=== PATIENT | female | born 1955 | race Caucasian/White ===

== ENCOUNTER 2017-04-25 14:51 | Emergency (ER) | payer OTHER, SELFPAY ==
--- NOTE | 2017-04-25 16:13 | RAD ---
THREE VIEWS LEFT ANKLE 04/25/17 HISTORY: Twisting injury left ankle with pain. AP, lateral and oblique views left ankle is obtained. No evidence of left ankle fractures, subluxati ons, or bony lesions seen. IMPRESSION: Normal three views left ankle. POS: [facility]
[2017-04-25] MEDS ORDERED: HYDROcodone/Acetaminophen 5/325 mg Tablet ONE (16:26)
== END 2017-04-25 17:18 | disposition home or self-care (01) ==
LOC: ERS 14:51
DX: S86.012A Strain of left Achilles tendon, initial encounter (principal); S93.402A Sprain of unspecified ligament of left ankle, initial encounter; S93.602A Unspecified sprain of left foot, initial encounter; I10 Essential (primary) hypertension; J45.909 Unspecified asthma, uncomplicated; E11.9 Type 2 diabetes mellitus without complications; M19.90 Unspecified osteoarthritis, unspecified site; F32.9 Major depressive disorder, single episode, unspecified; Z79.4 Long term (current) use of insulin; X50.1XXA Overexertion from prolonged static or awkward postures, initial encounter; Y92.009 Unspecified place in unspecified non-institutional (private) residence as the place of occurrence of the external cause

== ENCOUNTER 2017-05-10 14:20 | Emergency (ER) | payer SELFPAY | END 2017-05-10 15:00 | disposition home or self-care (01) | LOC: ERS 14:20 | DX: S86.012A Strain of left Achilles tendon, initial encounter (principal); S93.402A Sprain of unspecified ligament of left ankle, initial encounter; S93.602A Unspecified sprain of left foot, initial encounter; E11.9 Type 2 diabetes mellitus without complications; I10 Essential (primary) hypertension; J45.909 Unspecified asthma, uncomplicated; F32.9 Major depressive disorder, single episode, unspecified; X50.1XXA Overexertion from prolonged static or awkward postures, initial encounter; Z79.4 Long term (current) use of insulin | CPT/HCPCS: 99283 ==

== ENCOUNTER 2017-07-04 11:36 | Emergency (ER) | payer SELFPAY ==
[2017-07-04] MEDS ORDERED: HYDROcodone/Acetaminophen 10/325 mg Tablet ONE (12:45)
== END 2017-07-04 13:25 | disposition home or self-care (01) ==
LOC: ERS 11:36
DX: M25.512 Pain in left shoulder (principal); M25.511 Pain in right shoulder; S90.212A Contusion of left great toe with damage to nail, initial encounter; I10 Essential (primary) hypertension; J45.909 Unspecified asthma, uncomplicated; Z79.4 Long term (current) use of insulin; E11.40 Type 2 diabetes mellitus with diabetic neuropathy, unspecified; F32.9 Major depressive disorder, single episode, unspecified; Z79.899 Other long term (current) drug therapy; X58.XXXA Exposure to other specified factors, initial encounter
CPT/HCPCS: 99283

== ENCOUNTER 2017-07-15 17:26 | Emergency (ER) | payer SELFPAY | END 2017-07-15 19:44 | disposition home or self-care (01) | LOC: ERS 17:26 | DX: J10.1 Influenza due to other identified influenza virus with other respiratory manifestations (principal); I10 Essential (primary) hypertension; J45.909 Unspecified asthma, uncomplicated; E11.40 Type 2 diabetes mellitus with diabetic neuropathy, unspecified; M19.90 Unspecified osteoarthritis, unspecified site; F32.9 Major depressive disorder, single episode, unspecified; Z79.4 Long term (current) use of insulin; Z79.899 Other long term (current) drug therapy | CPT/HCPCS: 99283 ==

== ENCOUNTER 2017-07-30 11:49 | Emergency (ER) | payer OTHER, SELFPAY ==
[2017-07-30] MEDS ORDERED: Azithromycin 250 MG TAB ONE (13:34)
--- NOTE | 2017-07-30 14:07 | RAD ---
CHEST ONE VIEW: History: Cough. FINDINGS: Comparison 10-28-14. Cardiac silhouette is magnified by projection. Pulmonary vasculature is unremarkable. Mediastinum is midline. There is no confluent airspace consolidation or evidence of pneumothorax. IMPRESSION: No active cardiopulmonary abnormalities are demonstrated. POS: [facility]
== END 2017-07-30 13:29 | disposition home or self-care (01) ==
LOC: ERS 11:49
DX: R05 Cough (principal); I10 Essential (primary) hypertension; J45.909 Unspecified asthma, uncomplicated; E11.9 Type 2 diabetes mellitus without complications; M19.90 Unspecified osteoarthritis, unspecified site; F32.9 Major depressive disorder, single episode, unspecified; Z79.4 Long term (current) use of insulin
CPT/HCPCS: 71010; 94640; J7620

== ENCOUNTER 2017-09-19 18:48 | Inpatient (IN) | payer SELFPAY ==
[2017-09-19 19:33] LABS: Bilirubin Small (Negative); Blood, Urine Large (Negative); Glucose, Urine (Dipstick) 100 mg/dL (Negative); Leukocyte Trace (Negative); Nitrite Negative (Negative); Protein, Urine (Dipstick) > or equal to 300 mg/dL (Neg-Trace); Specific Gravity, Urine 1.025 (1.005-1.030); Urobilinogen 0.2 mg/dL (0.2-1.0)
[2017-09-19 19:35] LABS: Clarity CLOUDY (Clear)
[2017-09-19 19:36] LABS: Bacteria/HPF 3+ HPF (None Seen); Hyaline Casts/LPF NONE SEEN LPF (0-3 Hyaline); RBC/HPF GREATER THAN 50-TNTC HPF (0-3); Squamous Epithelial 0-3 HPF (0-3)
[2017-09-19 19:52] LABS: #Basophils 0.1 thou/uL (0.0-0.2); #Eosinphils 0.4 thou/uL (0.0-0.7); #Lymphocytes 2.4 thou/uL (1.20-3.40); #Monocytes 0.4 thou/uL (0.11-0.59); #Neutrophils 4.3 thou/uL (1.40-6.50); %Basophils 1.3 % (0.0-1.0); %Eosinophils 5.3 % (0.0-10.0); %Lymphocytes 31.4 % (21.0-51.0); %Monocytes 5.5 % (0.0-10.0); %Neutrophils 56.5 % (42.0-75.0); Hemoglobin 12.9 g/dL (12.0-16.0); Mean Corpuscular HGB CONC 33.7 g/dL (32.0-36.0); Mean Corpuscular Hemoglobin 31.1 pg (27.0-31.0); Mean Corpuscular Volume 92.3 fl (81.0-99.0); Mean Platelet Volume 7.5 fL (7.4-10.4); Platelet Count 202 thou/uL (130-400); RBC Distribution Width 12.4 % (11.5-14.5); Red Blood Cell (RBC) Count 4.13 mill/uL (4.20-5.40); White Blood Cell (WBC) Count 7.7 thou/uL (4.8-10.8)
[2017-09-19 20:11] LABS: ALT (SGPT) 7 U/L (8-55); AST (SGOT) 12 U/L (5-34); Albumin 3.2 g/dL (3.5-5.0); Alkaline Phosphatase 70 U/L (40-150); Anion Gap 13 mmol/L (10-20); BUN (Urea Nitrogen) 14 mg/dL (9.8-20.1); Bilirubin, Total 0.5 mg/dL (0.2-1.2); Calc. Creatinine Clearance 0 mL/min (70-130); Carbon Dioxide 26 mmol/L (22-29); Chloride 100 mmol/L (98-107); Estimated GFR-MDRD 71; Globulin 3.4 g/dL (2.4-3.5); Glucose 135 mg/dL (70-105); Lipase 16 U/L (8-78); Potassium 3.2 mmol/L (3.5-5.1); Protein, Total 6.6 g/dL (6.0-8.3); Sodium 136 mmol/L (136-145)
--- NOTE | 2017-09-19 20:18 | RAD ---
FRONTAL VIEW CHEST 09/19/17 COMPARISON: 07/30/17 CLINICAL HISTORY: Fever, wheezing, blood in urine. FINDINGS: The cardiac silhouette is enlarged as is pulmonary vasculature. There is bilateral interstitial retic ulonodular opacification. No significant effusion or discrete pneumothorax. IMPRESSION: Evidence of decompensated CHF. Correlate clinically. Recommend followup imaging to confirm resolution . POS: [facility]
[2017-09-19 20:31] LABS: CKMB 0.8 ng/mL (0-6.6)
--- NOTE | 2017-09-19 20:37 | CT ---
NONCONTRAST ABDOMEN AND PELVIS CT 09/19/17 CLINICAL HISTORY: Abdominal pain with fever. FINDINGS: There is multifocal abnormal reticulonodular and ground glass opacity of the imaged lung bases bilate rally. There is no urolithiasis or obstructive uropathy. Prior cholecystectomy. The solid abdominal o rgans and bowel, lymph nodes, and vasculature limits assessment without IV contrast or enteric contra st. There is marked thickening of the urinary bladder wall with scattered areas of bladder wall air d ensity. Prominent perivesicular edema is present within the pelvis. Osseous structures reveal degener ative change. IMPRESSION: 1. Atypical pneumonia favored at the partially imaged lung bases, although incompletely evaluate d. Followup imaging to confirm resolution is necessary, given nodularity, in order to exclude a neopl astic process. 2. Findings indicative of emphysematous cystitis. Correlate clinically. POS: [facility]
[2017-09-19] MEDS ORDERED: Enoxaparin Sodium 100 MG/ML SYRINGE ONE (22:12)
[2017-09-19] MEDS ORDERED: Dextrose 50% Abboject 50 ML SYRINGE SLOW IVP PRN (23:24)
[2017-09-19] MEDS ORDERED: HYDROcodone/Acetaminophen 5/325 mg Tablet PO PRN (23:24)
[2017-09-19] MEDS ORDERED: Bisacodyl 5 MG TAB PO PRN (23:24)
[2017-09-19] MEDS ORDERED: Dextrose 5% in Water 1,000 ML IV PRN (23:24)
[2017-09-19] MEDS ORDERED: HumaLOG 300 UNITS/3 ML VIAL SC PRN (23:24)
[2017-09-19] MEDS ORDERED: Acetaminophen 325 MG TAB PO PRN (23:24)
[2017-09-19] MEDS ORDERED: HYDROcodone/Acetaminophen 7.5/325 mg Tablet PO PRN (23:24)
[2017-09-20 00:01] LABS: Critical Call Chem Troponin I RESULT DECREASING; Troponin I 0.441 ng/mL (< 0.028)
[2017-09-20] MEDS ORDERED: Potassium Chloride 20 MEQ TAB PO SCH (00:15)
--- NOTE | 2017-09-20 00:23 | HP ---
CHIEF COMPLAINT: Fevers and wheezing. HISTORY OF PRESENT ILLNESS: Patient is a 61-year-old female who presents with several day history of fevers and wheezing. Patient states that she was coughing as well and had a productive yellow sputu m. She denied any chest pain or any other symptoms. She denied any travel or any sick contacts at [facility]. PAST MEDICAL HISTORY: Patient is significant for hypertension as well as type 2 diabetes with neurop athy, osteoarthritis, and asthma. PAST SURGICAL HISTORY: Patient has had prior appendectomy, , umbilical hernia repair, hyste rectomy, bilateral knee repair, and tonsillectomy. SOCIAL HISTORY: Negative for tobacco or alcohol use. REVIEW OF SYSTEMS: Please see HPI. Rest of 14-point review of system is negative. FAMILY HISTORY: Reviewed and noncontributory. LABORATORY AND X-RAY DATA: CBC, white count of 7.7, H&H 12 and 38 with a platelet of 202. Sodium 13 6, potassium 3.2, chloride 100, bicarbonate 26, BUN 14, creatinine 0.8 with a glucose of 135. Tropon in is 0.5. UA showed trace leukocyte esterase, negative nitrites. CT of the abdomen and pelvis show s an atypical pneumonia at the lung bases and chest x-ray showed possible CHF versus pneumonia. PHYSICAL EXAMINATION: VITAL SIGNS: Blood pressure 115/70, pulse 105. Patient satting 98% on room air. GENERAL: Patient is awake and alert and oriented x3, no acute distress. HEENT: Pupils are equal, round, react to light and accommodation. Extraocular muscles intact. TMs are clear. No erythema in throat. NECK: No JVD, no lymphadenopathy. CARDIOVASCULAR: Regular rate and rhythm. LUNGS: With some soft wheezing throughout. ABDOMEN: Positive bowel sounds, soft, nontender, nondistended. EXTREMITIES: No clubbing, cyanosis, or edema. NEUROLOGIC: Cranial nerves II-XII are grossly intact. Muscle strength was 5/5 throughout. PSYCHIAT MICHAEL: Patient is cooperative and answers questions appropriately. ASSESSMENT AND PLAN: 1. Pneumonia. Continue with current antibiotics of Levaquin. Symptoms as appropriate. 2. Elevated troponin. Continue to trend and depending on the trend, we will decide to treat appropr iately. We will continue on aspirin for now. Lovenox was ordered by the ER. 3. Type 2 diabetes. Continue on insulin 70/30 and insulin sliding scale. 4. Hyperlipidemia. Continue Lipitor. 5. Neuropathy. Continue to amitriptyline. 6. Code status. Patient is a FULL CODE.
[2017-09-20 02:10] VITALS: BMI 38.2
[2017-09-20 02:29] LABS: #Eosinphils 0.1 thou/uL (0.0-0.7); #Lymphocytes 1.4 thou/uL (1.20-3.40); #Monocytes 0.4 thou/uL (0.11-0.59); #Neutrophils 5.4 thou/uL (1.40-6.50); %Basophils 0.3 % (0.0-1.0); %Eosinophils 1.6 % (0.0-10.0); %Lymphocytes 18.9 % (21.0-51.0); %Monocytes 5.9 % (0.0-10.0); %Neutrophils 73.3 % (42.0-75.0); Hemoglobin 11.3 g/dL (12.0-16.0); Mean Corpuscular HGB CONC 34.9 g/dL (32.0-36.0); Mean Corpuscular Volume 91.6 fl (81.0-99.0); Mean Platelet Volume 7.1 fL (7.4-10.4); Platelet Count 181 thou/uL (130-400); RBC Distribution Width 12.3 % (11.5-14.5); Red Blood Cell (RBC) Count 3.53 mill/uL (4.20-5.40); White Blood Cell (WBC) Count 7.4 thou/uL (4.8-10.8)
[2017-09-20 02:56] LABS: Anion Gap 13 mmol/L (10-20); BUN (Urea Nitrogen) 13 mg/dL (9.8-20.1); Calc. Creatinine Clearance 118 mL/min (70-130); Calcium 8.6 mg/dL (7.8-10.44); Carbon Dioxide 27 mmol/L (22-29); Chloride 102 mmol/L (98-107); Critical Call Chem Troponin I RESULT DECREASING; Estimated GFR-MDRD 78; Glucose 206 mg/dL (70-105); Potassium 3.9 mmol/L (3.5-5.1); Sodium 138 mmol/L (136-145); Troponin I 0.319 ng/mL (< 0.028)
[2017-09-20] MEDS ORDERED: FLU VACC QS2017-18 36 mo. & older 0.5 ML SYRINGE IM ONE (09:00)
[2017-09-20] MEDS: Famotidine/PF 20 mg/2ml Vial SLOW IVP SCH ×2 (10:31→21:29)
[2017-09-20] MEDS: Aspirin 325 MG TAB PO SCH (10:31)
[2017-09-20] MEDS: Insulin NPH/Reg Insulin Hm 300 UNITS/3 ML VIAL SC SCH ×2 (11:07→21:29)
--- NOTE | 2017-09-20 13:27 | PDOC.PN ---
- Subjective Encounter Start Date: 09/20/17 Encounter Start Time: 11:45 Subjective: pt up in bed feels better today - Objective Resuscitation Status: Resuscitation Status FULL:Full Resuscitation Vital Signs & Weight: Vital Signs (12 hours) Temp Pulse Resp BP Pulse Ox 09/20/17 08:00 97.8 F 80 17 153/77 H 98 09/20/17 04:00 99.8 F H 106 H 20 141/73 H 96 Weight Weight 209 lb I&O: 09/19/17 09/20/17 09/21/17 06:59 06:59 06:59 Intake Total 360 Output Total 900 Balance -540 Result Diagrams: 09/20/17 02:20 09/20/17 02:20 Additional Labs: Accuchecks 09/20/17 05:52 POC Glucose 190 H Phys Exam - Physical Examination HEENT: PERRLA, moist MMs Neck: no nodes, no JVD Respiratory: wheezing present (mild and mild rhonchi) Cardiovascular: RRR, no significant murmur Gastrointestinal: soft, non-tender Musculoskeletal: no edema Neurological: non-focal Dx/Plan (1) Pneumonia Code(s): J18.9 - PNEUMONIA, UNSPECIFIED ORGANISM Status: Acute Qualifiers: Pneumonia type: due to unspecified organism Laterality: bilateral Lung location: unspecified part of lung Qualified Code(s): J18.9 - Pneumonia, unspecified organism Plan: will continue levaquin. influenza negative. will collect sputum. duonebs scheduled. pt has a hx of asthma. (2) Pneumonia Code(s): J18.9 - PNEUMONIA, UNSPECIFIED ORGANISM Status: Acute (3) Elevated troponin Code(s): R74.8 - ABNORMAL LEVELS OF OTHER SERUM ENZYMES Status: Acute Plan: pt's trops were elevated and now are trending down. she has had a hx of cva 4 years ago with mild right lower ext residual weakness. she is diabetic/htn/cva and has not had a stress test for about 20y. EKG non specific changes. will consult cardiology. (4) CVA (cerebral vascular accident) Code(s): I63.9 - CEREBRAL INFARCTION, UNSPECIFIED Status: Acute Plan: pt on asa will add statin. also check lipid level (5) HTN (hypertension) Code(s): I10 - ESSENTIAL (PRIMARY) HYPERTENSION Status: Acute Plan: continue to monitor (6) Diabetes mellitus Code(s): E11.9 - TYPE 2 DIABETES MELLITUS WITHOUT COMPLICATIONS Status: Acute Qualifiers: Diabetes mellitus type: type 2 Diabetes mellitus complication detail: with other oral complications Diabetes mellitus skilled nursing insulin use: unspecified skilled nursing insulin use status Plan: will continue current tx - Plan * .
[2017-09-20 15:00] LABS: Cardiac Risk 6.3 (Less than 4.5)
[2017-09-20] MEDS ORDERED: Communication Order-Pharmacy FS SCH (16:00)
[2017-09-20] MEDS: Metoprolol Tartrate 25 MG TAB PO SCH ×2 (16:29→21:29)
--- NOTE | 2017-09-20 19:52 | CON ---
DATE OF CONSULTATION: 09/20/2017 HISTORY OF PRESENT ILLNESS: The patient is a 61-year-old woman with a history of hypertension and diabetes mellitus, who presented with coughing and dyspnea. The patient has no known history of cardiac history. The patient states that she presented because she started having a cough and started having low grade fever. The patient denied having any chest discomfort. The patient has multiple cardiac risk factors and was admitted for further evaluation. PAST MEDICAL HISTORY: 1. Diabetes mellitus. 2. Hypertension. 3. Dyslipidemia. PAST SURGICAL HISTORY: Hysterectomy, , hernia surgery, knee surgery, tonsillectomy, and cholecystectomy. ALLERGIES: CODEINE, LATEX and PENICILLIN. SOCIAL HISTORY: Nonsmoker. FAMILY HISTORY: No strong family history of heart disease. REVIEW OF SYSTEMS: Ten-point system otherwise unremarkable. No history of easy bruising or bleeding, bright red blood per rectum. PHYSICAL EXAMINATION: GENERAL: Obese woman, in no acute distress. VITAL SIGNS: Blood pressure was 173/82. NECK: Showed no jugular venous distention. LUNGS: Clear to auscultation. HEART: Regular rate and rhythm, normal S1, S2 with 1/6 systolic murmur. ABDOMEN: Distended. EXTREMITIES: Showed trace edema. SKIN: Warm and dry. NEUROLOGIC: Nonfocal. VASCULAR: Radial pulses are 2+. LABORATORY: Showed sodium 138, potassium 3.9, chloride 102, bicarbonate 27, BUN 13, creatinine 0.76, glucose is 26. Her white blood cell count is 7.4, hemoglobin 11.3, hematocrit 32.3 and platelets were 181. Her EKG revealed her to have normal sinus tachycardia with a nonspecific T-wave abnormality. Troponin was 0.44. IMPRESSION: 1. Elevated troponin level suggestive of possible non-Q-wave myocardial infarction. 2. Diabetes mellitus. 3. Hypertension. 4. Dyslipidemia. 5. Obesity. This patient presents with dyspnea. She has multiple cardiac risk factors including poorly controlled hypertension and dyslipidemia. From a cardiac standpoint, I have discussed the option of medical therapy versus cardiac catheterization. The patient prefers to have an invasive evaluation for definitive diagnosis. The patient will be treated with beta kevin therapy, BERTA inhibitor therapy, and aspirin. We will follow this patient with you through her hospitalization. MARIANO
[2017-09-20] MEDS ORDERED: Atorvastatin Calcium 20 MG TAB PO SCH ×2 (21:00)
[2017-09-20] MEDS: Lisinopril 5 MG TAB PO SCH (21:29)
[2017-09-20] MEDS: Amitriptyline HCl 25 MG TAB PO SCH (21:29)
[2017-09-20] MEDS: Atorvastatin Calcium 40 MG TAB PO SCH (21:29)
[2017-09-21] MEDS: Aspirin 325 MG TAB PO SCH (05:33)
[2017-09-21] MEDS: Lisinopril 5 MG TAB PO SCH ×2 (05:33→20:49)
[2017-09-21] MEDS: Famotidine/PF 20 mg/2ml Vial SLOW IVP SCH ×2 (05:34→20:49)
[2017-09-21] MEDS: Metoprolol Tartrate 25 MG TAB PO SCH ×2 (05:34→20:49)
[2017-09-21] MEDS ORDERED: Diazepam 5 MG TAB PO SCH (06:00)
[2017-09-21 09:51] LABS: Hemoglobin A1c 10.1 % (4.0-6.0)
[2017-09-21] MEDS: Insulin NPH/Reg Insulin Hm 300 UNITS/3 ML VIAL SC SCH ×2 (10:00→20:51)
[2017-09-21 10:07] LABS: ALT (SGPT) 9 U/L (8-55); AST (SGOT) 13 U/L (5-34); Albumin 2.8 g/dL (3.5-5.0); Alkaline Phosphatase 71 U/L (40-150); Anion Gap 11 mmol/L (10-20); BUN (Urea Nitrogen) 11 mg/dL (9.8-20.1); Bilirubin, Total 0.5 mg/dL (0.2-1.2); Calc. Creatinine Clearance 120 mL/min (70-130); Calcium 8.5 mg/dL (7.8-10.44); Carbon Dioxide 25 mmol/L (22-29); Chloride 106 mmol/L (98-107); Estimated GFR-MDRD 79; Globulin 3.4 g/dL (2.4-3.5); Glucose 147 mg/dL (70-105); Potassium 3.5 mmol/L (3.5-5.1); Protein, Total 6.2 g/dL (6.0-8.3); Sodium 138 mmol/L (136-145)
[2017-09-21] MEDS ORDERED: Lidocaine 1% (PF) 30 ML VIAL ONE (11:20)
[2017-09-21] MEDS ORDERED: Midazolam HCl 2 mg/2 ml Vial ONE (11:28)
[2017-09-21] MEDS ORDERED: Nitroglycerin 0.4 MG TAB (25 Tab Bottle) SL PRN (11:51)
[2017-09-21] MEDS ORDERED: Sodium Chloride 0.9% 200 ML IV PRN (12:00)
[2017-09-21] MEDS ORDERED: Iopamidol 370 76% 100 ML VIAL ONE (12:50)
--- NOTE | 2017-09-21 14:52 | PDOC.PN ---
- Subjective Encounter Start Date: 09/21/17 Encounter Start Time: 11:55 Subjective: pt up in bed no complains - Objective Resuscitation Status: Resuscitation Status FULL:Full Resuscitation Vital Signs & Weight: Vital Signs (12 hours) Temp Pulse Resp BP BP Pulse Ox 09/21/17 12:15 98.2 F 88 16 135/63 93 L 09/21/17 08:50 99.3 F 94 18 96 09/21/17 07:50 98.8 F 89 16 141/82 H 96 09/21/17 03:06 99.3 F 94 18 148/69 H 94 L Weight Weight 209 lb 8 oz I&O: 09/20/17 09/21/17 09/22/17 06:59 06:59 06:59 Intake Total 750 Output Total 1500 Balance -750 Result Diagrams: 09/20/17 02:20 09/21/17 09:24 Additional Labs: Accuchecks 09/21/17 09/20/17 09/20/17 05:38 20:13 16:37 POC Glucose 139 H 151 H 93 Phys Exam - Physical Examination HEENT: PERRLA Neck: no nodes Respiratory: no wheezing, no rales Cardiovascular: RRR, no significant murmur Gastrointestinal: soft, non-tender Musculoskeletal: no edema (groin site appears well, pedal pulse present to right and left foot) Neurological: non-focal Dx/Plan (1) Pneumonia Code(s): J18.9 - PNEUMONIA, UNSPECIFIED ORGANISM Status: Acute Qualifiers: Pneumonia type: due to unspecified organism Laterality: bilateral Lung location: unspecified part of lung Qualified Code(s): J18.9 - Pneumonia, unspecified organism Plan: continue current tx (2) Pneumonia Code(s): J18.9 - PNEUMONIA, UNSPECIFIED ORGANISM Status: Acute (3) Elevated troponin Code(s): R74.8 - ABNORMAL LEVELS OF OTHER SERUM ENZYMES Status: Acute (4) CVA (cerebral vascular accident) Code(s): I63.9 - CEREBRAL INFARCTION, UNSPECIFIED Status: Acute (5) HTN (hypertension) Code(s): I10 - ESSENTIAL (PRIMARY) HYPERTENSION Status: Acute (6) Diabetes mellitus Code(s): E11.9 - TYPE 2 DIABETES MELLITUS WITHOUT COMPLICATIONS Status: Acute Qualifiers: Diabetes mellitus type: type 2 Diabetes mellitus complication detail: with other oral complications Diabetes mellitus terminal operations manager insulin use: unspecified retirement insulin use status - Plan * .
[2017-09-21] MEDS: HumaLOG 300 UNITS/3 ML VIAL SC PRN (17:16)
--- NOTE | 2017-09-21 18:34 | CON ---
DATE OF CONSULTATION: 09/21/2017 HISTORY OF PRESENT ILLNESS: Ms. Patel is a 61-year-old woman who has uncontrolled hypertension, cristy betes mellitus. She presented with cough and feeling like she had the flu. EKG was abnormal and tro ponin was 0.44. Due to this, she was taken to the laborer operator today and found to have severe diffuse th ree-vessel disease. She really has no bypassable target. I have been asked to see her to discuss he r options. PAST MEDICAL HISTORY: 1. Diabetes mellitus. 2. Hypertension. 3. Hyperlipidemia. PAST SURGICAL HISTORY: 1. Hysterectomy. 2. . 3. Hernia surgery. 4. Knee surgery. 5. Tonsillectomy. 6. Cholecystectomy. ALLERGIES: CODEINE. MEDICATIONS: LATEX AND PENICILLIN. SOCIAL HISTORY: She does not use tobacco, although her smokes multiple packs of cigarettes a day. REVIEW OF SYSTEMS: Ten point review of systems is performed and is negative except as above. PHYSICAL EXAMINATION: GENERAL: Well-developed, well-nourished, mildly obese woman resting comfortably. VITAL SIGNS: Height 5 feet 2 inches, weight 209 pounds, BSA is 2.04, temperature is 97.9, pulse 92 a nd regular, blood pressure 103/58. HEENT: Sclerae nonicteric. Pupils equal, round bilaterally. NECK: Supple, without bruit. CHEST: Clear bilaterally. HEART: Rhythm is regular, without murmur. ABDOMEN: Soft and nontender. EXTREMITIES: No cyanosis, clubbing or edema. ASSESSMENT AND PLAN: This unfortunate 61-year-old woman with severe diffuse 3-vessel disease with no bypassable targets. I have discussed with her that surgery is really not a good option and medical management is in her best interest.
[2017-09-21] MEDS: Atorvastatin Calcium 40 MG TAB PO SCH (20:49)
[2017-09-21] MEDS: Amitriptyline HCl 25 MG TAB PO SCH (20:49)
[2017-09-21] MEDS: Diabetic Tussin DM 5 ML UDCUP PO PRN (23:12)
[2017-09-22] MEDS: Aspirin 325 MG TAB PO SCH (08:17)
[2017-09-22] MEDS: Famotidine/PF 20 mg/2ml Vial SLOW IVP SCH ×2 (08:18→21:59)
[2017-09-22] MEDS: Metoprolol Tartrate 25 MG TAB PO SCH (08:18)
[2017-09-22] MEDS: Lisinopril 5 MG TAB PO SCH ×2 (08:18→21:59)
[2017-09-22] MEDS: Insulin NPH/Reg Insulin Hm 300 UNITS/3 ML VIAL SC SCH ×2 (08:18→22:03)
[2017-09-22] MEDS ORDERED: Aspirin 325 MG TAB PO SCH (08:38)
[2017-09-22] MEDS ORDERED: Clopidogrel Bisulfate 300 MG TAB PO SCH (08:45)
--- NOTE | 2017-09-22 14:02 | PDOC.PN ---
- Subjective Encounter Start Date: 09/22/17 Encounter Start Time: 14:00 Subjective: pt up in bed no complains - Objective Resuscitation Status: Resuscitation Status FULL:Full Resuscitation Vital Signs & Weight: Vital Signs (12 hours) Temp Pulse Resp BP 09/22/17 04:00 98.4 F 100 18 133/65 Weight Weight 206 lb 3.2 oz I&O: 09/21/17 09/22/17 09/23/17 06:59 06:59 06:59 Intake Total 750 1470 Output Total 1500 2100 Balance -750 -630 Result Diagrams: 09/20/17 02:20 09/21/17 09:24 Additional Labs: Accuchecks 09/22/17 09/22/17 09/21/17 12:15 06:07 20:04 POC Glucose 155 H 217 H 194 H 09/21/17 16:30 POC Glucose 256 H Phys Exam - Physical Examination HEENT: PERRLA Neck: no nodes, no JVD Respiratory: no wheezing, no rales Cardiovascular: no significant murmur Gastrointestinal: soft, non-tender Musculoskeletal: no edema, pulses present Neurological: non-focal Dx/Plan (1) Pneumonia Code(s): J18.9 - PNEUMONIA, UNSPECIFIED ORGANISM Status: Acute Qualifiers: Pneumonia type: due to unspecified organism Laterality: bilateral Lung location: unspecified part of lung Qualified Code(s): J18.9 - Pneumonia, unspecified organism Plan: continue current abx for now (2) Elevated troponin Code(s): R74.8 - ABNORMAL LEVELS OF OTHER SERUM ENZYMES Status: Acute (3) CVA (cerebral vascular accident) Code(s): I63.9 - CEREBRAL INFARCTION, UNSPECIFIED Status: Acute Plan: continue asa/statin (4) HTN (hypertension) Code(s): I10 - ESSENTIAL (PRIMARY) HYPERTENSION Status: Acute Plan: stable continue to monitor (5) Diabetes mellitus Code(s): E11.9 - TYPE 2 DIABETES MELLITUS WITHOUT COMPLICATIONS Status: Acute Qualifiers: Diabetes mellitus type: type 2 Diabetes mellitus complication detail: with other oral complications Diabetes mellitus termite exterminator helper insulin use: unspecified termite exterminator helper insulin use status Plan: hbgalc is 10. continue current meds for now (6) CAD (coronary artery disease) Code(s): I25.10 - ATHSCL HEART DISEASE OF FALSE PASS CORONARY ARTERY W/O ANG PCTRS Status: Acute Plan: pt had cardiac cath with multi vessel disease. cardiothorasic consulted medical management. - Plan * .
[2017-09-22] MEDS: Atorvastatin Calcium 40 MG TAB PO SCH (21:58)
[2017-09-22] MEDS: Amitriptyline HCl 25 MG TAB PO SCH (21:59)
[2017-09-23] MEDS: Diabetic Tussin DM 5 ML UDCUP PO PRN (02:37)
[2017-09-23] MEDS ORDERED: Clopidogrel Bisulfate 75 MG TAB PO SCH (09:00)
[2017-09-23] MEDS: Famotidine/PF 20 mg/2ml Vial SLOW IVP SCH (09:24)
[2017-09-23] MEDS: Insulin NPH/Reg Insulin Hm 300 UNITS/3 ML VIAL SC SCH (09:24)
[2017-09-23] MEDS ORDERED: Lisinopril 10 MG TAB PO SCH ×2 (09:30→21:00)
[2017-09-23] MEDS: HumaLOG 300 UNITS/3 ML VIAL SC PRN (12:15)
[2017-09-23 14:04] VITALS: BP 124/59; TEMP 98.1
--- NOTE | 2017-09-23 20:46 | DIS ---
DATE OF ADMISSION: 09/19/2017 DATE OF DISCHARGE: 09/23/2017 DISCHARGE DIAGNOSES: 1. Community-acquired pneumonia. 2. Coronary artery disease, unstentable medical management only. 3. Hypertension. 4. Diabetes. 5. Hyperlipidemia. DISCHARGE MEDICATIONS: Flexeril 10 mg p.o. daily, amitriptyline 50 mg daily, metoprolol succinate 10 0 mg p.o. daily, lisinopril 10 mg twice a day, isosorbide 30 mg daily, insulin Humulin 70/30 of 50 un its b.i.d., Plavix 75 mg daily, atorvastatin 80 mg daily, aspirin 81 mg daily, and pioglitazone 30 mg daily. HOSPITAL COURSE: The patient is a very pleasant 61-year-old unfortunate female who initially present ed to the hospital with shortness of breath who was treated with pneumonia. She does have a history of asthma which has been under control. She also states that she has been coughing up some productiv e yellow-colored sputum. Patient on lab evaluation was found to have elevated troponins with just mi ld changes in her EKG. At that point, given her risk factors, Cardiology was consulted. Patient did undergo a cardiac catheterization which indicated patient had diffuse irregular and multiple stenose s. The patient had multiple stenoses of the left circumflex, the RCA and to the LAD. At this point, Cardiovascular Surgery was consulted; however, they did not think she was a suitable candidate for o pen heart and recommended medical management only. The patient was put on aspirin, Plavix, statin, m etoprolol and lisinopril. The patient was educated on her blood sugar control and followup with her PCP since her hemoglobin A1c was 10. The patient also was given 5 days course of her antibiotics. S he did have a CT abdomen and pelvis on admission which indicated the following, atypical pneumonia fe otilio at the primary image lung base, although incomplete evaluation following image to confirm resolut ion as necessary given the nodularity in order to exclude a neoplastic process. Also, findings were indicative of emphysematous cystitis. Patient was asked to follow up with the PCP for repeat scans a nd for blood sugar control. She will follow up with Cardiology in couple of weeks. Patient will be discharged home. Patient's EF was noted to be 50% when she underwent a cardiac catheterization.
[2017-09-23] MEDS ORDERED: Famotidine 20 MG TAB PO SCH (21:00)
[2017-09-24] MEDS ORDERED: Lisinopril 10 MG TAB PO SCH (09:00)
--- NOTE | 2017-09-26 17:05 | EKG ---
Test Reason : EMERGENCY EXAM Blood Pressure : / mmHG Vent. Rate : 101 BPM Atrial Rate : 101 BPM P-R Int : 154 ms QRS Dur : 088 ms QT Int : 386 ms P-R-T Axes : 013 -43 036 degrees QTc Int : 500 ms Sinus tachycardia with Premature atrial complexes Left axis deviation Nonspecific T wave abnormality Abnormal ECG Confirmed by NIMESH FINCH D.O. ([id number]), general expeditor LEONARD THOMAS ([id number]) on 09/26/2017 5:04:23 PM Referred By: Confirmed By:NIMESH FINCH D.O.
== END 2017-09-23 14:05 | disposition home or self-care (01) | DRG 280 ==
LOC: ERS 18:48 → 2NO 22:00
PROVIDERS: ADMIT Hospitalist; ATTEND Hospitalist
PROC: 4A023N7 Measurement of Cardiac Sampling and Pressure, Left Heart, Percutaneous Approach (ICD-10-PCS; principal; 2017-09-20)
PROC: B2111ZZ Fluoroscopy of Multiple Coronary Arteries using Low Osmolar Contrast (ICD-10-PCS; 2017-09-20)
PROC: B2151ZZ Fluoroscopy of Left Heart using Low Osmolar Contrast (ICD-10-PCS; 2017-09-20)
DX: I21.4 Non-ST elevation (NSTEMI) myocardial infarction (principal); J18.9 Pneumonia, unspecified organism; E11.42 Type 2 diabetes mellitus with diabetic polyneuropathy; I69.951 Hemiplegia and hemiparesis following unspecified cerebrovascular disease affecting right dominant side; I10 Essential (primary) hypertension; M19.90 Unspecified osteoarthritis, unspecified site; J45.909 Unspecified asthma, uncomplicated; E78.5 Hyperlipidemia, unspecified; I25.10 Atherosclerotic heart disease of native coronary artery without angina pectoris; Z79.82 Long term (current) use of aspirin; Z79.4 Long term (current) use of insulin; Z88.5 Allergy status to narcotic agent; Z88.0 Allergy status to penicillin; Z91.040 Latex allergy status; E66.9 Obesity, unspecified; Z68.38 Body mass index [BMI] 38.0-38.9, adult; N30.81 Other cystitis with hematuria; F32.9 Major depressive disorder, single episode, unspecified
CPT/HCPCS: 36415; 36416; 71045; 74176; 80048; 80053; 80061; 81003; 81015; 82550; 82553; 83036; 83690; 84443; 84484; 85025; 87040; 87086; 89220; 90471; 90682; 90732; 93005; 93458; 93798; 96361; 96372; 96374; 99152; 99153; A4216; C1769; G0008; G0009; J0696; J1644; J1650; J1956; J2001; J2250; Q2036; S0028

== ENCOUNTER 2017-11-26 14:16 | Observation (INO) | payer OTHER, SELFPAY ==
[2017-11-26 14:59] LABS: #Basophils 0.1 thou/uL (0.0-0.2); #Eosinphils 0.2 thou/uL (0.0-0.7); #Monocytes 0.3 thou/uL (0.11-0.59); #Neutrophils 2.8 thou/uL (1.40-6.50); %Basophils 1.1 % (0.0-1.0); %Eosinophils 2.9 % (0.0-10.0); %Lymphocytes 47.2 % (21.0-51.0); %Monocytes 5.3 % (0.0-10.0); %Neutrophils 43.4 % (42.0-75.0); Hemoglobin 11.9 g/dL (12.0-16.0); Mean Corpuscular HGB CONC 34.9 g/dL (32.0-36.0); Mean Corpuscular Hemoglobin 31.8 pg (27.0-31.0); Mean Corpuscular Volume 91.1 fl (81.0-99.0); Mean Platelet Volume 6.6 fL (7.4-10.4); Platelet Count 240 thou/uL (130-400); Red Blood Cell (RBC) Count 3.75 mill/uL (4.20-5.40); White Blood Cell (WBC) Count 6.4 thou/uL (4.8-10.8)
[2017-11-26] MEDS ORDERED: Nitroglycerin 2% Ointment 1 INCH/1 GM Packet ONE (15:14)
[2017-11-26 15:18] LABS: ALT (SGPT) 9 U/L (8-55); AST (SGOT) 11 U/L (5-34); Albumin 3.7 g/dL (3.4-4.8); Alkaline Phosphatase 47 U/L (40-150); Anion Gap 13 mmol/L (10-20); BUN (Urea Nitrogen) 21 mg/dL (9.8-20.1); Bilirubin, Total 0.4 mg/dL (0.2-1.2); Calc. Creatinine Clearance 0 mL/min (70-130); Calcium 9.1 mg/dL (7.8-10.44); Carbon Dioxide 25 mmol/L (23-31); Chloride 105 mmol/L (98-107); Estimated GFR-MDRD 84; Globulin 3.3 g/dL (2.4-3.5); Glucose 82 mg/dL (80-115); Potassium 3.6 mmol/L (3.5-5.1); Sodium 139 mmol/L (136-145)
[2017-11-26 15:23] LABS: CKMB 0.6 ng/mL (0-6.6); Troponin I Less than 0.010 ng/mL (< 0.028)
[2017-11-26 15:29] LABS: Magnesium 1.8 mg/dL (1.6-2.6)
--- NOTE | 2017-11-26 15:54 | RAD ---
CHEST ONE VIEW: History: Chest pain Comparison: 09-19-17 FINDINGS: Lungs are slightly hyperinflated. Heart size is enlarged. No pneumothorax. Mild pulmonary venous congestion. IMPRESSION: Cardiomegaly. Mild pulmonary venous congestion. POS: [facility]
[2017-11-26] MEDS ORDERED: Labetalol HCl 100 MG/20 ML VIAL ONE (16:08)
[2017-11-26 17:32] VITALS: BMI 44.9
[2017-11-26 18:18] LABS: Troponin I Less than 0.010 ng/mL (< 0.028)
[2017-11-26] MEDS ORDERED: Nitroglycerin 0.4 MG TAB (25 Tab Bottle) PO PRN (20:04)
[2017-11-26 20:16] LABS: Hemoglobin A1c 6.9 % (4.0-6.0)
[2017-11-26] MEDS ORDERED: Carvedilol 3.125 MG TAB PO SCH (21:00)
[2017-11-26] MEDS ORDERED: Insulin NPH/Reg Insulin Hm 300 UNITS/3 ML VIAL SC SCH ×2 (21:00)
[2017-11-26 21:45] LABS: Troponin I Less than 0.010 ng/mL (< 0.028)
[2017-11-26] MEDS ORDERED: Atorvastatin Calcium 40 MG TAB PO SCH (21:45)
[2017-11-26] MEDS: Atorvastatin Calcium 40 MG TAB PO SCH (22:54)
[2017-11-27 05:57] LABS: Cardiac Risk 5.8 (Less than 4.5)
[2017-11-27] MEDS ORDERED: Insulin NPH/Reg Insulin Hm 300 UNITS/3 ML VIAL SC SCH ×3 (07:30→21:00)
[2017-11-27] MEDS ORDERED: Lisinopril 10 MG TAB PO SCH (09:00)
[2017-11-27] MEDS: Amitriptyline HCl 100 MG TAB PO SCH (09:01)
[2017-11-27] MEDS: Clopidogrel Bisulfate 75 MG TAB PO SCH ×2 (09:02→13:20)
[2017-11-27] MEDS: Insulin NPH/Reg Insulin Hm 300 UNITS/3 ML VIAL SC SCH (09:02)
--- NOTE | 2017-11-27 12:57 | CON ---
DATE OF CONSULTATION: 11/27/2017 HISTORY OF PRESENT ILLNESS: The patient is very unfortunate 62-year-old woman with a history of severe coronary artery disease, who presents with recurrent chest discomfort and weakness. The patient was seen initially in 09/2017. She presented with dyspnea. She had evidence of a non-Q-wave myocardial infarction. The patient subsequently underwent a cardiac catheterization. She was found to have severe 3-vessel coronary artery disease. The patient underwent consultation by CV Surgery. She was felt to be having inoperable disease due to no bypassable targets. The patient has been on medical therapy. She states she has been compliant with her medication. She presented with increasing weakness and chest discomfort. She was noted to be markedly hypertensive. The patient denies having any present chest discomfort. PAST MEDICAL HISTORY: 1. Coronary artery arteries: 2. Hypertension. 3. Diabetes mellitus. 4. Dyslipidemia. PAST SURGICAL HISTORY: Hysterectomy, , hernia surgery, knee surgery, tonsillectomy, cholecystectomy. ALLERGIES: CODEINE, LASIX, PENICILLIN. SOCIAL HISTORY: Nonsmoker. FAMILY HISTORY: There is no strong family history of coronary artery disease. CURRENT MEDICATIONS: Toprol 50 XL b.i.d., Plavix 75 daily, Imdur 60 q.a.m., lisinopril 10 daily, aspirin 81 daily, Lipitor 80 at bedtime, Elavil 50 daily, and insulin. REVIEW OF SYSTEMS: Ten-point system noticeable for increasing weakness and diaphoresis. PHYSICAL EXAMINATION: GENERAL: Obese woman in no acute distress. VITAL SIGNS: Blood pressure 138/65. NECK: No jugular venous distention, no carotid bruits. LUNGS: Clear to auscultation. HEART: Regular rate and rhythm. Normal S1, S2. ABDOMEN: Distended. EXTREMITIES: Show trace edema. SKIN: Warm and dry. NEUROLOGIC EXAM: Nonfocal. LABORATORY RESULTS: Her sodium was 139, potassium 3.6, chloride 105, bicarbonate 25, BUN 21, creatinine 0.71, troponin was 0.01. Her white blood cell count was 6.4, hemoglobin 11.9, hematocrit 34.2, platelets 240. IMPRESSION: 1. Hypertensive crisis. 2. Inoperable 3-vessel coronary artery disease. 3. Dyslipidemia. 4. Diabetes mellitus. 5. Hypertension. 6. Obesity. This is an unfortunate woman, who presented with a hypertensive crisis. She will need to have the dose of her medications increased. We will increase the dose of Toprol and lisinopril. The patient can be discharged once her blood pressure has stabilized. We will recheck the patient's lipid panel and she may need further lipid-lowering medication. We will follow this patient with you through her hospitalization. MARIANO
[2017-11-27 14:15] LABS: ALT (SGPT) 7 U/L (8-55); AST (SGOT) 9 U/L (5-34); Albumin 3.3 g/dL (3.4-4.8); Alkaline Phosphatase 40 U/L (40-150); Anion Gap 10 mmol/L (10-20); BUN (Urea Nitrogen) 17 mg/dL (9.8-20.1); Bilirubin, Total 0.5 mg/dL (0.2-1.2); Calc. Creatinine Clearance 153 mL/min (70-130); Carbon Dioxide 29 mmol/L (23-31); Chloride 104 mmol/L (98-107); Estimated GFR-MDRD 88; Globulin 2.8 g/dL (2.4-3.5); Glucose 133 mg/dL (80-115); Protein, Total 6.1 g/dL (6.0-8.3); Sodium 139 mmol/L (136-145)
--- NOTE | 2017-11-27 14:27 | PDOC.PN ---
- Subjective Encounter Start Date: 11/27/17 Encounter Start Time: 14:27 Subjective: nsg notes rev, unique ovn, no further chest pain, doesnt "feel" when her blood -: pressure is high - Objective Vital Signs & Weight: Vital Signs (12 hours) Temp Pulse Resp BP Pulse Ox 11/27/17 11:33 79 138/65 11/27/17 10:45 97.2 F L 92 12 96 11/27/17 08:00 97.5 F L 87 12 11/27/17 07:50 97.5 F L 87 12 197/87 H 97 11/27/17 03:00 97.5 F L 78 16 160/74 H 97 Weight Weight 245 lb 14.4 oz I&O: 11/26/17 11/27/17 11/28/17 06:59 06:59 06:59 Intake Total 1020 Output Total 400 800 Balance 620 -800 Result Diagrams: 11/28/17 12:39 11/27/17 13:37 Additional Labs: Accuchecks 11/27/17 11/27/17 11/27/17 10:51 03:49 02:50 POC Glucose 105 109 84 11/27/17 11/26/17 11/26/17 01:41 19:54 17:24 POC Glucose 62 L 145 H 83 Phys Exam - Physical Examination Constitutional: NAD lying in hospital bed HEENT: PERRLA, moist MMs, oral pharynx no lesions Respiratory: no wheezing, no rales, no rhonchi, clear to auscultation bilateral Cardiovascular: RRR, no significant murmur, no rub soft heart tones Gastrointestinal: soft, non-tender, positive bowel sounds Musculoskeletal: no edema, pulses present Neurological: moves all 4 limbs Psychiatric: normal affect, A&O x 3 Dx/Plan - Plan * chest pain * resolved * apprec card c/s * has known CAD hypertension * with urgency, still persistent elev SBP * continue uptitrating meds hx CAD * risk factor modification with BP ctrl * recheck fasting lipid panel DM * previously poorly controlled * continue home insulin diet: diabetic, cardiac activity: as kyleigh dvt ppx Review of Systems - Medications/Allergies Allergies/Adverse Reactions: Allergies Allergy/AdvReac Type Severity Reaction Status Date / Time codeine Allergy Verified 09/19/17 23:37 Latex, Natural Rubber Allergy Verified 09/19/17 23:37 Penicillins Allergy Verified 09/19/17 23:37 Medications: Current Medications Amitriptyline HCl (Elavil) 50 mg PO DAILY [facility] Last Admin: 11/27/17 09:01 Dose: 50 mg Aspirin (Aspirin Chewable) 81 mg PO DAILY [facility] Last Admin: 11/27/17 09:02 Dose: 81 mg Atorvastatin Calcium (Lipitor) 80 mg PO [facility] Last Admin: 11/26/17 22:54 Dose: Not Given Clopidogrel Bisulfate (Plavix) 75 mg PO DAILY [facility] Last Admin: 11/27/17 13:20 Dose: 75 mg Insulin Human Isoph/Insulin Regular (Humulin 70/30) 70 units SC [facility] Last Admin: 11/27/17 09:02 Dose: Not Given Insulin Human Isoph/Insulin Regular (Humulin 70/30) 50 units SC [facility] Isosorbide Mononitrate (Imdur) 60 mg PO DAILY [facility] Last Admin: 11/27/17 09:01 Dose: 60 mg Lisinopril (Zestril) 10 mg PO BID [facility] Metoprolol Succinate (Toprol Xl) 100 mg PO BID [facility] Nitroglycerin (Nitrostat) 0.4 mg PO Q5MIN PRN PRN Reason: Chest Pain
[2017-11-27 16:22] LABS: Bilirubin Negative (Negative); Blood, Urine Large (Negative); Clarity CLOUDY (Clear); Glucose, Urine (Dipstick) Negative (Negative); Leukocyte Small (Negative); Nitrite Negative (Negative); Protein, Urine (Dipstick) 300 mg/dL (Neg-Trace); Specific Gravity, Urine 1.019 (1.002-1.036); Urobilinogen 0.2 mg/dL (0.2-1.0)
[2017-11-27 16:25] LABS: Bacteria/HPF Rare-Few HPF (None Seen); RBC/HPF GREATER THAN 50-TNTC HPF (0-3); WBC/HPF 21-50 HPF (0-3)
[2017-11-27 16:30] LABS: Pathc Cast-AUWi Flag 3.69 (0-2.49)
[2017-11-27 16:33] LABS: Manual Microscopic Reviewed? No Path Casts Seen
[2017-11-27] MEDS: Atorvastatin Calcium 40 MG TAB PO SCH (20:59)
[2017-11-27] MEDS: Lisinopril 10 MG TAB PO SCH (21:00)
[2017-11-28] MEDS: Lisinopril 10 MG TAB PO SCH (08:28)
[2017-11-28] MEDS: Clopidogrel Bisulfate 75 MG TAB PO SCH (08:29)
[2017-11-28] MEDS: Amitriptyline HCl 100 MG TAB PO SCH (08:29)
[2017-11-28] MEDS: Insulin NPH/Reg Insulin Hm 300 UNITS/3 ML VIAL SC SCH (08:31)
[2017-11-28 12:51] LABS: #Eosinphils 0.2 thou/uL (0.0-0.7); #Lymphocytes 1.6 thou/uL (1.20-3.40); #Monocytes 0.4 thou/uL (0.11-0.59); %Basophils 0.8 % (0.0-1.0); %Eosinophils 3.5 % (0.0-10.0); %Lymphocytes 26.2 % (21.0-51.0); %Neutrophils 63.6 % (42.0-75.0); Hemoglobin 11.2 g/dL (12.0-16.0); Mean Corpuscular Hemoglobin 32.4 pg (27.0-31.0); Mean Platelet Volume 6.5 fL (7.4-10.4); Platelet Count 224 thou/uL (130-400); RBC Distribution Width 12.9 % (11.5-14.5); Red Blood Cell (RBC) Count 3.45 mill/uL (4.20-5.40); White Blood Cell (WBC) Count 6.3 thou/uL (4.8-10.8)
--- NOTE | 2017-11-28 13:04 | PDOC.PN ---
- Subjective Encounter Start Date: 11/28/17 Encounter Start Time: 13:03 Subjective: nsg notes rev, unique ovn, no new c/o, no further CP but concerned that her -: accucheck glc are lower than she is used to - Objective Vital Signs & Weight: Vital Signs (12 hours) Temp Pulse Resp BP Pulse Ox 11/28/17 11:06 98.0 F 81 16 177/81 H 97 11/28/17 08:00 98.1 F 80 18 11/28/17 07:50 98.1 F 80 18 146/67 H 96 11/28/17 05:45 94 L 11/28/17 03:55 98.2 F 85 16 136/65 95 Weight Weight 245 lb 14.4 oz I&O: 11/27/17 11/28/17 11/29/17 06:59 06:59 06:59 Intake Total 1020 1400 Output Total 400 1950 Balance 620 -550 Result Diagrams: 11/28/17 12:39 11/27/17 13:37 Additional Labs: Accuchecks 11/28/17 11/28/17 11/28/17 10:51 05:34 01:18 POC Glucose 75 147 H 86 11/28/17 11/27/17 11/27/17 00:31 20:34 16:46 POC Glucose 60 L 222 H 236 H Phys Exam - Physical Examination Constitutional: NAD lying in hospital bed HEENT: PERRLA, moist MMs, oral pharynx no lesions Respiratory: no wheezing, no rales, no rhonchi Cardiovascular: RRR, no rub Gastrointestinal: soft, non-tender, no distention, positive bowel sounds Musculoskeletal: no edema, pulses present Neurological: moves all 4 limbs Psychiatric: normal affect, A&O x 3 Dx/Plan - Plan * chest pain * resolved * apprec card c/s * has known CAD hypertension * with urgency, still persistent elev SBP * continue uptitrating meds hx CAD * risk factor modification with BP ctrl * recheck fasting lipid panel DM * previously poorly controlled * continue home insulin, re-eval need and trial decreasing * recheck CBC, BMP diet: diabetic, cardiac activity: as kyleigh dvt ppx Review of Systems - Medications/Allergies Allergies/Adverse Reactions: Allergies Allergy/AdvReac Type Severity Reaction Status Date / Time codeine Allergy Verified 09/19/17 23:37 Latex, Natural Rubber Allergy Verified 09/19/17 23:37 Penicillins Allergy Verified 09/19/17 23:37 Medications: Current Medications Amitriptyline HCl (Elavil) 50 mg PO DAILY [facility] Last Admin: 11/28/17 08:29 Dose: 50 mg Aspirin (Aspirin Chewable) 81 mg PO DAILY [facility] Last Admin: 11/28/17 08:28 Dose: 81 mg Atorvastatin Calcium (Lipitor) 80 mg PO HS [facility] Last Admin: 11/27/17 20:59 Dose: 80 mg Clopidogrel Bisulfate (Plavix) 75 mg PO DAILY [facility] Last Admin: 11/28/17 08:29 Dose: 75 mg Insulin Human Isoph/Insulin Regular (Humulin 70/30) [facility] Last Admin: 11/28/17 08:31 Dose: 70 unit Insulin Human Isoph/Insulin Regular (Humulin 70/30) 50 units SC [facility] Last Admin: 11/27/17 21:00 Dose: 50 unit Isosorbide Mononitrate (Imdur) 60 mg PO DAILY [facility] Last Admin: 11/28/17 08:29 Dose: 60 mg Lisinopril (Zestril) 10 mg PO BID [facility] Last Admin: 11/28/17 08:28 Dose: 10 mg Metoprolol Succinate (Toprol Xl) 100 mg PO BID [facility] Last Admin: 11/28/17 08:28 Dose: 100 mg Nitroglycerin (Nitrostat) 0.4 mg PO Q5MIN PRN PRN Reason: Chest Pain
[2017-11-28 13:12] LABS: ALT (SGPT) 9 U/L (8-55); AST (SGOT) 15 U/L (5-34); Albumin 3.1 g/dL (3.4-4.8); Alkaline Phosphatase 41 U/L (40-150); Anion Gap 9 mmol/L (10-20); BUN (Urea Nitrogen) 19 mg/dL (9.8-20.1); Bilirubin, Total 0.3 mg/dL (0.2-1.2); Calc. Creatinine Clearance 133 mL/min (70-130); Calcium 8.7 mg/dL (7.8-10.44); Carbon Dioxide 28 mmol/L (23-31); Chloride 105 mmol/L (98-107); Estimated GFR-MDRD 75; Globulin 2.8 g/dL (2.4-3.5); Glucose 76 mg/dL (80-115); Potassium 4.3 mmol/L (3.5-5.1); Protein, Total 5.9 g/dL (6.0-8.3); Sodium 138 mmol/L (136-145)
--- NOTE | 2017-11-28 13:50 | HP ---
STAFFING ASSISTANT: Dr. Shields. CHIEF COMPLAINT: Chest pain. 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 At the time, she was also found to be in hypertensive urgency was therefore sent to the emergency department. At the time of my evaluation, the patient denies having any continued chest pain , shortness of breath. REVIEW OF SYSTEMS: As per HPI. Constitutional: No recent significant weight changes including any gain or loss that the patient is aware of, but she also has not been weighing herself on a daily basis. The patient denies any recent fevers or chills. HEENT: Denies any headaches or vision changes. Cardiovascular: Chest pain as described above, pressure-like, substernal, slight radiation towards the left. Respiratory: Shortness of breath associated with chest pain, but otherwise no shortness of breath or dyspnea on exertion at baseline. Gastrointestinal: Denies any nausea, vomiting, issues with diarrhea or constipation. Denies any abdominal pain and reports a retained appetite. Genitourinary: Denies any issues with dysuria, urinary changes in quantity quality or odor. Musculoskeletal: Denies any myalgias or arthralgias. PAST MEDICAL AND SURGICAL HISTORY: As per above, 1. Coronary artery disease. 2. Hypertension. 3. Diabetes. 4. Hyperlipidemia. 5. Status post hysterectomy. 6. Status post knee surgery. 7. Status post cholecystectomy. 8. Status post . 9. Status post tonsillectomy. 10. Status post hernia surgery. HOME MEDICATIONS: Please see EMR for full details. The patient denies any recent changes to her home regimen. Currently includes insulin 50 units subcu at bedtime, 70 units subcu q.a.m., amitriptyline 50 mg p.o. daily, atorvastatin 80 mg p.o. at bedtime, aspirin 81 mg p.o. daily, lisinopril 10 mg p.o. daily, isosorbide mononitrate 60 mg p.o. daily, Clopidogrel 75 mg p.o. b.i.d., metoprolol 50 mg p.o. b.i.d. ALLERGIES: Include CODEINE, LATEX, and PENICILLINS. No reactions listed. FAMILY HISTORY: Significant for hypertension, diabetes, but she does not aware of any other family members who has had coronary artery disease. PHYSICAL EXAMINATION: GENERAL: Patient is awake, alert, appropriate, oriented x3, is a reasonable historian sitting in the hospital bed. HEENT: Normocephalic, atraumatic. Slightly dry mucous membranes. Equal ocular motions are intact. CARDIOVASCULAR: S1, S2. No murmurs, rubs or gallops. Pulses 2+ bilateral upper extremity, trace bilateral pitting pedal edema. RESPIRATORY: Reasonable air movement. No conversational dyspnea. No wheezes, rales or rhonchi. Clear to auscultation bilaterally. ABDOMEN: Obese, positive bowel sounds, soft, nontender to palpation. MUSCULOSKELETAL: Moving all 4 extremities. LABORATORY DATA: Initial lab includes only a troponin is less than 0.01 and a glucose of 145. ASSESSMENT AND PLAN: This is a 62-year-old female who presented with hypertensive urgency and chest pain. 1. Chest pain. The patient has known history of coronary artery disease. We will consult her outpatient wharf labourer, Dr. Shields. Serial troponins. Maintain the patient on telemetry and closely monitor the patient's vital signs including her blood pressure, reevaluation of risk factors including fasting lipid panel in the morning. 2. Chest pain. Please see above. Currently, it is resolved, could be related to either the patient's underlying coronary artery disease or her elevated blood pressure initially. 3. Hypertension. Continue the patient on her home regimen with up titration as tolerated and perhaps adjustment of her antihypertensive regimen. 4. Hyperlipidemia. Fasting lipid panel as per above. 5. Diabetes. Close monitoring. Continue the patient on her home Lantus with sliding scale insulin on top as needed. The patient will need to be a cardiac diabetic diet. ACTIVITY: As tolerated. Thank you for asking me to care for the patient. For any questions or concerns , please contact me at [facility] and admit the patient to observation status to telemetry. MARIANO
[2017-11-28 16:06] VITALS: BP 159/72; TEMP 98.3
--- NOTE | 2017-11-30 15:10 | DIS ---
HOSPITAL COURSE: This is a 62-year-old female with a known history of inoperable coronary artery dis ease, who presented with initial chief complaint of chest pain. This occurred while the patient was at the manager room's office and she was subsequently sent to our facility for further evaluation. Rafa parks see the original history and physical for full details regarding her admission. Patient was mo nitored closely serial troponins and maintained on telemetry and seen by Cardiology during this hospi talization. Patient's chest pain was resolved at the time of her admission as well. On admission, the patient was also noted to have hypertensive urgency and her home antihypertensive r egimen has been up titrated. Please see medication reconciliation below for further details. Other than blood pressure control appears that the remainder of the patient's risk factors for coronary art olena disease were also monitored including diabetes and hyperlipidemia. The remainder of the patient' s chronic medical issues were stable during this hospitalization. CONSULTATIONS: Cardiology, Dr. Shields. MEDICATION RECONCILIATION: Please see EMR. Patient's current changes include the following: Barbie montenegro will continue on her 70/30 insulin NPH 70 units in the morning and 50 units at night. She will als o continue on her amitriptyline. New medications include the addition of atorvastatin 80 mg p.o. at bedtime, aspirin 81 mg p.o. daily, isosorbide mononitrate 60 mg p.o. daily, clopidogrel 75 mg p.o. da royce, metoprolol succinate, Toprol-XL 100 mg p.o. b.i.d., lisinopril 10 mg p.o. b.i.d. PATIENT'S CONDITION AT DISCHARGE: At the time of discharge, the patient is hemodynamically stable, t olerating her ADLs on her baseline diet. FOLLOWUP INSTRUCTIONS: Patient has been asked to follow up closely with her outpatient care team inc luding her PCP and her manager room. Patient is able to complete teach-back. Thank you for asking me to care for the patient.
== END 2017-11-28 17:39 | disposition home or self-care (01) ==
LOC: ERS 14:16 → 2SW 16:21
PROVIDERS: ADMIT Internal Medicine; ATTEND Internal Medicine
DX: R07.89 Other chest pain (principal); I25.10 Atherosclerotic heart disease of native coronary artery without angina pectoris; I10 Essential (primary) hypertension; E11.9 Type 2 diabetes mellitus without complications; I25.2 Old myocardial infarction; E78.5 Hyperlipidemia, unspecified; I16.9 Hypertensive crisis, unspecified; E66.9 Obesity, unspecified; Z68.42 Body mass index [BMI] 45.0-49.9, adult; Z79.4 Long term (current) use of insulin; Z79.02 Long term (current) use of antithrombotics/antiplatelets; Z79.899 Other long term (current) drug therapy; Z88.0 Allergy status to penicillin; Z88.5 Allergy status to narcotic agent; Z88.8 Allergy status to other drugs, medicaments and biological substances; Z91.040 Latex allergy status; Z90.710 Acquired absence of both cervix and uterus; Z90.89 Acquired absence of other organs; Z90.49 Acquired absence of other specified parts of digestive tract; Z98.891 History of uterine scar from previous surgery; Z98.890 Other specified postprocedural states
CPT/HCPCS: 36415; 36416; 71045; 80053; 80061; 81003; 81015; 82553; 83036; 83690; 83735; 83880; 84484; 85025; 87086; 93005; 94760; 96374; G0378

== ENCOUNTER 2018-03-17 17:56 | Emergency (ER) | payer OTHER, SELFPAY ==
[2018-03-17] MEDS ORDERED: Acetaminophen 500 MG TAB ONE (18:43)
[2018-03-17 19:24] LABS: #Eosinphils 0.2 thou/uL (0.0-0.7); #Lymphocytes 2.8 thou/uL (1.20-3.40); #Monocytes 0.3 thou/uL (0.11-0.59); #Neutrophils 3.7 thou/uL (1.40-6.50); %Basophils 0.6 % (0.0-1.0); %Eosinophils 2.8 % (0.0-10.0); %Lymphocytes 39.8 % (21.0-51.0); %Monocytes 4.1 % (0.0-10.0); %Neutrophils 52.7 % (42.0-75.0); Hemoglobin 11.5 g/dL (12.0-16.0); Mean Corpuscular HGB CONC 34.3 g/dL (32.0-36.0); Mean Corpuscular Hemoglobin 30.2 pg (27.0-31.0); Mean Corpuscular Volume 88.2 fL (78.0-98.0); Mean Platelet Volume 7.8 fL (7.4-10.4); Platelet Count 207 thou/uL (130-400); RBC Distribution Width 12.5 % (11.5-14.5); Red Blood Cell (RBC) Count 3.79 mill/uL (4.20-5.40); White Blood Cell (WBC) Count 7.1 thou/uL (4.8-10.8)
[2018-03-17 19:38] LABS: CKMB 0.4 ng/mL (0-6.6); Troponin I Less than 0.010 ng/mL (< 0.028)
[2018-03-17 19:39] LABS: ALT (SGPT) 17 U/L (8-55); AST (SGOT) 25 U/L (5-34); Albumin 3.5 g/dL (3.4-4.8); Alkaline Phosphatase 77 U/L (40-150); Anion Gap 15 mmol/L (10-20); BUN (Urea Nitrogen) 30 mg/dL (9.8-20.1); Bilirubin, Total 0.4 mg/dL (0.2-1.2); CK (CPK) 24 U/L (29-168); Calc. Creatinine Clearance 0 mL/min (70-130); Calcium 9.1 mg/dL (7.8-10.44); Carbon Dioxide 24 mmol/L (23-31); Chloride 97 mmol/L (98-107); Estimated GFR-MDRD 42; Globulin 3.6 g/dL (2.4-3.5); Glucose 360 mg/dL (80-115); Lipase 56 U/L (8-78); Potassium 5.1 mmol/L (3.5-5.1); Protein, Total 7.1 g/dL (6.0-8.3); Sodium 131 mmol/L (136-145)
--- NOTE | 2018-03-17 19:44 | RAD ---
RADIOGRAPH CHEST 1 VIEW: 03/17/18 HISTORY: 62-year-old female with chest pain. FINDINGS: There is cardiomegaly. There is no evidence of air space density, pulmonary edema, or pneumothorax. T he lateral costophrenic angles are sharp. IMPRESSION: 1) No acute pulmonary findings. 2) Cardiomegaly without congestive heart failure. josefa [] POS: MIGUEL
== END 2018-03-17 21:20 | disposition home or self-care (01) ==
LOC: ERS 17:56
DX: R07.89 Other chest pain (principal); E11.40 Type 2 diabetes mellitus with diabetic neuropathy, unspecified; I11.0 Hypertensive heart disease with heart failure; I50.9 Heart failure, unspecified; J45.909 Unspecified asthma, uncomplicated; M19.90 Unspecified osteoarthritis, unspecified site; Z79.4 Long term (current) use of insulin
CPT/HCPCS: 71045; 80053; 82550; 82553; 83690; 84484; 85025; 93005

== ENCOUNTER 2018-04-19 17:55 | Inpatient (IN) | payer SELFPAY ==
[2018-04-19 18:47] LABS: Hemoglobin 12.4 g/dL (12.0-16.0); Mean Corpuscular Hemoglobin 32.4 pg (27.0-31.0); Mean Platelet Volume 7.8 fL (7.4-10.4); Platelet Count 341 thou/uL (130-400); RBC Distribution Width 12.4 % (11.5-14.5); Red Blood Cell (RBC) Count 3.84 mill/uL (4.20-5.40)
[2018-04-19 19:04] LABS: ALT (SGPT) 11 U/L (8-55); AST (SGOT) 12 U/L (5-34); Albumin 3.4 g/dL (3.4-4.8); Alkaline Phosphatase 86 U/L (40-150); Anion Gap 17 mmol/L (10-20); BUN (Urea Nitrogen) 29 mg/dL (9.8-20.1); Bilirubin, Total 0.4 mg/dL (0.2-1.2); Calc. Creatinine Clearance 0 mL/min (70-130); Calcium 9.7 mg/dL (7.8-10.44); Carbon Dioxide 23 mmol/L (23-31); Chloride 94 mmol/L (98-107); Estimated GFR-MDRD 35; Globulin 3.8 g/dL (2.4-3.5); Glucose 364 mg/dL (80-115); Lipase 50 U/L (8-78); Potassium 4.3 mmol/L (3.5-5.1); Protein, Total 7.2 g/dL (6.0-8.3); Sodium 130 mmol/L (136-145)
[2018-04-19 19:06] LABS: Band 4 % (5-11); Eosinophils 1 % (0-10); Lymphocytes 55 % (21-51); MDiff Complete? YES; Monocytes 5 % (0-10); Neutrophil 35 % (42-75); PLT Morphology Comment Appears Adequate
[2018-04-19 19:08] LABS: CKMB 0.7 ng/mL (0-6.6); Troponin I 0.059 ng/mL (< 0.028)
--- NOTE | 2018-04-19 19:20 | RAD ---
CHEST ONE VIEW: HISTORY: Dyspnea. Hypotension. COMPARISON: 03/17/2018 FINDINGS: Heart size is within normal limits for the portable technique. Mediastinal structures appear unremar kable. Lungs are clear of any infiltrates. IMPRESSION: No active intrathoracic disease. POS: KIMBERLY
[2018-04-19 22:59] LABS: Bilirubin Negative (Negative); Blood, Urine Large (Negative); Clarity TURBID (Clear); Glucose, Urine (Dipstick) >=1000 mg/dL (Negative); Leukocyte Large (Negative); Nitrite Negative (Negative); Protein, Urine (Dipstick) 300 mg/dL (Neg-Trace); Specific Gravity, Urine 1.025 (1.002-1.036); Urobilinogen 0.2 mg/dL (0.2-1.0)
[2018-04-19 23:03] LABS: Bacteria/HPF 4+ HPF (None Seen); Hyaline Casts/LPF 7-10 HYALINE CAST LPF (0-3 Hyaline); Squamous Epithelial 21-50 HPF (0-3)
[2018-04-19 23:03] LABS: Troponin I 0.046 ng/mL (< 0.028)
[2018-04-19 23:04] LABS: Pathc Cast-AUWi Flag 3.33 (0-2.49); RBC/HPF GREATER THAN 50-TNTC HPF (0-3); Yeast-AUWi Flag 535.9 (0-25.0)
[2018-04-19 23:14] VITALS: BMI 40.0
[2018-04-19 23:16] LABS: Yeast-All Forms None Seen HPF (None Seen)
[2018-04-19 23:22] LABS: CKMB 0.5 ng/mL (0-6.6)
[2018-04-19] MEDS ORDERED: Ondansetron ODT 4 MG TAB SL PRN (23:28)
[2018-04-19] MEDS ORDERED: Sodium Chloride 0.9% 1,000 ML IV SCH (23:28)
[2018-04-19] MEDS ORDERED: Ondansetron HCl/PF 4 MG/2 ML Vial IVP PRN (23:28)
[2018-04-19] MEDS ORDERED: Acetaminophen 325 MG TAB PO PRN (23:28)
[2018-04-20] MEDS ORDERED: Dextrose 50% Abboject 50 ML SYRINGE IVP PRN (00:31)
[2018-04-20] MEDS ORDERED: Dextrose 5% in Water 1,000 ML IV PRN ×2 (00:31→11:01)
[2018-04-20] MEDS: Insulin Regular 300 UNITS/3 ML VIAL SC PRN ×4 (00:45→20:56)
[2018-04-20] MEDS ORDERED: Amitriptyline HCl 100 MG TAB PO SCH (00:45)
[2018-04-20 02:04] LABS: Troponin I 0.041 ng/mL (< 0.028)
[2018-04-20] MEDS ORDERED: Enoxaparin Sodium 100 MG/ML SYRINGE SC SCH ×2 (09:15→11:00)
[2018-04-20] MEDS ORDERED: Clopidogrel Bisulfate 75 MG TAB PO SCH (11:00)
[2018-04-20] MEDS ORDERED: Nitroglycerin 0.4 MG TAB (25 Tab Bottle) PO PRN (11:01)
[2018-04-20] MEDS ORDERED: Ondansetron ODT 4 MG TAB PO PRN (11:01)
[2018-04-20] MEDS ORDERED: Calcium Carbonate 500 MG ChewTAB PO PRN (11:01)
[2018-04-20] MEDS ORDERED: Senokot 8.6 MG TAB PO PRN (11:01)
[2018-04-20] MEDS ORDERED: Ondansetron HCl/PF 4 MG/2 ML Vial IVP PRN (11:01)
[2018-04-20] MEDS ORDERED: Aspirin 81 mg Enteric Coated Tablet ONE (11:04)
[2018-04-20] MEDS ORDERED: Sodium Chloride 0.9% 1,000 ML IV SCH ×2 (11:15→12:30)
--- NOTE | 2018-04-20 11:24 | HP ---
DATE OF ADMISSION: 04/20/2018 PRIMARY CARE PHYSICIAN: [facility]. PRIMARY GENERAL INTERNIST AND PHYSICIAN LEADER: Dr. Tio Shields. CHIEF COMPLAINT: Near syncope. HISTORY OF PRESENT ILLNESS: Patient is a 62-year-old white female with inoperable severe coronary artery disease; hypertension; hyperlipidemia; and diabetes mellitus, type 2; presented to the emergency room with above complaints. The patient had a near syncopal episode yesterday while she was at home resting. This happened after she took 2 SL Nitroglycerin. She has been having intermittent chest pain over the past 1-2 days which was substernal, pressure like without any radiation. Her blood pressure at that time was in systolic 80s. She was diaphoretic as well. She had some palpitations and developed nausea on ER arrival. She denies any chest pressure, fever, or chills. She received 1 liter of IV fluid in the emergency room, after which her symptoms slightly improved. She denies any fever, chills, double vision, blurring of vision, facial asymmetry. She had 1 episode of vomiting on ER arrival. PAST MEDICAL HISTORY: 1. Severe inoperable 3-vessel coronary artery disease. 2. Hypertension. 3. Diabetes mellitus, type 2. 4. Hyperlipidemia. 5. Morbid obesity with a BMI 40.1. PAST SURGICAL HISTORY: 1. Hysterectomy. 2. Knee surgery. 3. Cholecystectomy. 4. Cardiac catheterization. 5. . 6. Tonsillectomy. 7. Hernia surgery. ALLERGIES: The patient is allergic to CODEINE, PENICILLIN, and LATEX. CURRENT HOME MEDICATIONS: Amitriptyline 50 mg b.i.d., Lipitor 80 mg daily, NPH 70/30 50 units at bedtime and 70 units daily, Imdur 120 mg daily, Lopressor 50 mg daily, Ranexa 1000 mg twice a day, aspirin 81 mg daily, Plavix 75 mg daily, lisinopril 10 mg twice a day. SOCIAL HISTORY: Patient currently lives at home with her . She makes her own decision. She is FULL CODE. She denies current use of smoking, alcohol , or drug use. FAMILY HISTORY: Positive for hypertension and diabetes. She denies any premature coronary artery disease. REVIEW OF SYSTEMS: The following complete review of systems was negative, unless otherwise mentioned in the HPI or below: Constitutional: Weight loss or gain, ability to conduct usual activities. Skin: Rash, itching. Eyes: Double vision, pain. ENT/Mouth: Nose bleeding, neck stiffness, pain, tenderness. Cardiovascular: Palpitations, dyspnea on exertion, orthopnea. Respiratory: Shortness of breath, wheezing, cough, hemoptysis, fever, or night sweats. Gastrointestinal: Poor appetite, abdominal pain, heartburn, nausea, vomiting, constipation, or diarrhea. Genitourinary: Urgency, frequency, dysuria, nocturia. Musculoskeletal: Pain, swelling. Neurologic/Psychiatric: Anxiety, depression. Allergy/Immunologic: Skin rash, bleeding tendency. PHYSICAL EXAMINATION: VITAL SIGNS: In the emergency room, showed temperature 98.3, respirations 18, pulse rate of 104 with a blood pressure of 108/74. Her lowest blood pressure in the emergency room was 68/39. GENERAL: This is a 62-year-old female without any active chest pain. HEENT: Head: Atraumatic and normocephalic. Sclerae are anicteric. Moist mucous membrane, no oral lesion. NECK: Supple, no JVD, no carotid bruit. LUNGS: Clear to auscultation bilaterally. No wheezing, rales, or rhonchi. HEART: S1 and S2 present. Regular rate and rhythm. No murmur, rubs, or gallops appreciated. ABDOMEN: Soft, obese, bowel sounds present. EXTREMITIES: No edema or calf tenderness. NEUROLOGIC: Grossly nonfocal, moves all 4 extremities. PSYCHIATRY: Alert, awake, oriented x3. SKIN: Warm and dry. LYMPH NODES: No palpable lymph nodes in the neck. PERIPHERAL VASCULAR: Radial pulses palpable bilaterally. MUSCULOSKELETAL: No joint swelling or tenderness. LABORATORY FINDINGS: CBC showed WBC 9 with hemoglobin 12.4, hematocrit 34.5, platelets of 341. Chemistries showed sodium 130, potassium 4.3, chloride of 94 , bicarbonate 23, BUN 29, creatinine 1.51, glucose of 364. Troponin of 0.059 with normal CK-MB. Chest x-ray, by my review, was negative for infiltrate. EKG, by my review, showed some ST depression in lateral leads. IMPRESSION: 1. Near syncope with severe hypotension probaby due to SL Nitroglycerin. 2. Chest pain c/w Unstable angina. 3. Severe three-vessel coronary artery disease. 4. Urinary tract infection, rule out bacteremia. 5. Acute kidney injury on chronic kidney disease, stage 2 probably due to hypotension. 6. Hyponatremia, probably secondary to hyperglycemia. 7. Diabetes mellitus, type 2. 8. History of hypertension. 9. Hyperlipidemia. 10. Severe three-vessel inoperative coronary artery disease. 11. Morbid obesity with a BMI of 40.1. PLAN: The patient will be monitored in the telemetry unit as an inpatient. The patient has been started on Lovenox 1 mg per kilogram per Cardiology. We will continue aspirin and Plavix. Blood culture will be obtained. She was started on IV antibiotics for UTI. Urine culture has been sent. We will check orthostatic vitals. We will recheck labs in a.m. We will hold beta blockers and BERTA inhibitor for now due to hypotension. Lifestyle modification was emphasized. We will start her on insulin sliding scale along with 70/30. Continue statins. Resume Ranexa. Plan of care was discussed with the patient in detail. She stated understanding. The patient is at high risk of cardiac due to severe three-vessel coronary artery disease. She will require 2-3 days of inpatient monitoring. MARIANO
[2018-04-20] MEDS ORDERED: Amitriptyline HCl 25 MG TAB PO SCH (12:00)
[2018-04-20] MEDS ORDERED: Aspirin 81 mg Enteric Coated Tablet PO SCH (12:00)
[2018-04-20] MEDS ORDERED: Insulin NPH/Reg Insulin Hm 300 UNITS/3 ML VIAL SC SCH ×3 (12:15→21:00)
[2018-04-20] MEDS: Sodium Chloride 0.9% 1,000 ML IV SCH (13:41)
[2018-04-20] MEDS: Acetaminophen 325 MG TAB PO PRN (20:53)
[2018-04-20] MEDS: Enoxaparin Sodium 100 MG/ML SYRINGE SC SCH (20:54)
[2018-04-20] MEDS: Amitriptyline HCl 25 MG TAB PO SCH (20:54)
[2018-04-20] MEDS: Atorvastatin Calcium 40 MG TAB PO SCH (20:54)
[2018-04-20] MEDS: Docusate 100 MG CAP PO SCH (20:55)
--- NOTE | 2018-04-20 23:28 | CON ---
DATE OF CONSULT: 04/20/18 HISTORY OF PRESENT ILLNESS: This is an unfortunate 62-year-old woman with severe inoperable coronary artery disease who presents with recurrent chest discomfort and dizziness. The patient was seen initially in 2016. She underwent a cardiac catheterization. The patient was found to have severe 3-vessel coronary artery disease with multiple severe stenotic lesions. The patient underwent a cardiothoracic surgery consultation. He was felt to be a patient who is inoperable. The patient has been on medical therapy and done remarkably well. She was last hospitalized in November 2017. She was treated with subcutaneous Lovenox for several days and has had stable angina until recently. The patient developed recurrent chest discomfort. She took three nitroglycerin tablets. She became lightheaded and dizzy and presented to the emergency room. The patient denies having any present chest discomfort. PAST MEDICAL HISTORY: 1. Coronary artery disease. 2. Hypertension. 3. Dyslipidemia. 4. Diabetes mellitus. 5. Obesity. PAST SURGICAL HISTORY: Hysterectomy, hernia surgery, knee surgery, , cholecystectomy, and tonsillectomy. ALLERGIES: CODEINE, LATEX, PENICILLIN. SOCIAL HISTORY: Nonsmoker. FAMILY HISTORY: No strong family history of coronary artery disease. CURRENT MEDICATIONS: Ranexa 1000 b.i.d., aspirin 81 daily, Elavil 50 b.i.d., Imdur 120 q.a.m., lisinopril 10 b.i.d., Lipitor 80 daily, metoprolol 50 XL daily, Plavix 75 daily. REVIEW OF SYSTEMS: Ten-point system otherwise unremarkable. PHYSICAL EXAMINATION: GENERAL: Obese woman in no acute distress. VITAL SIGNS: Blood pressure 118/60. NECK: No jugular venous distention. No carotid bruits. LUNGS: Clear to auscultation. HEART: Regular rate and rhythm, normal S1, S2. ABDOMEN: Distended. EXTREMITIES: No edema. LABORATORY RESULTS: Sodium 130, potassium 4.3, chloride 94, bicarbonate 23, BUN 29, creatinine 1.5 , troponin 0.059. White blood cell count 9.0, hemoglobin 12.4, hematocrit 34.5 , platelets 341. EKG revealed her to have normal sinus rhythm, voltage criteria for left ventricular hypertrophy, T-wave abnormality suggestive of ischemia. IMPRESSION: 1. Unstable angina. 2. Severe diffuse three vessel inoperable coronary artery disease. 3. Hypertension. 4. Dyslipidemia. 5. Obesity. 6. Diabetes mellitus. This unfortunate woman with inoperable coronary artery disease presents with unstable angina. The patient became hypotensive from taking several nitroglycerin tablets. Her creatinine is elevated. Would hold the patient's BERTA inhibitor therapy at this time. Would actively hydrate the patient. The patient is being treated with subcutaneous Lovenox for unstable angina. We will follow this patient with you through her hospitalization. MARIANO
[2018-04-21] MEDS: Sodium Chloride 0.9% 1,000 ML IV SCH (01:20)
[2018-04-21 05:16] LABS: #Basophils 0.1 thou/uL (0.0-0.2); #Eosinphils 0.2 thou/uL (0.0-0.7); #Lymphocytes 2.1 thou/uL (1.20-3.40); #Monocytes 0.5 thou/uL (0.11-0.59); #Neutrophils 3.1 thou/uL (1.40-6.50); %Basophils 1.1 % (0.0-1.0); %Eosinophils 2.7 % (0.0-10.0); %Lymphocytes 35.7 % (21.0-51.0); %Monocytes 8.4 % (0.0-10.0); %Neutrophils 52.2 % (42.0-75.0); Hemoglobin 10.9 g/dL (12.0-16.0); Mean Corpuscular HGB CONC 34.1 g/dL (32.0-36.0); Mean Platelet Volume 7.6 fL (7.4-10.4); Platelet Count 230 thou/uL (130-400); RBC Distribution Width 12.5 % (11.5-14.5); Red Blood Cell (RBC) Count 3.53 mill/uL (4.20-5.40); White Blood Cell (WBC) Count 5.9 thou/uL (4.8-10.8)
[2018-04-21 05:35] LABS: Anion Gap 11 mmol/L (10-20); BUN (Urea Nitrogen) 26 mg/dL (9.8-20.1); Calc. Creatinine Clearance 80 mL/min (70-130); Calcium 8.4 mg/dL (7.8-10.44); Carbon Dioxide 23 mmol/L (23-31); Chloride 102 mmol/L (98-107); Estimated GFR-MDRD 47; Glucose 161 mg/dL (80-115); Magnesium 1.9 mg/dL (1.6-2.6); Potassium 4.1 mmol/L (3.5-5.1); Sodium 132 mmol/L (136-145)
[2018-04-21] MEDS ORDERED: Insulin NPH/Reg Insulin Hm 300 UNITS/3 ML VIAL SC SCH ×2 (08:00→09:00)
[2018-04-21] MEDS: Enoxaparin Sodium 100 MG/ML SYRINGE SC SCH ×2 (08:53→20:20)
[2018-04-21] MEDS: Aspirin 81 mg Enteric Coated Tablet PO SCH (08:54)
[2018-04-21] MEDS: Clopidogrel Bisulfate 75 MG TAB PO SCH (08:54)
[2018-04-21] MEDS: Famotidine 20 MG TAB PO SCH (08:55)
[2018-04-21] MEDS: Docusate 100 MG CAP PO SCH ×2 (08:55→20:21)
[2018-04-21] MEDS: Amitriptyline HCl 25 MG TAB PO SCH ×2 (08:55→20:21)
[2018-04-21] MEDS ORDERED: Sodium Chloride 0.9% 500 ML IV SCH (12:30)
[2018-04-21] MEDS: Insulin Regular 300 UNITS/3 ML VIAL SC PRN (13:42)
[2018-04-21] MEDS: Acetaminophen 325 MG TAB PO PRN (18:03)
[2018-04-21] MEDS: Insulin NPH/Reg Insulin Hm 300 UNITS/3 ML VIAL SC SCH (18:04)
--- NOTE | 2018-04-21 19:44 | PDOC.PN ---
- Subjective Encounter Start Date: 04/21/18 Encounter Start Time: 14:00 Patient seen and examined for UA. No CP. Orthostatis vitals +. No new complaints. No overnight events - Objective Resuscitation Status: Resuscitation Status FULL:Full Resuscitation MAR Reviewed: Yes Vital Signs & Weight: Vital Signs (12 hours) Temp Pulse Resp BP BP BP BP 04/21/18 16:09 98.0 F 85 16 134/65 04/21/18 11:03 98.0 F 97 20 104/57 L 85/53 L 120/56 L 04/21/18 10:41 04/21/18 09:04 Pulse Ox 04/21/18 16:09 97 04/21/18 11:03 98 04/21/18 10:41 94 L 04/21/18 09:04 97 Weight Weight 220 lb 11.2 oz I&O: 04/20/18 04/21/18 04/22/18 06:59 06:59 06:59 Intake Total 240 3016 Output Total 400 325 Balance 240 2616 -325 Result Diagrams: 04/21/18 04:25 04/21/18 04:25 Additional Labs: Accuchecks 04/21/18 04/21/18 04/21/18 16:33 11:05 06:25 POC Glucose 242 H 301 H 179 H 04/21/18 04/20/18 02:21 20:34 POC Glucose 153 H 257 H EKG Reviewed by me: Yes (Tele SR) Phys Exam - Physical Examination Constitutional: NAD Respiratory: no wheezing, no rhonchi Cardiovascular: RRR, no rub Gastrointestinal: soft, non-tender, positive bowel sounds Musculoskeletal: no edema Neurological: moves all 4 limbs Dx/Plan - Plan DVT proph w/lovenox, DVT proph w/SCDs IMPRESSION: 1. Near syncope with severe hypotension probaby due to SL Nitroglycerin. 2. Chest pain c/w Unstable angina. 3. Severe three-vessel coronary artery disease. 4. Urinary tract infection. 5. Acute kidney injury on chronic kidney disease, stage 2 probably due to hypotension. 6. Hyponatremia, probably secondary to hyperglycemia. 7. Diabetes mellitus, type 2. 8. History of hypertension. 9. Hyperlipidemia. 10. Severe three-vessel inoperative coronary artery disease. 11. Morbid obesity with a BMI of 40.1. PLAN: IV NS 500 ml bolus Cont ASA/Plavix/Lovenox Cont Levaquin AM labs Cont other meds as below Recheck Orthostatic vitals in AM Review of Systems - Review of Systems Respiratory: negative: Cough, Dry, Shortness of Breath, Hemoptysis, SOB with Excertion, Pleuritic Pain, Sputum, Wheezing Cardiovascular: negative: chest pain, palpitations, orthopnea, paroxysmal nocturnal dyspnea, edema, light headedness, other - Medications/Allergies Allergies/Adverse Reactions: Allergies Allergy/AdvReac Type Severity Reaction Status Date / Time codeine Allergy severe Verified 04/19/18 23:42 vomiting, itching Latex, Natural Rubber Allergy Hives Verified 04/19/18 23:42 Penicillins Allergy itch Verified 04/19/18 23:42 Medications: Current Medications Acetaminophen (Tylenol) 650 mg PO Q4H PRN PRN Reason: Headache/Fever or Pain Last Admin: 04/21/18 18:03 Dose: 650 mg Amitriptyline HCl (Elavil) 50 mg PO BID [facility] Last Admin: 04/21/18 08:55 Dose: 50 mg Aspirin (Ecotrin) 81 mg PO DAILY [facility] Last Admin: 04/21/18 08:54 Dose: 81 mg Atorvastatin Calcium (Lipitor) 80 mg PO HS [facility] Last Admin: 04/20/18 20:54 Dose: 80 mg Calcium Carbonate (Tums) 1,000 mg PO Q4H PRN PRN Reason: Heartburn or Indigestion Clopidogrel Bisulfate (Plavix) 75 mg PO DAILY [facility] Last Admin: 04/21/18 08:54 Dose: 75 mg Dextrose/Water (Dextrose 50%) 25 gm IVP PRN PRN PRN Reason: HYPOGLYCEMIA PROTOCOL Docusate Sodium (Colace) 100 mg PO BID [facility] Last Admin: 04/21/18 08:55 Dose: 100 mg Enoxaparin Sodium (Lovenox) 100 mg SC 0900,2100 [facility] Last Admin: 04/21/18 08:53 Dose: 100 mg Famotidine (Pepcid) 20 mg PO DAILY [facility] Last Admin: 04/21/18 08:55 Dose: 20 mg Glucagon (Glucagon) 1 mg IM PRN PRN PRN Reason: HYPOGLYCEMIA PROTOCOL Levofloxacin 500 mg/ Device 100 mls @ 100 mls/hr IVPB Q24HR [facility] Last Admin: 04/21/18 13:41 Dose: 100 mls Dextrose/Water (D5w) 1,000 mls @ 0 mls/hr IV .Q0M PRN PRN Reason: Hypoglycemia Insulin Human Isoph/Insulin Regular (Humulin 70/30) 35 units SC QPM-WM [facility] Last Admin: 04/21/18 18:04 Dose: 35 unit Insulin Human Isoph/Insulin Regular (Humulin 70/30) 45 units SC QAM-WM [facility] Insulin Human Regular (Humulin R) 0 units SC .MILD SLIDING PRN; Protocol PRN Reason: MILD SLIDING SCALE Last Admin: 04/21/18 13:42 Dose: 5 unit Insulin Human Regular (Humulin R) 0 units SC .BEDTIME SLIDING SC PRN; Protocol PRN Reason: BEDTIME SLIDING SCALE Last Admin: 04/20/18 20:56 Dose: 3 unit Isosorbide Mononitrate (Imdur) 120 mg PO DAILY [facility] Last Admin: 04/21/18 08:54 Dose: 120 mg Metoprolol Succinate (Toprol Xl) 100 mg PO DAILY [facility] Nitroglycerin (Nitrostat) 0.4 mg PO Q5MIN PRN PRN Reason: Chest Pain Ondansetron HCl (Zofran Odt) 4 mg PO Q6H PRN PRN Reason: Nausea/Vomiting Ondansetron HCl (Zofran) 4 mg IVP Q6H PRN PRN Reason: Nausea/Vomiting Ranolazine (Ranexa) 1,000 mg PO BID [facility] Last Admin: 04/21/18 08:55 Dose: 1,000 mg Senna (Senokot) 2 tab PO HSPRN PRN PRN Reason: Constipation Sodium Chloride (Flush - Normal Saline) 10 ml IVF PRN PRN PRN Reason: Saline Flush
[2018-04-21] MEDS: Atorvastatin Calcium 40 MG TAB PO SCH (20:21)
[2018-04-22 05:21] LABS: #Eosinphils 0.1 thou/uL (0.0-0.7); #Lymphocytes 1.6 thou/uL (1.20-3.40); #Monocytes 0.4 thou/uL (0.11-0.59); #Neutrophils 2.3 thou/uL (1.40-6.50); %Basophils 0.2 % (0.0-1.0); %Eosinophils 2.5 % (0.0-10.0); %Lymphocytes 36.5 % (21.0-51.0); %Monocytes 8.1 % (0.0-10.0); %Neutrophils 52.7 % (42.0-75.0); Hemoglobin 10.5 g/dL (12.0-16.0); Mean Corpuscular HGB CONC 34.7 g/dL (32.0-36.0); Mean Corpuscular Hemoglobin 31.9 pg (27.0-31.0); Mean Corpuscular Volume 91.9 fL (78.0-98.0); Mean Platelet Volume 7.6 fL (7.4-10.4); Platelet Count 222 thou/uL (130-400); RBC Distribution Width 12.6 % (11.5-14.5); Red Blood Cell (RBC) Count 3.29 mill/uL (4.20-5.40); White Blood Cell (WBC) Count 4.3 thou/uL (4.8-10.8)
[2018-04-22 05:31] LABS: Anion Gap 11 mmol/L (10-20); BUN (Urea Nitrogen) 20 mg/dL (9.8-20.1); Calc. Creatinine Clearance 102 mL/min (70-130); Calcium 8.9 mg/dL (7.8-10.44); Carbon Dioxide 24 mmol/L (23-31); Chloride 106 mmol/L (98-107); Estimated GFR-MDRD 62; Glucose 163 mg/dL (80-115); Potassium 4.1 mmol/L (3.5-5.1); Sodium 137 mmol/L (136-145)
[2018-04-22] MEDS: Docusate 100 MG CAP PO SCH ×2 (09:00→20:09)
[2018-04-22] MEDS ORDERED: Lisinopril 10 MG TAB PO SCH ×2 (09:00→21:00)
[2018-04-22] MEDS: Famotidine 20 MG TAB PO SCH (09:00)
[2018-04-22] MEDS: Clopidogrel Bisulfate 75 MG TAB PO SCH (09:01)
[2018-04-22] MEDS: Aspirin 81 mg Enteric Coated Tablet PO SCH (09:01)
[2018-04-22] MEDS: Amitriptyline HCl 25 MG TAB PO SCH ×2 (09:01→20:09)
[2018-04-22] MEDS: Insulin NPH/Reg Insulin Hm 300 UNITS/3 ML VIAL SC SCH ×2 (09:02→18:09)
[2018-04-22] MEDS ORDERED: Enoxaparin Sodium 40 MG/0.4 ML SYRINGE SC SCH (10:00)
[2018-04-22] MEDS: Atorvastatin Calcium 40 MG TAB PO SCH (20:09)
[2018-04-22] MEDS: Enoxaparin Sodium 40 MG/0.4 ML SYRINGE SC SCH (20:09)
--- NOTE | 2018-04-22 21:13 | PDOC.PN ---
- Subjective Encounter Start Date: 04/22/18 Encounter Start Time: 12:30 Patient seen and examined for US. No CP/SOB. No new complaints. No overnight events - Objective Resuscitation Status: Resuscitation Status FULL:Full Resuscitation MAR Reviewed: Yes Vital Signs & Weight: Vital Signs (12 hours) Temp Pulse Resp BP Pulse Ox 04/22/18 19:05 98.3 F 86 14 146/68 H 98 04/22/18 15:30 97.5 F L 82 14 137/67 99 04/22/18 11:36 98.2 F 82 20 125/60 99 Weight Weight 222 lb 14.4 oz I&O: 04/21/18 04/22/18 04/23/18 06:59 06:59 06:59 Intake Total 3016 450 Output Total 400 325 Balance 2616 125 Result Diagrams: 04/22/18 04:12 04/22/18 04:12 Additional Labs: Accuchecks 04/22/18 04/22/18 04/22/18 20:19 16:11 11:35 POC Glucose 219 H 241 H 232 H 04/21/18 22:47 POC Glucose 103 EKG Reviewed by me: Yes (Tele SR) Phys Exam - Physical Examination Constitutional: NAD Respiratory: no wheezing, no rhonchi Cardiovascular: RRR, no rub Gastrointestinal: soft, non-tender, positive bowel sounds Musculoskeletal: no edema Neurological: moves all 4 limbs Dx/Plan - Plan DVT proph w/SCDs IMPRESSION: 1. Near syncope with severe hypotension probaby due to SL Nitroglycerin. 2. Chest pain c/w Unstable angina. 3. Severe three-vessel coronary artery disease. 4. Urinary tract infection. 5. Acute kidney injury on chronic kidney disease, stage 2 probably due to hypotension. 6. Hyponatremia, probably secondary to hyperglycemia. 7. Diabetes mellitus, type 2. 8. History of hypertension. 9. Hyperlipidemia. 10. Severe three-vessel inoperative coronary artery disease. 11. Morbid obesity with a BMI of 40.1. PLAN: Cont ASA/Plavix/Lovenox and Cardiac meds per Cardiology Cont Levaquin Cont other meds as below Recheck Orthostatic vitals in AM Microbiology 04/19/18 22:40 Urine Straight Catheter Urine Culture - Final Escherichia coli Klebsiella pneumoniae ssp pneu 04/20/18 10:25 Venous blood - Right Hand Blood Culture - Preliminary Specimen has been received and culture in progress. No Growth to date. 04/20/18 10:25 Venous blood - Right Hand Blood Culture - Preliminary NO GROWTH AT 48 HOURS Review of Systems - Review of Systems Respiratory: negative: Cough, Dry, Shortness of Breath, Hemoptysis, SOB with Excertion, Pleuritic Pain, Sputum, Wheezing Cardiovascular: negative: chest pain, palpitations, orthopnea, paroxysmal nocturnal dyspnea, edema, light headedness, other - Medications/Allergies Allergies/Adverse Reactions: Allergies Allergy/AdvReac Type Severity Reaction Status Date / Time codeine Allergy severe Verified 04/19/18 23:42 vomiting, itching Latex, Natural Rubber Allergy Hives Verified 04/19/18 23:42 Penicillins Allergy itch Verified 04/19/18 23:42 Medications: Current Medications Acetaminophen (Tylenol) 650 mg PO Q4H PRN PRN Reason: Headache/Fever or Pain Last Admin: 04/21/18 18:03 Dose: 650 mg Amitriptyline HCl (Elavil) 50 mg PO BID [facility] Last Admin: 04/22/18 20:09 Dose: 50 mg Aspirin (Ecotrin) 81 mg PO DAILY [facility] Last Admin: 04/22/18 09:01 Dose: 81 mg Atorvastatin Calcium (Lipitor) 80 mg PO HS [facility] Last Admin: 04/22/18 20:09 Dose: 80 mg Calcium Carbonate (Tums) 1,000 mg PO Q4H PRN PRN Reason: Heartburn or Indigestion Clopidogrel Bisulfate (Plavix) 75 mg PO DAILY [facility] Last Admin: 04/22/18 09:01 Dose: 75 mg Dextrose/Water (Dextrose 50%) 25 gm IVP PRN PRN PRN Reason: HYPOGLYCEMIA PROTOCOL Docusate Sodium (Colace) 100 mg PO BID [facility] Last Admin: 04/22/18 20:09 Dose: 100 mg Enoxaparin Sodium (Lovenox) 40 mg SC 0900,2100 [facility] Last Admin: 04/22/18 20:09 Dose: 40 mg Famotidine (Pepcid) 20 mg PO DAILY [facility] Last Admin: 04/22/18 09:00 Dose: 20 mg Glucagon (Glucagon) 1 mg IM PRN PRN PRN Reason: HYPOGLYCEMIA PROTOCOL Levofloxacin 500 mg/ Device 100 mls @ 100 mls/hr IVPB Q24HR [facility] Last Admin: 09/20/18 13:19 Dose: 100 mls Dextrose/Water (D5w) 1,000 mls @ 0 mls/hr IV .Q0M PRN PRN Reason: Hypoglycemia Insulin Human Isoph/Insulin Regular (Humulin 70/30) 35 units SC [facility] Last Admin: 04/22/18 18:09 Dose: 35 unit Insulin Human Isoph/Insulin Regular (Humulin 70/30) 45 units SC [facility] Last Admin: 04/22/18 09:02 Dose: 45 unit Insulin Human Regular (Humulin R) 0 units SC .MILD SLIDING PRN; Protocol PRN Reason: MILD SLIDING SCALE Last Admin: 04/21/18 13:42 Dose: 5 unit Insulin Human Regular (Humulin R) 0 units SC .BEDTIME SLIDING SC PRN; Protocol PRN Reason: BEDTIME SLIDING SCALE Last Admin: 04/20/18 20:56 Dose: 3 unit Isosorbide Mononitrate (Imdur) 120 mg PO DAILY [facility] Last Admin: 04/22/18 09:01 Dose: 120 mg Lisinopril (Zestril) 10 mg PO 2100 [facility] Last Admin: 04/22/18 20:10 Dose: 10 mg Metoprolol Succinate (Toprol Xl) 100 mg PO DAILY [facility] Last Admin: 04/22/18 09:00 Dose: 100 mg Nitroglycerin (Nitrostat) 0.4 mg PO Q5MIN PRN PRN Reason: Chest Pain Ondansetron HCl (Zofran Odt) 4 mg PO Q6H PRN PRN Reason: Nausea/Vomiting Ondansetron HCl (Zofran) 4 mg IVP Q6H PRN PRN Reason: Nausea/Vomiting Ranolazine (Ranexa) 1,000 mg PO BID [facility] Last Admin: 04/22/18 20:10 Dose: 1,000 mg Senna (Senokot) 2 tab PO HSPRN PRN PRN Reason: Constipation Sodium Chloride (Flush - Normal Saline) 10 ml IVF PRN PRN PRN Reason: Saline Flush
[2018-04-23 07:58] VITALS: TEMP 97.5
[2018-04-23 09:34] LABS: Hemoglobin 11.6 g/dL (12.0-16.0); Platelet Count 234 thou/uL (130-400)
[2018-04-23] MEDS: Amitriptyline HCl 25 MG TAB PO SCH (09:35)
[2018-04-23] MEDS: Aspirin 81 mg Enteric Coated Tablet PO SCH (09:35)
[2018-04-23] MEDS: Docusate 100 MG CAP PO SCH (09:36)
[2018-04-23] MEDS: Clopidogrel Bisulfate 75 MG TAB PO SCH (09:36)
[2018-04-23] MEDS: Famotidine 20 MG TAB PO SCH (09:36)
[2018-04-23] MEDS: Insulin NPH/Reg Insulin Hm 300 UNITS/3 ML VIAL SC SCH (09:37)
[2018-04-23 11:26] VITALS: BP 131/69
[2018-04-23] MEDS: Enoxaparin Sodium 40 MG/0.4 ML SYRINGE SC SCH (12:16)
--- NOTE | 2018-04-23 18:49 | DIS ---
DATE OF DISCHARGE: 04/23/2018 DISPOSITION: Home. FOLLOWUP: 1. Follow up with primary care physician, Dr. Menchaca in 1 week. 2. Follow up with Dr. Tio Shields in 2 weeks. 3. Fall precaution was emphasized. ALLERGIES: Patient is allergic to CODEINE, LATEX and PENICILLIN. DISCHARGE MEDICATIONS: Lisinopril dose was reduced to once a day, Toprol-XL 100 mg daily, metoprolol tartrate was discontinued. All other home medications were left unchanged. She will continue aspir in and Plavix. The patient was seen and examined on the day of discharge, denies any new complaints, no chest pain, shortness of breath, palpitations. BRIEF HOSPITAL COURSE: Patient is a 62-year-old female with severe three-vessel coronary artery dise ase who presented to the hospital with chest discomfort followed by near syncope after her sublingual nitroglycerin. Please refer to the history and physical for further details. The patient was admitted to the hospital with a diagnosis of unstable angina and near syncope. She w as found to have hypotension probably secondary to sublingual nitroglycerin. She showed good improve ment with IV fluids. She was started on Lovenox. Aspirin and Plavix was continued. The patient was seen by Cardiology, Dr. Tio Shields. She was also found to have urinary tract infection that was treated with IV ceftriaxone. Medications have been adjusted by Cardiology. She continued to have orthostatic hypotension. Cardio logy was made aware. Patient was advised to monitor orthostatic vitals and to contact Cardiology. Tye Shields recommended to continue all of current medications. She has been cleared by Cardiology f or discharge. FINAL DIAGNOSES: 1. Unstable angina. 2. Near syncope secondary to hypotension due to sublingual nitroglycerin. 3. Severe three-vessel inoperable coronary artery disease. 4. Urinary tract infection secondary to E. coli and Klebsiella. 5. Acute kidney injury on chronic kidney disease stage 2, probably secondary to hypotension. 6. Hyponatremia, probably secondary to hyperglycemia. 7. Diabetes mellitus type 2. 8. History of hypertension. 9. Hyperlipidemia 10. Obesity, morbid with body mass index of 40.1. Plan of care was discussed with the patient and the family in detail. They stated understanding. Fall precaution was emphasized.
== END 2018-04-23 13:48 | disposition home or self-care (01) | DRG 303 ==
LOC: ERS 17:55 → 2SW 22:04 → OBSVTOIN 22:04
PROVIDERS: ADMIT Hospitalist; ATTEND Hospitalist
DX: I25.110 Atherosclerotic heart disease of native coronary artery with unstable angina pectoris (principal); N39.0 Urinary tract infection, site not specified; E87.1 Hypo-osmolality and hyponatremia; Z68.41 Body mass index [BMI] 40.0-44.9, adult; R07.9 Chest pain, unspecified; E66.01 Morbid (severe) obesity due to excess calories; R55 Syncope and collapse; N18.9 Chronic kidney disease, unspecified; I12.9 Hypertensive chronic kidney disease with stage 1 through stage 4 chronic kidney disease, or unspecified chronic kidney disease; N18.2 Chronic kidney disease, stage 2 (mild); E11.22 Type 2 diabetes mellitus with diabetic chronic kidney disease; E11.65 Type 2 diabetes mellitus with hyperglycemia; I95.9 Hypotension, unspecified; Z90.710 Acquired absence of both cervix and uterus; Z90.49 Acquired absence of other specified parts of digestive tract; Z88.5 Allergy status to narcotic agent; Z88.0 Allergy status to penicillin; Z79.02 Long term (current) use of antithrombotics/antiplatelets; Z79.84 Long term (current) use of oral hypoglycemic drugs; Z79.4 Long term (current) use of insulin; Z79.899 Other long term (current) drug therapy; T46.3X5A Adverse effect of coronary vasodilators, initial encounter
CPT/HCPCS: 36415; 36416; 51701; 71045; 80048; 80053; 81003; 81015; 82553; 83690; 83735; 84484; 85014; 85018; 85025; 85049; 87040; 87077; 87086; 87186; 93005; 94760; 96360; A4216; A4353; J1650; J1815; J1956

== ENCOUNTER 2018-08-12 10:56 | Observation (INO) | payer SELFPAY ==
[2018-08-12 11:29] LABS: #Eosinphils 0.2 thou/uL (0.0-0.7); #Lymphocytes 2.2 thou/uL (1.20-3.40); #Monocytes 0.3 thou/uL (0.11-0.59); %Basophils 0.8 % (0.0-1.0); %Eosinophils 3.6 % (0.0-10.0); %Lymphocytes 38.2 % (21.0-51.0); %Monocytes 4.9 % (0.0-10.0); %Neutrophils 52.4 % (42.0-75.0); Mean Corpuscular HGB CONC 34.2 g/dL (32.0-36.0); Mean Corpuscular Hemoglobin 31.9 pg (27.0-31.0); Mean Corpuscular Volume 93.3 fL (78.0-98.0); Mean Platelet Volume 7.3 fL (7.4-10.4); Platelet Count 230 thou/uL (130-400); RBC Distribution Width 12.8 % (11.5-14.5); Red Blood Cell (RBC) Count 3.14 mill/uL (4.20-5.40); White Blood Cell (WBC) Count 5.7 thou/uL (4.8-10.8)
--- NOTE | 2018-08-12 11:32 | RAD ---
TWO VIEWS CHEST: Comparison: 04-19-18 History: Cough for one week. FINDINGS: Two views of the chest show normal sized cardiomediastinal silhouette. There is no evidence of consol idation, mass, or pleural effusion. The bones are unremarkable. IMPRESSION: No evidence of acute cardiopulmonary disease. POS: [facility]
[2018-08-12 11:52] LABS: ALT (SGPT) 8 U/L (8-55); AST (SGOT) 10 U/L (5-34); Alkaline Phosphatase 70 U/L (40-150); Anion Gap 11 mmol/L (10-20); BUN (Urea Nitrogen) 28 mg/dL (9.8-20.1); Bilirubin, Total 0.4 mg/dL (0.2-1.2); Calc. Creatinine Clearance 0 mL/min (70-130); Calcium 8.9 mg/dL (7.8-10.44); Carbon Dioxide 24 mmol/L (23-31); Chloride 104 mmol/L (98-107); Estimated GFR-MDRD 58; Globulin 3.3 g/dL (2.4-3.5); Glucose 218 mg/dL (80-115); Potassium 4.4 mmol/L (3.5-5.1); Protein, Total 6.3 g/dL (6.0-8.3); Sodium 135 mmol/L (136-145)
--- NOTE | 2018-08-12 14:04 | ULT ---
LEFT LOWER EXTREMITY VENOUS DOPPLER ULTRASOUND INCLUDING COLOR AND SPECTRAL DOPPLER IMAGING: History: 62-year-old female with history of cough, swelling, and edema to the lower legs. FINDINGS: Left lower extremity is evaluated from groin to ankle including visualized greater saphenous, common femoral, superficial femoral, profunda femoral, popliteal, trifurcation and posterior tibial veins re gion. There is phasic flow noted at all levels with normal compressibility and normal augmentation. N o intraluminal thrombus. IMPRESSION: No evidence for deep venous thrombosis. POS: [facility]
[2018-08-12] MEDS ORDERED: Furosemide 40 MG/4 ML VIAL ONE (15:07)
[2018-08-12] MEDS ORDERED: Dextrose 50% Abboject 50 ML SYRINGE SLOW IVP PRN (15:23)
[2018-08-12] MEDS ORDERED: Senokot S 8.6-50 MG TAB PO PRN (15:23)
[2018-08-12] MEDS ORDERED: Guaifenesin DM 100-10/5 ML UDCUP PO PRN (15:23)
[2018-08-12] MEDS ORDERED: Acetaminophen 325 MG TAB PO PRN (15:23)
[2018-08-12] MEDS ORDERED: HumaLOG 300 UNITS/3 ML VIAL SC PRN ×2 (15:23)
[2018-08-12] MEDS ORDERED: Dextrose 5% in Water 1,000 ML IV PRN (15:23)
[2018-08-12 15:45] LABS: Troponin I 0.019 ng/mL (< 0.028)
--- NOTE | 2018-08-12 16:14 | HP ---
REASON FOR ADMISSION: Acute CHF exacerbation. HISTORY OF PRESENTING ILLNESS: The patient gives history of cough with expectoration of yellow sputum from last one week. She also developed retrosternal chest pain, which lasted for 5 minutes and had these episodes nearly 3 times at home. This happened early this morning. Her cough was getting worse and her lower extremity swelling was little more than usual. The patient came to emergency room. No complaints of fever at home. No complaints of palpitations or PND. The patient has been wheelchair bound for last year and a half now. PAST MEDICAL AND SURGICAL HISTORY: History of severe inoperable coronary artery disease, history of CHF in the past, likely diastolic dysfunction. Cardiac catheterization done in 09/2017 showed severe diffuse coronary artery disease with ejection fraction of around 50%, hypertension, diabetes mellitus type 2, dyslipidemia, peripheral neuropathy, hysterectomy, tonsillectomy, x1, umbilical hernia repair, bilateral knee repair. CURRENT MEDICATIONS: The patient is on: 1. Toprol-XL 100 mg p.o. daily. 2. Imdur 120 mg p.o. daily. 3. Plavix 75 mg p.o. daily. 4. Aspirin 81 mg p.o. daily. 5. Lipitor 80 mg p.o. daily. 6. Amitriptyline 50 mg twice daily. 7. Lisinopril 10 mg daily. 8. Ranexa 1000 mg p.o. twice daily. 9. Humalog 70/30, 80 units in the morning and 60 units in the evening. ALLERGIES: ALLERGIC TO CODEINE, LATEX AND PENICILLIN. PERSONAL HISTORY: Does not abuse alcohol or drugs. No history of smoking. Lives with her . She is essentially wheelchair bound and helps with mobilizing herself into the wheelchair. Her son and help her out in the house. FAMILY HISTORY: Mother at the age of 78 years. She has had unknown cancer with metastasis. Father of PE and its complications at the age of 70 years. CODE STATUS: Full. Power of customer support specialist is her . REVIEW OF SYSTEMS: CONSTITUTIONAL: Negative for weight loss or gain, ability to conduct usual activities. SKIN: Negative for rash, itching. EYES: Negative for double vision, pain. ENT/MOUTH: Negative for nose bleeding, neck stiffness, pain, tenderness. CARDIOVASCULAR: Negative for palpitations, dyspnea on exertion, orthopnea. RESPIRATORY: Negative for shortness of breath, wheezing, cough, hemoptysis, fever or night sweats. GASTROINTESTINAL: Negative for poor appetite, abdominal pain, heartburn, nausea , vomiting, constipation, or diarrhea. GENITOURINARY: Negative for urgency, frequency, dysuria, nocturia. MUSCULOSKELETAL: Negative for pain, swelling. NEUROLOGIC/PSYCHIATRIC: Negative for anxiety, depression. ALLERGY/IMMUNOLOGIC: Negative for skin rash, bleeding tendency. PHYSICAL EXAMINATION: GENERAL: The patient is a 62-year-old female, who is currently not in any acute distress. VITAL SIGNS: Blood pressure 126/84, pulse 89 per minute, respiratory rate 18 per minute, temperature 98.5 degrees Fahrenheit, saturating 99% on room air. NECK: Supple. No elevated JVD. HEENT: Eyes: Extraocular muscles intact. Pupils reacting to light. Oral cavity, mucous membranes are moist. No exudates or congestion. CARDIOVASCULAR SYSTEM: S1 and S2 heard. Regular rhythm. RESPIRATORY SYSTEM: Air entry 1+ bilateral. Scattered rales plus in the infrascapular area. ABDOMEN: Soft. Bowel sounds heard. No tenderness, rigidity, or guarding. EXTREMITIES: Peripheral edema, 1+ bilateral. No ischemic ulcerations or gangrene. CENTRAL NERVOUS SYSTEM: No gross focal deficits noted. The patient is alert, awake, and oriented well. PSYCHIATRIC SYSTEM: The patient's mood is euthymic. No hallucinations or delusions. LABORATORY DATA: EKG done shows normal sinus rhythm at 95 beats per minute. There is Q-waves seen in V1, V2, V3 with poor R-wave progression. Chest x-ray done shows no acute cardiopulmonary abnormalities. Influenza A and B antigens are negative. Lower extremity ultrasound venous Doppler done showed no evidence of DVT. BNP is 891. First set of cardiac enzymes are negative. Liver enzymes within normal limits. Albumin is 3.0, BUN 28, creatinine 0.9, serum glucose 218, potassium is 4.4. White count of 5, H and H 10 and 29, platelet count 230, MCV is 93 with 52 % neutrophils. CLINICAL IMPRESSION AND PLAN: The patient will be placed under observation on telemetry for acute congestive heart failure exacerbation, likely diastolic dysfunction. We will obtain a viral PCR, which might have triggered her current exacerbation. Her influenza A and B antigens are negative. She will be on Lasix 40 mg IV q.12 hourly. We will continue all her home medications as before including aspirin, Plavix, atorvastatin, Toprol-XL, lisinopril, Humulin 70/30, and Ranexa as before. Echo with 2D Doppler for current ejection fraction will be obtained. We will obtain one more set of cardiac enzymes. Please note, the patient has inoperable diffuse coronary artery disease based on cardiac catheterization done last year. The patient's functional status is also very poor and is essentially wheelchair bound. Job ID: [id number] [facility]
[2018-08-12 18:44] LABS: Troponin I 0.012 ng/mL (< 0.028)
[2018-08-12] MEDS ORDERED: HumuLIN 70/30 (300 UNITS/3 ML VIAL) SC SCH (21:00)
[2018-08-12] MEDS ORDERED: Lisinopril 10 MG TAB PO SCH (21:00)
[2018-08-12] MEDS ORDERED: Atorvastatin Calcium 40 MG TAB PO SCH (22:00)
[2018-08-12] MEDS: Amitriptyline HCl 25 MG TAB PO SCH (22:02)
[2018-08-12] MEDS: Famotidine 20 MG TAB PO SCH (22:02)
[2018-08-12 22:31] VITALS: BMI 41.9
[2018-08-13] MEDS: Furosemide 40 MG/4 ML VIAL SLOW IVP SCH ×2 (05:20→14:36)
[2018-08-13 05:33] LABS: #Basophils 0.1 thou/uL (0.0-0.2); #Eosinphils 0.2 thou/uL (0.0-0.7); #Lymphocytes 2.2 thou/uL (1.20-3.40); #Monocytes 0.3 thou/uL (0.11-0.59); #Neutrophils 1.6 thou/uL (1.40-6.50); %Basophils 1.4 % (0.0-1.0); %Eosinophils 5.2 % (0.0-10.0); %Lymphocytes 49.1 % (21.0-51.0); %Monocytes 7.7 % (0.0-10.0); %Neutrophils 36.5 % (42.0-75.0); Mean Corpuscular HGB CONC 33.6 g/dL (32.0-36.0); Mean Corpuscular Hemoglobin 31.8 pg (27.0-31.0); Mean Corpuscular Volume 94.5 fL (78.0-98.0); Mean Platelet Volume 7.3 fL (7.4-10.4); Platelet Count 227 thou/uL (130-400); RBC Distribution Width 12.8 % (11.5-14.5); Red Blood Cell (RBC) Count 3.14 mill/uL (4.20-5.40); White Blood Cell (WBC) Count 4.5 thou/uL (4.8-10.8)
[2018-08-13 05:57] LABS: Anion Gap 14 mmol/L (10-20); BUN (Urea Nitrogen) 30 mg/dL (9.8-20.1); Calc. Creatinine Clearance 118 mL/min (70-130); Calcium 8.7 mg/dL (7.8-10.44); Carbon Dioxide 23 mmol/L (23-31); Chloride 106 mmol/L (98-107); Estimated GFR-MDRD 68; Glucose 107 mg/dL (80-115); Potassium 3.9 mmol/L (3.5-5.1); Sodium 139 mmol/L (136-145)
[2018-08-13] MEDS: Amitriptyline HCl 25 MG TAB PO SCH (08:17)
[2018-08-13] MEDS: Famotidine 20 MG TAB PO SCH (08:18)
[2018-08-13] MEDS ORDERED: Enoxaparin Sodium 40 MG/0.4 ML SYRINGE SC SCH (09:00)
[2018-08-13] MEDS ORDERED: HumuLIN 70/30 (300 UNITS/3 ML VIAL) SC SCH (09:00)
[2018-08-13] MEDS ORDERED: Clopidogrel Bisulfate 75 MG TAB PO SCH (09:00)
[2018-08-13] MEDS ORDERED: Atorvastatin Calcium 40 MG TAB PO SCH ×2 (09:00→21:00)
--- NOTE | 2018-08-13 11:31 | PDOC.PN ---
- Subjective Encounter Start Date: 08/13/18 Encounter Start Time: 10:00 Subjective: sob is better, no chest pain - Objective Resuscitation Status - Order Detail: 08/12/18 15:20 Resuscitation Status Routine Resuscitation Status: FULL: Full Resuscitation MAR Reviewed: Yes Vital Signs & Weight: Vital Signs (12 hours) Temp Pulse Resp BP Pulse Ox 08/13/18 11:24 97.7 F 83 17 96/54 L 96 08/13/18 08:14 97.6 F 89 15 132/72 96 08/13/18 03:27 98.0 F 100 13 133/67 97 08/13/18 00:00 98.2 F 101 H 20 124/58 L 98 Weight Weight 237 lb 12.8 oz I&O: 08/12/18 08/13/18 08/14/18 06:59 06:59 06:59 Intake Total 250 Output Total 250 Balance 0 Result Diagrams: 08/13/18 05:16 08/13/18 05:16 Additional Labs: Accuchecks 08/13/18 08/13/18 08/13/18 11:01 09:51 05:17 POC Glucose 193 H 171 H 108 08/12/18 20:32 POC Glucose 276 H Phys Exam - Physical Examination HEENT: PERRLA, moist MMs Neck: no JVD, supple Respiratory: no wheezing basal rales+ Cardiovascular: RRR, no significant murmur Gastrointestinal: soft, non-tender, positive bowel sounds Musculoskeletal: pulses present, edema present Neurological: non-focal, moves all 4 limbs Psychiatric: normal affect, A&O x 3 Dx/Plan (1) Acute exacerbation of CHF (congestive heart failure) Code(s): I50.9 - HEART FAILURE, UNSPECIFIED Status: Acute Qualifiers: Heart failure type: diastolic Qualified Code(s): I50.33 - Acute on chronic diastolic (congestive) heart failure (2) H/O: CVA (cerebrovascular accident) Code(s): Z86.73 - PRSNL HX OF TIA (TIA), AND CEREB INFRC W/O RESID DEFICITS Status: Chronic Comment: no residual paralysis (3) Dyslipidemia Code(s): E78.5 - HYPERLIPIDEMIA, UNSPECIFIED Status: Chronic (4) Obesity Code(s): E66.9 - OBESITY, UNSPECIFIED Status: Chronic Qualifiers: Obesity classification: adult class 3 (BMI >= 40) Body mass index: BMI 40.0 -44.9 (5) CAD (coronary artery disease) Code(s): I25.10 - ATHSCL HEART DISEASE OF [place] CORONARY ARTERY W/O ANG PCTRS Status: Chronic Qualifiers: Coronary Disease-Associated Artery/Lesion type: [place] artery [place] vs. transplanted heart: [place] heart Associated angina: with stable angina Qualified Code(s): I25.118 - Atherosclerotic heart disease of [place] coronary artery with other forms of angina pectoris Comment: has severe diffuse 3 vessel cad, inoperable and for med mgmt (6) Diabetes mellitus Code(s): E11.9 - TYPE 2 DIABETES MELLITUS WITHOUT COMPLICATIONS Status: Chronic Qualifiers: Diabetes mellitus type: type 2 Diabetes mellitus correction insulin use: with supervisor intermediates use Diabetes mellitus complication status: with neurologic complications Diabetes mellitus complication detail: with polyneuropathy Qualified Code(s): E11.42 - Type 2 diabetes mellitus with diabetic polyneuropathy; 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 Review of Systems - Medications/Allergies Allergies/Adverse Reactions: Allergies Allergy/AdvReac Type Severity Reaction Status Date / Time codeine Allergy severe Verified 08/12/18 22:20 vomiting, itching Latex, Natural Rubber Allergy Hives Verified 08/12/18 22:20 Penicillins Allergy itch Verified 08/12/18 22:20 Medications: Current Medications Acetaminophen (Tylenol) 650 mg PO Q4H PRN PRN Reason: Headache/Fever/Mild Pain (1-3) Amitriptyline HCl (Elavil) 50 mg PO BID [facility] Last Admin: 08/13/18 08:17 Dose: 50 mg Aspirin (Aspirin Chewable) 81 mg PO DAILY [facility] Last Admin: 08/13/18 08:18 Dose: 81 mg Atorvastatin Calcium (Lipitor) 80 mg PO HS [facility] Clopidogrel Bisulfate (Plavix) 75 mg PO DAILY [facility] Last Admin: 08/13/18 08:18 Dose: 75 mg Dextrose/Water (Dextrose 50%) 25 gm SLOW IVP PRN PRN PRN Reason: Hypoglycemia Enoxaparin Sodium (Lovenox) 40 mg SC 0900 [facility] Last Admin: 08/13/18 08:18 Dose: 40 mg Famotidine (Pepcid) 20 mg PO BID [facility] Last Admin: 08/13/18 08:18 Dose: 20 mg Furosemide (Lasix) 40 mg SLOW IVP 0600,1400 [facility] Last Admin: 08/13/18 05:20 Dose: 40 mg Glucagon (Glucagon) 1 mg IM PRN PRN PRN Reason: Hypoglycemia Guaifenesin/Dextromethorphan (Robitussin Dm) 15 ml PO Q4H PRN PRN Reason: Cough Dextrose/Water (D5w) 1,000 mls @ 0 mls/hr IV .Q0M PRN PRN Reason: Hypoglycemia Insulin Human Isoph/Insulin Regular (Humulin 70/30) 50 units SC [facility] Last Admin: 08/12/18 22:03 Dose: 50 unit Insulin Human Isoph/Insulin Regular (Humulin 70/30) 70 units SC DAILY [facility] Last Admin: 08/13/18 09:53 Dose: 70 units Insulin Human Lispro (Humalog) 0 units SC .MODERATE SLIDING SC PRN PRN Reason: Moderate Correctional Scale Last Admin: 08/13/18 11:21 Dose: 2 units Insulin Human Lispro (Humalog) 0 units SC .BEDTIME SLIDING SC PRN PRN Reason: Bedtime Correctional Scale Isosorbide Mononitrate (Imdur) 120 mg PO DAILY [facility] Last Admin: 08/13/18 08:18 Dose: 120 mg Lisinopril (Zestril) 10 mg PO HS [facility] Last Admin: 08/12/18 22:02 Dose: 10 mg Metoprolol Succinate (Toprol Xl) 100 mg PO DAILY [facility] Last Admin: 08/13/18 08:19 Dose: 100 mg Ranolazine (Ranexa) 1,000 mg PO BID [facility] Last Admin: 08/13/18 08:19 Dose: 1,000 mg Senna/Docusate Sodium (Senokot S) 2 tab PO BID PRN PRN Reason: Constipation
[2018-08-13 15:59] VITALS: BP 99/54; TEMP 97.9
--- NOTE | 2018-08-15 13:07 | DIS ---
DATE OF ADMISSION: 08/12/2018 DATE OF DISCHARGE: 08/13/2018 DISCHARGE DISPOSITION: Home. PRIMARY DISCHARGE DIAGNOSES: Acute congestive heart failure exacerbation with diastolic dysfunction. PROCEDURES DONE DURING HOSPITALIZATION: The patient had ultrasound venous Doppler of left lower extremity done, which showed no evidence of DVT. Echo with 2D Doppler done showed EF of 30% to 35%. with [id number] mitral regurgitation, [id number] tricuspid regurgitation. Chest x-ray done on the day of admission showed no acute cardiopulmonary process. Respiratory virus PCR was negative. H and H 10 and 29, platelet count 227. Troponin x3 negative. BNP 891. DISCHARGE MEDICATIONS: 1. Elavil 50 mg twice daily, atorvastatin 80 mg p.o. at bedtime. 2. Humulin 70/30, 50 units subcu at bedtime and 70 units subcu q.a.m. 3. Imdur extended release 120 mg p.o. daily. 4. Toprol-XL 50 mg p.o. daily. 5. Ranexa extended release 1000 mg p.o. twice daily. 6. Aspirin 81 mg p.o. daily. 7. Plavix 75 mg p.o. daily. 8. Lasix 40 mg p.o. daily. 9. Lisinopril 10 mg p.o. at bedtime. ALLERGIES: ALLERGIC TO CODEINE, LATEX AND PENICILLIN. DISCHARGE PLAN: The patient to follow up with her primary care physician in one week. BRIEF COURSE DURING HOSPITALIZATION: The patient initially came in with complaints of cough and expectoration of yellow sputum with shortness of breath. The patient also had retrosternal chest pain. In view of this history, she has had multiple workups done, which showed findings suggestive of CHF exacerbation with systolic dysfunction. The patient's EF was 30% to 35%. The patient has had gentle diuresis done with Lasix. She responded well to these measures. X-ray did not reveal any acute infiltrate. Respiratory viral PCR was negative as well. She is hemodynamically stable and will be shortly discharged home. The patient's systolic blood pressure is around 100 and she has been advised to check her blood pressure and pulse twice daily. She was given a total of three doses of Lasix. The 4th dose was held due to low blood pressure. She needs to follow up with her primary care physician in one week. The patient's mobility is limited with her transferring to wheelchair at home. Please see a [id number] documentation for the day of discharge on [employer]. Job ID: [id number]
== END 2018-08-13 17:07 | disposition home or self-care (01) ==
LOC: ERS 10:56 → ERHOLD 14:27 → 2NO 20:20
PROVIDERS: ADMIT Internal Medicine; ATTEND Internal Medicine
DX: I11.0 Hypertensive heart disease with heart failure (principal); I50.33 Acute on chronic diastolic (congestive) heart failure; I25.118 Atherosclerotic heart disease of native coronary artery with other forms of angina pectoris; E11.42 Type 2 diabetes mellitus with diabetic polyneuropathy; E78.5 Hyperlipidemia, unspecified; E66.9 Obesity, unspecified; Z68.41 Body mass index [BMI] 40.0-44.9, adult; Z86.73 Personal history of transient ischemic attack (TIA), and cerebral infarction without residual deficits; Z88.0 Allergy status to penicillin; Z88.5 Allergy status to narcotic agent; Z91.040 Latex allergy status; Z79.02 Long term (current) use of antithrombotics/antiplatelets; Z79.82 Long term (current) use of aspirin; Z79.4 Long term (current) use of insulin; Z79.899 Other long term (current) drug therapy; Z99.3 Dependence on wheelchair
CPT/HCPCS: 36415; 36416; 71046; 80048; 80053; 83880; 84484; 85025; 87633; 87804; 93005; 93306; 93798; 96372; 96374; 96376; G0378; J1650; J1940

== ENCOUNTER 2018-10-11 16:54 | Inpatient (IN) | payer SELFPAY ==
[2018-10-11] MEDS ORDERED: Nitroglycerin 2% Ointment 1 INCH/1 GM Packet ONE (17:17)
[2018-10-11 17:42] LABS: #Lymphocytes 1.4 thou/uL (1.20-3.40); #Monocytes 0.4 thou/uL (0.11-0.59); #Neutrophils 2.3 thou/uL (1.40-6.50); %Basophils 1.1 % (0.0-1.0); %Eosinophils 1.1 % (0.0-10.0); %Lymphocytes 33.1 % (21.0-51.0); %Neutrophils 55.7 % (42.0-75.0); Hemoglobin 11.5 g/dL (12.0-16.0); Mean Corpuscular HGB CONC 31.9 g/dL (32.0-36.0); Mean Corpuscular Hemoglobin 29.3 pg (27.0-31.0); Mean Corpuscular Volume 91.7 fL (78.0-98.0); Mean Platelet Volume 8.6 fL (7.4-10.4); Platelet Count 193 thou/uL (130-400); RBC Distribution Width 12.8 % (11.5-14.5); Red Blood Cell (RBC) Count 3.91 mill/uL (4.20-5.40); White Blood Cell (WBC) Count 4.1 thou/uL (4.8-10.8)
--- NOTE | 2018-10-11 17:53 | RAD ---
PORTABLE AP CHEST RADIOGRAPH: Date: 10-11-18 History: Chest pain Comparison: 04-19-18 FINDINGS: Cardiac silhouette is magnified by projection. The pulmonary vasculature is within normal limits. Reji gs are clear. There has been no interval change from the prior exam. IMPRESSION: No acute cardiopulmonary process. POS: [facility]
[2018-10-11 18:02] LABS: ALT (SGPT) 80 U/L (8-55); AST (SGOT) 115 U/L (5-34); Albumin 3.3 g/dL (3.4-4.8); Alkaline Phosphatase 164 U/L (40-150); Anion Gap 16 mmol/L (10-20); BUN (Urea Nitrogen) 38 mg/dL (9.8-20.1); Bilirubin, Total 0.6 mg/dL (0.2-1.2); CK (CPK) 102 U/L (29-168); Calc. Creatinine Clearance 0 mL/min (70-130); Calcium 8.5 mg/dL (7.8-10.44); Carbon Dioxide 22 mmol/L (23-31); Chloride 98 mmol/L (98-107); Estimated GFR-MDRD 37; Glucose 533 mg/dL (80-115); Lipase 20 U/L (8-78); Potassium 5.5 mmol/L (3.5-5.1); Protein, Total 6.3 g/dL (6.0-8.3); Sodium 130 mmol/L (136-145)
[2018-10-11 20:57] LABS: Troponin I 0.027 ng/mL (< 0.028)
[2018-10-11] MEDS ORDERED: Acetaminophen 325 MG TAB PO PRN (23:56)
[2018-10-11] MEDS ORDERED: Dextrose 5% in Water 1,000 ML IV PRN (23:56)
[2018-10-11] MEDS ORDERED: Dextrose 50% Abboject 50 ML SYRINGE SLOW IVP PRN (23:56)
[2018-10-11] MEDS ORDERED: Ondansetron PF 4 MG/2 ML Vial IVP PRN (23:56)
[2018-10-11] MEDS ORDERED: Senokot S 8.6-50 MG TAB PO PRN (23:56)
[2018-10-12 00:02] LABS: Troponin I 0.029 ng/mL (< 0.028)
--- NOTE | 2018-10-12 00:46 | HP ---
REASON FOR ADMISSION: Acute CHF exacerbation, chest discomfort. HISTORY OF PRESENTING ILLNESS: The patient gives history of having cough with expectoration of white sputum this morning. She is also nauseous. The patient developed chest pain 2-3 hours after coughing episodes. The chest pain was retrosternal, 2 to 3/10 in intensity with no radiation as such. The patient knew that she had something new with her heart as this had happened before and the patient had been hospitalized for heart failure before. The patient had seen Dr. Shields three weeks back in his office. No complaints of fever. No contacts with flu in the family. She says she is compliant with her medications and follows a strict diet as well. She normally uses electric scooter and barely ambulates in the house. Currently, she has no chest pain at present. PAST MEDICAL AND SURGICAL HISTORY: History of CHF with ejection fraction of around 35%, inoperable coronary artery disease, hypertension, diabetes mellitus type 2, dyslipidemia, obesity, appendectomy, x1, hernia repair, hysterectomy, bilateral knee repair, tonsillectomy, history of asthma, osteoarthritis. CURRENT MEDICATIONS: The patient is on; 1. Metoprolol 100 mg twice daily. 2. Plavix 75 mg daily. 3. Amitriptyline 50 mg twice daily. 4. Lisinopril 10 mg daily. 5. Ranexa 1000 mg p.o. twice daily. 6. Humalog 70/30, 70 units q.a.m. and 50 units q.p.m. 7. Atorvastatin 80 mg p.o. daily. 8. Flexeril p.r.n. 9. Lasix 40 mg p.o. q.a.m. 10. Levothyroxine 50 mcg p.o. daily. 11. Spironolactone 25 mg p.o. daily. ALLERGIES: ALLERGIC TO CODEINE, LATEX, AND PENICILLIN. PERSONAL HISTORY: Does not abuse alcohol or drugs. No history of smoking. Lives with her . She mobilizes herself with a scooter. FAMILY HISTORY: Mother from an unknown cancer at the age of 75 years. Father in his 70s and has had history of coronary artery disease. CODE STATUS: Full. POWER OF PROCESSING ANALYST: Her . REVIEW OF SYSTEMS: CONSTITUTIONAL: Negative for weight loss or gain, ability to conduct usual activities. SKIN: Negative for rash, itching. EYES: Negative for double vision, pain. ENT/MOUTH: Negative for nose bleeding, neck stiffness, pain, tenderness. CARDIOVASCULAR: Negative for palpitations, dyspnea on exertion, orthopnea. RESPIRATORY: Negative for shortness of breath, wheezing, cough, hemoptysis, fever or night sweats. GASTROINTESTINAL: Negative for poor appetite, abdominal pain, heartburn, nausea , vomiting, constipation, or diarrhea. GENITOURINARY: Negative for urgency, frequency, dysuria, nocturia. MUSCULOSKELETAL: Negative for pain, swelling. NEUROLOGIC/PSYCHIATRIC: Negative for anxiety, depression. ALLERGY/IMMUNOLOGIC: Negative for skin rash, bleeding tendency. PHYSICAL EXAMINATION: GENERAL: The patient is a 63-year-old female, who is currently not in any acute distress. VITAL SIGNS: Blood pressure 124/64, pulse 110 per minute, respiratory rate 20 per minute, temperature 98.8 degrees Fahrenheit, saturating 95% on room air. NECK: Supple. There is mild elevation in JVD. HEENT: Eyes; extraocular muscles intact. Pupils reacting to light. Oral cavity, mucous membranes are moist. No exudates or congestion. CARDIOVASCULAR: S1 and S2 heard. Regular rhythm. RESPIRATORY: Air entry 1+ bilateral. Scattered rales in the infrascapular area. Distant breath sounds. ABDOMEN: Soft, bowel sounds heard. No tenderness, rigidity, or guarding. EXTREMITIES: There is mild peripheral edema. No calf tenderness. VASCULAR: Peripheral pulses 1+ bilateral. No ischemic ulcerations or gangrene. CENTRAL NERVOUS SYSTEM: No gross focal deficits noted. The patient is alert, awake, and oriented well. PSYCHIATRIC: The patient's mood is euthymic. No hallucinations or delusions. LABORATORY DATA: White count of 4, H and H of 11 and 35, platelet count 193, MCV is 91 with 55% neutrophils. Potassium 5.5, sodium 130, serum bicarb 22, BUN 38, creatinine 1.4, serum glucose 533, AST 115, ALT 80, alkaline phosphatase 164, T-bilirubin 0.6. BNP is 1963. Troponin third set is 0.02. Albumin is 3.3. Chest x-ray done shows no acute cardiopulmonary process. EKG done shows sinus tachycardia at 104 beats per minute. There is low-voltage EKG with poor R-wave progression. CLINICAL IMPRESSION AND PLAN: The patient will be under observation on telemetry for acute congestive heart failure exacerbation with systolic dysfunction and known prior ejection fraction of around 35%. She also has acute kidney injury with hyperkalemia as well. Mild metabolic acidosis and uncontrolled diabetes as well. The patient's LFTs are elevated, likely due to passive congestion. She has demand ischemia due to congestive heart failure exacerbation at present. The patient will be on Lasix 40 mg IV q.12 hourly and continue her spironolactone as before. We will also continue her aspirin, Plavix, Lipitor, Toprol-XL at 50 mg daily, and lisinopril as before. She will be on home dose of 70/30 Humulin, 70 units subcu q.a.m. and 50 units q.p.m. Her stockholder, Dr. Shields, will be consulted while she is here. If needed, the patient will be switched over to inpatient status for continued diuresis in view of acute kidney injury that she has, which might get worse with diuresis. Job ID: [id number] MTDD
[2018-10-12] MEDS ORDERED: Insulin Regular 300 UNITS/3 ML VIAL ONE (01:16)
[2018-10-12 04:43] LABS: #Basophils 0.1 thou/uL (0.0-0.2); #Eosinphils 0.1 thou/uL (0.0-0.7); #Lymphocytes 1.5 thou/uL (1.20-3.40); #Monocytes 0.5 thou/uL (0.11-0.59); #Neutrophils 2.1 thou/uL (1.40-6.50); %Basophils 1.5 % (0.0-1.0); %Eosinophils 2.4 % (0.0-10.0); %Lymphocytes 35.6 % (21.0-51.0); %Monocytes 10.9 % (0.0-10.0); %Neutrophils 49.7 % (42.0-75.0); Hemoglobin 11.1 g/dL (12.0-16.0); Mean Corpuscular HGB CONC 32.2 g/dL (32.0-36.0); Mean Corpuscular Hemoglobin 29.3 pg (27.0-31.0); Mean Corpuscular Volume 90.9 fL (78.0-98.0); Mean Platelet Volume 8.4 fL (7.4-10.4); Platelet Count 175 thou/uL (130-400); RBC Distribution Width 12.7 % (11.5-14.5); White Blood Cell (WBC) Count 4.1 thou/uL (4.8-10.8)
[2018-10-12 05:11] LABS: ALT (SGPT) 67 U/L (8-55); AST (SGOT) 71 U/L (5-34); Albumin 3.2 g/dL (3.4-4.8); Alkaline Phosphatase 138 U/L (40-150); Anion Gap 12 mmol/L (10-20); BUN (Urea Nitrogen) 36 mg/dL (9.8-20.1); Bilirubin, Total 0.3 mg/dL (0.2-1.2); Calc. Creatinine Clearance 0 mL/min (70-130); Calcium 8.7 mg/dL (7.8-10.44); Carbon Dioxide 23 mmol/L (23-31); Chloride 99 mmol/L (98-107); Estimated GFR-MDRD 42; Globulin 3.3 g/dL (2.4-3.5); Glucose 346 mg/dL (80-115); Potassium 4.6 mmol/L (3.5-5.1); Protein, Total 6.5 g/dL (6.0-8.3); Sodium 129 mmol/L (136-145)
[2018-10-12] MEDS ORDERED: Furosemide 40 MG/4 ML VIAL ONE ×2 (06:50→14:51)
[2018-10-12] MEDS: Furosemide 40 MG/4 ML VIAL SLOW IVP SCH ×2 (06:59→14:53)
[2018-10-12] MEDS ORDERED: Clopidogrel Bisulfate 75 MG TAB ONE (08:50)
[2018-10-12] MEDS ORDERED: Aspirin Chewable 81 MG TAB ONE (08:50)
[2018-10-12] MEDS ORDERED: Enoxaparin Sodium 40 MG/0.4 ML SYRINGE ONE (08:50)
[2018-10-12] MEDS ORDERED: Famotidine 20 MG TAB ONE ×2 (08:51→20:30)
[2018-10-12] MEDS: HumuLIN 70/30 (300 UNITS/3 ML VIAL) SC SCH ×2 (09:11→23:09)
[2018-10-12] MEDS: Aspirin Chewable 81 MG TAB PO SCH (09:13)
[2018-10-12] MEDS: Famotidine 20 MG TAB PO SCH ×2 (09:13→23:21)
[2018-10-12] MEDS: Enoxaparin Sodium 40 MG/0.4 ML SYRINGE SC SCH (09:13)
[2018-10-12] MEDS: Clopidogrel Bisulfate 75 MG TAB PO SCH (09:13)
[2018-10-12] MEDS: Spironolactone 25 MG TAB PO SCH (09:17)
[2018-10-12] MEDS: Amitriptyline HCl 25 MG TAB PO SCH ×2 (09:18→23:22)
[2018-10-12] MEDS: Levothyroxine Sodium 50 MCG TAB PO SCH (10:23)
--- NOTE | 2018-10-12 16:21 | PDOC.PN ---
- Subjective Encounter Start Date: 10/12/18 Encounter Start Time: 15:00 Subjective: c/o cough and sob - Objective Resuscitation Status - Order Detail: 10/11/18 23:51 Resuscitation Status Routine Resuscitation Status: FULL: Full Resuscitation MAR Reviewed: Yes Vital Signs & Weight: Vital Signs (12 hours) Temp Pulse Resp BP Pulse Ox 10/12/18 04:44 98.7 F 98 18 141/93 H 94 L Weight Weight 210 lb I&O: 10/11/18 10/12/18 10/13/18 06:59 06:59 06:59 Intake Total 14 Output Total 760 Balance -746 Result Diagrams: 10/12/18 03:36 10/12/18 03:36 Additional Labs: Accuchecks 10/12/18 10/12/18 10/12/18 11:37 06:25 00:36 POC Glucose 289 H 308 H 479 H Radiology Reviewed by me: Yes Phys Exam - Physical Examination HEENT: moist MMs Neck: no nodes, no JVD Respiratory: wheezing present Cardiovascular: no significant murmur, no rub Gastrointestinal: non-tender, no distention Musculoskeletal: edema present Neurological: normal sensation, moves all 4 limbs Psychiatric: normal affect, A&O x 3 Skin: no rash Dx/Plan (1) Acute exacerbation of CHF (congestive heart failure) Code(s): I50.9 - HEART FAILURE, UNSPECIFIED Status: Acute Qualifiers: Heart failure type: systolic Qualified Code(s): I50.23 - Acute on chronic systolic (congestive) heart failure Plan: Appreciate cardiology evaluation and iv lasix has been advised (2) CVA (cerebral vascular accident) Code(s): I63.9 - CEREBRAL INFARCTION, UNSPECIFIED Status: Chronic (3) CAD (coronary artery disease) Code(s): I25.10 - ATHSCL HEART DISEASE OF [place] CORONARY ARTERY W/O ANG PCTRS Status: Chronic Qualifiers: Coronary Disease-Associated Artery/Lesion type: bypass graft [place] vs. transplanted heart: [place] heart Associated angina: without angina Qualified Code(s): I25.810 - Atherosclerosis of coronary artery bypass graft(s) without angina pectoris Comment: has severe diffuse 3 vessel cad, inoperable and for med mgmt (4) Diabetes mellitus Code(s): E11.9 - TYPE 2 DIABETES MELLITUS WITHOUT COMPLICATIONS Status: Chronic Qualifiers: Diabetes mellitus type: type 2 Diabetes mellitus half-way insulin use: with cripple chaser use Diabetes mellitus complication status: with hyperglycemia Qualified Code(s): E11.65 - Type 2 diabetes mellitus with hyperglycemia; Z79.4 - assurance assistant (current) use of insulin Plan: We will restart patient's home insulin and start low dose sliding scale insulin protocol (5) Dyslipidemia Code(s): E78.5 - HYPERLIPIDEMIA, UNSPECIFIED Status: Chronic (6) H/O: CVA (cerebrovascular accident) Code(s): Z86.73 - PRSNL HX OF TIA (TIA), AND CEREB INFRC W/O RESID DEFICITS Status: Chronic Comment: no residual paralysis (7) HTN (hypertension) Code(s): I10 - ESSENTIAL (PRIMARY) HYPERTENSION Status: Chronic Qualifiers: (8) Obesity Code(s): E66.9 - OBESITY, UNSPECIFIED Status: Chronic Qualifiers: Obesity classification: adult class 3 (BMI >= 40) Body mass index: BMI 40.0 -44.9 (9) Cough due to BERTA inhibitor Code(s): R05 - COUGH; T46.4X5A - ADVERSE EFFECT OF [id number]-[id number]-BHFKJC INHIBITORS, INIT Status: Acute Plan: Lisinopril has been discontinued - Plan plan discussed w/ family 1.D/c Lisinopril. -: 2.Continue iv lasix. -: 3.Appreciate cardiology follow up. * .
[2018-10-12 16:48] LABS: #Eosinphils 0.1 thou/uL (0.0-0.7); #Lymphocytes 1.1 thou/uL (1.20-3.40); #Monocytes 0.5 thou/uL (0.11-0.59); #Neutrophils 2.2 thou/uL (1.40-6.50); %Basophils 1.2 % (0.0-1.0); %Eosinophils 3.7 % (0.0-10.0); %Lymphocytes 29.1 % (21.0-51.0); %Monocytes 11.5 % (0.0-10.0); %Neutrophils 54.5 % (42.0-75.0); Hemoglobin 11.1 g/dL (12.0-16.0); Mean Corpuscular HGB CONC 31.8 g/dL (32.0-36.0); Mean Corpuscular Hemoglobin 28.7 pg (27.0-31.0); Mean Corpuscular Volume 90.3 fL (78.0-98.0); Mean Platelet Volume 7.9 fL (7.4-10.4); Platelet Count 187 thou/uL (130-400); Red Blood Cell (RBC) Count 3.87 mill/uL (4.20-5.40); White Blood Cell (WBC) Count 3.9 thou/uL (4.8-10.8)
[2018-10-12 17:15] LABS: ALT (SGPT) 67 U/L (8-55); AST (SGOT) 60 U/L (5-34); Albumin 3.2 g/dL (3.4-4.8); Alkaline Phosphatase 129 U/L (40-150); Anion Gap 8 mmol/L (10-20); BUN (Urea Nitrogen) 39 mg/dL (9.8-20.1); Bilirubin, Total 0.4 mg/dL (0.2-1.2); Calc. Creatinine Clearance 72 mL/min (70-130); Calcium 8.9 mg/dL (7.8-10.44); Carbon Dioxide 28 mmol/L (23-31); Chloride 99 mmol/L (98-107); Estimated GFR-MDRD 45; Globulin 3.5 g/dL (2.4-3.5); Glucose 116 mg/dL (80-115); Potassium 4.4 mmol/L (3.5-5.1); Protein, Total 6.7 g/dL (6.0-8.3); Sodium 131 mmol/L (136-145)
[2018-10-12] MEDS ORDERED: Lisinopril 10 MG TAB PO SCH (21:00)
[2018-10-12] MEDS ORDERED: HumuLIN 70/30 (300 UNITS/3 ML VIAL) SC SCH (21:00)
--- NOTE | 2018-10-12 22:49 | CON ---
DATE OF CONSULTATION: HISTORY OF PRESENT ILLNESS: The patient is a 63-year-old woman with a long history of coronary artery disease, ischemic cardiomyopathy, who presents with coughing, dyspnea and chest discomfort. The patient was seen in September 2016. She underwent a cardiac catheterization and had severe coronary artery disease with 90% proximal LAD lesion, 99% mid lesion, 90% distal lesion. The first septal machine fur cleaner had a 99% lesion in the first diagonal. The LAD had 90 % stenosis and 85% stenosis. Left circumflex artery had an 80% stenosis, 60% stenosis, 99% stenosis, and 90% OM lesion. Right coronary artery had 95% stenosis, 75% PDA lesion, and subsequent 70% lesion. The patient had normal left ventricular systolic function. The patient over the past year has had great difficulty obtaining her medications. She has been seen by Cardiothoracic Surgery, who deemed her inoperable coronary artery disease. From a cardiac standpoint, she presented with increasing dyspnea. The patient states she has been out of several of her cardiac medications. PAST MEDICAL HISTORY: 1. Coronary artery disease. 2. Cardiomyopathy. 3. Diabetes mellitus. 4. Hypertension. 5. Dyslipidemia. 6. Obesity. PAST SURGICAL HISTORY: Hysterectomy, appendectomy, knee surgery, and tonsillectomy. MEDICATIONS: See nursing list. ALLERGIES: CODEINE, LASIX, PENICILLIN. FAMILY HISTORY: Positive family history of coronary artery disease. REVIEW OF SYSTEMS: Notable for persistent cough. Ten-point system is otherwise unremarkable. PHYSICAL EXAMINATION: GENERAL: Obese woman, in no acute distress. VITAL SIGNS: Blood pressure 149/93. NECK: No jugular venous distention. LUNGS: Clear to auscultation. HEART: Regular rate and rhythm. Normal S1 and S2. ABDOMEN: Distended. EXTREMITIES: Showed trace edema. VASCULAR: Radial pulses are 2+. LABORATORY RESULTS: Sodium 129, potassium 4.6, chloride 99, bicarbonate 23, BUN 36, creatinine 1.29, glucose 346. Her white blood cell count 4.1, hemoglobin 11.1, hematocrit 34.6, and platelets 175. Chest x-ray revealed cardiomegaly, clear lung devlin. No pulmonary edema. IMPRESSION: 1. Persistent coughing. 2. Severe cardiomyopathy. 3. Severe inoperable coronary artery disease. 4. Hypertension. 5. Dyslipidemia. 6. Diabetes mellitus. 7. Morbid obesity. This unfortunate woman presents with persistent cough. The patient will be taken off her lisinopril. We will switch her to losartan. The patient's prognosis is extremely guarded. We will follow this patient with you through her hospitalization. [facility] ID[facility] [id number] [facility]
[2018-10-12] MEDS: Losartan 25 MG TAB PO SCH (23:21)
[2018-10-12] MEDS: Atorvastatin Calcium 40 MG TAB PO SCH (23:22)
[2018-10-13] MEDS: Levothyroxine Sodium 50 MCG TAB PO SCH (06:18)
[2018-10-13] MEDS: Furosemide 40 MG/4 ML VIAL SLOW IVP SCH ×2 (06:18→15:49)
[2018-10-13 07:21] LABS: #Eosinphils 0.1 thou/uL (0.0-0.7); #Monocytes 0.3 thou/uL (0.11-0.59); #Neutrophils 1.6 thou/uL (1.40-6.50); %Basophils 1.3 % (0.0-1.0); %Eosinophils 2.6 % (0.0-10.0); %Lymphocytes 32.1 % (21.0-51.0); Hemoglobin 10.6 g/dL (12.0-16.0); Mean Corpuscular HGB CONC 32.8 g/dL (32.0-36.0); Mean Corpuscular Hemoglobin 29.7 pg (27.0-31.0); Mean Corpuscular Volume 90.5 fL (78.0-98.0); Mean Platelet Volume 8.3 fL (7.4-10.4); Platelet Count 161 thou/uL (130-400); RBC Distribution Width 12.7 % (11.5-14.5); Red Blood Cell (RBC) Count 3.59 mill/uL (4.20-5.40)
[2018-10-13 07:41] LABS: ALT (SGPT) 63 U/L (8-55); AST (SGOT) 58 U/L (5-34); Albumin 2.9 g/dL (3.4-4.8); Alkaline Phosphatase 115 U/L (40-150); Anion Gap 13 mmol/L (10-20); BUN (Urea Nitrogen) 40 mg/dL (9.8-20.1); Bilirubin, Total 0.3 mg/dL (0.2-1.2); Calc. Creatinine Clearance 79 mL/min (70-130); Calcium 8.7 mg/dL (7.8-10.44); Carbon Dioxide 25 mmol/L (23-31); Chloride 99 mmol/L (98-107); Estimated GFR-MDRD 42; Globulin 3.2 g/dL (2.4-3.5); Glucose 180 mg/dL (80-115); Potassium 4.6 mmol/L (3.5-5.1); Protein, Total 6.1 g/dL (6.0-8.3); Sodium 132 mmol/L (136-145)
[2018-10-13] MEDS: Aspirin Chewable 81 MG TAB PO SCH (09:07)
[2018-10-13] MEDS: Losartan 25 MG TAB PO SCH ×2 (09:07→20:55)
[2018-10-13] MEDS: Famotidine 20 MG TAB PO SCH ×2 (09:07→20:53)
[2018-10-13] MEDS: Amitriptyline HCl 25 MG TAB PO SCH ×2 (09:07→20:52)
[2018-10-13] MEDS: Spironolactone 25 MG TAB PO SCH (09:08)
[2018-10-13] MEDS: Clopidogrel Bisulfate 75 MG TAB PO SCH (09:08)
[2018-10-13] MEDS: Enoxaparin Sodium 40 MG/0.4 ML SYRINGE SC SCH (09:09)
[2018-10-13] MEDS: HumuLIN 70/30 (300 UNITS/3 ML VIAL) SC SCH ×2 (09:11→20:55)
[2018-10-13] MEDS: Guaifenesin DM 100-10/5 ML UDCUP PO PRN ×2 (09:16→20:56)
[2018-10-13] MEDS ORDERED: Fluticasone Propionate Nasal Spray 16 gm Bottle NASAL SCH (11:30)
--- NOTE | 2018-10-13 14:10 | PDOC.PN ---
- Subjective Encounter Start Date: 10/13/18 Encounter Start Time: 14:08 Subjective: still has cough and feels weak and tired.easily SOB - Objective Resuscitation Status - Order Detail: 10/11/18 23:51 Resuscitation Status Routine Resuscitation Status: FULL: Full Resuscitation MAR Reviewed: Yes Vital Signs & Weight: Vital Signs (12 hours) Temp Pulse Pulse Pulse Resp BP BP 10/13/18 12:23 98.7 F 84 16 10/13/18 10:21 84 59 L 122/62 110/59 L 10/13/18 08:00 98 F 86 18 10/13/18 03:35 98.0 F 82 16 BP Pulse Ox Pulse Ox Pulse Ox 10/13/18 12:23 113/63 98 10/13/18 10:21 99 95 10/13/18 08:00 131/67 96 10/13/18 03:35 124/67 96 Weight Weight 245 lb 8 oz I&O: 10/12/18 10/13/18 10/14/18 06:59 06:59 06:59 Intake Total 14 400 240 Output Total 760 Balance -746 400 240 Result Diagrams: 10/13/18 06:58 10/13/18 06:58 Additional Labs: Accuchecks 10/13/18 10/13/18 10/12/18 10:50 04:37 22:38 POC Glucose 267 H 224 H 83 10/12/18 10/12/18 21:53 17:36 POC Glucose 83 118 H Laboratory Tests 08/12/18 09/06/18 10/11/18 11:17 09:13 17:14 Creatinine 1.03 1.44 H Troponin I B-Natriuretic Peptide 891.6 H 10/11/18 10/11/18 10/11/18 17:14 17:24 20:24 Creatinine Troponin I 0.024 0.027 B-Natriuretic Peptide 1963.1 H 10/11/18 10/12/18 10/12/18 23:16 03:36 16:35 Creatinine 1.29 H 1.22 H Troponin I 0.029 H B-Natriuretic Peptide 10/13/18 06:58 Creatinine 1.30 H Troponin I B-Natriuretic Peptide Phys Exam - Physical Examination Constitutional: NAD pale and tired looking HEENT: PERRLA, moist MMs, sclera anicteric, oral pharynx no lesions Neck: no nodes, no JVD, supple, full ROM Respiratory: no rhonchi, wheezing present Cardiovascular: RRR, no significant murmur Gastrointestinal: soft, non-tender, no distention, positive bowel sounds Musculoskeletal: pulses present, edema present Neurological: non-focal, normal sensation, moves all 4 limbs Psychiatric: normal affect, A&O x 3 Skin: no rash Dx/Plan (1) Acute exacerbation of CHF (congestive heart failure) Code(s): I50.9 - HEART FAILURE, UNSPECIFIED Status: Acute Qualifiers: Heart failure type: systolic Qualified Code(s): I50.23 - Acute on chronic systolic (congestive) heart failure Comment: ECHO 08/2018-EF 30-35%.On Aldactone,Metoprolol succinate (2) Cough due to BERTA inhibitor Code(s): R05 - COUGH; T46.4X5A - ADVERSE EFFECT OF ESDENKLMR-MQIWIND-RFJLVR INHIBITORS, INIT Status: Acute Comment: changed to ARB (3) ABIGAIL (acute kidney injury) Code(s): N17.9 - ACUTE KIDNEY FAILURE, UNSPECIFIED Status: Acute (4) CAD (coronary artery disease) Code(s): I25.10 - ATHSCL HEART DISEASE OF [place] CORONARY ARTERY W/O ANG PCTRS Status: Chronic Qualifiers: Coronary Disease-Associated Artery/Lesion type: bypass graft [place] vs. transplanted heart: [place] heart Associated angina: without angina Qualified Code(s): I25.810 - Atherosclerosis of coronary artery bypass graft(s) without angina pectoris Comment: has severe diffuse 3 vessel cad, inoperable and for med mgmt.on Plavix, ranexa,BB,ARB,aldactone (5) Diabetes mellitus Code(s): E11.9 - TYPE 2 DIABETES MELLITUS WITHOUT COMPLICATIONS Status: Chronic Qualifiers: Diabetes mellitus type: type 2 Diabetes mellitus mcc insulin use: with intermodal truck driver use Diabetes mellitus complication status: with hyperglycemia Qualified Code(s): E11.65 - Type 2 diabetes mellitus with hyperglycemia; Z79.4 - intermodal truck driver (current) use of insulin (6) Dyslipidemia Code(s): E78.5 - HYPERLIPIDEMIA, UNSPECIFIED Status: Chronic (7) H/O: CVA (cerebrovascular accident) Code(s): Z86.73 - PRSNL HX OF TIA (TIA), AND CEREB INFRC W/O RESID DEFICITS Status: Chronic Comment: no residual paralysis (8) HTN (hypertension) Code(s): I10 - ESSENTIAL (PRIMARY) HYPERTENSION Status: Chronic Qualifiers: (9) Obesity Code(s): E66.9 - OBESITY, UNSPECIFIED Status: Chronic Qualifiers: Obesity classification: adult class 3 (BMI >= 40) Body mass index: BMI 40.0 -44.9 - Plan PT/OT, DVT proph w/SCDs suspect viral URI as well. check NAAT for Viral PCR -: cont diuresis w close monitoring of renal Fx. -: add nebs prn ,add flonase. -: recheck BNp in am.Hd stable but not ready for Dc yet given much symptoms & -: wheezing with risk of re admission high.follow * . Review of Systems - Review of Systems Constitutional: weakness, malaise. negative: fever, chills, sweats, other Respiratory: Cough, Dry, Shortness of Breath. negative: Hemoptysis, SOB with Excertion, Pleuritic Pain, Sputum, Wheezing Cardiovascular: negative: chest pain, palpitations, orthopnea, paroxysmal nocturnal dyspnea, edema, light headedness, other Gastrointestinal: negative: Nausea, Vomiting, Abdominal Pain, Diarrhea, Constipation, Melena, Hematochezia, Other Genitourinary: negative: Dysuria, Frequency, Incontinence, Hematuria, Retention , Other Musculoskeletal: negative: Neck Pain, Shoulder Pain, Arm Pain, Back Pain, Hand Pain, Leg Pain, Foot Pain, Other Neurological: negative: Weakness, Numbness, Incoordination, Change in Speech, Confusion, Seizures, Other - Medications/Allergies Allergies/Adverse Reactions: Allergies Allergy/AdvReac Type Severity Reaction Status Date / Time codeine Allergy severe Verified 10/13/18 00:27 vomiting, itching Latex, Natural Rubber Allergy Hives Verified 10/13/18 00:27 Penicillins Allergy itch Verified 10/13/18 00:27 Medications: Current Medications Acetaminophen (Tylenol) 650 mg PO Q4H PRN PRN Reason: Headache/Fever/Mild Pain (1-3) Albuterol/Ipratropium (Duoneb) 3 ml NEB Q6H PRN PRN Reason: SOB &/or Wheezing Amitriptyline HCl (Elavil) 50 mg PO BID [facility] Last Admin: 10/13/18 09:07 Dose: 50 mg Aspirin (Aspirin Chewable) 81 mg PO DAILY [facility] Last Admin: 10/13/18 09:07 Dose: 81 mg Atorvastatin Calcium (Lipitor) 80 mg PO HS [facility] Last Admin: 10/12/18 23:22 Dose: 80 mg Benzonatate (Tessalon) 100 mg PO Q4H PRN PRN Reason: Cough Clopidogrel Bisulfate (Plavix) 75 mg PO DAILY [facility] Last Admin: 10/13/18 09:08 Dose: 75 mg Dextrose/Water (Dextrose 50%) 25 gm SLOW IVP PRN PRN PRN Reason: Hypoglycemia Enoxaparin Sodium (Lovenox) 40 mg SC 0900 [facility] Last Admin: 10/13/18 09:09 Dose: 40 mg Famotidine (Pepcid) 20 mg PO BID [facility] Last Admin: 10/13/18 09:07 Dose: 20 mg Fluticasone Propionate (Flonase Nasal [place]) 0 gm NASAL DAILY [facility] Furosemide (Lasix) 40 mg SLOW IVP 0600,1400 [facility] Last Admin: 10/13/18 06:18 Dose: 40 mg Glucagon (Glucagon) 1 mg IM PRN PRN PRN Reason: Hypoglycemia Guaifenesin (Mucinex) 600 mg PO Q12HR [facility] Guaifenesin/Dextromethorphan (Robitussin Dm) 15 ml PO Q4H PRN PRN Reason: Cough Last Admin: 10/13/18 09:16 Dose: 15 ml Dextrose/Water (D5w) 1,000 mls @ 0 mls/hr IV .Q0M PRN PRN Reason: Hypoglycemia Insulin Human Isoph/Insulin Regular (Humulin 70/30) 70 units SC QAM [facility] Last Admin: 10/13/18 09:11 Dose: Not Given Insulin Human Isoph/Insulin Regular (Humulin 70/30) 50 units SC QPM [facility] Last Admin: 10/12/18 23:09 Dose: Not Given Levothyroxine Sodium (Synthroid) 50 mcg PO 0600 [facility] Last Admin: 10/13/18 06:18 Dose: 50 mcg Losartan Potassium (Cozaar) 50 mg PO BID [facility] Last Admin: 10/13/18 09:07 Dose: 50 mg Metoprolol Succinate (Toprol Xl) 50 mg PO BID [facility] Last Admin: 10/13/18 09:07 Dose: 50 mg Ondansetron HCl (Zofran) 4 mg IVP Q6H PRN PRN Reason: Nausea/Vomiting Ranolazine (Ranexa) 1,000 mg PO BID [facility] Last Admin: 10/13/18 09:08 Dose: 1,000 mg Senna/Docusate Sodium (Senokot S) 2 tab PO BID PRN PRN Reason: Constipation Sodium Chloride (Flush - Normal Saline) 10 ml IVF Q12HR [facility] Last Admin: 10/13/18 09:12 Dose: 10 ml Sodium Chloride (Flush - Normal Saline) 10 ml IVF PRN PRN PRN Reason: Saline Flush Spironolactone (Aldactone) 25 mg PO QAM-WM [facility] Last Admin: 10/13/18 09:08 Dose: 25 mg
[2018-10-13] MEDS: Benzonatate 100 MG CAP PO PRN (15:49)
[2018-10-13] MEDS ORDERED: HumaLOG 300 UNITS/3 ML VIAL SC PRN (18:22)
[2018-10-13] MEDS: guaiFENesin ER 600 MG TAB PO SCH (20:53)
[2018-10-13] MEDS: Atorvastatin Calcium 40 MG TAB PO SCH (20:53)
[2018-10-14] MEDS: Levothyroxine Sodium 50 MCG TAB PO SCH (05:40)
[2018-10-14] MEDS: Furosemide 40 MG/4 ML VIAL SLOW IVP SCH (05:40)
[2018-10-14] MEDS ORDERED: Fluticasone Propionate Nasal Spray 16 gm Bottle NASAL SCH ×2 (09:00→21:00)
[2018-10-14] MEDS: Spironolactone 25 MG TAB PO SCH (09:21)
[2018-10-14 10:52] LABS: Anion Gap 14 mmol/L (10-20); BUN (Urea Nitrogen) 50 mg/dL (9.8-20.1); Calc. Creatinine Clearance 48 mL/min (70-130); Calcium 8.3 mg/dL (7.8-10.44); Carbon Dioxide 22 mmol/L (23-31); Chloride 99 mmol/L (98-107); Estimated GFR-MDRD 23; Glucose 105 mg/dL (80-115); Potassium 5.5 mmol/L (3.5-5.1); Sodium 129 mmol/L (136-145)
[2018-10-14] MEDS: Enoxaparin Sodium 40 MG/0.4 ML SYRINGE SC SCH (11:06)
[2018-10-14] MEDS: guaiFENesin ER 600 MG TAB PO SCH ×2 (11:07→20:11)
[2018-10-14] MEDS: Aspirin Chewable 81 MG TAB PO SCH (11:08)
[2018-10-14] MEDS: Clopidogrel Bisulfate 75 MG TAB PO SCH (11:08)
[2018-10-14] MEDS: Famotidine 20 MG TAB PO SCH ×2 (11:08→20:12)
[2018-10-14] MEDS: Amitriptyline HCl 25 MG TAB PO SCH ×2 (12:22→20:11)
[2018-10-14] MEDS: HumuLIN 70/30 (300 UNITS/3 ML VIAL) SC SCH (12:25)
[2018-10-14] MEDS: Losartan 25 MG TAB PO SCH (12:25)
[2018-10-14 13:14] LABS: #Lymphocytes 1.3 thou/uL (1.20-3.40); #Monocytes 0.5 thou/uL (0.11-0.59); #Neutrophils 2.2 thou/uL (1.40-6.50); %Basophils 0.1 % (0.0-1.0); %Eosinophils 0.5 % (0.0-10.0); %Lymphocytes 32.1 % (21.0-51.0); %Monocytes 13.3 % (0.0-10.0); Hemoglobin 11.3 g/dL (12.0-16.0); Mean Corpuscular HGB CONC 32.1 g/dL (32.0-36.0); Mean Corpuscular Hemoglobin 29.4 pg (27.0-31.0); Mean Corpuscular Volume 91.5 fL (78.0-98.0); Mean Platelet Volume 8.9 fL (7.4-10.4); Platelet Count 169 thou/uL (130-400); RBC Distribution Width 13.2 % (11.5-14.5); Red Blood Cell (RBC) Count 3.83 mill/uL (4.20-5.40); White Blood Cell (WBC) Count 4.1 thou/uL (4.8-10.8)
--- NOTE | 2018-10-14 13:28 | PRG ---
DATE OF SERVICE: SUBJECTIVE: The patient is seen and examined at the bedside. She just had echocardiogram and her blood pressure medications were put on hold since her blood pressure is running low. OBJECTIVE: VITAL SIGNS: Blood pressure last one was 114/58 at 10:30, temperature is 98.2, pulse is 72, respiratory rate is 20, and O2 saturation is 95 on room air. HEENT: Her head is atraumatic and normocephalic. Sclerae nonicteric. Oral mucosa moist. SKIN: Her skin looks palish. NECK: Supple. Obese neck. LUNGS: Bilateral rales and crackles present with some wheezing. HEART: S1 and S2 distant. No S3. No S4. ABDOMEN: Soft, obese, and nontender. Bowel sounds present. EXTREMITIES: No clubbing or cyanosis. There is 1 to 2+ peripheral edema, pitting, similar bilaterally to both lower extremities. NEUROLOGICAL: She is alert and oriented x4. There is no any motor or sensory deficits present. Cranial nerves are intact. LABORATORY DATA: Glycemia is ranging from 113 to 287. IMPRESSION: 1. Acute exacerbation of congestive heart failure. This is on chronic systolic heart failure. 2. Cough due to BERTA inhibitor. The patient is changed to ARB. 3. Acute kidney injury. 4. Coronary artery disease. 5. Diabetes mellitus. 6. Dyslipidemia. 7. History of cerebrovascular accident. 8. Hypertension. 9. Obesity. PLAN: We are going to hold on PT and OT since she is hypotensive. We will cut back on her current regimen since she became hypotensive. Cardiology is following. We will use DuoNebs for her respiratory wheezing and chest x-ray did not show any significant abnormalities. We will continue her regimen with Humulin 70/30 70 units every morning and 50 units in the evening along with the sliding scale. Echocardiogram was just done and we are waiting for the results to come back. Job ID: [id number]
[2018-10-14] MEDS ORDERED: HumuLIN 70/30 (300 UNITS/3 ML VIAL) SC SCH ×3 (15:25→17:00)
[2018-10-14 19:46] LABS: Potassium 4.9 mmol/L (3.5-5.1)
[2018-10-14] MEDS: Atorvastatin Calcium 40 MG TAB PO SCH (20:11)
[2018-10-15] MEDS: Levothyroxine Sodium 50 MCG TAB PO SCH (06:18)
[2018-10-15] MEDS: HumuLIN 70/30 (300 UNITS/3 ML VIAL) SC SCH (08:43)
[2018-10-15] MEDS: Benzonatate 100 MG CAP PO PRN ×2 (08:45→17:59)
[2018-10-15] MEDS: Amitriptyline HCl 25 MG TAB PO SCH ×2 (08:46→20:37)
[2018-10-15] MEDS: Clopidogrel Bisulfate 75 MG TAB PO SCH (08:46)
[2018-10-15] MEDS: Famotidine 20 MG TAB PO SCH ×2 (08:46→20:36)
[2018-10-15] MEDS: guaiFENesin ER 600 MG TAB PO SCH ×2 (08:46→20:36)
[2018-10-15] MEDS: Aspirin Chewable 81 MG TAB PO SCH (08:46)
[2018-10-15 09:25] LABS: Anion Gap 12 mmol/L (10-20); BUN (Urea Nitrogen) 55 mg/dL (9.8-20.1); Calc. Creatinine Clearance 44 mL/min (70-130); Calcium 8.5 mg/dL (7.8-10.44); Carbon Dioxide 26 mmol/L (23-31); Chloride 97 mmol/L (98-107); Estimated GFR-MDRD 21; Glucose 75 mg/dL (80-115); Potassium 4.5 mmol/L (3.5-5.1); Sodium 130 mmol/L (136-145)
[2018-10-15] MEDS ORDERED: Sodium Chloride 0.9% 250 ML 250 ML IVPB SCH (10:30)
[2018-10-15] MEDS ORDERED: Sodium Chloride 0.9% 1,000 ML IV SCH ×2 (10:30→13:30)
[2018-10-15 11:25] VITALS: BMI 45.0
--- NOTE | 2018-10-15 11:41 | PRG ---
DATE OF SERVICE: 10/15/2018 SUBJECTIVE: The patient is seen and examined at the bedside. Apparently, she had some memory loss. She was not able to recall what happened yesterday morning when her blood pressure was running low, but her mental function is back to her baseline. According to her, she ate this morning her breakfast without any issues. OBJECTIVE: VITAL SIGNS: Blood pressure is 118/62, pulse is 73, respiratory rate is 17, O2 saturation is 93% on room air, her temperature is 97.4. IMAGING: Echocardiogram was done yesterday and it showed LVEF of 15% to 20% with a left ventricular size in moderate increase and moderate mitral regurgitation and [id number] tricuspid regurgitation, with IVC dilatation. LABORATORY DATA: Labs showed sodium of 130, potassium 4.5, chloride 97, CO2 26, BUN 55, creatinine 2.32, glycemia is ranging from 63 to 157, calcium is 8.5. IMPRESSION: 1. Acute on chronic congestive heart failure. 2. Cardiomyopathy with left ventricular ejection fraction estimated at 15% to 20%. The last echo done during this hospitalization. 3. Cough due to BERTA inhibitor. 4. Acute kidney injury. Her Lasix is stopped. Her spironolactone is stopped. 5. Hyperkalemia, improved. 6. Coronary artery disease. 7. Diabetes mellitus. The patient is back on her regimen and she started eating, so we see significant improvement of her glycemia. 8. Dyslipidemia. 9. History of cerebrovascular accident in the past with some mild residual weakness in the right lower extremity. 10. Hypertension. 11. Obesity. PLAN: Plan is to stop her Lasix and spironolactone, actually both of them were stopped yesterday and we are going to keep following her creatinine level to see how her kidneys are recovering. She had an episode yesterday morning with hypotension and she does not remember what happened. This was probably some TIA related to hypotension. Cardiogram showed significantly decreased LVEF 15% to 20%. We will do PT and OT since her blood pressure is fine today and Cardiology is following. Job ID: [id number]
[2018-10-15] MEDS ORDERED: Acetaminophen 325 MG TAB PO PRN (13:15)
[2018-10-15] MEDS ORDERED: Dextrose 5% in Water 1,000 ML IV PRN (13:20)
[2018-10-15] MEDS ORDERED: Guaifenesin DM 100-10/5 ML UDCUP PO PRN (13:21)
[2018-10-15] MEDS ORDERED: Dextrose 50% Abboject 50 ML SYRINGE SLOW IVP PRN (13:21)
[2018-10-15] MEDS ORDERED: Ondansetron PF 4 MG/2 ML Vial IVP PRN (13:22)
[2018-10-15] MEDS ORDERED: Senokot S 8.6-50 MG TAB PO PRN (13:23)
[2018-10-15] MEDS ORDERED: HumaLOG 300 UNITS/3 ML VIAL SC PRN (13:25)
[2018-10-15] MEDS ORDERED: HumuLIN 70/30 (300 UNITS/3 ML VIAL) SC SCH ×3 (17:00→21:00)
[2018-10-15] MEDS: Fluticasone Propionate Nasal Spray 16 gm Bottle NASAL SCH (20:35)
[2018-10-15] MEDS: Atorvastatin Calcium 40 MG TAB PO SCH (20:36)
[2018-10-16] MEDS: Levothyroxine Sodium 50 MCG TAB PO SCH (05:39)
[2018-10-16] MEDS: Benzonatate 100 MG CAP PO PRN (05:39)
[2018-10-16] MEDS: guaiFENesin ER 600 MG TAB PO SCH ×2 (08:12→20:47)
[2018-10-16] MEDS: Clopidogrel Bisulfate 75 MG TAB PO SCH (08:12)
[2018-10-16] MEDS: Famotidine 20 MG TAB PO SCH ×2 (08:12→20:47)
[2018-10-16] MEDS: Amitriptyline HCl 25 MG TAB PO SCH ×2 (08:13→20:48)
[2018-10-16] MEDS: Aspirin Chewable 81 MG TAB PO SCH (08:13)
[2018-10-16 08:55] LABS: Anion Gap 12 mmol/L (10-20); BUN (Urea Nitrogen) 59 mg/dL (9.8-20.1); Calc. Creatinine Clearance 45 mL/min (70-130); Calcium 8.1 mg/dL (7.8-10.44); Carbon Dioxide 22 mmol/L (23-31); Chloride 98 mmol/L (98-107); Estimated GFR-MDRD 22; Glucose 110 mg/dL (80-115); Potassium 4.8 mmol/L (3.5-5.1); Sodium 127 mmol/L (136-145)
[2018-10-16] MEDS ORDERED: HumuLIN 70/30 (300 UNITS/3 ML VIAL) SC SCH (09:00)
--- NOTE | 2018-10-16 14:17 | PRG ---
DATE OF SERVICE: 10/16/2018 SUBJECTIVE: The patient is seen and examined at the bedside. It appears to me that she has memory problem. She had another episode of not being to recall something from the past, it is most likely a residual from her previous stroke. Her appetite is quite poor. She is not able to ambulate. She transfers to the chair and her scooter at home. She had bowel movement today. OBJECTIVE: VITAL SIGNS: Blood pressure is 115/75, pulse is 65, temperature 97.8, respirations 16, and O2 saturation is 95% on room air. HEENT: Head is atraumatic and normocephalic. Eyes are PERRLA. Sclerae are nonicteric. Oral mucosa is moist. NECK: Supple and obese. LUNGS: Breath sounds diminished at both bases with crackles bilaterally, but improved. HEART: S1 and S2, somewhat irregular. No S3. No S4. ABDOMEN: Soft, obese, and nontender. Bowel sounds are present. No organomegaly. EXTREMITIES: No clubbing or cyanosis. 1+ to 2+ peripheral edema. NEUROLOGIC: She is alert and oriented x2. There is no any motor deficits. Cranial nerves are intact. LABORATORY DATA: Labs showed a sodium of 127, potassium 4.8, chloride 98, CO2 of 22, BUN 59, creatinine 2.29, glucose 110, and glycemia is ranging from 117 to 157. IMPRESSION: 1. Acute on chronic congestive heart failure. 2. Cardiomyopathy with left ventricular ejection fraction at 15% to 20%. 3. Cough due to angiotensin-converting enzyme inhibitor. 4. Acute kidney injury that is most likely secondary to Lasix use, diuretics stopped, we are waiting for recovery. 5. Hyperkalemia, resolved. 6. Coronary artery disease, chronic, stable. 7. Diabetes mellitus. The patient is not giving full regimen since she is not eating well, but her glycemia is in relatively well controlled range. 8. Dyslipidemia. 9. History of cerebrovascular accident in the past with some mild residual weakness in the right lower extremity and residual memory loss. 10. Hypertension. 11. Obesity. PLAN: As mentioned above. We are going to keep holding her diuretics. We will talk to the family regarding her previous CVA. I thought that she had TIA, which was related to hypotension she had 2 days ago, but at this time, she had an episode when she did not recall things from the past and the blood pressure was in good range at this time, so I think this is just the residual problem from her previous stroke. We will continue PT on her and we will arrange a jail placement for PT and OT and we are going to keep holding her insulin if she does not eat properly. We might consider using some IV fluids to help recover of her kidneys. Job ID: [id number]
--- NOTE | 2018-10-16 15:39 | CT ---
CT BRAIN: Date: 10/16/18 HISTORY: Altered mental status. Hallucinations. Memory loss. TECHNIQUE: Comparison made to previous exam from 11/10/08. Noncontrast enhanced CT images of the brain demonstrate the brain to be unremarkable. No evidence of intracranial masses, hemorrhages, strokes, or contusions seen. A small left centrum semiovale area of hypodensity seen, likely due to old stroke. This was not present on the previous comparison exam. No other acute abnormality seen. IMPRESSION: Small left centrum semiovale area of stroke, likely old. No acute intracranial abnormality seen. POS: [facility]
--- NOTE | 2018-10-16 17:02 | EKG ---
Test Reason : Blood Pressure : / mmHG Vent. Rate : 104 BPM Atrial Rate : 104 BPM P-R Int : 166 ms QRS Dur : 090 ms QT Int : 334 ms P-R-T Axes : 067 132 -11 degrees QTc Int : 439 ms Sinus tachycardia Right axis deviation Confirmed by SUNSHINE CORBIN ([id number]), society editor MARGUERITE JIMENEZ ([id number] on 10/16/2018 5:01:41 PM Referred By: Confirmed By:SUNSHINE CORBIN
[2018-10-16] MEDS: Atorvastatin Calcium 40 MG TAB PO SCH (20:47)
[2018-10-16] MEDS: HumuLIN 70/30 (300 UNITS/3 ML VIAL) SC SCH (20:48)
[2018-10-16] MEDS: Fluticasone Propionate Nasal Spray 16 gm Bottle NASAL SCH (20:51)
[2018-10-16 21:02] LABS: Bilirubin Negative (Negative); Blood, Urine Large (Negative); Clarity TURBID (Clear); Glucose, Urine (Dipstick) Negative (Negative); Leukocyte Large (Negative); Nitrite Negative (Negative); Protein, Urine (Dipstick) 100 mg/dL (Neg-Trace); pH, Urine 6.5 (5.0-9.0)
[2018-10-16 21:04] LABS: Yeast-AUWi Flag 52.7 (0-25.0)
[2018-10-16 21:12] LABS: Bacteria/HPF 3+ HPF (None Seen); Hyaline Casts/LPF 0-3 HYALINE CAST LPF (0-3 Hyaline); Other Casts/LPF None Seen LPF (0-3 Hyaline); Urine Culture Reflex No No
--- NOTE | 2018-10-16 23:20 | PDOC.EVN ---
Event Note - Event Note Event Note: RN called - UA abnormal. Will add urine culture. Pt has flores catheter. Atbx per AM if needed
[2018-10-17] MEDS: Levothyroxine Sodium 50 MCG TAB PO SCH (05:30)
[2018-10-17] MEDS: Clopidogrel Bisulfate 75 MG TAB PO SCH (08:28)
[2018-10-17] MEDS: Aspirin Chewable 81 MG TAB PO SCH (08:28)
[2018-10-17] MEDS: guaiFENesin ER 600 MG TAB PO SCH ×2 (08:28→20:54)
[2018-10-17] MEDS: Famotidine 20 MG TAB PO SCH ×2 (08:28→20:54)
[2018-10-17] MEDS: HumuLIN 70/30 (300 UNITS/3 ML VIAL) SC SCH ×2 (08:29→16:55)
[2018-10-17 09:23] LABS: Anion Gap 13 mmol/L (10-20); BUN (Urea Nitrogen) 53 mg/dL (9.8-20.1); Calc. Creatinine Clearance 57 mL/min (70-130); Calcium 8.5 mg/dL (7.8-10.44); Carbon Dioxide 23 mmol/L (23-31); Chloride 100 mmol/L (98-107); Estimated GFR-MDRD 28; Glucose 135 mg/dL (80-115); Potassium 4.6 mmol/L (3.5-5.1); Sodium 131 mmol/L (136-145)
--- NOTE | 2018-10-17 13:38 | PRG ---
DATE OF SERVICE: 10/17/2018 SUBJECTIVE: Patient is seen and examined at the bedside. She looks good this morning. Her appetite is still quite poor. She does not have any complaints to offer. She still has crackles and rales in her chest according to her. OBJECTIVE: VITAL SIGNS: Blood pressure is 133/75, pulse is 67, temperature is 97.5, respirations 18, O2 saturation is 94% on room air. SKIN: Her skin is palish. HEENT: Oral mucosa is somewhat dry. NECK: Supple, obese. LUNGS: Bilateral rales present on both sides with few wheezes bilaterally. HEART: S1 and S2, somewhat distant. No S3. No S4. ABDOMEN: Obese, nontender, nondistended. EXTREMITIES: Approximately 2+ peripheral edema similar bilaterally. NEUROLOGIC: She follows my commands. She moves her all four extremities. There are no any motor deficits. LABORATORY DATA: Labs showed sodium of 131, potassium 4.6, chloride 100, CO2 of 23, BUN 53, creatinine 1.81, glycemia is ranging from 136 to 150. Urinalysis showed 100 of proteins, large amount of blood, large amount of leukocyte esterases. Scope; urine wbc's greater than 50 to TNTC, urine bacteria 3+. ALLERGIES: NO NEW FINDINGS. IMPRESSION: 1. Acute on chronic congestive heart failure. 2. Cardiomyopathy with left ventricular ejection fraction at 15% to 20%. 3. Cough due to angiotensin-converting enzyme inhibitor. 4. Acute kidney injury that is most likely worsened by Lasix use, both Lasix and spironolactone were stopped and her kidney is recovering gradually. Her creatinine is less than 2 today. 5. Hyperkalemia, resolved. 6. Coronary artery disease, chronic, stable. 7. Diabetes mellitus, improved. 8. Dyslipidemia. 9. History of cerebrovascular accident in the past with some mild residual weakness in the right lower extremity. 10. Hypertension. 11. Obesity. PLAN: The patient is going to continue her PT and OT. Her both diuretics on hold because of creatinine climbing up. She is going to need half-way facility for PT and OT. Her insulin dose was decreased since she was not eating well and her appetite is still quite poor. We will start her on Megace and kidney function recovers. She will need more diuresis because her congestion is still significant in both lungs. Job ID: [id number]
[2018-10-17] MEDS: Carvedilol 6.25 MG TAB PO SCH (17:22)
[2018-10-17] MEDS: Atorvastatin Calcium 40 MG TAB PO SCH (20:53)
[2018-10-17] MEDS: Amitriptyline HCl 25 MG TAB PO SCH (20:53)
[2018-10-17] MEDS: Fluticasone Propionate Nasal Spray 16 gm Bottle NASAL SCH (20:54)
[2018-10-18 05:25] LABS: #Eosinphils 0.1 thou/uL (0.0-0.7); #Lymphocytes 1.9 thou/uL (1.20-3.40); #Monocytes 0.4 thou/uL (0.11-0.59); #Neutrophils 4.1 thou/uL (1.40-6.50); %Basophils 0.6 % (0.0-1.0); %Eosinophils 1.1 % (0.0-10.0); %Lymphocytes 29.8 % (21.0-51.0); %Monocytes 6.3 % (0.0-10.0); %Neutrophils 62.2 % (42.0-75.0); Mean Corpuscular Hemoglobin 29.6 pg (27.0-31.0); Mean Corpuscular Volume 92.4 fL (78.0-98.0); Mean Platelet Volume 8.5 fL (7.4-10.4); Platelet Count 160 thou/uL (130-400); RBC Distribution Width 13.1 % (11.5-14.5); Red Blood Cell (RBC) Count 3.71 mill/uL (4.20-5.40); White Blood Cell (WBC) Count 6.5 thou/uL (4.8-10.8)
[2018-10-18] MEDS: Levothyroxine Sodium 50 MCG TAB PO SCH (05:32)
[2018-10-18] MEDS: Carvedilol 6.25 MG TAB PO SCH ×2 (08:43→18:01)
[2018-10-18] MEDS: Clopidogrel Bisulfate 75 MG TAB PO SCH (08:44)
[2018-10-18] MEDS: Aspirin Chewable 81 MG TAB PO SCH (08:44)
[2018-10-18] MEDS: Megestrol Acetate 800 MG/20 ML UDCUP PO SCH (08:44)
[2018-10-18] MEDS: guaiFENesin ER 600 MG TAB PO SCH ×2 (08:44→20:16)
[2018-10-18] MEDS: Famotidine 20 MG TAB PO SCH ×2 (08:44→20:16)
[2018-10-18] MEDS: HumuLIN 70/30 (300 UNITS/3 ML VIAL) SC SCH ×2 (08:48→18:02)
[2018-10-18 08:52] LABS: Anion Gap 12 mmol/L (10-20); BUN (Urea Nitrogen) 41 mg/dL (9.8-20.1); Calc. Creatinine Clearance 76 mL/min (70-130); Calcium 8.5 mg/dL (7.8-10.44); Carbon Dioxide 25 mmol/L (23-31); Chloride 103 mmol/L (98-107); Estimated GFR-MDRD 42; Glucose 90 mg/dL (80-115); Potassium 4.3 mmol/L (3.5-5.1); Sodium 136 mmol/L (136-145)
[2018-10-18] MEDS ORDERED: Lisinopril 5 MG TAB PO SCH (11:00)
--- NOTE | 2018-10-18 11:43 | PRG ---
DATE OF SERVICE: 10/18/2018 SUBJECTIVE: The patient reports she is feeling somewhat better in general. She continues to have a cough. The cough is wet, but she has had difficulty producing any sputum. Says this has been going on for about a week. She has no other specific complaints. OBJECTIVE: VITAL SIGNS: Temperature 97.7, pulse 78, respirations 18, O2 saturation 94% on room air, BP 110/59 up to 142/65. GENERAL APPEARANCE: Age-appropriate female, slightly obese. No distress. She is awake, alert, oriented, pleasant, cooperative. HEENT: PERRL. No OP lesions. NECK: Supple and symmetric. HEART: Regular without murmurs. LUNGS: Have some bronchial rales that tend to clear somewhat with cough. Otherwise relatively clear with no wheezing. ABDOMEN: Soft, nontender, and nondistended. EXTREMITIES: Trace 1+ pitting edema pretibially. PSYCH: Normal affect and behavior. LABORATORY DATA: White count 6.5, hemoglobin 11, platelets 160. Sodium 136, potassium 4.3, chloride 103, CO2 of 25, BUN 41, creatinine is 1.29, glucose is 88 to 112. Urine culture growing a pansensitive E. coli. IMPRESSION AND PLAN: 1. Acute on chronic systolic heart failure, improved. 2. Cardiomyopathy with an ejection fraction of 15% to 20%. Working on obtaining a LifeVest. 3. Cough, concern for possibly being related to BERTA inhibitor. However, her cough is more consistent with a bronchitis being generally a wet cough. She is covered with antibiotics. She has cough suppressants and mucolytics. 4. Acute kidney injury. The patient was receiving aggressive diuresis due to her congestive heart failure. Creatinine got worse and is now improving with the diuretics being held. We will need to try to strike a balance. 5. Hyperkalemia, resolved. 6. Severe nonoperable coronary artery disease, stable. 7. Diabetes mellitus. Blood sugars are extremely well controlled. Presently, no change. 8. History of dyslipidemia. 9. History of hypertension. 10. Obesity. 11. Urinary tract infection, growing Escherichia coli, on Levaquin should adequately be covered. Job ID: [id number]
[2018-10-18] MEDS: Fluticasone Propionate Nasal Spray 16 gm Bottle NASAL SCH (20:16)
[2018-10-18] MEDS: Amitriptyline HCl 25 MG TAB PO SCH (20:16)
[2018-10-18] MEDS: Atorvastatin Calcium 40 MG TAB PO SCH (20:16)
[2018-10-19] MEDS: Levothyroxine Sodium 50 MCG TAB PO SCH (05:24)
[2018-10-19 09:04] LABS: Anion Gap 9 mmol/L (10-20); BUN (Urea Nitrogen) 27 mg/dL (9.8-20.1); Calc. Creatinine Clearance 93 mL/min (70-130); Calcium 8.5 mg/dL (7.8-10.44); Carbon Dioxide 26 mmol/L (23-31); Chloride 104 mmol/L (98-107); Estimated GFR-MDRD 52; Glucose 184 mg/dL (80-115); Potassium 4.1 mmol/L (3.5-5.1); Sodium 135 mmol/L (136-145)
[2018-10-19] MEDS ORDERED: Furosemide 40 MG TAB PO SCH (09:45)
[2018-10-19] MEDS: Clopidogrel Bisulfate 75 MG TAB PO SCH (10:19)
[2018-10-19] MEDS: Famotidine 20 MG TAB PO SCH (10:19)
[2018-10-19] MEDS: guaiFENesin ER 600 MG TAB PO SCH (10:19)
[2018-10-19] MEDS: Aspirin Chewable 81 MG TAB PO SCH (10:19)
[2018-10-19] MEDS: Carvedilol 6.25 MG TAB PO SCH ×2 (10:19→17:38)
[2018-10-19] MEDS: Megestrol Acetate 800 MG/20 ML UDCUP PO SCH (10:20)
[2018-10-19] MEDS: HumuLIN 70/30 (300 UNITS/3 ML VIAL) SC SCH ×2 (10:23→17:35)
[2018-10-19 13:01] VITALS: BP 116/57; TEMP 97.4
[2018-10-19] MEDS ORDERED: Lisinopril 10 MG TAB PO SCH (21:00)
[2018-10-19] MEDS ORDERED: Lisinopril 5 MG TAB PO SCH (21:00)
[2018-10-20] MEDS ORDERED: Furosemide 40 MG TAB PO SCH (07:30)
--- NOTE | 2018-10-20 13:15 | DIS ---
DATE OF ADMISSION: 10/11/2018 DATE OF DISCHARGE: 10/19/2018 DISCHARGE DIAGNOSES: 1. Acute on chronic systolic heart failure. 2. Chest pain. 3. Cardiomyopathy with ejection fraction of 15% to 20%. 4. Cough concerning for possibility of BERTA inhibitor cough versus bronchitis. 5. Acute kidney injury. 6. Hyperkalemia. 7. Severe nonoperable coronary artery disease. 8. Diabetes mellitus. 9. Dyslipidemia. 10. Hypertension. 11. Obesity. 12. Urinary tract infection with Escherichia coli. HISTORY OF PRESENT ILLNESS: This patient is a 63-year-old female with known severe inoperable coronary artery disease, followed by Dr. Shields. This patient presented to the emergency department with complaint of some chest pain that was related to significant coughing episodes that had been going on for a bit prior to her presentation. Her BNP was elevated at 1963. Troponin was minimally elevated. Chest x-ray showed no acute cardiopulmonary processes. EKG showed some sinus tach with poor R-wave progression. HOSPITAL COURSE: The patient was admitted to the hospital with chest discomfort , felt to be related to acute on chronic systolic heart failure. She was placed on telemetry and she was seen in consultation by Dr. Shields. She had diuresis initiated and repeat echocardiogram performed, which revealed an ejection fraction of 15% to 20% with [id number] tricuspid regurgitation. With the diuresis, the patient's heart failure symptoms improved. However, she had worsening renal function as her creatinine continued to rise and reached a peak of 2.32. With that, the diuresis was held and the patient's creatinine improved, came back to the normal range. Also of note, the patient was noted to have urinary tract infection while in the hospital and cultures grew pansensitive E coli. With the patient's newly reduced ejection fraction, attempts were made to obtain a LifeVest for the patient. However, due to lack of resources, it was not possible and with the patient being stable off BERTA inhibitor and with normal renal function, again she was felt to be stable for discharge to home. PHYSICAL EXAMINATION: VITAL SIGNS: On the day of discharge, temperature was 97.4, pulse 76, respirations 16, O2 saturation 98% on room air, BP 116/57. GENERAL APPEARANCE: Slightly obese, age-appropriate female, in no distress. She is awake, alert, oriented, pleasant, and cooperative. HEART: Regular without murmurs noted. LUNGS: Clear bilaterally. ABDOMEN: Soft, nontender. EXTREMITIES: With 1+ pretibial pitting edema bilaterally. DISPOSITION: The patient is discharged to home. DISCHARGE MEDICATIONS: She will be on: 1. Aspirin 81 mg daily. 2. Carvedilol 6.25 mg b.i.d. 3. She will continue her usual home medications including amitriptyline 50 mg b.i.d. 4. Plavix 75 mg daily. 5. Humulin 70/30, 50 units subcu at bedtime and 70 units q.a.m. 6. Ranexa 1000 mg b.i.d. 7. Atorvastatin 80 mg at bedtime. 8. Lasix 40 mg daily. 9. Aldactone 25 mg daily. 10. Levothyroxine 50 mcg daily. 11. Lisinopril 10 mg daily. 12. Metoprolol 100 mg b.i.d. 13. Flexeril 10 mg p.r.n. DIET: She will be on heart healthy, low-sodium diet. ACTIVITY: As tolerated. FOLLOWUP: She will [facility] up at [facility] along with Claudia Lindsay on 10/21 and she will follow up with Dr. Tio Shields in 3 to 4 weeks. She can return to the hospital should she have any problems prior to that time. Total time spent in discharge activities 38 min. Job ID: [id number] [facility]
== END 2018-10-19 17:55 | disposition home or self-care (01) | DRG 292 ==
LOC: ERS 16:54 → OBSVTOIN 22:00 → ERHOLD 22:00 → 2NO 10-12 22:02 → UNDODISOB 10-15 12:25
PROVIDERS: ADMIT Emergency Medicine; ATTEND Emergency Medicine
DX: I11.0 Hypertensive heart disease with heart failure (principal); N17.9 Acute kidney failure, unspecified; E87.2 Acidosis; Z68.41 Body mass index [BMI] 40.0-44.9, adult; N39.0 Urinary tract infection, site not specified; I50.23 Acute on chronic systolic (congestive) heart failure; E11.42 Type 2 diabetes mellitus with diabetic polyneuropathy; M19.90 Unspecified osteoarthritis, unspecified site; I25.10 Atherosclerotic heart disease of native coronary artery without angina pectoris; T46.4X5A Adverse effect of angiotensin-converting-enzyme inhibitors, initial encounter; E87.5 Hyperkalemia; I42.9 Cardiomyopathy, unspecified; E66.01 Morbid (severe) obesity due to excess calories; J40 Bronchitis, not specified as acute or chronic; E78.5 Hyperlipidemia, unspecified; R05 Cough; I95.9 Hypotension, unspecified; B96.20 Unspecified Escherichia coli [E. coli] as the cause of diseases classified elsewhere; Z90.49 Acquired absence of other specified parts of digestive tract; Z79.01 Long term (current) use of anticoagulants; Z90.710 Acquired absence of both cervix and uterus; Z79.4 Long term (current) use of insulin; Z79.899 Other long term (current) drug therapy; Z88.5 Allergy status to narcotic agent; Z88.0 Allergy status to penicillin; Z91.040 Latex allergy status; Z86.73 Personal history of transient ischemic attack (TIA), and cerebral infarction without residual deficits
CPT/HCPCS: 36415; 36416; 70450; 71045; 80048; 80053; 81001; 82550; 83690; 83880; 84443; 84484; 85025; 87077; 87086; 87186; 87633; 87798; 93005; 93306; 93798; 94640; 94760; J1650; J1815; J1940; J1956; J2405

== ENCOUNTER 2019-01-19 13:07 | Inpatient (IN) | payer OTHER, SELFPAY ==
[2019-01-19 14:17] LABS: #Basophils 0.1 thou/uL (0.0-0.2); #Eosinphils 0.1 thou/uL (0.0-0.7); #Lymphocytes 1.4 thou/uL (1.20-3.40); #Monocytes 0.4 thou/uL (0.11-0.59); #Neutrophils 3.9 thou/uL (1.40-6.50); %Basophils 0.9 % (0.0-1.0); %Eosinophils 2.4 % (0.0-10.0); %Monocytes 6.3 % (0.0-10.0); %Neutrophils 66.4 % (42.0-75.0); Hemoglobin 12.8 g/dL (12.0-16.0); Mean Corpuscular Hemoglobin 29.5 pg (27.0-31.0); Mean Corpuscular Volume 86.7 fL (78.0-98.0); Mean Platelet Volume 8.5 fL (7.4-10.4); Platelet Count 186 thou/uL (130-400); Red Blood Cell (RBC) Count 4.32 mill/uL (4.20-5.40); White Blood Cell (WBC) Count 5.9 thou/uL (4.8-10.8)
[2019-01-19] MEDS ORDERED: Aspirin Chewable 81 MG TAB ONE ×2 (14:25→14:26)
[2019-01-19] MEDS ORDERED: Nitroglycerin 2% Ointment 1 INCH/1 GM Packet ONE (14:25)
[2019-01-19 14:43] LABS: ALT (SGPT) 11 U/L (8-55); AST (SGOT) 16 U/L (5-34); Albumin 3.2 g/dL (3.4-4.8); Alkaline Phosphatase 77 U/L (40-150); Anion Gap 15 mmol/L (10-20); BUN (Urea Nitrogen) 30 mg/dL (9.8-20.1); Bilirubin, Total 0.8 mg/dL (0.2-1.2); CK (CPK) 25 U/L (29-168); Calc. Creatinine Clearance 0 mL/min (70-130); Calcium 9.7 mg/dL (7.8-10.44); Carbon Dioxide 27 mmol/L (23-31); Chloride 88 mmol/L (98-107); Estimated GFR-MDRD 34; Globulin 3.7 g/dL (2.4-3.5); Lipase 64 U/L (8-78); Potassium 5.7 mmol/L (3.5-5.1); Protein, Total 6.9 g/dL (6.0-8.3); Sodium 124 mmol/L (136-145)
[2019-01-19 14:47] LABS: Glucose 748 mg/dL (80-115)
[2019-01-19] MEDS ORDERED: Insulin Regular 300 UNITS/3 ML VIAL ONE (14:58)
[2019-01-19] MEDS ORDERED: Dextrose 50% Abboject 50 ML SYRINGE SLOW IVP PRN (18:04)
[2019-01-19] MEDS ORDERED: HumaLOG 300 UNITS/3 ML VIAL SC PRN (18:04)
[2019-01-19] MEDS ORDERED: Dextrose 5% in Water 1,000 ML IV PRN (18:04)
[2019-01-19] MEDS ORDERED: Nitroglycerin 0.4 MG TAB (25 Tab Bottle) PO PRN (18:08)
[2019-01-19 18:39] LABS: Troponin I Less than 0.010 ng/mL (< 0.028)
[2019-01-19 19:26] LABS: Bilirubin Negative (Negative); Blood, Urine Large (Negative); Clarity TURBID (Clear); Glucose, Urine (Dipstick) >=1000 mg/dL (Negative); Leukocyte Moderate (Negative); Nitrite Positive (Negative); Protein, Urine (Dipstick) 100 mg/dL (Neg-Trace); Specific Gravity, Urine 1.022 (1.002-1.036); Urobilinogen 0.2 mg/dL (0.2-1.0); pH, Urine 5.5 (5.0-9.0)
[2019-01-19 19:29] LABS: Hyaline Casts/LPF 0-3 HYALINE CAST LPF (0-3 Hyaline); Pathc Cast-AUWi Flag 0.54 (0-2.49); Squamous Epithelial None Seen HPF (0-3)
[2019-01-19 19:38] LABS: Bacteria/HPF 3+ HPF (None Seen)
[2019-01-19 20:34] VITALS: BMI 34.9
[2019-01-20] MEDS ORDERED: cefTRIAXone\\ROCEPHIN 1 GM VIAL ONE (00:54)
--- NOTE | 2019-01-20 08:27 | HP ---
TIME OF ENCOUNTER: 5:30 p.m. CHIEF COMPLAINT: Chest pain. HISTORY OF PRESENT ILLNESS: Ms. Patel is a pleasant 63-year-old female with past medical history significant for severe triple-vessel coronary artery disease, deemed inoperable secondary to poor targets, ischemic cardiomyopathy with last estimated EF here in the hospital of 20%, chronic kidney disease secondary to diabetic nephropathy and cardiorenal syndrome, and type 2 diabetes, who presented to the hospital with complaints of chest tightness. The patient states that she has been in her usual state of health up until this morning. She got up to use the restroom, and experienced some chest tightness along with lightheadedness. Her chest tightness was nonradiating, and she did not appreciate any palpitations or associated nausea or shortness of breath. She did go to lie down on her bed, which did seem to ease up her pain. She called her primary privacy specialist, Dr. Shields , who advised presentation to the ER for further workup and treatment. Her chest pain was resolved on arrival. EKG showed sinus rhythm with T-wave inversions laterally, which appear to be new from her last EKG obtained in the hospital in October of 2018. Labs were notable as well for hyperglycemia at a level of 784, mild hyperkalemia , and creatinine of 1.54, which is above her baseline of around 1.2. The patient had no gap and was not acidotic on arrival. At the time of my interview, the patient is chest pain free. REVIEW OF SYSTEMS: A 12-point review of systems performed. Review of systems is positive for dysuria. The patient has noted some burning with urination along with frequency. She denies any fever or chills. No sick contacts. Otherwise, review of systems is negative. ALLERGIES: PENICILLINS, BERTA INHIBITOR, WHICH PRODUCES COUGH. HOME MEDICATIONS: The patient is not familiar with her home medications and these are unable to be reconciled at this time. From previous discharge summary, I believe patient to be on; 1. Aspirin 81 mg daily. 2. Carvedilol 6.25 mg b.i.d. 3. Plavix 75 mg daily. 4. Humulin 70/30, 50 units subcu at bedtime, 70 units q.a.m. 5. Ranexa 1000 mg b.i.d. 6. Atorvastatin 80 mg at bedtime. 7. Lasix 40 mg daily. 8. Aldactone 25 mg daily. 9. Levothyroxine 50 mcg daily. 10. Flexeril 10 mg p.r.n. 11. Amitriptyline 50 mg b.i.d. 12. From patient history, I believe that she may have been taken off lisinopril in favor of Entresto, although the patient is unaware of what she is actually taking. Also, her previous medication list include two different beta blockers and I am unsure as of the patient which one she is actually taking. PAST MEDICAL HISTORY: Includes: 1. Severe triple-vessel coronary artery disease as mentioned above, ischemic cardiomyopathy with EF of about 20%. 2. Chronic kidney disease. 3. Type 2 diabetes mellitus. 4. Dyslipidemia. 5. Hypertension. 6. History of CVA in 2013 with some residual right-sided weakness. PAST SURGICAL HISTORY: Appendectomy, x1, umbilical hernia repair, total hysterectomy, bilateral knee repair, tonsillectomy. PSYCHIATRIC HISTORY: Depression. FAMILY HISTORY: Noncontributory. SOCIAL HISTORY: The patient is a nonsmoker and nondrinker. She does not use any illicit drugs. She lives with her and has custody of her 5 grand kids, ages 7 through 14-whom she is helping to raise. PHYSICAL EXAMINATION: VITAL SIGNS: Blood pressure 132/84, pulse 78, O2 saturation is 97% on room air, respirations 18, temperature 97.9. GENERAL: The patient is a moderately, obese, female, resting comfortably in bed at the ER. In the ER at the time of my evaluation, no acute distress. CV: S1 and S2. Regular rate, rhythm. No appreciable murmurs, rubs, or gallops. LUNGS: Regular respiratory rate and pattern, overall clear to auscultation. I can appreciate no wheezes, rhonchi, or crackles. ABDOMEN: Soft, positive bowel sounds, nontender. EXTREMITIES: Trace edema bilaterally. Extremities are warm and well perfused. NEUROLOGIC: The patient does have some residual right-sided weakness, which is stable from previous CVA. She is awake, alert, and oriented x4. LABORATORY DATA: Pertinent lab includes BNP of just over 300. Her initial troponin was indeterminate. Potassium 5.7, sodium 124, creatinine 1.54. UA positive for leukocyte esterase, 3+ bacteria. No squamous cells, positive for nitrite. ASSESSMENT: 1. Chest pain/unstable angina; new, lateral T-wave inversions, troponin indeterminate at this time. 2. Hyperglycemia without evidence of diabetic ketoacidosis. 3.Severe triple-vessel coronary artery disease, inoperable secondary to poor targets. 4. Bcbnt-jt-rsncalw renal insufficiency, creatinine 1.54, baseline appears to be 1.2. 5. Hyponatremia secondary to chronic systolic heart failure. 6. Mild hyperkalemia in the setting of above, along with leryv-wx-yjhphkh kidney disease. 7. Ischemic cardiomyopathy with last ejection fraction estimated to be around 20 %. 8. Type 2 diabetes mellitus, uncontrolled. 9. Urinary tract infection. PLAN: The patient has been given 1 L of IV fluids in the ER, and we will hold off on further IV fluid resuscitation in the setting of known cardiomyopathy. We will initiate aggressive sliding scale insulin protocol along with q.2 hour checks. Regarding UTI, we will start empiric coverage with Rocephin. Her last UTI in October revealed teresa susceptible E. coli. We will consult the patient's primary privacy specialist, Dr. Shields in the morning. Unfortunately, she does largely appear to be optimized on her heart failure and antianginal regimen. We will continue aspirin, Plavix, statin, and her heart failure medications of beta kevin and ARB when those medicines are verified. This patient has multiple comorbidities and meets inpatient criteria at this time. The care of this patient has been discussed in detail with Dr. Sheridan who agrees with the care and management as outlined above. Further recommendations based on hospital course. Job ID: [id number] [id number]
[2019-01-20] MEDS: HumaLOG 300 UNITS/3 ML VIAL SC PRN ×3 (08:48→16:47)
[2019-01-20] MEDS: Clopidogrel Bisulfate 75 MG TAB PO SCH (08:49)
[2019-01-20] MEDS: Enoxaparin Sodium 30 MG/0.3 ML SYRINGE SC SCH (08:49)
[2019-01-20] MEDS ORDERED: Aspirin 81 mg Enteric Coated Tablet PO SCH (09:00)
[2019-01-20] MEDS ORDERED: Diabetic Tussin 200 MG/10 ML UDCUP PO PRN (09:12)
[2019-01-20] MEDS ORDERED: Loperamide HCl 2 MG CAP PO PRN (09:12)
[2019-01-20] MEDS ORDERED: Zolpidem Tartrate 5 MG TAB PO PRN (09:12)
[2019-01-20] MEDS ORDERED: Calcium Carbonate 500 MG ChewTAB PO PRN (09:12)
[2019-01-20] MEDS ORDERED: Sodium Chloride 0.65% Nasal 44 ML BOT EA NARE PRN (09:12)
[2019-01-20] MEDS ORDERED: Loratadine 10 MG TAB PO PRN (09:12)
[2019-01-20] MEDS ORDERED: Ondansetron PF 4 MG/2 ML Vial IVP PRN (09:12)
[2019-01-20] MEDS ORDERED: Ondansetron ODT 4 MG TAB PO PRN (09:12)
[2019-01-20] MEDS ORDERED: hydrALAZINE 20 MG/ML VIAL SLOW IVP PRN (09:12)
[2019-01-20] MEDS ORDERED: Senokot S 8.6-50 MG TAB PO PRN (09:12)
[2019-01-20] MEDS ORDERED: Artificial Tears 18 DROP/0.9 ML EA EYE PRN (09:12)
[2019-01-20] MEDS ORDERED: Bisacodyl 5 MG TAB PO PRN (09:12)
[2019-01-20] MEDS ORDERED: Cepastat Lozenges 1 LOZ PO PRN (09:12)
[2019-01-20 10:01] LABS: Troponin I 0.031 ng/mL (< 0.028)
--- NOTE | 2019-01-20 11:35 | PDOC.PN ---
- Subjective Encounter Start Date: 01/20/19 Encounter Start Time: 07:45 -: old records requested/rev today she denies chest pain, she feels better, her blood sugar are improving, she does not have UTI, family bedside - Objective MAR Reviewed: Yes Vital Signs & Weight: Vital Signs (12 hours) Temp Pulse Resp BP Pulse Ox 01/20/19 11:18 98.7 F 81 16 137/77 99 01/20/19 07:41 98.0 F 79 16 117/59 L 97 Weight Weight 203 lb 14.4 oz Result Diagrams: 01/19/19 13:53 01/19/19 13:53 Additional Labs: Accuchecks 01/20/19 01/20/19 01/20/19 08:05 06:14 03:50 POC Glucose 362 H 339 H 319 H 01/20/19 01/20/19 01/19/19 02:05 00:23 22:16 POC Glucose 328 H 364 H 449 H 01/19/19 01/19/19 20:15 17:21 POC Glucose Greater than 550 H* Greater than 550 H* EKG Reviewed by me: Yes Phys Exam - Physical Examination Constitutional: NAD HEENT: PERRLA, moist MMs, sclera anicteric Neck: no JVD, supple Respiratory: no wheezing, no rales, no rhonchi Cardiovascular: RRR, no significant murmur, no rub Gastrointestinal: soft, non-tender, no distention, positive bowel sounds Musculoskeletal: no edema, pulses present Neurological: non-focal, normal sensation, moves all 4 limbs Lymphatic: no nodes Psychiatric: normal affect, A&O x 3 Skin: no rash, normal turgor Dx/Plan (1) ABIGAIL (acute kidney injury) Code(s): N17.9 - ACUTE KIDNEY FAILURE, UNSPECIFIED Status: Acute (2) Hyperglycemia due to type 2 diabetes mellitus Code(s): E11.65 - TYPE 2 DIABETES MELLITUS WITH HYPERGLYCEMIA Status: Acute (3) Hyperkalemia Code(s): E87.5 - HYPERKALEMIA Status: Acute (4) Hyponatremia Code(s): E87.1 - HYPO-OSMOLALITY AND HYPONATREMIA Status: Acute (5) UTI (urinary tract infection) Status: Acute (6) CAD (coronary artery disease) Code(s): I25.10 - ATHSCL HEART DISEASE OF [place] CORONARY ARTERY W/O ANG PCTRS Status: Chronic Qualifiers: Coronary Disease-Associated Artery/Lesion type: bypass graft [place] vs. transplanted heart: [place] heart Associated angina: without angina Qualified Code(s): I25.810 - Atherosclerosis of coronary artery bypass graft(s) without angina pectoris Comment: has severe diffuse 3 vessel cad, inoperable and for med mgmt.on Plavix, ranexa,BB,ARB,aldactone (7) Chronic systolic heart failure, ACC/AHA stage C Code(s): I50.22 - CHRONIC SYSTOLIC (CONGESTIVE) HEART FAILURE Status: Chronic (8) Dyslipidemia Code(s): E78.5 - HYPERLIPIDEMIA, UNSPECIFIED Status: Chronic (9) H/O: CVA (cerebrovascular accident) Code(s): Z86.73 - PRSNL HX OF TIA (TIA), AND CEREB INFRC W/O RESID DEFICITS Status: Chronic Comment: no residual paralysis (10) HTN (hypertension) Code(s): I10 - ESSENTIAL (PRIMARY) HYPERTENSION Status: Chronic Qualifiers: (11) Ischemic cardiomyopathy Code(s): I25.5 - ISCHEMIC CARDIOMYOPATHY Status: Chronic (12) Obesity (BMI 30-39.9) Code(s): E66.9 - OBESITY, UNSPECIFIED Status: Chronic (13) Osteoarthritis Code(s): M19.90 - UNSPECIFIED OSTEOARTHRITIS, UNSPECIFIED SITE Status: Chronic - Plan cont current plan of care, plan discussed w/ family, continue antibiotics * today will reduce accucheck q 4 hourly * I have restarted her home dose of insulin and will adjust dose requirement * add levaquin for UTI * I have restarted her selected home meds * medication reviewed as below * symptomatic treatment * I spoke with family and updated information * follow culture. * repeat labs tomorrow Review of Systems - Review of Systems Constitutional: negative: fever, chills, sweats, weakness, malaise, other Respiratory: negative: Cough, Dry, Shortness of Breath, Hemoptysis, SOB with Excertion, Pleuritic Pain, Sputum, Wheezing Cardiovascular: negative: chest pain, palpitations, orthopnea, paroxysmal nocturnal dyspnea, edema, light headedness, other Gastrointestinal: negative: Nausea, Vomiting, Abdominal Pain, Diarrhea, Constipation, Melena, Hematochezia, Other Genitourinary: negative: Dysuria, Frequency, Incontinence, Hematuria, Retention , Other Musculoskeletal: negative: Neck Pain, Shoulder Pain, Arm Pain, Back Pain, Hand Pain, Leg Pain, Foot Pain, Other Skin: negative: Rash, Lesions, Christopher, Bruising, Other - Medications/Allergies Allergies/Adverse Reactions: Allergies Allergy/AdvReac Type Severity Reaction Status Date / Time codeine Allergy severe Verified 01/19/19 20:33 vomiting, itching Latex, Natural Rubber Allergy Hives Verified 01/19/19 20:33 Penicillins Allergy itch Verified 01/19/19 20:33 Medications: Current Medications Amitriptyline HCl (Elavil) 50 mg PO BID [facility] Artificial Tears (Tears Naturale) 2 drop EA EYE PRN PRN PRN Reason: Dry Eyes Aspirin (Ecotrin) 81 mg PO DAILY [facility] Last Admin: 01/20/19 08:48 Dose: 81 mg Aspirin (Aspirin Chewable) 81 mg PO DAILY [facility] Atorvastatin Calcium (Lipitor) 80 mg PO HS [facility] Bisacodyl (Dulcolax) 10 mg PO DAILYPRN PRN PRN Reason: Constipation Calcium Carbonate (Tums) 1,000 mg PO Q4H PRN PRN Reason: Heartburn or Indigestion Carvedilol (Coreg) 6.25 mg PO BID[facility] Clopidogrel Bisulfate (Plavix) 75 mg PO DAILY [facility] Last Admin: 01/20/19 08:49 Dose: 75 mg Dextrose/Water (Dextrose 50%) 25 gm SLOW IVP PRN PRN PRN Reason: Hypoglycemia Enoxaparin Sodium (Lovenox) 30 mg SC 0900 [facility] Last Admin: 01/20/19 08:49 Dose: 30 mg Glucagon (Glucagon) 1 mg IM PRN PRN PRN Reason: Hypoglycemia Guaifenesin (Robitussin Sf) 200 mg PO Q4H PRN PRN Reason: Cough Hydralazine HCl (Apresoline) 10 mg SLOW IVP Q4H PRN PRN Reason: SBP > 180 and HR < 70 Dextrose/Water (D5w) 1,000 mls @ 0 mls/hr IV .Q0M PRN PRN Reason: Hypoglycemia Insulin Human Isoph/Insulin Regular (Humulin 70/30) 70 units SC QAM [facility] Insulin Human Isoph/Insulin Regular (Humulin 70/30) 50 units SC HS [facility] Insulin Human Lispro (Humalog) 0 units SC .AGGRESSIVE SLIDING PRN PRN Reason: Aggressive Correctional Scale Last Admin: 01/20/19 08:48 Dose: 13 unit Insulin Human Lispro (Humalog) 0 units SC .BEDTIME SLIDING SC PRN PRN Reason: Bedtime Correctional Scale Last Admin: 01/19/19 20:20 Dose: 8 unit Levothyroxine Sodium (Synthroid) 50 mcg PO DAILY [facility] Loperamide HCl (Imodium) 2 mg PO PRN PRN PRN Reason: Diarrhea/Loose Stools Loratadine (Claritin) 10 mg PO DAILYPRN PRN PRN Reason: Sinus Symptoms Losartan Potassium (Cozaar) 50 mg PO DAILY [facility] Nitroglycerin (Nitrostat) 0.4 mg PO Q5MIN PRN PRN Reason: Chest Pain Ondansetron HCl (Zofran Odt) 4 mg PO Q6H PRN PRN Reason: Nausea/Vomiting Ondansetron HCl (Zofran) 4 mg IVP Q6H PRN PRN Reason: Nausea/Vomiting Ranolazine (Ranexa) 1,000 mg PO BID [facility] Senna/Docusate Sodium (Senokot S) 2 tab PO BID PRN PRN Reason: Constipation Sodium Chloride ([place] Nasal [place] 0.65%) 0 ml EA NARE QIDPRN PRN PRN Reason: Nasal Congestion Sodium Chloride (Flush - Normal Saline) 10 ml IVF Q12HR [facility] Sodium Chloride (Flush - Normal Saline) 10 ml IVF PRN PRN PRN Reason: Saline Flush Throat Lozenges (Cepastat Lozenges) 1 sarah PO Q2H PRN PRN Reason: Sore Throat Zolpidem Tartrate (Ambien) 5 mg PO HSPRN PRN PRN Reason: Insomnia
--- NOTE | 2019-01-20 12:24 | CON ---
DATE OF CONSULTATION: PRIMARY BROKER: Tio Shields MD REASON FOR CONSULTATION: Chest pain, hypotension. HISTORY OF PRESENT ILLNESS: Ms. Vanita Patel is a very pleasant 63-year-old woman with severe inoperable coronary artery disease and left ventricular dysfunction. The patient yesterday called our office complaining of shortness of breath, chest tightness, and severe lightheadedness. She was directed to go to the emergency room. The patient has been admitted for further evaluation here. PAST MEDICAL HISTORY: 1. She has history of severe 3-vessel coronary artery disease, inoperable. 2. History of renal insufficiency. REVIEW OF SYSTEMS: CONSTITUTIONAL: She has been overweight. HEENT: Vision, no changes. Hearing, no changes. PULMONARY: No significant shortness of breath. CARDIAC: As outlined above. GASTROINTESTINAL: No nausea, vomiting, or diarrhea. SKIN: No rashes. NEUROLOGIC: No unilateral weakness or numbness. PSYCHIATRIC: No unusual depression or anxiety. MEDICATIONS: Medication list is very uncertain. The patient does appear to be taking losartan 50 mg twice a day on her medication list in the office, she is listed as being on both metoprolol and carvedilol, but the patient is unsure what medicines she is taking. She is also listed as being on spironolactone, Plavix, isosorbide, losartan, and lisinopril. She said she is not taking the lisinopril. I have asked the patient to bring her medicine, so we can be certain what she is actually taking. ALLERGIES: TO CODEINE, LATEX, NATURAL RUBBER, PENICILLINS. SOCIAL HISTORY: She is accompanied by family, who appears very supportive. PHYSICAL EXAMINATION: GENERAL: This is a pleasant woman in no distress. VITAL SIGNS: Blood pressure yesterday was 170/80, today 117/59, pulse 79 and regular. LUNGS: Clear. CARDIAC: Normal S1, normal S2. ABDOMEN: Soft, nontender. EXTREMITIES: No clubbing or cyanosis. There is no edema. SKIN: Warm and dry. PSYCHIATRIC: Mood and affect normal. NEUROLOGIC: Grossly normal. LABORATORY DATA: Glucose level was 362. Troponin 0.031. Glucose yesterday was greater than 550. ASSESSMENT: 1. Coronary artery disease inoperable, 3-vessel. 2. Depressed left ventricular ejection fraction. Most recent ejection fraction in our office was 35% to 40%, done 12/23/2018. 3. Uncertainty about medications. 4. Hypotension yesterday, but as mentioned, she is not really sure what medicine she is taking or what doses. PLAN: 1. She will bring all the medicines to try to sort out which she is actually taking. 2. Currently, on carvedilol 6.25 twice a day. Dose can be increased, but we need to find out really if she is taking metoprolol as well. 3. Okay to resume losartan. 4. Dr. Shields will come back to help us clear up what medicines he would like her to be on. Job ID: [id number]
[2019-01-20] MEDS ORDERED: Enoxaparin Sodium 100 MG/ML SYRINGE SC SCH (12:30)
[2019-01-20 12:39] LABS: Troponin I 0.014 ng/mL (< 0.028)
--- NOTE | 2019-01-20 14:36 | CON ---
DATE OF CONSULTATION: HISTORY OF PRESENT ILLNESS: The patient is an unfortunate 63-year-old with severe inoperative coronary artery disease, who presents with recurrent chest discomfort. The patient was seen initially in 2018. She underwent a cardiac catheterization. She was found to have a 90% proximal LAD lesion, 90% mid lesion, 90% distal lesion. There was a 90% diagonal lesion. The circumflex had an 80% lesion, 50% mid stenosis, and a 99% distal stenosis. The right coronary artery had a 95% stenosis, 75% stenosis and a 70% stenosis. The patient has been on medical therapy. She has been on multiple occasions with unstable angina. She also has developed progressive renal insufficiency. She underwent an echocardiogram, which revealed an ejection fraction of 15% to 20%. She has been on medical therapy. The patient presents once again with recurrent chest discomfort. She took 2 nitroglycerin without resolution of chest discomfort. PAST MEDICAL HISTORY: 1. Coronary artery disease. 2. Ischemic cardiomyopathy. 3. Diabetes mellitus. 4. Hypertension. 5. Dyslipidemia. PAST SURGICAL HISTORY: She has had a , appendectomy, knee surgery, hysterectomy, tonsillectomy. SOCIAL HISTORY: Nonsmoker. ALLERGIES: NO KNOWN DRUG ALLERGIES. MEDICATIONS: See nursing list. PHYSICAL EXAMINATION: GENERAL: Obese woman, in no acute distress. VITAL SIGNS: Blood pressure 137/77. NECK: No jugular venous distention. LUNGS: Clear to auscultation. HEART: Regular rate and rhythm. Normal S1 and S2. ABDOMEN: Distended. EXTREMITIES: Showed trace edema. VASCULAR: Radial pulses 2+. LABORATORY DATA: Sodium 124, potassium 5.7, chloride 88, bicarb 27, BUN 30, creatinine 1.54, blood sugar 748. Her white blood cell count is 5.9, hemoglobin 12.8, hematocrit 37.5, platelets are 138. IMAGING STUDIES: Her EKG reveals her to have normal sinus rhythm with a T-wave abnormality suggestive of ischemia. IMPRESSION: 1. Unstable angina. 2. Severe inoperable coronary artery disease. 3. Severe ischemic cardiomyopathy. 4. Diabetes mellitus. 5. Hypertension. 6. Dyslipidemia. This is an unfortunate woman, who presents once again with unstable angina. She also has a history of severe ischemic cardiomyopathy. We will repeat the echocardiogram. We will obtain an EP consultation for possible AICD. The patient's prognosis is extremely guarded. We will follow this patient with you through her hospitalization. Job ID: [id number]
[2019-01-20 15:53] LABS: Anion Gap 11 mmol/L (10-20); BUN (Urea Nitrogen) 31 mg/dL (9.8-20.1); Calc. Creatinine Clearance 66 mL/min (70-130); Calcium 9.3 mg/dL (7.8-10.44); Carbon Dioxide 28 mmol/L (23-31); Chloride 93 mmol/L (98-107); Estimated GFR-MDRD 42; Glucose 299 mg/dL (80-115); Potassium 4.3 mmol/L (3.5-5.1); Sodium 128 mmol/L (136-145)
[2019-01-20] MEDS: Carvedilol 6.25 MG TAB PO SCH (16:48)
[2019-01-20] MEDS ORDERED: Non-Formulary Item 1 EACH (Amitriptyline Hcl [Elavil] 50 MG) PO SCH (21:00)
[2019-01-20] MEDS ORDERED: Non-Formulary Item 1 EACH (Atorvastatin Calcium [Lipitor] 80 MG) PO SCH (21:00)
[2019-01-20] MEDS ORDERED: Non-Formulary Item 1 EACH (Ranolazine [Ranexa] 1,000 MG) PO SCH (21:00)
[2019-01-20] MEDS ORDERED: HumuLIN 70/30 (300 UNITS/3 ML VIAL) SC SCH ×2 (21:00)
[2019-01-20] MEDS: Atorvastatin Calcium 40 MG TAB PO SCH (21:36)
[2019-01-20] MEDS: Amitriptyline HCl 25 MG TAB PO SCH (21:36)
--- NOTE | 2019-01-20 22:35 | RAD ---
PORTABLE CHEST: 01/20/19 HISTORY: Chest pain. COMPARISON: 10/11/18 study. Heart size is enlarged. Mediastinal structures appear unremarkable. The lungs are clear of infiltrate s. There are no signs of failure. IMPRESSION: Cardiomegaly. POS: OFF
[2019-01-21 06:32] LABS: #Basophils 0.1 thou/uL (0.0-0.2); #Eosinphils 0.2 thou/uL (0.0-0.7); #Lymphocytes 2.2 thou/uL (1.20-3.40); #Monocytes 0.4 thou/uL (0.11-0.59); #Neutrophils 2.4 thou/uL (1.40-6.50); %Lymphocytes 42.2 % (21.0-51.0); %Monocytes 6.8 % (0.0-10.0); Hemoglobin 13.7 g/dL (12.0-16.0); Mean Corpuscular HGB CONC 34.4 g/dL (32.0-36.0); Mean Corpuscular Hemoglobin 30.1 pg (27.0-31.0); Mean Corpuscular Volume 87.5 fL (78.0-98.0); Mean Platelet Volume 7.5 fL (7.4-10.4); Platelet Count 199 thou/uL (130-400); RBC Distribution Width 12.9 % (11.5-14.5); Red Blood Cell (RBC) Count 4.55 mill/uL (4.20-5.40); White Blood Cell (WBC) Count 5.2 thou/uL (4.8-10.8)
[2019-01-21 06:32] LABS: Hemoglobin A1c 14.6 % (4.0-6.0)
[2019-01-21 06:52] LABS: ALT (SGPT) 11 U/L (8-55); AST (SGOT) 15 U/L (5-34); Albumin 3.1 g/dL (3.4-4.8); Alkaline Phosphatase 70 U/L (40-150); Anion Gap 10 mmol/L (10-20); BUN (Urea Nitrogen) 29 mg/dL (9.8-20.1); Bilirubin, Total 0.7 mg/dL (0.2-1.2); Calc. Creatinine Clearance 65 mL/min (70-130); Calcium 9.6 mg/dL (7.8-10.44); Carbon Dioxide 28 mmol/L (23-31); Chloride 93 mmol/L (98-107); Estimated GFR-MDRD 41; Globulin 3.5 g/dL (2.4-3.5); Glucose 317 mg/dL (80-115); Potassium 4.4 mmol/L (3.5-5.1); Protein, Total 6.6 g/dL (6.0-8.3); Sodium 127 mmol/L (136-145)
[2019-01-21] MEDS: Carvedilol 6.25 MG TAB PO SCH ×3 (08:58→17:57)
[2019-01-21] MEDS: Aspirin Chewable 81 MG TAB PO SCH ×2 (08:59→14:29)
[2019-01-21] MEDS: Amitriptyline HCl 25 MG TAB PO SCH ×3 (08:59→21:53)
[2019-01-21] MEDS: Enoxaparin Sodium 30 MG/0.3 ML SYRINGE SC SCH ×2 (08:59→14:30)
[2019-01-21] MEDS: Clopidogrel Bisulfate 75 MG TAB PO SCH (08:59)
[2019-01-21] MEDS: Losartan 25 MG TAB PO SCH ×2 (09:00→14:29)
[2019-01-21] MEDS ORDERED: HumuLIN 70/30 (300 UNITS/3 ML VIAL) SC SCH ×2 (09:00→11:15)
[2019-01-21] MEDS: Levothyroxine Sodium 50 MCG TAB PO SCH ×2 (09:00→14:29)
[2019-01-21] MEDS ORDERED: PARoxetine 20 MG TAB ONE (10:55)
[2019-01-21] MEDS: HumuLIN 70/30 (300 UNITS/3 ML VIAL) SC SCH ×2 (11:02→21:54)
--- NOTE | 2019-01-21 11:56 | PDOC.PN ---
- Subjective Encounter Start Date: 01/21/19 Encounter Start Time: 07:45 Patient seen and examined. No new complaints. No overnight events she is npo for possible aicd placement - Objective MAR Reviewed: Yes Vital Signs & Weight: Vital Signs (12 hours) Temp Pulse Resp BP BP Pulse Ox 01/21/19 08:58 124/66 01/21/19 08:00 98 01/21/19 07:58 97.9 F 86 18 124/66 98 01/21/19 04:00 97.9 F 84 18 123/59 L 94 L Weight Weight 204 lb I&O: 01/20/19 01/21/19 01/22/19 06:59 06:59 06:59 Intake Total 480 Balance 480 Result Diagrams: 01/21/19 06:05 01/21/19 06:04 Additional Labs: Accuchecks 01/21/19 01/21/19 01/21/19 08:21 04:09 01:15 POC Glucose 334 H 307 H 293 H 01/20/19 01/20/19 01/20/19 21:35 20:15 16:38 POC Glucose 200 H 230 H 310 H 01/20/19 11:53 POC Glucose 355 H EKG Reviewed by me: Yes Phys Exam - Physical Examination Constitutional: NAD HEENT: moist MMs, sclera anicteric Neck: no JVD, supple Respiratory: no wheezing, no rales, no rhonchi Cardiovascular: RRR, no significant murmur, no rub Gastrointestinal: soft, non-tender, no distention, positive bowel sounds Musculoskeletal: no edema, pulses present Neurological: non-focal, normal sensation, moves all 4 limbs Lymphatic: no nodes Psychiatric: normal affect, A&O x 3 Skin: no rash, normal turgor Dx/Plan (1) ABIGAIL (acute kidney injury) Code(s): N17.9 - ACUTE KIDNEY FAILURE, UNSPECIFIED Status: Acute Comment: improving (2) Hyperglycemia due to type 2 diabetes mellitus Code(s): E11.65 - TYPE 2 DIABETES MELLITUS WITH HYPERGLYCEMIA Status: Acute (3) Hyperkalemia Code(s): E87.5 - HYPERKALEMIA Status: Resolved (4) Hyponatremia Code(s): E87.1 - HYPO-OSMOLALITY AND HYPONATREMIA Status: Acute Comment: due to hyperglycemia, improving (5) UTI (urinary tract infection) Status: Acute (6) CAD (coronary artery disease) Code(s): I25.10 - ATHSCL HEART DISEASE OF [place] CORONARY ARTERY W/O ANG PCTRS Status: Chronic Qualifiers: Coronary Disease-Associated Artery/Lesion type: bypass graft [place] vs. transplanted heart: [place] heart Associated angina: without angina Qualified Code(s): I25.810 - Atherosclerosis of coronary artery bypass graft(s) without angina pectoris Comment: has severe diffuse 3 vessel cad, inoperable and for med mgmt.on Plavix, ranexa,BB,ARB,aldactone (7) Chronic systolic heart failure, ACC/AHA stage C Code(s): I50.22 - CHRONIC SYSTOLIC (CONGESTIVE) HEART FAILURE Status: Chronic (8) Dyslipidemia Code(s): E78.5 - HYPERLIPIDEMIA, UNSPECIFIED Status: Chronic (9) H/O: CVA (cerebrovascular accident) Code(s): Z86.73 - PRSNL HX OF TIA (TIA), AND CEREB INFRC W/O RESID DEFICITS Status: Chronic Comment: no residual paralysis (10) HTN (hypertension) Code(s): I10 - ESSENTIAL (PRIMARY) HYPERTENSION Status: Chronic Qualifiers: (11) Ischemic cardiomyopathy Code(s): I25.5 - ISCHEMIC CARDIOMYOPATHY Status: Chronic (12) Obesity (BMI 30-39.9) Code(s): E66.9 - OBESITY, UNSPECIFIED Status: Chronic (13) Osteoarthritis Code(s): M19.90 - UNSPECIFIED OSTEOARTHRITIS, UNSPECIFIED SITE Status: Chronic (14) Unstable angina Status: Resolved - Plan cont current plan of care, continue antibiotics * as pt is NPO, will give atleast half dose of long active insulin and also she needs increase in total dose of insulin * medication reviewed as below * symptomatic treatment * today AICD placement. Review of Systems - Review of Systems ENT: negative: Ear Pain, Ear Discharge, Nose Pain, Nose Discharge, Nose Congestion, Mouth Pain, Mouth Swelling, Throat Pain, Throat Swelling, Other Respiratory: negative: Cough, Dry, Shortness of Breath, Hemoptysis, SOB with Excertion, Pleuritic Pain, Sputum, Wheezing Cardiovascular: negative: chest pain, palpitations, orthopnea, paroxysmal nocturnal dyspnea, edema, light headedness, other Gastrointestinal: negative: Nausea, Vomiting, Abdominal Pain, Diarrhea, Constipation, Melena, Hematochezia, Other Genitourinary: negative: Dysuria, Frequency, Incontinence, Hematuria, Retention , Other Musculoskeletal: negative: Neck Pain, Shoulder Pain, Arm Pain, Back Pain, Hand Pain, Leg Pain, Foot Pain, Other Skin: negative: Rash, Lesions, Christopher, Bruising, Other - Medications/Allergies Allergies/Adverse Reactions: Allergies Allergy/AdvReac Type Severity Reaction Status Date / Time codeine Allergy severe Verified 01/19/19 20:33 vomiting, itching Latex, Natural Rubber Allergy Hives Verified 01/19/19 20:33 Penicillins Allergy itch Verified 01/19/19 20:33 Medications: Current Medications Amitriptyline HCl (Elavil) 50 mg PO BID [facility] Last Admin: 01/21/19 08:59 Dose: Not Given Artificial Tears (Tears Naturale) 2 drop EA EYE PRN PRN PRN Reason: Dry Eyes Aspirin (Aspirin Chewable) 81 mg PO DAILY [facility] Last Admin: 01/21/19 08:59 Dose: Not Given Atorvastatin Calcium (Lipitor) 80 mg PO HS [facility] Last Admin: 01/20/19 21:36 Dose: 80 mg Bisacodyl (Dulcolax) 10 mg PO DAILYPRN PRN PRN Reason: Constipation Calcium Carbonate (Tums) 1,000 mg PO Q4H PRN PRN Reason: Heartburn or Indigestion Carvedilol (Coreg) 6.25 mg PO BID[facility] Last Admin: 01/21/19 08:58 Dose: Not Given Clopidogrel Bisulfate (Plavix) 75 mg PO DAILY [facility] Last Admin: 01/21/19 08:59 Dose: Not Given Dextrose/Water (Dextrose 50%) 25 gm SLOW IVP PRN PRN PRN Reason: Hypoglycemia Enoxaparin Sodium (Lovenox) 30 mg SC 0900 [facility] Last Admin: 01/21/19 08:59 Dose: Not Given Glucagon (Glucagon) 1 mg IM PRN PRN PRN Reason: Hypoglycemia Guaifenesin (Robitussin Sf) 200 mg PO Q4H PRN PRN Reason: Cough Hydralazine HCl (Apresoline) 10 mg SLOW IVP Q4H PRN PRN Reason: SBP > 180 and HR < 70 Dextrose/Water (D5w) 1,000 mls @ 0 mls/hr IV .Q0M PRN PRN Reason: Hypoglycemia Levofloxacin 750 mg/ Device 150 mls @ 100 mls/hr IVPB Q24HR [facility] Last Admin: 01/21/19 11:43 Dose: 150 mls Insulin Human Isoph/Insulin Regular (Humulin 70/30) [facility] [place] Last Admin: 01/21/19 11:02 Dose: Not Given Insulin Human Isoph/Insulin Regular (Humulin 70/30) 60 units SC [facility] Insulin Human Isoph/Insulin Regular (Humulin 70/30) 40 units SC NOW [facility] Stop: 01/21/19 12:00 Last Admin: 01/21/19 11:36 Dose: 40 unit Insulin Human Lispro (Humalog) 0 units SC .AGGRESSIVE SLIDING PRN PRN Reason: Aggressive Correctional Scale Last Admin: 01/20/19 16:47 Dose: 11 unit Insulin Human Lispro (Humalog) 0 units SC .BEDTIME SLIDING SC PRN PRN Reason: Bedtime Correctional Scale Last Admin: 01/19/19 20:20 Dose: 8 unit Levothyroxine Sodium (Synthroid) 50 mcg PO DAILY [facility] Last Admin: 01/21/19 09:00 Dose: Not Given Loperamide HCl (Imodium) 2 mg PO PRN PRN PRN Reason: Diarrhea/Loose Stools Loratadine (Claritin) 10 mg PO DAILYPRN PRN PRN Reason: Sinus Symptoms Losartan Potassium (Cozaar) 50 mg PO DAILY [facility] Last Admin: 01/21/19 09:00 Dose: Not Given Nitroglycerin (Nitrostat) 0.4 mg PO Q5MIN PRN PRN Reason: Chest Pain Ondansetron HCl (Zofran Odt) 4 mg PO Q6H PRN PRN Reason: Nausea/Vomiting Ondansetron HCl (Zofran) 4 mg IVP Q6H PRN PRN Reason: Nausea/Vomiting Ranolazine (Ranexa) 1,000 mg PO BID [facility] Last Admin: 01/21/19 09:00 Dose: Not Given Senna/Docusate Sodium (Senokot S) 2 tab PO BID PRN PRN Reason: Constipation Sodium Chloride ([place] Nasal [place] 0.65%) 0 ml EA NARE QIDPRN PRN PRN Reason: Nasal Congestion Sodium Chloride (Flush - Normal Saline) 10 ml IVF Q12HR [facility] Last Admin: 01/21/19 09:00 Dose: Not Given Sodium Chloride (Flush - Normal Saline) 10 ml IVF PRN PRN PRN Reason: Saline Flush Throat Lozenges (Cepastat Lozenges) 1 sarah PO Q2H PRN PRN Reason: Sore Throat Zolpidem Tartrate (Ambien) 5 mg PO HSPRN PRN PRN Reason: Insomnia
[2019-01-21] MEDS ORDERED: Lidocaine 1% (PF) 30 ML VIAL ONE (12:11)
[2019-01-21] MEDS ORDERED: Clindamycin/D5W 900 mg/50 ml Premix Bag ONE (12:11)
--- NOTE | 2019-01-21 14:21 | CON ---
DATE OF CONSULTATION: 01/20/2019 REASON FOR CONSULTATION: ICD consideration. HISTORY OF PRESENT ILLNESS: Ms. Patel is a 63-year-old woman with a past medical history significant for triple-vessel coronary artery disease that was deemed inoperable due to poor targets. She has ischemic cardiomyopathy with severely reduced ejection fraction previously estimated at 20%. Echocardiogram during this hospitalization, estimated ejection fraction at 30% to 35%, despite medical management. With this in mind, EP consult for ICD consideration was ordered. She presented to the hospital with complaints of chest tightness, but had been in her usual state of health until the morning of 01/19. She had some lightheadedness as well. She denied any nausea, sweating, shortness of breath, or associated palpitations. She called her research chef, Dr. Shields, who advised her to go to the emergency room for further evaluation. She was found to have elevated blood glucose in the high 700s as well as mild hyperkalemia and mildly elevated creatinine. She was admitted for further evaluation and medical management. REVIEW OF SYSTEMS: A 12-point review of systems was performed and is as per HPI, otherwise negative. It is positive for some burning with urination and frequency. ALLERGIES: BERTA INHIBITORS, LATEX, CODEINE, AND PENICILLIN. PAST MEDICAL HISTORY: 1. Severe coronary artery disease, triple-vessel, deemed not a surgical candidate due to poor targets. 2. Ischemic cardiomyopathy with severely reduced ejection fraction, previously 15% to 20% remains severely reduced at 30% to 35%, despite medical management. 3. Type 2 diabetes. 4. Hypertension. 5. Dyslipidemia. SOCIAL HISTORY: Nonsmoker. Denies alcohol or illicit drug use. HOME MEDICATIONS: Include: 1. Coreg 25 mg p.o. b.i.d. 2. Nitro sublingual as needed. 3. Isosorbide mononitrate ER 30 mg daily. 4. Elavil 50 mg at bedtime. 5. Detrol LA 4 mg daily. 6. Cozaar 50 mg b.i.d. 7. Spironolactone 25 mg daily. 8. Ranexa 1000 mg p.o. b.i.d. 9. Lasix 40 mg p.o. b.i.d. 10. Levothyroxine 50 mcg daily. 11. Humulin 70/30, 70 units q.a.m. and 50 units at bedtime. 12. Flexeril 10 mg as needed. 13. Plavix 75 mg daily. 14. Lipitor 80 mg at bedtime. 15. Aspirin 81 mg daily. OBJECTIVE: VITAL SIGNS: Temperature 98.7, pulse 78, blood pressure 139/68, respirations 18, and oxygen is 99% on room air. GENERAL: The patient is alert and oriented. Speech is clear. Affect is appropriate. She is in no apparent distress. NECK: Supple without jugular venous distention. LUNGS: Clear to auscultation. Respirations are even and unlabored. No wheezes, crackles, or rhonchi appreciated. HEART: Heart rate is irregularly irregular with crisp S1 and S2. ABDOMEN: Distended and nontender. Hepatojugular reflux is negative. EXTREMITIES: Warm and dry to touch without clubbing or cyanosis. Trace edema is noted in bilateral lower extremities. NEUROLOGIC: Nonfocal. Gait was not assessed. DATABASE: Laboratory: Hematology was reviewed and is unremarkable. Chemistry; sodium 128, potassium 4.3, creatinine 1.29. Troponin with indeterminate elevation. TSH is 2.38. EKG and telemetry were all personally reviewed and reflect sinus rhythm with ST depression in narrow QRS. T-waves are inverted in the lateral leads. Echocardiogram on 01/20/2019, ejection fraction estimated at 30% to 35%, mildly dilated left atrium, left ventricular size is mildly increased, moderate mitral regurgitation present, and mild tricuspid regurgitation. IMPRESSION: 1. Chronic systolic heart failure with ischemic cardiomyopathy with severely reduced left ventricular ejection fraction of 30% to 35% despite medical management. 2. Advanced coronary artery disease, inoperable due to poor targets, medically managed. 3. Diabetes. 4. Hyponatremia. PLAN AND RECOMMENDATIONS: In light of Ms. Patel's severely reduced ejection fraction, despite medical management with Coreg for beta blockers. She has reported allergy to BERTA inhibitors and intolerance really as these cause cough, thus she has not been on heart failure management with BERTA inhibitors. In spite of her medical management, her ejection fraction remains severely reduced at less than 35%, and she would likely benefit from the protection of primary prevention ICD. This was discussed with her at length including risks, benefits, and alternatives. Risks include pain, bruising, infection, pneumothorax, pericardial effusion, and need for chest tube placement in addition to infection. She voices understanding and wishes to proceed with ICD implant at the earliest convenience. Arrangements will be made for implant tomorrow and keep her n.p.o. after midnight and draw labs in the morning. Thank you for allowing me to participate in the care of this patient. Job ID: [id number]
--- NOTE | 2019-01-21 15:00 | PRG ---
DATE OF SERVICE: 01/21/2019 SUBJECTIVE: Ms. Patel is doing well this morning. She initially agreed to the ICD implantation procedure after she was brought back to the photofinishing laboratory worker, though she got anxious and decided to decline the procedure by the long discussion with her understanding the potential for future ventricular arrhythmias, but it is when she is not interested in ICD implant today. She prefers discharge. OBJECTIVE: VITAL SIGNS: Blood pressure is 121/65, heart rate 82, respirations 18, and temperature 97.7 degrees Fahrenheit. GENERAL: Alert and oriented woman, in no apparent distress. NECK: Supple. Jugular veins not distended. CHEST: Coarse without crackles. HEART: Sounds are regular to rate and rhythm. No murmur or gallop. ABDOMEN: Benign. Bowel sounds positive. EXTREMITIES: Lower extremity without edema, clubbing, or cyanosis. Pulses are adequate. NEUROLOGIC: The patient is nonfocal. MUSCULOSKELETAL: Without joint swelling or deformities. SKIN: Without rash. DATABASE: EKGs and telemetry strips reviewed revealing sinus rhythm, no significant ventricular tachycardia. LABORATORY DATA: White cell count 5.2, hemoglobin 13.7, platelet count is 199. Sodium 127, potassium 4.4, BUN is 29, creatinine 1.32. UA shows elevated white cell counts from the 19th. Chest x-ray from yesterday shows cardiomegaly. Lungs are clear of infiltrates. ASSESSMENT AND PLAN: Ms. Patel is a pleasant 63-year-old woman with prior history of congestive heart failure and end-stage coronary artery disease, severe reduced LVEF on the repeat echocardiogram today. I was consulted Dr. Shields for an ICD implantation, which we discussed yesterday and she was agreeable up until being rolled back to the photofinishing laboratory worker and at that point, she decided to decline the procedure. Again, we discussed the pros and cons about the implant, the chance of interim ventricular arrhythmias if the procedure being postponed. She understands nevertheless would like to not proceed with the procedure today, and we will consider it later as an outpatient. She seems to be well compensated from heart failure standpoint for now. No intermittent ventricular arrhythmias are seen. Antiarrhythmic regimen is not recommended. She is to continue heart failure therapy as per Dr. Shields's recommendation. I will make her appointment for followup in the office to discuss potential future ICD implant with her. For now, we will sign off. Thank you again for letting me to participate in the care of this patient. I discussed these issues with Dr. Shields. Job ID: [id number]
[2019-01-21] MEDS: HumaLOG 300 UNITS/3 ML VIAL SC PRN (17:54)
[2019-01-21] MEDS: Atorvastatin Calcium 40 MG TAB PO SCH (21:53)
[2019-01-22] MEDS: Aspirin Chewable 81 MG TAB PO SCH (08:09)
[2019-01-22] MEDS: Amitriptyline HCl 25 MG TAB PO SCH ×2 (08:09→21:56)
[2019-01-22] MEDS: Levothyroxine Sodium 50 MCG TAB PO SCH (08:09)
[2019-01-22] MEDS: Carvedilol 6.25 MG TAB PO SCH ×2 (08:10→16:15)
[2019-01-22] MEDS: Enoxaparin Sodium 30 MG/0.3 ML SYRINGE SC SCH (08:10)
[2019-01-22] MEDS: Clopidogrel Bisulfate 75 MG TAB PO SCH (08:10)
[2019-01-22] MEDS: Losartan 25 MG TAB PO SCH (08:10)
[2019-01-22] MEDS: HumuLIN 70/30 (300 UNITS/3 ML VIAL) SC SCH ×2 (08:17→21:57)
--- NOTE | 2019-01-22 11:24 | PDOC.PN ---
- Subjective Encounter Start Date: 01/22/19 Encounter Start Time: 08:00 pt declined ICD procedure yesterday, Patient seen and examined. No new complaints. No overnight events - Objective MAR Reviewed: Yes Vital Signs & Weight: Vital Signs (12 hours) Temp Pulse Resp BP BP Pulse Ox 01/22/19 08:10 119/56 L 01/22/19 07:47 96 01/22/19 07:34 98.1 F 78 18 130/65 96 01/22/19 04:00 97.4 F L 74 20 113/57 L 100 01/22/19 02:09 94 L Weight Weight 206 lb 3.2 oz I&O: 01/21/19 01/22/19 01/23/19 06:59 06:59 06:59 Intake Total 480 1691 240 Balance 480 1691 240 Result Diagrams: 01/21/19 06:05 01/21/19 06:04 Additional Labs: Accuchecks 01/22/19 01/22/19 01/22/19 10:34 08:15 05:41 POC Glucose 214 H 210 H 161 H 01/22/19 01/22/19 01/21/19 02:09 00:31 20:06 POC Glucose 134 H 100 238 H 01/21/19 01/21/19 16:30 12:12 POC Glucose 330 H 347 H EKG Reviewed by me: Yes Phys Exam - Physical Examination Constitutional: NAD HEENT: PERRLA, moist MMs, sclera anicteric Neck: no JVD, supple Respiratory: no wheezing, no rales, no rhonchi Cardiovascular: RRR, no significant murmur, no rub Gastrointestinal: soft, non-tender, no distention, positive bowel sounds Musculoskeletal: no edema, pulses present Neurological: non-focal, normal sensation Lymphatic: no nodes Psychiatric: normal affect, A&O x 3 Skin: no rash, normal turgor Dx/Plan (1) ABIGAIL (acute kidney injury) Code(s): N17.9 - ACUTE KIDNEY FAILURE, UNSPECIFIED Status: Acute Comment: improving (2) Hyperglycemia due to type 2 diabetes mellitus Code(s): E11.65 - TYPE 2 DIABETES MELLITUS WITH HYPERGLYCEMIA Status: Acute (3) Hyperkalemia Code(s): E87.5 - HYPERKALEMIA Status: Resolved (4) Hyponatremia Code(s): E87.1 - HYPO-OSMOLALITY AND HYPONATREMIA Status: Acute Comment: due to hyperglycemia, improving (5) UTI (urinary tract infection) Status: Acute (6) CAD (coronary artery disease) Code(s): I25.10 - ATHSCL HEART DISEASE OF [place] CORONARY ARTERY W/O ANG PCTRS Status: Chronic Qualifiers: Coronary Disease-Associated Artery/Lesion type: bypass graft [place] vs. transplanted heart: [place] heart Associated angina: without angina Qualified Code(s): I25.810 - Atherosclerosis of coronary artery bypass graft(s) without angina pectoris Comment: has severe diffuse 3 vessel cad, inoperable and for med mgmt.on Plavix, ranexa,BB,ARB,aldactone (7) Chronic systolic heart failure, ACC/AHA stage C Code(s): I50.22 - CHRONIC SYSTOLIC (CONGESTIVE) HEART FAILURE Status: Chronic (8) Dyslipidemia Code(s): E78.5 - HYPERLIPIDEMIA, UNSPECIFIED Status: Chronic (9) H/O: CVA (cerebrovascular accident) Code(s): Z86.73 - PRSNL HX OF TIA (TIA), AND CEREB INFRC W/O RESID DEFICITS Status: Chronic Comment: no residual paralysis (10) HTN (hypertension) Code(s): I10 - ESSENTIAL (PRIMARY) HYPERTENSION Status: Chronic Qualifiers: (11) Ischemic cardiomyopathy Code(s): I25.5 - ISCHEMIC CARDIOMYOPATHY Status: Chronic (12) Obesity (BMI 30-39.9) Code(s): E66.9 - OBESITY, UNSPECIFIED Status: Chronic (13) Osteoarthritis Code(s): M19.90 - UNSPECIFIED OSTEOARTHRITIS, UNSPECIFIED SITE Status: Chronic - Plan cont current plan of care * repeat BMP tomorrow * will monitor her blood sugar today and adjust insulin * tomorrow will consider discharge * medication reviewed as below * symptomatic treatment. Review of Systems - Review of Systems ENT: negative: Ear Pain, Ear Discharge, Nose Pain, Nose Discharge, Nose Congestion, Mouth Pain, Mouth Swelling, Throat Pain, Throat Swelling, Other Respiratory: negative: Cough, Dry, Shortness of Breath, Hemoptysis, SOB with Excertion, Pleuritic Pain, Sputum, Wheezing Cardiovascular: negative: chest pain, palpitations, orthopnea, paroxysmal nocturnal dyspnea, edema, light headedness, other Gastrointestinal: negative: Nausea, Vomiting, Abdominal Pain, Diarrhea, Constipation, Melena, Hematochezia, Other Genitourinary: negative: Dysuria, Frequency, Incontinence, Hematuria, Retention , Other Musculoskeletal: negative: Neck Pain, Shoulder Pain, Arm Pain, Back Pain, Hand Pain, Leg Pain, Foot Pain, Other - Medications/Allergies Allergies/Adverse Reactions: Allergies Allergy/AdvReac Type Severity Reaction Status Date / Time codeine Allergy severe Verified 01/19/19 20:33 vomiting, itching Latex, Natural Rubber Allergy Hives Verified 01/19/19 20:33 Penicillins Allergy itch Verified 01/19/19 20:33 Medications: Current Medications Amitriptyline HCl (Elavil) 50 mg PO BID [facility] Last Admin: 01/22/19 08:09 Dose: 50 mg Artificial Tears (Tears Naturale) 2 drop EA EYE PRN PRN PRN Reason: Dry Eyes Aspirin (Aspirin Chewable) 81 mg PO DAILY [facility] Last Admin: 01/22/19 08:09 Dose: 81 mg Atorvastatin Calcium (Lipitor) 80 mg PO HS [facility] Last Admin: 01/21/19 21:53 Dose: 80 mg Bisacodyl (Dulcolax) 10 mg PO DAILYPRN PRN PRN Reason: Constipation Calcium Carbonate (Tums) 1,000 mg PO Q4H PRN PRN Reason: Heartburn or Indigestion Carvedilol (Coreg) 6.25 mg PO BID-[facility] Last Admin: 01/22/19 08:10 Dose: 6.25 mg Clopidogrel Bisulfate (Plavix) 75 mg PO DAILY [facility] Last Admin: 01/22/19 08:10 Dose: 75 mg Dextrose/Water (Dextrose 50%) 25 gm SLOW IVP PRN PRN PRN Reason: Hypoglycemia Enoxaparin Sodium (Lovenox) 30 mg SC 0900 [facility] Last Admin: 01/22/19 08:10 Dose: 30 mg Glucagon (Glucagon) 1 mg IM PRN PRN PRN Reason: Hypoglycemia Guaifenesin (Robitussin Sf) 200 mg PO Q4H PRN PRN Reason: Cough Hydralazine HCl (Apresoline) 10 mg SLOW IVP Q4H PRN PRN Reason: SBP > 180 and HR < 70 Dextrose/Water (D5w) 1,000 mls @ 0 mls/hr IV .Q0M PRN PRN Reason: Hypoglycemia Levofloxacin 750 mg/ Device 150 mls @ 100 mls/hr IVPB Q24HR [facility] Last Admin: 01/22/19 10:42 Dose: 150 mls Insulin Human Isoph/Insulin Regular (Humulin 70/30) 80 units SC QAM [facility] Last Admin: 01/22/19 08:17 Dose: 80 units Insulin Human Isoph/Insulin Regular (Humulin 70/30) 60 units SC HS [facility] Last Admin: 01/21/19 21:54 Dose: 60 unit Insulin Human Lispro (Humalog) 0 units SC .AGGRESSIVE SLIDING PRN PRN Reason: Aggressive Correctional Scale Last Admin: 01/21/19 17:54 Dose: 11 unit Insulin Human Lispro (Humalog) 0 units SC .BEDTIME SLIDING SC PRN PRN Reason: Bedtime Correctional Scale Last Admin: 01/19/19 20:20 Dose: 8 unit Levothyroxine Sodium (Synthroid) 50 mcg PO DAILY [facility] Last Admin: 01/22/19 08:09 Dose: 50 mcg Loperamide HCl (Imodium) 2 mg PO PRN PRN PRN Reason: Diarrhea/Loose Stools Loratadine (Claritin) 10 mg PO DAILYPRN PRN PRN Reason: Sinus Symptoms Losartan Potassium (Cozaar) 50 mg PO DAILY [facility] Last Admin: 01/22/19 08:10 Dose: 50 mg Nitroglycerin (Nitrostat) 0.4 mg PO Q5MIN PRN PRN Reason: Chest Pain Ondansetron HCl (Zofran Odt) 4 mg PO Q6H PRN PRN Reason: Nausea/Vomiting Ondansetron HCl (Zofran) 4 mg IVP Q6H PRN PRN Reason: Nausea/Vomiting Ranolazine (Ranexa) 1,000 mg PO BID [facility] Last Admin: 01/22/19 08:09 Dose: 1,000 mg Senna/Docusate Sodium (Senokot S) 2 tab PO BID PRN PRN Reason: Constipation Sodium Chloride ([place] Nasal [place] 0.65%) 0 ml EA NARE QIDPRN PRN PRN Reason: Nasal Congestion Sodium Chloride (Flush - Normal Saline) 10 ml IVF Q12HR [facility] Last Admin: 01/22/19 08:21 Dose: 10 ml Sodium Chloride (Flush - Normal Saline) 10 ml IVF PRN PRN PRN Reason: Saline Flush Throat Lozenges (Cepastat Lozenges) 1 sarah PO Q2H PRN PRN Reason: Sore Throat Zolpidem Tartrate (Ambien) 5 mg PO HSPRN PRN PRN Reason: Insomnia
--- NOTE | 2019-01-22 11:57 | EKG ---
Test Reason : ER Blood Pressure : / mmHG Vent. Rate : 071 BPM Atrial Rate : 071 BPM P-R Int : 170 ms QRS Dur : 094 ms QT Int : 460 ms P-R-T Axes : 012 -43 177 degrees QTc Int : 499 ms Normal sinus rhythm Left axis deviation Moderate voltage criteria for LVH, may be normal variant Prolonged QT Abnormal ECG Confirmed by FIDE BURRELL, NISH Amin ([id number]), make up editor MARGUERITE JIMENEZ ([id number]) on 01/22/2019 11:56:31 AM Referred By: Confirmed By:NISH ELIZALDE MD
[2019-01-22] MEDS: Atorvastatin Calcium 40 MG TAB PO SCH (21:56)
[2019-01-23 04:14] LABS: Anion Gap 12 mmol/L (10-20); BUN (Urea Nitrogen) 35 mg/dL (9.8-20.1); Calc. Creatinine Clearance 61 mL/min (70-130); Calcium 8.9 mg/dL (7.8-10.44); Carbon Dioxide 25 mmol/L (23-31); Chloride 93 mmol/L (98-107); Estimated GFR-MDRD 37; Glucose 142 mg/dL (80-115); Potassium 4.2 mmol/L (3.5-5.1); Sodium 126 mmol/L (136-145)
[2019-01-23] MEDS: Carvedilol 6.25 MG TAB PO SCH (08:35)
[2019-01-23] MEDS: Losartan 25 MG TAB PO SCH (08:35)
[2019-01-23] MEDS: Amitriptyline HCl 25 MG TAB PO SCH (08:35)
[2019-01-23] MEDS: Aspirin Chewable 81 MG TAB PO SCH (08:35)
[2019-01-23] MEDS: Levothyroxine Sodium 50 MCG TAB PO SCH (08:35)
[2019-01-23] MEDS: Clopidogrel Bisulfate 75 MG TAB PO SCH (08:35)
[2019-01-23] MEDS: Enoxaparin Sodium 30 MG/0.3 ML SYRINGE SC SCH (08:36)
[2019-01-23] MEDS: HumuLIN 70/30 (300 UNITS/3 ML VIAL) SC SCH (08:37)
--- NOTE | 2019-01-23 11:07 | PDOC.PN ---
- Subjective Encounter Start Date: 01/23/19 Encounter Start Time: 07:50 Patient seen and examined. No new complaints. No overnight events - Objective MAR Reviewed: Yes Vital Signs & Weight: Vital Signs (12 hours) Temp Pulse Resp BP BP Pulse Ox 01/23/19 08:35 170/77 H 01/23/19 08:31 97.4 F L 78 18 125/74 95 01/23/19 04:00 97.6 F 83 17 118/57 L 100 01/23/19 01:22 93 L 01/23/19 00:00 87 Weight Weight 208 lb 12.8 oz I&O: 01/22/19 01/23/19 01/24/19 06:59 06:59 06:59 Intake Total 1691 2230 Balance 1691 2230 Result Diagrams: 01/21/19 06:05 01/23/19 03:19 Additional Labs: Accuchecks 01/23/19 01/23/19 01/23/19 08:00 05:14 00:53 POC Glucose 130 H 106 232 H 01/22/19 01/22/19 21:02 15:23 POC Glucose 227 H 112 H EKG Reviewed by me: Yes Phys Exam - Physical Examination Constitutional: NAD HEENT: PERRLA, moist MMs, sclera anicteric Neck: no JVD, supple Respiratory: no wheezing, no rales, no rhonchi Cardiovascular: RRR, no significant murmur, no rub Gastrointestinal: soft, non-tender, no distention, positive bowel sounds Musculoskeletal: no edema, pulses present Neurological: non-focal, normal sensation, moves all 4 limbs Lymphatic: no nodes Psychiatric: normal affect, A&O x 3 Skin: no rash, normal turgor Dx/Plan (1) ABIGAIL (acute kidney injury) Code(s): N17.9 - ACUTE KIDNEY FAILURE, UNSPECIFIED Status: Acute Comment: improving (2) Hyperglycemia due to type 2 diabetes mellitus Code(s): E11.65 - TYPE 2 DIABETES MELLITUS WITH HYPERGLYCEMIA Status: Acute (3) Hyperkalemia Code(s): E87.5 - HYPERKALEMIA Status: Resolved (4) Hyponatremia Code(s): E87.1 - HYPO-OSMOLALITY AND HYPONATREMIA Status: Acute Comment: due to hyperglycemia, improving (5) UTI (urinary tract infection) Status: Acute (6) CAD (coronary artery disease) Code(s): I25.10 - ATHSCL HEART DISEASE OF [place] CORONARY ARTERY W/O ANG PCTRS Status: Chronic Qualifiers: Coronary Disease-Associated Artery/Lesion type: bypass graft [place] vs. transplanted heart: [place] heart Associated angina: without angina Qualified Code(s): I25.810 - Atherosclerosis of coronary artery bypass graft(s) without angina pectoris Comment: has severe diffuse 3 vessel cad, inoperable and for med mgmt.on Plavix, ranexa,BB,ARB,aldactone (7) Chronic systolic heart failure, ACC/AHA stage C Code(s): I50.22 - CHRONIC SYSTOLIC (CONGESTIVE) HEART FAILURE Status: Chronic (8) Dyslipidemia Code(s): E78.5 - HYPERLIPIDEMIA, UNSPECIFIED Status: Chronic (9) H/O: CVA (cerebrovascular accident) Code(s): Z86.73 - PRSNL HX OF TIA (TIA), AND CEREB INFRC W/O RESID DEFICITS Status: Chronic Comment: no residual paralysis (10) HTN (hypertension) Code(s): I10 - ESSENTIAL (PRIMARY) HYPERTENSION Status: Chronic Qualifiers: (11) Ischemic cardiomyopathy Code(s): I25.5 - ISCHEMIC CARDIOMYOPATHY Status: Chronic (12) Obesity (BMI 30-39.9) Code(s): E66.9 - OBESITY, UNSPECIFIED Status: Chronic (13) Osteoarthritis Code(s): M19.90 - UNSPECIFIED OSTEOARTHRITIS, UNSPECIFIED SITE Status: Chronic - Plan cont current plan of care, continue antibiotics * medication reviewed as below * symptomatic treatment * see discharge raad. Review of Systems - Review of Systems ENT: negative: Ear Pain, Ear Discharge, Nose Pain, Nose Discharge, Nose Congestion, Mouth Pain, Mouth Swelling, Throat Pain, Throat Swelling, Other Respiratory: negative: Cough, Dry, Shortness of Breath, Hemoptysis, SOB with Excertion, Pleuritic Pain, Sputum, Wheezing Cardiovascular: negative: chest pain, palpitations, orthopnea, paroxysmal nocturnal dyspnea, edema, light headedness, other Gastrointestinal: negative: Nausea, Vomiting, Abdominal Pain, Diarrhea, Constipation, Melena, Hematochezia, Other Genitourinary: negative: Dysuria, Frequency, Incontinence, Hematuria, Retention , Other Musculoskeletal: negative: Neck Pain, Shoulder Pain, Arm Pain, Back Pain, Hand Pain, Leg Pain, Foot Pain, Other - Medications/Allergies Allergies/Adverse Reactions: Allergies Allergy/AdvReac Type Severity Reaction Status Date / Time codeine Allergy severe Verified 01/19/19 20:33 vomiting, itching Latex, Natural Rubber Allergy Hives Verified 01/19/19 20:33 Penicillins Allergy itch Verified 01/19/19 20:33 Medications: Current Medications Amitriptyline HCl (Elavil) [address] [facility] Last Admin: 01/23/19 08:35 Dose: 50 mg Artificial Tears (Tears Naturale) 2 drop EA EYE PRN PRN PRN Reason: Dry Eyes Aspirin (Aspirin Chewable) [address] [facility] Last Admin: 01/23/19 08:35 Dose: 81 mg Atorvastatin Calcium (Lipitor) [address] [facility] Last Admin: 01/22/19 21:56 Dose: 80 mg Bisacodyl (Dulcolax) 10 mg PO DAILYPRN PRN PRN Reason: Constipation Calcium Carbonate (Tums) 1,000 mg PO Q4H PRN PRN Reason: Heartburn or Indigestion Carvedilol (Coreg) 6.25 mg PO BID-[facility] Last Admin: 01/23/19 08:35 Dose: 6.25 mg Clopidogrel Bisulfate (Plavix) [address] [facility] Last Admin: 01/23/19 08:35 Dose: 75 mg Dextrose/Water (Dextrose 50%) 25 gm SLOW IVP PRN PRN PRN Reason: Hypoglycemia Enoxaparin Sodium (Lovenox) [address] [facility] Last Admin: 01/23/19 08:36 Dose: 30 mg Glucagon (Glucagon) 1 mg IM PRN PRN PRN Reason: Hypoglycemia Guaifenesin (Robitussin Sf) 200 mg PO Q4H PRN PRN Reason: Cough Hydralazine HCl (Apresoline) 10 mg SLOW IVP Q4H PRN PRN Reason: SBP > 180 and HR < 70 Dextrose/Water (D5w) 1,000 mls @ 0 mls/hr IV .Q0M PRN PRN Reason: Hypoglycemia Levofloxacin 750 mg/ Device 150 mls @ 100 mls/hr IVPB Q24HR [facility] Last Admin: 01/22/19 10:42 Dose: 150 mls Insulin Human Isoph/Insulin Regular (Humulin 70/30) [address] [facility] Last Admin: 01/23/19 08:37 Dose: Not Given Insulin Human Isoph/Insulin Regular (Humulin 70/30) [address] [facility] Last Admin: 01/22/19 21:57 Dose: 60 unit Insulin Human Lispro (Humalog) 0 units SC .AGGRESSIVE SLIDING PRN PRN Reason: Aggressive Correctional Scale Last Admin: 01/21/19 17:54 Dose: 11 unit Insulin Human Lispro (Humalog) 0 units SC .BEDTIME SLIDING SC PRN PRN Reason: Bedtime Correctional Scale Last Admin: 01/19/19 20:20 Dose: 8 unit Levothyroxine Sodium (Synthroid) [address] [facility] Last Admin: 01/23/19 08:35 Dose: 50 mcg Loperamide HCl (Imodium) 2 mg PO PRN PRN PRN Reason: Diarrhea/Loose Stools Loratadine (Claritin) 10 mg PO DAILYPRN PRN PRN Reason: Sinus Symptoms Losartan Potassium (Cozaar) [address] [facility] Last Admin: 01/23/19 08:35 Dose: 50 mg Nitroglycerin (Nitrostat) 0.4 mg PO Q5MIN PRN PRN Reason: Chest Pain Ondansetron HCl (Zofran Odt) 4 mg PO Q6H PRN PRN Reason: Nausea/Vomiting Ondansetron HCl (Zofran) 4 mg IVP Q6H PRN PRN Reason: Nausea/Vomiting Ranolazine (Ranexa) 1,[address] [facility] Last Admin: 01/23/19 08:35 Dose: 1,000 mg Senna/Docusate Sodium (Senokot S) 2 tab PO BID PRN PRN Reason: Constipation Sodium Chloride ([place] Nasal [place] 0.65%) 0 ml EA NARE QIDPRN PRN PRN Reason: Nasal Congestion Sodium Chloride (Flush - Normal Saline) [address] [facility] Last Admin: 01/23/19 08:42 Dose: 10 ml Sodium Chloride (Flush - Normal Saline) 10 ml IVF PRN PRN PRN Reason: Saline Flush Throat Lozenges (Cepastat Lozenges) 1 sarah PO Q2H PRN PRN Reason: Sore Throat Zolpidem Tartrate (Ambien) 5 mg PO HSPRN PRN PRN Reason: Insomnia
--- NOTE | 2019-01-23 12:12 | DIS ---
DATE OF ADMISSION: 01/19/2019 DATE OF DISCHARGE: 01/23/2019 PRIMARY CARE PHYSICIAN: Jame Menchaca MD. DISCHARGE DISPOSITION: Home. PRIMARY DISCHARGE DIAGNOSES: 1. Acute kidney injury, improved. 2. Pseudohyponatremia. 3. Hyperglycemia due to diabetes type 2 without diabetic ketoacidosis. 4. Urinary tract infection. 5. Unstable angina, resolved. 6. Hyperkalemia, resolved. SECONDARY DISCHARGE DIAGNOSES: 1. Osteoarthritis. 2. Obesity with BMI 35. 3. Ischemic cardiomyopathy. 4. Chronic systolic heart failure. 5. Hypertension. 6. History of CVA. 7. Noncompliance with the treatment. 8. Chronically-uncontrolled diabetes. 9. Coronary artery disease. PRIMARY PROCEDURE/OPERATION: None. RADIOLOGICAL INVESTIGATION: Chest x-ray unremarkable. Echocardiography showed EF 30% to 35%. SIGNIFICANT LABORATORY DATA: WBC 5.2, hemoglobin 13.7, and platelet 199. Sodium 126, creatinine 1.42, and calcium 8.9. Urinalysis suggestive of UTI, serum ketone 0.2. DISCHARGE MEDICATIONS: 1. Nitroglycerin 0.4 mg sublingual p.r.n. for chest pain as directed. 2. Amitriptyline 50 mg p.o. at bedtime. 3. Lipitor 80 mg p.o. at bedtime. 4. Coreg 25 mg p.o. b.i.d. 5. Flexeril 10 mg p.r.n. 6. Lasix 40 mg p.o. b.i.d. 7. Humulin 70/30 of 50 units at bedtime and 70 units in morning. 8. Imdur 30 mg daily. 9. Levothyroxine 50 mcg daily. 10. Losartan 50 mg b.i.d. 11. Ranexa 1000 mg p.o. b.i.d. 12. Detrol 4 mg p.o. daily. 13. Aspirin 81 mg p.o. daily. 14. Plavix 75 mg p.o. daily. 15. Levaquin 500 mg p.o. daily for 5 days. CONTRAINDICATION: The patient is not given Aldactone because of hyperkalemia and renal insufficiency. INPATIENT TRUMPET PLAYER: Dr. Shields was following while in hospital. Dr. Fam Lemus was consulted while in hospital. ALLERGIES: CODEINE, LATEX, AND PENICILLIN. DISCHARGE PLAN: Posthospital, the patient will follow up with Dr. Shields in 2 weeks as [address] as Dr. Fam Lemus in 1 or 2 weeks. The patient is advised to make appointment with primary care physician in 1 week. HOSPITAL COURSE: A 63-year-old female, who was admitted by Magui Bustillo PA-C. Please see her H and P for further details. On admission, the patient was having chest pain. She was also having hyperglycemia. She had renal insufficiency. She has underlying inoperable severe three-vessel coronary artery disease as well as ischemic cardiomyopathy. During this admission, echocardiography showed some improvement in EF. Dr. Shields and Dr. Briscoe saw this patient while in the hospital and Dr. Shields recommended to consult hydrogen cell tender for possible AICD evaluation. During this admission, Dr. Lemus saw this patient, but there was no arrhythmia on monitor and as there was improvement in EF and that is why he recommended to follow up in an outpatient basis. Also, the patient refused to go for AICD placement during this admission. While in hospital, her blood sugar was controlled with insulin. We provided necessary patient education about diabetes, diabetic diet, and insulin use. She also had urinary tract infection, which was treated with levofloxacin while in the hospital. On discharge, we changed to p.o. levofloxacin. We discontinued Aldactone therapy because of hyperkalemia and renal insufficiency. Rest of medications, she will continue as per previous. She will follow up with Cardiology, Electrophysiology, and Primary Care Physician. Overall, the patient is medically stable for discharge. I have seen and examined the patient at the bedside today. Please see my progress note from today for further detail. Job ID: [id number]
[2019-01-23 15:48] VITALS: BP 122/61; TEMP 97.5
== END 2019-01-23 15:37 | disposition home or self-care (01) | DRG 303 ==
LOC: ERS 13:07 → 2NO 15:39
PROVIDERS: ADMIT Internal Medicine; ATTEND Internal Medicine
DX: I25.110 Atherosclerotic heart disease of native coronary artery with unstable angina pectoris (principal); N17.9 Acute kidney failure, unspecified; E87.1 Hypo-osmolality and hyponatremia; N39.0 Urinary tract infection, site not specified; I13.0 Hypertensive heart and chronic kidney disease with heart failure and stage 1 through stage 4 chronic kidney disease, or unspecified chronic kidney disease; I50.22 Chronic systolic (congestive) heart failure; N18.9 Chronic kidney disease, unspecified; E78.5 Hyperlipidemia, unspecified; F32.9 Major depressive disorder, single episode, unspecified; Z53.8 Procedure and treatment not carried out for other reasons; E11.65 Type 2 diabetes mellitus with hyperglycemia; E11.22 Type 2 diabetes mellitus with diabetic chronic kidney disease; E87.6 Hypokalemia; I25.5 Ischemic cardiomyopathy; M19.91 Primary osteoarthritis, unspecified site; Z68.37 Body mass index [BMI] 37.0-37.9, adult; Z88.0 Allergy status to penicillin; Z88.8 Allergy status to other drugs, medicaments and biological substances; Z79.82 Long term (current) use of aspirin; Z79.01 Long term (current) use of anticoagulants; Z86.73 Personal history of transient ischemic attack (TIA), and cerebral infarction without residual deficits; Z90.49 Acquired absence of other specified parts of digestive tract; Z90.710 Acquired absence of both cervix and uterus; Z88.5 Allergy status to narcotic agent; Z91.040 Latex allergy status
CPT/HCPCS: 36415; 36416; 51701; 71045; 80048; 80053; 81003; 81015; 82010; 82550; 83036; 83690; 83880; 84443; 84484; 85025; 93005; 93306; 94760; 96361; 96374; A4353; J0696; J1650; J1815; J1956; J2001; J3490

== ENCOUNTER 2019-03-07 10:49 | Day surgery (SDC) | payer SELFPAY ==
[2019-03-04 15:26] VITALS: BMI 36.0
[2019-03-07 11:49] LABS: #Eosinphils 0.2 thou/uL (0.0-0.7); #Lymphocytes 1.7 thou/uL (1.20-3.40); #Monocytes 0.3 thou/uL (0.11-0.59); #Neutrophils 3.2 thou/uL (1.40-6.50); %Basophils 0.5 % (0.0-1.0); %Eosinophils 4.4 % (0.0-10.0); %Lymphocytes 31.4 % (21.0-51.0); %Neutrophils 58.8 % (42.0-75.0); Hemoglobin 10.2 g/dL (12.0-16.0); INR-International Normal Ratio 1.2; Mean Corpuscular HGB CONC 34.8 g/dL (32.0-36.0); Mean Corpuscular Hemoglobin 31.9 pg (27.0-31.0); Mean Corpuscular Volume 91.7 fL (78.0-98.0); Mean Platelet Volume 7.7 fL (7.4-10.4); PTT 30.7 SEC (22.9-36.1); Platelet Count 183 thou/uL (130-400); Prothrombin Time 14.9 SEC (12.0-14.7); Red Blood Cell (RBC) Count 3.19 mill/uL (4.20-5.40); White Blood Cell (WBC) Count 5.4 thou/uL (4.8-10.8)
[2019-03-07 12:15] LABS: Anion Gap 10 mmol/L (10-20); BUN (Urea Nitrogen) 22 mg/dL (9.8-20.1); Calc. Creatinine Clearance 90 mL/min (70-130); Calcium 9.4 mg/dL (7.8-10.44); Carbon Dioxide 26 mmol/L (23-31); Chloride 101 mmol/L (98-107); Estimated GFR-MDRD 58; Glucose 370 mg/dL (80-115); Potassium 4.4 mmol/L (3.5-5.1); Sodium 133 mmol/L (136-145)
[2019-03-07] MEDS ORDERED: Propofol 500 MG/50 ML VIAL ONE (14:51)
[2019-03-07] MEDS ORDERED: Clindamycin/D5W 600 mg/50 ml Premix Bag ONE (14:55)
[2019-03-07] MEDS ORDERED: Levofloxacin 500 mg/D5W 100 ml Premix Bag ONE (14:55)
--- NOTE | 2019-03-07 15:41 | EKG ---
Test Reason : PREOP ABLATION Blood Pressure : / mmHG Vent. Rate : 083 BPM Atrial Rate : 083 BPM P-R Int : 176 ms QRS Dur : 088 ms QT Int : 414 ms P-R-T Axes : 039 -28 204 degrees QTc Int : 486 ms Normal sinus rhythm Nonspecific ST and T wave abnormality Prolonged QT Abnormal ECG When compared with ECG of 19-JAN-2019 13:51, Nonspecific T wave abnormality has replaced inverted T waves in Lateral leads Confirmed by COOKIE BURRELL, SPetros ([id number]) on 03/07/2019 3:41:30 PM Referred By: [facility] Confirmed By:DR. Kwame GARY MD
--- NOTE | 2019-03-07 17:46 | RAD ---
PORTABLE UPRIGHT FRONTAL CHEST RADIOGRAPH: Date: 03-07-19 Comparison: 01-20-19 History: Evaluate chest following AICD placement. FINDINGS: There is a single lead left sided AICD. Heart and mediastinal contours are stable. There is no pneumo thorax, pleural fluid, focal consolidation or alveolar edema. IMPRESSION: No acute findings. POS: LAZARO
[2019-03-07] MEDS ORDERED: hydrALAZINE 20 MG/ML VIAL ONE (17:51)
== END 2019-03-07 19:45 | disposition home or self-care (01) ==
LOC: CCL 10:49
PROVIDERS: ATTEND Internal Medicine Cardiovascular Disease
PROC: 02HK3KZ Insertion of Defibrillator Lead into Right Ventricle, Percutaneous Approach (ICD-10-PCS; principal; 2019-03-07)
PROC: 0JH608Z Insertion of Defibrillator Generator into Chest Subcutaneous Tissue and Fascia, Open Approach (ICD-10-PCS; principal; 2019-03-07)
DX: I25.5 Ischemic cardiomyopathy (principal); I11.0 Hypertensive heart disease with heart failure; I50.22 Chronic systolic (congestive) heart failure; E11.9 Type 2 diabetes mellitus without complications; I25.10 Atherosclerotic heart disease of native coronary artery without angina pectoris; E78.5 Hyperlipidemia, unspecified; Z88.0 Allergy status to penicillin; Z88.5 Allergy status to narcotic agent; Z91.040 Latex allergy status; Z79.82 Long term (current) use of aspirin; Z79.899 Other long term (current) drug therapy
CPT/HCPCS: 33249; 36005; 71045; 75820; 80048; 85025; 85610; 85730; 93005; 93010; C1777; C1786; J0360; J1956; J2704; J3490

== ENCOUNTER 2019-05-10 17:16 | Observation (INO) | payer SELFPAY ==
[2019-05-10 17:49] LABS: #Eosinphils 0.2 thou/uL (0.0-0.7); #Lymphocytes 1.8 thou/uL (1.20-3.40); #Monocytes 0.5 thou/uL (0.11-0.59); #Neutrophils 5.1 thou/uL (1.40-6.50); %Basophils 0.4 % (0.0-1.0); %Eosinophils 2.9 % (0.0-10.0); %Lymphocytes 23.8 % (21.0-51.0); %Monocytes 6.8 % (0.0-10.0); %Neutrophils 66.1 % (42.0-75.0); Hemoglobin 10.2 g/dL (12.0-16.0); Mean Corpuscular Hemoglobin 31.8 pg (27.0-31.0); Mean Corpuscular Volume 88.2 fL (78.0-98.0); Mean Platelet Volume 7.3 fL (7.4-10.4); Platelet Count 219 thou/uL (130-400); Red Blood Cell (RBC) Count 3.21 mill/uL (4.20-5.40); White Blood Cell (WBC) Count 7.7 thou/uL (4.8-10.8)
[2019-05-10 18:11] LABS: ALT (SGPT) 11 U/L (8-55); AST (SGOT) 16 U/L (5-34); Albumin 3.1 g/dL (3.4-4.8); Alkaline Phosphatase 78 U/L (40-110); Anion Gap 12 mmol/L (10-20); BUN (Urea Nitrogen) 37 mg/dL (9.8-20.1); Bilirubin, Total 0.3 mg/dL (0.2-1.2); Calc. Creatinine Clearance 0 mL/min (70-130); Calcium 8.8 mg/dL (7.8-10.44); Carbon Dioxide 24 mmol/L (23-31); Chloride 95 mmol/L (98-107); Estimated GFR-MDRD 23; Globulin 3.7 g/dL (2.4-3.5); Glucose 108 mg/dL (80-115); Potassium 3.8 mmol/L (3.5-5.1); Protein, Total 6.8 g/dL (6.0-8.3); Sodium 127 mmol/L (136-145)
[2019-05-10 19:39] LABS: Bilirubin Small (Negative); Blood, Urine Large (Negative); Glucose, Urine (Dipstick) 100 mg/dL (Negative); Leukocyte Large (Negative); Nitrite Positive (Negative); Protein, Urine (Dipstick) > or equal to 300 mg/dL (Neg-Trace)
[2019-05-10 19:49] LABS: Clarity Extra Turbid (Clear)
[2019-05-10 19:53] LABS: Bacteria/HPF 4+ HPF (None Seen); RBC/HPF 21-50 HPF (0-3); Squamous Epithelial 0-3 HPF (0-3); WBC/HPF Greater than 50 HPF (0-3)
[2019-05-10] MEDS ORDERED: Acetaminophen 650 MG Suppository PR PRN (21:32)
[2019-05-10] MEDS ORDERED: Ondansetron ODT 4 MG TAB PO PRN (21:32)
[2019-05-10] MEDS ORDERED: Ondansetron PF 4 MG/2 ML Vial IVP PRN (21:32)
[2019-05-10] MEDS ORDERED: Acetaminophen 325 MG TAB PO PRN (21:32)
[2019-05-10] MEDS ORDERED: cefTRIAXone\\ROCEPHIN 1 GM VIAL ONE (22:21)
[2019-05-11] MEDS: Sodium Chloride 0.9% 1,000 ML IV SCH ×3 (01:31→22:32)
[2019-05-11 01:37] VITALS: BMI 38.5
[2019-05-11] MEDS ORDERED: Dextrose 5% in Water 1,000 ML IV PRN (01:57)
[2019-05-11] MEDS ORDERED: Nitroglycerin 0.4 MG TAB (25 Tab Bottle) SL PRN (01:57)
[2019-05-11] MEDS ORDERED: Cyclobenzaprine 10 MG TAB PO PRN (01:57)
[2019-05-11] MEDS ORDERED: Dextrose 50% Abboject 50 ML SYRINGE SLOW IVP PRN (01:57)
[2019-05-11] MEDS ORDERED: HumaLOG 300 UNITS/3 ML VIAL SC PRN (02:20)
[2019-05-11 05:17] LABS: #Eosinphils 0.2 thou/uL (0.0-0.7); #Lymphocytes 1.6 thou/uL (1.20-3.40); #Monocytes 0.3 thou/uL (0.11-0.59); #Neutrophils 4.3 thou/uL (1.40-6.50); %Basophils 0.3 % (0.0-1.0); %Eosinophils 2.6 % (0.0-10.0); %Lymphocytes 24.9 % (21.0-51.0); %Monocytes 5.3 % (0.0-10.0); %Neutrophils 66.9 % (42.0-75.0); Hemoglobin 10.1 g/dL (12.0-16.0); Mean Corpuscular Hemoglobin 31.6 pg (27.0-31.0); Mean Corpuscular Volume 90.3 fL (78.0-98.0); Platelet Count 187 thou/uL (130-400); Red Blood Cell (RBC) Count 3.18 mill/uL (4.20-5.40); White Blood Cell (WBC) Count 6.4 thou/uL (4.8-10.8)
--- NOTE | 2019-05-11 05:18 | HP ---
PRIMARY CARE DOCTOR: Jame Menchaca MD. CHIEF COMPLAINT: Lightheaded. HISTORY OF PRESENT ILLNESS: A 63-year-old female patient with past medical history of hypertension, asthma, diabetes type 2, coronary artery disease, CHF, came to the hospital after having an episode of feeling lightheaded. Symptoms were severe with no clear triggers, no alleviating factors. Symptoms started in the morning, associated with paresthesias, neighbor when went home, and found the patient had blood pressure of 86/40. The patient received IV fluids and had significant improvement of the blood pressure in the 120s. During my examination, vital signs were normal. REVIEW OF SYSTEMS: CONSTITUTIONAL: No fever, no chills, generalized weakness. RESPIRATORY: No cough, sputum production, or shortness of breath. CARDIOVASCULAR: No chest pain or palpitation. GASTROINTESTINAL: No nausea, no vomiting, diarrhea, or abdominal pain. CREDIT RISK MANAGER: The patient had dizziness, feeling lightheaded. No headache. GENITOURINARY: No burning on urination. EXTREMITIES: No leg swelling. All other systems were reviewed and negative except for the findings mentioned above. PAST MEDICAL HISTORY: Includes hypertension, asthma, diabetes type 2, coronary artery disease, CHF, and stroke. PAST SURGICAL HISTORY: Appendectomy, , date of surgery in 1984. Surgical history of hernia repair, date of surgery in 1985. Surgical history of hysterectomy, surgical history of orthopedic surgery, bilateral knee repair, and surgical history of tonsillectomy. PSYCH HISTORY: Reports depression. SOCIAL HISTORY: No alcohol. No drugs. No smoking history. FAMILY HISTORY: Reviewed, noncontributory to current presentation. KNOWN ALLERGIES: Codeine, latex, and penicillins. REPORTED MEDICATIONS: 1. Lipitor. 2. Carvedilol. 3. Isosorbide mononitrate. 4. Amiodarone. 5. Losartan. 6. Vascepa. 7. Amitriptyline. 8. Nitroglycerin. 9. Cyclobenzaprine. 10. Aspirin. 11. Tolterodine. 12. Furosemide. 13. Clopidogrel. 14. Humulin 70/30. PHYSICAL EXAMINATION: VITAL SIGNS: On presentation, blood pressure 128/58 with heart rate 67, respiratory rate was 18, and temperature 98.5. Pain 0/10. Oxygen saturation was 99% on room air. GENERAL APPEARANCE: The patient is alert, oriented, in no acute distress. HEENT: Eyes, normal conjunctivae. Moist oral mucosa. Anicteric. No JVD. RESPIRATORY: Bilateral air entry. No rales. No wheezes. Symmetric expansion. CARDIOVASCULAR: Normal rate. Regular rhythm. No murmurs. No gallop. No edema. ABDOMEN: Soft. Normal bowel sounds. MUSCULOSKELETAL: Baseline range of motion and strength. SKIN: Warm and intact. No rash. No redness. Capillary refill seems to be intact. NEURO: No evidence of any new focal weakness. Cranial nerve seems to be intact. PSYCHIATRIC: The patient is in good mood. No anxiety. Optimal judgment. DIAGNOSTIC STUDIES: EKG was reviewed, the patient has normal sinus rhythm at the rate of 63, left ventricular hypertrophy, prolonged QT. LABORATORY DATA: Reviewed. The patient has white count 7.7, hemoglobin 10.2, MCV 88.2, and platelet count 219. Sodium 137, potassium 3.8, chloride 95, carbon dioxide 24, anion gap 12, BUN 37, and creatinine 2.18. In previous admission, the creatinine was normal. GFR 23, glucose 108, and calcium 8.8. LFTs were negative. Albumin 3.1. Urine was done, and the patient has some ketonuria with glucosuria, nitrite positive, white count is greater than 50. ASSESSMENT AND PLAN: The patient will be placed in the hospital with following medical problems. 1. Urinary tract infection. We will place the patient on antibiotics. We will follow cultures. Adjust treatment and sensitivity. 2. Chronic normocytic anemia, unclear etiology. This can be followed as outpatient. 3. Hyponatremia, sodium 137. We will replace, this is moderate. No need for any acute intervention at this point other than replacement. 4. Acute kidney injury. The patient has a creatinine 2.18, on previous admission was 0.9. We will hydrate, and we will monitor kidney function. If not improving, might need Nephrology for assistance with our patient. 5. Diabetes type 2, was controlled. Reconcile home medications. Place the patient on sliding scale for optimal control. 6. Hyperlipidemia. Low-cholesterol diet is advised. 7. History of coronary artery disease, chronic, seems to be stable. Reconcile home medications. 8. History of systolic dysfunction. The patient has EF of 30 to 35 in the last echo. Reconcile home medications. This is chronic, seems to be stable. We will adjust as needed. 9. Deep venous thrombosis prophylaxis. Job ID: [id number]
[2019-05-11 05:35] LABS: Anion Gap 12 mmol/L (10-20); BUN (Urea Nitrogen) 33 mg/dL (9.8-20.1); Calc. Creatinine Clearance 48 mL/min (70-130); Calcium 8.4 mg/dL (7.8-10.44); Carbon Dioxide 22 mmol/L (23-31); Chloride 101 mmol/L (98-107); Estimated GFR-MDRD 28; Glucose 296 mg/dL (80-115); Potassium 4.2 mmol/L (3.5-5.1); Sodium 131 mmol/L (136-145)
[2019-05-11] MEDS: Levothyroxine Sodium 50 MCG TAB PO SCH (06:29)
[2019-05-11] MEDS: Losartan 25 MG TAB PO SCH ×2 (07:56→22:19)
[2019-05-11] MEDS: Amiodarone 200 MG TAB PO SCH ×2 (07:56→22:19)
[2019-05-11] MEDS: Clopidogrel Bisulfate 75 MG TAB PO SCH (07:56)
[2019-05-11] MEDS: Aspirin Chewable 81 MG TAB PO SCH (07:56)
[2019-05-11] MEDS: Trospium 20 MG TAB PO SCH (07:56)
[2019-05-11] MEDS: Spironolactone 25 MG TAB PO SCH (07:57)
[2019-05-11] MEDS: Carvedilol 25 MG TAB PO SCH ×2 (07:57→22:18)
[2019-05-11] MEDS: Isosorbide Mononitrate (ER) 30 MG TAB PO SCH (07:57)
[2019-05-11] MEDS: Enoxaparin Sodium 30 MG/0.3 ML SYRINGE SC SCH (07:58)
[2019-05-11] MEDS: HumuLIN 70/30 (300 UNITS/3 ML VIAL) SC SCH ×2 (07:59→22:21)
[2019-05-11] MEDS: HumaLOG 300 UNITS/3 ML VIAL SC PRN ×3 (08:01→18:21)
--- NOTE | 2019-05-11 16:50 | PDOC.HOSPP ---
- Subjective Subjective: Feeling better in general. No specific complaints now. No abdominal pain. Denies having had any dysuria. - Objective Vital Signs & Weight: Vital Signs (12 hours) Temp Pulse Resp BP BP Pulse Ox 05/11/19 15:35 97.5 F L 76 16 140/71 100 05/11/19 11:41 96.4 F L 72 16 115/72 100 05/11/19 07:49 98.0 F 77 16 149/65 H 149/65 H 100 Weight Admit Weight 210 lb 8 oz Weight 210 lb 8 oz I&O: 05/10/19 05/11/19 05/12/19 06:59 06:59 06:59 Intake Total 600 Output Total 200 Balance 400 Result Diagrams: 05/11/19 05:04 05/11/19 05:04 Additional Labs: Accuchecks 05/11/19 05/11/19 05/11/19 10:33 06:19 01:13 POC Glucose 363 H 282 H 328 H 05/10/19 19:34 POC Glucose 103 Hospitalist ROS - Medication Medications: Active Medications Generic Name Dose Route Start Last Admin Trade Name Jose Antonio PRN Reason Stop Dose Admin Amiodarone HCl 200 mg 05/11/19 09:00 05/11/19 07:56 Cordarone PO 200 mg BID LINDSAY Administration Aspirin 81 mg 05/11/19 09:00 05/11/19 07:56 Aspirin Chewable PO 81 mg DAILY LINDSAY Administration Carvedilol 25 mg 05/11/19 09:00 05/11/19 07:57 Coreg PO 25 mg BID LINDSAY Administration Clopidogrel Bisulfate 75 mg 05/11/19 09:00 05/11/19 07:56 Plavix PO 75 mg DAILY LINDSAY Administration Enoxaparin Sodium 30 mg 05/11/19 09:00 05/11/19 07:58 Lovenox SC 30 mg 0900 LINDSAY Administration Sodium Chloride 1,000 mls @ 100 mls/hr 05/10/19 21:45 05/11/19 11:44 Normal Saline 0.9% IV 1,000 mls .Q10H LINDSAY Administration Insulin Human Isoph/Insulin Regular 50 units 05/11/19 09:00 05/11/19 07:59 Humulin 70/30 SC 50 unit QAM LINDSAY Administration Insulin Human Lispro 0 units 05/11/19 01:57 05/11/19 11:45 Humalog SC 10 unit .MODERATE SLIDING SC PRN Administration Moderate Correctional Scale Insulin Human Lispro 0 units 05/11/19 02:20 05/11/19 02:34 Humalog SC 4 unit .BEDTIME SLIDING SC PRN Administration BEDTIME SLIDING SCALE Protocol Isosorbide Mononitrate 30 mg 05/11/19 09:00 05/11/19 07:57 Imdur Er PO 30 mg DAILY LINDSAY Administration Levothyroxine Sodium 50 mcg 05/11/19 06:00 05/11/19 06:29 Synthroid PO 50 mcg 0600 LINDSAY Administration Losartan Potassium 50 mg 05/11/19 09:00 05/11/19 07:56 Cozaar PO 50 mg BID LINDSAY Administration Ranolazine 1,000 mg 05/11/19 09:00 05/11/19 07:57 Ranexa PO 1,000 mg BID LINDSAY Administration Spironolactone 25 mg 05/11/19 09:00 05/11/19 07:57 Aldactone PO 25 mg DAILY LINDSAY Administration Trospium 20 mg 05/11/19 09:00 05/11/19 07:56 Trospium PO 20 mg DAILY LINDSAY Administration - Exam General Appearance: NAD, awake alert Neck: supple, symmetric, no JVD, no thyromegaly, no lymphadenopathy, no carotid bruit Heart: RRR, no murmur, no gallops, no rubs, normal peripheral pulses Respiratory: CTAB, no wheezes, no rales, no ronchi, normal chest expansion, no tachypnea, normal percussion Gastrointestinal: soft, non-tender, non-distended, normal bowel sounds, no palpable masses, no hepatomegaly, no splenomegaly, no bruit Extremities: no cyanosis, no clubbing, no edema Skin: normal turgor, no lesions, no rashes Musculoskeletal: normal tone, normal strength, no muscle wasting Psychiatric: normal affect, normal behavior, A&O x 3 Hosp A/P (1) C. difficile colitis Code(s): A04.72 - ENTEROCOLITIS D/T CLOSTRIDIUM DIFFICILE, NOT SPCF RECUR Status: Acute (2) ABIGAIL (acute kidney injury) Code(s): N17.9 - ACUTE KIDNEY FAILURE, UNSPECIFIED Status: Acute (3) Hyperglycemia due to type 2 diabetes mellitus Code(s): E11.65 - TYPE 2 DIABETES MELLITUS WITH HYPERGLYCEMIA Status: Acute (4) UTI (urinary tract infection) Status: Acute (5) CAD (coronary artery disease) Code(s): I25.10 - ATHSCL HEART DISEASE OF [place] CORONARY ARTERY W/O ANG PCTRS Status: Chronic Qualifiers: (6) Dyslipidemia Code(s): E78.5 - HYPERLIPIDEMIA, UNSPECIFIED Status: Chronic (7) H/O: CVA (cerebrovascular accident) Code(s): Z86.73 - PRSNL HX OF TIA (TIA), AND CEREB INFRC W/O RESID DEFICITS Status: Chronic (8) HTN (hypertension) Code(s): I10 - ESSENTIAL (PRIMARY) HYPERTENSION Status: Chronic Qualifiers: (9) Ischemic cardiomyopathy Code(s): I25.5 - ISCHEMIC CARDIOMYOPATHY Status: Chronic (10) Obesity (BMI 30-39.9) Code(s): E66.9 - OBESITY, UNSPECIFIED Status: Chronic - Plan Positive for C diff. Add oral vancomycin. Continue Rocephin for UTI. Follow up on cultures. Continue IVF for ABIGAIL. Blood sugars high now. Continue SSI with home regimen of Lantus.
[2019-05-11] MEDS: Vancomycin HCl 25 MG/ML Oral PO SCH (18:18)
[2019-05-11] MEDS ORDERED: FLU VACC QS2019-20(6MOS UP)/PF 60 MCG/0.5 ML SYRINGE IM ONE (21:00)
[2019-05-11] MEDS: Atorvastatin Calcium 40 MG TAB PO SCH (22:18)
[2019-05-11] MEDS: Amitriptyline HCl 25 MG TAB PO SCH (22:19)
[2019-05-11] MEDS: cefTRIAXone\\ROCEPHIN 1 GM in Sodium Chloride 0.9% 100 ML IVPB SCH (22:32)
[2019-05-12] MEDS: Vancomycin HCl 25 MG/ML Oral PO SCH ×5 (00:54→23:25)
[2019-05-12] MEDS: Levothyroxine Sodium 50 MCG TAB PO SCH (06:21)
[2019-05-12] MEDS: HumuLIN 70/30 (300 UNITS/3 ML VIAL) SC SCH ×2 (08:42→21:04)
[2019-05-12] MEDS: HumaLOG 300 UNITS/3 ML VIAL SC PRN ×2 (08:43→18:07)
[2019-05-12] MEDS: Aspirin Chewable 81 MG TAB PO SCH (08:44)
[2019-05-12] MEDS: Enoxaparin Sodium 30 MG/0.3 ML SYRINGE SC SCH (08:44)
[2019-05-12] MEDS: Spironolactone 25 MG TAB PO SCH (08:44)
[2019-05-12] MEDS: Losartan 25 MG TAB PO SCH ×2 (08:45→20:43)
[2019-05-12] MEDS: Amiodarone 200 MG TAB PO SCH ×2 (08:45→20:43)
[2019-05-12] MEDS: Isosorbide Mononitrate (ER) 30 MG TAB PO SCH (08:45)
[2019-05-12] MEDS: Carvedilol 25 MG TAB PO SCH ×2 (08:45→20:43)
[2019-05-12] MEDS: Clopidogrel Bisulfate 75 MG TAB PO SCH (08:45)
[2019-05-12] MEDS: Sodium Chloride 0.9% 1,000 ML IV SCH ×2 (08:48→20:44)
[2019-05-12] MEDS: Trospium 20 MG TAB PO SCH (09:03)
[2019-05-12 10:56] LABS: #Eosinphils 0.2 thou/uL (0.0-0.7); #Lymphocytes 1.5 thou/uL (1.20-3.40); #Monocytes 0.6 thou/uL (0.11-0.59); #Neutrophils 4.6 thou/uL (1.40-6.50); %Basophils 0.7 % (0.0-1.0); %Eosinophils 3.4 % (0.0-10.0); %Lymphocytes 21.3 % (21.0-51.0); %Neutrophils 65.6 % (42.0-75.0); Hemoglobin 8.4 g/dL (12.0-16.0); Mean Corpuscular HGB CONC 34.8 g/dL (32.0-36.0); Mean Corpuscular Hemoglobin 32.1 pg (27.0-31.0); Mean Corpuscular Volume 92.2 fL (78.0-98.0); Mean Platelet Volume 7.1 fL (7.4-10.4); Platelet Count 195 thou/uL (130-400); RBC Distribution Width 12.1 % (11.5-14.5); Red Blood Cell (RBC) Count 2.62 mill/uL (4.20-5.40)
[2019-05-12 11:14] LABS: Anion Gap 9 mmol/L (10-20); BUN (Urea Nitrogen) 20 mg/dL (9.8-20.1); Calc. Creatinine Clearance 66 mL/min (70-130); Calcium 7.7 mg/dL (7.8-10.44); Carbon Dioxide 21 mmol/L (23-31); Chloride 106 mmol/L (98-107); Estimated GFR-MDRD 40; Glucose 306 mg/dL (80-115); Potassium 4.2 mmol/L (3.5-5.1); Sodium 132 mmol/L (136-145)
[2019-05-12 14:16] LABS: Clarity Turbid (Clear); Leukocyte Unable to Interpret (Negative); Nitrite Unable to Interpret (Negative)
[2019-05-12 14:17] LABS: Bilirubin Unable to Interpret (Negative); Blood, Urine Unable to Interpret (Negative); Glucose, Urine (Dipstick) Unable to Interpret mg/dL (Negative); Protein, Urine (Dipstick) Unable to Interpret mg/dL (Neg-Trace); Urobilinogen UNABLE TO INTERPRET mg/dL (Less than 2)
[2019-05-12 14:18] LABS: Bacteria/HPF 3+ HPF (None Seen); RBC/HPF Greater than 50 HPF (0-3); Squamous Epithelial 0-3 HPF (0-3); WBC/HPF Greater Than 50 HPF (0-3)
[2019-05-12 15:48] LABS: Hemoglobin 8.4 g/dL (12.0-16.0)
[2019-05-12 15:55] LABS: INR-International Normal Ratio 1.2; Prothrombin Time 15.3 SEC (12.0-14.7)
--- NOTE | 2019-05-12 17:18 | ULT ---
Bilateral renal ultrasound CLINICAL INDICATION: Acute on chronic kidney injury. Gross hematuria. COMPARISON: None. FINDINGS: Right kidney: There is no evidence of a renal mass, renal calculus, or hydronephrosis seen. The right kidney measures 10.7 cm x 4.4 cm. Left kidney: There is no evidence of a renal mass, renal calculus, or hydronephrosis. The left kidney measures 12.7 cm x 4.9 cm. Urinary bladder: Urinary bladder is decompressed with Artis catheter in place. There is also echogeni c material in the urinary bladder suggesting debris. Limited imaging of the right hepatic lobe of the liver demonstrates increased echogenicity suggesting fatty infiltration. IMPRESSION: 1. Urinary bladder is mostly decompressed with Arits catheter in place; however, there are is suggest ion of echogenic material in the urinary bladder which may be related to debris. 2. Normal appearance of the bilateral kidneys without hydronephrosis. 3. Suggestion of mild fatty infiltration of the visualized right hepatic lobe.
[2019-05-12] MEDS: cefTRIAXone\\ROCEPHIN 1 GM in Sodium Chloride 0.9% 100 ML IVPB SCH (20:42)
[2019-05-12] MEDS: Atorvastatin Calcium 40 MG TAB PO SCH (20:43)
[2019-05-12] MEDS: Amitriptyline HCl 25 MG TAB PO SCH (20:44)
--- NOTE | 2019-05-12 22:19 | PDOC.HOSPP ---
- Subjective Subjective: Says she is doing well and ready to go home. - Objective Vital Signs & Weight: Vital Signs (12 hours) Temp Pulse Resp BP BP Pulse Ox 05/12/19 20:54 98.4 F 79 16 168/75 H 99 05/12/19 16:00 98.7 F 70 16 110/54 L 110/54 L 100 05/12/19 11:57 97.8 F 75 16 107/53 L 98 Weight Admit Weight 210 lb 8 oz Weight 211 lb 4 oz I&O: 05/11/19 05/12/19 05/13/19 06:59 06:59 06:59 Intake Total 600 3790 2375 Output Total 200 2125 975 Balance 400 1665 1400 Result Diagrams: 05/12/19 15:37 05/12/19 10:47 Additional Labs: Accuchecks 05/12/19 05/12/19 05/12/19 21:01 16:46 12:41 POC Glucose 150 H 174 H 338 H 05/12/19 05/11/19 05:52 20:53 POC Glucose 262 H 162 H Hospitalist ROS - Medication Medications: Active Medications Generic Name Dose Route Start Last Admin Trade Name Freq PRN Reason Stop Dose Admin Amiodarone HCl 200 mg 05/11/19 09:00 05/12/19 20:43 Cordarone PO 200 mg BID LINDSAY Administration Amitriptyline HCl 50 mg 05/11/19 21:00 05/12/19 20:44 Elavil PO 50 mg HS LINDSAY Administration Aspirin 81 mg 05/11/19 09:00 05/12/19 08:44 Aspirin Chewable PO 81 mg DAILY LINDSAY Administration Atorvastatin Calcium 80 mg 05/11/19 21:00 05/12/19 20:43 Lipitor PO 80 mg HS LINDSAY Administration Carvedilol 25 mg 05/11/19 09:00 05/12/19 20:43 Coreg PO 25 mg BID LINDSAY Administration Sodium Chloride 1,000 mls @ 100 mls/hr 05/10/19 21:45 05/12/19 20:44 Normal Saline 0.9% IV 1,000 mls .Q10H LINDSAY Administration Ceftriaxone Sodium 1 gm/ 100 mls @ 200 mls/hr 05/11/19 22:00 05/12/19 20:42 Sodium Chloride IVPB 100 mls Q24HR LINDSAY Administration Insulin Human Isoph/Insulin Regular 35 units 05/11/19 21:00 05/12/19 21:04 Humulin 70/30 SC 35 unit HS LINDSAY Administration Insulin Human Isoph/Insulin Regular 50 units 05/11/19 09:00 05/12/19 08:42 Humulin 70/30 SC 50 unit QAM LINDSAY Administration Insulin Human Lispro 0 units 05/11/19 01:57 05/12/19 18:07 Humalog SC 2 unit .MODERATE SLIDING SC PRN Administration Moderate Correctional Scale Insulin Human Lispro 0 units 05/11/19 02:20 05/11/19 02:34 Humalog SC 4 unit .BEDTIME SLIDING SC PRN Administration BEDTIME SLIDING SCALE Protocol Isosorbide Mononitrate 30 mg 05/11/19 09:00 05/12/19 08:45 Imdur Er PO 30 mg DAILY LINDSAY Administration Levothyroxine Sodium 50 mcg 05/11/19 06:00 05/12/19 06:21 Synthroid PO 50 mcg 0600 LINDSAY Administration Losartan Potassium 50 mg 05/11/19 09:00 05/12/19 20:43 Cozaar PO 50 mg BID LINDSAY Administration Ranolazine 1,000 mg 05/11/19 09:00 05/12/19 20:43 Ranexa PO 1,000 mg BID LINDSAY Administration Sodium Chloride 10 ml 05/11/19 09:00 05/12/19 20:44 Flush - Normal Saline IVF Not Given Q12HR [facility] Spironolactone 25 mg 05/11/19 09:00 05/12/19 08:44 Aldactone PO 25 mg DAILY LINDSAY Administration Trospium 20 mg 05/11/19 09:00 05/12/19 09:03 Trospium PO 20 mg DAILY LINDSAY Administration Vancomycin HCl 250 mg 05/11/19 18:00 05/12/19 18:01 First Vancomycin PO 250 mg Q6HR LINDSAY Administration - Exam General Appearance: NAD, awake alert Neck: supple Heart: RRR, no murmur, no gallops, no rubs, normal peripheral pulses Respiratory: CTAB, no wheezes, no rales, no ronchi, normal chest expansion, no tachypnea, normal percussion Gastrointestinal: soft, non-tender, non-distended, normal bowel sounds, no palpable masses, no hepatomegaly, no splenomegaly, no bruit Extremities: no cyanosis Musculoskeletal: normal tone Psychiatric: normal affect, normal behavior, A&O x 3 Hosp A/P (1) C. difficile colitis Code(s): A04.72 - ENTEROCOLITIS D/T CLOSTRIDIUM DIFFICILE, NOT SPCF RECUR Status: Acute (2) ABIGAIL (acute kidney injury) Code(s): N17.9 - ACUTE KIDNEY FAILURE, UNSPECIFIED Status: Acute (3) Hyperglycemia due to type 2 diabetes mellitus Code(s): E11.65 - TYPE 2 DIABETES MELLITUS WITH HYPERGLYCEMIA Status: Acute (4) UTI (urinary tract infection) Status: Acute (5) CAD (coronary artery disease) Code(s): I25.10 - ATHSCL HEART DISEASE OF [place] CORONARY ARTERY W/O ANG PCTRS Status: Chronic Qualifiers: (6) Dyslipidemia Code(s): E78.5 - HYPERLIPIDEMIA, UNSPECIFIED Status: Chronic (7) H/O: CVA (cerebrovascular accident) Code(s): Z86.73 - PRSNL HX OF TIA (TIA), AND CEREB INFRC W/O RESID DEFICITS Status: Chronic (8) HTN (hypertension) Code(s): I10 - ESSENTIAL (PRIMARY) HYPERTENSION Status: Chronic Qualifiers: (9) Ischemic cardiomyopathy Code(s): I25.5 - ISCHEMIC CARDIOMYOPATHY Status: Chronic (10) Obesity (BMI 30-39.9) Code(s): E66.9 - OBESITY, UNSPECIFIED Status: Chronic (11) Hematuria Code(s): R31.9 - HEMATURIA, UNSPECIFIED Status: Acute (12) Decubitus ulcer, stage 3 Code(s): L89.93 - PRESSURE ULCER OF UNSPECIFIED SITE, STAGE 3 Status: Acute - Plan Positive for C diff. Add oral vancomycin. Continue Rocephin for UTI. Follow up on cultures. Continue IVF for ABIGAIL. Continue SSI with home regimen of Lantus. New gross hematuria. She had some hematuria initially. Has urinary incontinence. Has latex allergy and was reacting to the purewick. That was discontinued and the Artis placed to keep urine off the decubs. Now has severe hematuria. US. Stop Plavix, lovenox. Urology consult.
--- NOTE | 2019-05-13 00:16 | CON ---
DATE OF CONSULTATION: 05/12/2019 REASON FOR CONSULTATION: Gross hematuria. HISTORY: Ms. Patel is a 63-year-old female admitted to the hospital on 2018 after a syncopal episode. During evaluation in the emergency room, she was noted to have 4+ bacteria in the urine. Urine culture has been sent, but results to date are negative. After admission, she developed gross hematuria. She states that she did not notice any hematuria immediately previous to this admission. She does however, have a prior history of hematuria that is typically associated with urinary tract infections. She has been evaluated cystoscopically by Dr. Merino. She does have other urologic chronic issues including urinary urgency and urge incontinence. Most recent imaging of her urinary tract was a CT scan in September of 2017 that showed a thick-walled bladder. She is not having any dysuria or any change in her urinary symptoms associated with the current gross hematuria. A Artis catheter was placed after admission and according to the patient it was placed because of her incontinence. PAST MEDICAL HISTORY: Hypertension, diabetes, coronary artery disease, congestive heart failure, history of CVA, asthma. CHRONIC MEDICATIONS: Include: 1. Lipitor. 2. Insulin. 3. Carvedilol. 4. Isosorbide mononitrate. 5. Amiodarone. 6. Losartan. 7. Amitriptyline. 8. Nitroglycerin. 9. Cyclobenzaprine. 10. Tolterodine. 11. Lasix. PAST SURGICAL HISTORY: Includes appendectomy, , hernia repair, hysterectomy, knee surgery, tonsillectomy. SOCIAL HISTORY: She is a nonsmoker, nondrinker. FAMILY HISTORY: Noncontributory. ALLERGIES: CODEINE, LASIX, AND PENICILLINS. REVIEW OF SYSTEMS: RESPIRATORY: She denies any shortness of breath. CARDIOVASCULAR: Denies chest pain or palpitations. GASTROINTESTINAL: She has been having diarrhea. C. diff during this admission is positive. NEUROLOGIC: Prior history of CVA. UROLOGIC: Please see history of present illness. ENDOCRINE: History of diabetes mellitus. PHYSICAL EXAMINATION: VITAL SIGNS: Most recent temperature 98.7, blood pressure 110/54, pulse 70, O2 saturation 100%. HEENT: Normocephalic, atraumatic. NECK: Supple. CHEST: Clear to auscultation. ABDOMEN: Soft, nontender. No palpable masses. PELVIC: Not performed. Artis catheter in place draining grossly bloody urine. EXTREMITIES: No edema noted. ABDOMEN: Soft, nontender. No palpable masses. Liver and spleen not palpable. No abdominal tenderness. Hand irrigation of Artis catheter performed for multiple clots. She was hand irrigated until clear ~ approximately 1 L. Ratis catheter was placed back to gravity. IMPRESSION: Gross hematuria associated with a probable urinary tract infection in the setting of anticoagulation with Plavix. In addition to this, she has a prior history of the same approximately 1 year ago. Prior workup did include cystoscopy with Dr. Merino and it apparently was negative by the patient's report. Current urine culture is pending, but based on the urinalysis on admission, I would anticipate it to be positive. RECOMMENDATIONS: 1. Culture driven antibiotic therapy. 2. Artis catheter to be hand irrigated as needed. 3. I will contact Dr. Merino about patient's admission. Job ID: [id number] [facility]
[2019-05-13] MEDS: Vancomycin HCl 25 MG/ML Oral PO SCH ×3 (05:51→18:13)
[2019-05-13] MEDS: Levothyroxine Sodium 50 MCG TAB PO SCH (05:51)
[2019-05-13 06:16] LABS: #Eosinphils 0.3 thou/uL (0.0-0.7); #Lymphocytes 1.7 thou/uL (1.20-3.40); #Monocytes 0.5 thou/uL (0.11-0.59); #Neutrophils 3.9 thou/uL (1.40-6.50); %Basophils 0.7 % (0.0-1.0); %Eosinophils 4.3 % (0.0-10.0); %Lymphocytes 26.6 % (21.0-51.0); %Monocytes 8.2 % (0.0-10.0); %Neutrophils 60.2 % (42.0-75.0); Hemoglobin 8.8 g/dL (12.0-16.0); Mean Corpuscular HGB CONC 34.8 g/dL (32.0-36.0); Mean Corpuscular Hemoglobin 32.2 pg (27.0-31.0); Mean Corpuscular Volume 92.5 fL (78.0-98.0); Mean Platelet Volume 7.2 fL (7.4-10.4); Platelet Count 202 thou/uL (130-400); RBC Distribution Width 12.3 % (11.5-14.5); Red Blood Cell (RBC) Count 2.72 mill/uL (4.20-5.40); White Blood Cell (WBC) Count 6.5 thou/uL (4.8-10.8)
[2019-05-13 06:38] LABS: Anion Gap 9 mmol/L (10-20); BUN (Urea Nitrogen) 18 mg/dL (9.8-20.1); Calc. Creatinine Clearance 79 mL/min (70-130); Calcium 7.8 mg/dL (7.8-10.44); Carbon Dioxide 19 mmol/L (23-31); Chloride 109 mmol/L (98-107); Estimated GFR-MDRD 49; Glucose 113 mg/dL (80-115); Potassium 3.9 mmol/L (3.5-5.1); Sodium 133 mmol/L (136-145)
[2019-05-13] MEDS: Sodium Chloride 0.9% 1,000 ML IV SCH ×2 (07:46→07:47)
--- NOTE | 2019-05-13 09:33 | PDOC.HOSPP ---
- Subjective Encounter Date: 05/13/19 Encounter Time: 09:32 Subjective: Feels well. Ready to go home. No diarrhea. - Objective Vital Signs & Weight: Vital Signs (12 hours) Temp Pulse Resp BP Pulse Ox 05/13/19 07:48 96.3 F L 67 16 131/60 99 05/13/19 03:48 98.6 F 73 18 95/48 L 98 Weight Admit Weight 210 lb 8 oz Weight 210 lb 9 oz I&O: 05/12/19 05/13/19 05/14/19 06:59 06:59 06:59 Intake Total 3790 4195 Output Total 2125 1875 Balance 1665 2320 Result Diagrams: 05/13/19 05:28 05/13/19 05:28 Additional Labs: Accuchecks 05/13/19 05/13/19 05/12/19 05:41 04:13 21:01 POC Glucose 114 H 99 150 H 05/12/19 05/12/19 16:46 12:41 POC Glucose 174 H 338 H Hospitalist ROS - Medication Medications: Active Medications Generic Name Dose Route Start Last Admin Trade Name Freq PRN Reason Stop Dose Admin Amiodarone HCl 200 mg 05/11/19 09:00 05/12/19 20:43 Cordarone PO 200 mg BID LINDSAY Administration Amitriptyline HCl 50 mg 05/11/19 21:00 05/12/19 20:44 Elavil PO 50 mg HS LINDSAY Administration Aspirin 81 mg 05/11/19 09:00 05/12/19 08:44 Aspirin Chewable PO 81 mg DAILY LINDSAY Administration Atorvastatin Calcium 80 mg 05/11/19 21:00 05/12/19 20:43 Lipitor PO 80 mg HS LINDSAY Administration Carvedilol 25 mg 05/11/19 09:00 05/12/19 20:43 Coreg PO 25 mg BID LINDSAY Administration Sodium Chloride 1,000 mls @ 100 mls/hr 05/10/19 21:45 05/13/19 07:47 Normal Saline 0.9% IV 1,000 mls .Q10H LINDSAY Administration Ceftriaxone Sodium 1 gm/ 100 mls @ 200 mls/hr 05/11/19 22:00 05/12/19 20:42 Sodium Chloride IVPB 100 mls Q24HR LINDSAY Administration Insulin Human Isoph/Insulin Regular 35 units 05/11/19 21:00 05/12/19 21:04 Humulin 70/30 SC 35 unit HS LINDSAY Administration Insulin Human Isoph/Insulin Regular 50 units 05/11/19 09:00 05/12/19 08:42 Humulin 70/30 SC 50 unit QAM LINDSAY Administration Insulin Human Lispro 0 units 05/11/19 01:57 05/12/19 18:07 Humalog SC 2 unit .MODERATE SLIDING SC PRN Administration Moderate Correctional Scale Insulin Human Lispro 0 units 05/11/19 02:20 05/11/19 02:34 Humalog SC 4 unit .BEDTIME SLIDING SC PRN Administration BEDTIME SLIDING SCALE Protocol Isosorbide Mononitrate 30 mg 05/11/19 09:00 05/12/19 08:45 Imdur Er PO 30 mg DAILY LINDSAY Administration Levothyroxine Sodium 50 mcg 05/11/19 06:00 05/13/19 05:51 Synthroid PO 50 mcg 0600 LINDSAY Administration Losartan Potassium 50 mg 05/11/19 09:00 05/12/19 20:43 Cozaar PO 50 mg BID LINDSAY Administration Ranolazine 1,000 mg 05/11/19 09:00 05/12/19 20:43 Ranexa PO 1,000 mg BID LINDSAY Administration Sodium Chloride 10 ml 05/11/19 09:00 05/12/19 20:44 Flush - Normal Saline IVF Not Given Q12HR [facility] Spironolactone 25 mg 05/11/19 09:00 05/12/19 08:44 Aldactone PO 25 mg DAILY LINDSAY Administration Trospium 20 mg 05/11/19 09:00 05/12/19 09:03 Trospium PO 20 mg DAILY LINDSAY Administration Vancomycin HCl 250 mg 05/11/19 18:00 05/13/19 05:51 First Vancomycin PO 250 mg Q6HR LINDSAY Administration - Exam Heart: RRR, no murmur, no gallops, no rubs, normal peripheral pulses Respiratory: CTAB, no wheezes, no rales, no ronchi, normal chest expansion, no tachypnea, normal percussion Gastrointestinal: soft, non-tender, non-distended, normal bowel sounds, no palpable masses, no hepatomegaly, no splenomegaly, no bruit Extremities: no cyanosis, no clubbing, no edema Musculoskeletal - other findings: Right weakness Psychiatric: normal affect, normal behavior, A&O x 3 Hosp A/P (1) C. difficile colitis Code(s): A04.72 - ENTEROCOLITIS D/T CLOSTRIDIUM DIFFICILE, NOT SPCF RECUR Status: Acute (2) ABIGAIL (acute kidney injury) Code(s): N17.9 - ACUTE KIDNEY FAILURE, UNSPECIFIED Status: Acute (3) Hyperglycemia due to type 2 diabetes mellitus Code(s): E11.65 - TYPE 2 DIABETES MELLITUS WITH HYPERGLYCEMIA Status: Acute (4) UTI (urinary tract infection) Status: Acute (5) CAD (coronary artery disease) Code(s): I25.10 - ATHSCL HEART DISEASE OF [place] CORONARY ARTERY W/O ANG PCTRS Status: Chronic Qualifiers: (6) Dyslipidemia Code(s): E78.5 - HYPERLIPIDEMIA, UNSPECIFIED Status: Chronic (7) H/O: CVA (cerebrovascular accident) Code(s): Z86.73 - PRSNL HX OF TIA (TIA), AND CEREB INFRC W/O RESID DEFICITS Status: Chronic (8) HTN (hypertension) Code(s): I10 - ESSENTIAL (PRIMARY) HYPERTENSION Status: Chronic Qualifiers: (9) Ischemic cardiomyopathy Code(s): I25.5 - ISCHEMIC CARDIOMYOPATHY Status: Chronic (10) Obesity (BMI 30-39.9) Code(s): E66.9 - OBESITY, UNSPECIFIED Status: Chronic (11) Hematuria Code(s): R31.9 - HEMATURIA, UNSPECIFIED Status: Acute (12) Decubitus ulcer, stage 3 Code(s): L89.93 - PRESSURE ULCER OF UNSPECIFIED SITE, STAGE 3 Status: Acute (13) Acute on chronic anemia Code(s): D64.9 - ANEMIA, UNSPECIFIED Status: Acute (14) Urinary incontinence Code(s): R32 - UNSPECIFIED URINARY INCONTINENCE Status: Acute - Plan Hx of CVA with incomplete right hemiplegia. Immobility with decubiti on buttocks. Positive for C diff. Add oral vancomycin. Continue Rocephin for UTI. Follow up on cultures. Should be updated today.\ Continue IVF for ABIGAIL. Much improved. Back to baseline. Continue SSI with home regimen of Lantus. New gross hematuria. She had some hematuria initially. Has urinary incontinence. Has latex allergy and was reacting to the purewick. That was discontinued and the Artis placed to keep urine off the decubs. Now has severe hematuria. US. Stop Plavix, lovenox. Urology consult flushed the bladder. Urine is clear now. Dr. Merino to see her today. Suspect we can remove the catheter. Pending urine cx and Urology input, anticipate discharge later today.
[2019-05-13] MEDS: Trospium 20 MG TAB PO SCH (10:03)
[2019-05-13] MEDS: Losartan 25 MG TAB PO SCH (10:04)
[2019-05-13] MEDS: Amiodarone 200 MG TAB PO SCH (10:04)
[2019-05-13] MEDS: Isosorbide Mononitrate (ER) 30 MG TAB PO SCH (10:04)
[2019-05-13] MEDS: Aspirin Chewable 81 MG TAB PO SCH (10:05)
[2019-05-13] MEDS: Spironolactone 25 MG TAB PO SCH (10:06)
[2019-05-13] MEDS: Carvedilol 25 MG TAB PO SCH (10:06)
[2019-05-13] MEDS: HumuLIN 70/30 (300 UNITS/3 ML VIAL) SC SCH (10:07)
[2019-05-13] MEDS: HumaLOG 300 UNITS/3 ML VIAL SC PRN (12:49)
--- NOTE | 2019-05-13 14:52 | CON ---
DATE OF CONSULTATION: 05/13/2019 HISTORY OF PRESENT ILLNESS: Ms. Patel's history is updated. History of noncompliance. She was seen last night by Dr. Desir, who was on-call. She had gross hematuria. She is known to have history of recurrent UTI, G5, P5 female with history of poorly controlled diabetes with recurrent UTI symptoms. I last saw her back in December of 2016, when cystoscopy was performed demonstrating no lesion of concern, cytology negative . There was some sediment in the bladder consistent with chronic UTI / recurrent UTI. She was unable to proceed with imaging, I was advised regarding upper tract evaluation for history of recurrent UTI, however, due to financial constraints, unable to proceed. She was advised to return to clinic with either renal ultrasound or IVP if able to, as she is unable to afford CT. She did undergo a CT subsequently 09/2017 which demonstrated no evidence of hydronephrosis, + thickened bladder wall with suggestion of emphysematous cystitis. Recent renal ultrasound demonstrated some debris, however, no hydronephrosis. She was manually irrigated by Dr. Desir last night with evacuation of clots. Subsequently, her urine has cleared. Her Plavix and aspirin have been discontinued. She remains bed-bound due to peripheral neuropathy and history of CVA. Her A1c is even worse recently as it is elevated to 14.6. Currently, she is resting comfortably and desires to be discharged home. Urine output demonstrates yellow sedimentous urine. Of note, the patient currently has C diff positive stool, has mild diarrhea and currently on Rocephin/ vanc. urine culture is negative thus far PAST MEDICAL HISTORY: Diabetes, poorly controlled, on insulin; hyperlipidemia; wheelchair-bound; multiple CVAs; diabetic neuropathy; depression; history of UTI ; pyelonephritis. SURGICAL HISTORY: Tubal ligation, hysterectomy, BSO, ovarian cystectomy, tonsillectomy, knee surgery on the right, cholecystectomy, colonoscopy. Local cystoscopy on December 18, 2016, with no lesion, cytology negative. FAMILY HISTORY: Positive for diabetes and coronary artery disease. SOCIAL HISTORY: She is a nonsmoker. Caffeine consumption. Takes care of her grandchildren. CURRENT MEDICATIONS: Include, 1. Tylenol. 2. Amiodarone. 3. Elavil. 4. Aspirin 81 mg. 5. Coreg. 6. Currently on Rocephin. 7. Flexeril. 8. Glucagon. 9. Insulin. 10. Levothyroxine. 11. Nitroglycerin. 12. Ranexa. 13. Spironolactone. 14. Trospium. 15. Vancomycin p.o. 16. Her Plavix has been recently discontinued. ALLERGIES: TO CODEINE, LATEX, NATURAL RUBBER, PENICILLIN, TOLERATING ROCEPHIN UNEVENTFULLY. PHYSICAL EXAMINATION: VITAL SIGNS: Temperature 96.3, heart rate 67, respiratory rate 16, oxygen saturation 99%, and blood pressure 131/60. I's and O's 1875 of urine. She is positive 2.3 L. GENERAL: The patient appears to be in no acute distress. HEENT: Unremarkable. HEART: Regular rate. LUNGS: Clear. ABDOMEN: Soft. No rigidity. No rebound. Obese. : Artis catheter demonstrates concentrated yellow urine with mild sediment. I did flush her catheter again at bedside demonstrating no subsequent clots. EXTREMITIES: Pedal edema. NEUROLOGIC: Limited as she is bed bound. Has history of hemiplegia. PSYCHIATRIC: Appears to be appropriate and intact. PERTINENT LABORATORY DATA: White count 6, hemoglobin 8.8, platelet 202. No significant left shift of concern. INR is 1.2, PTT of 34. Sodium 133; creatinine is 1.1, admitting creatinine of 2.1. Her baseline creatinine varies from 0.6 to 2.3. In October 2018, urine culture demonstrated E coli, pansensitive. Recent urine culture on this admission is preliminary negative thus far. UA greater than 50 RBCs, greater than 50 WBCs 3+ bacteria Stool culture positive for C diff antibody. In January 2019, hemoglobin A1c is 14.6 and previously in September 2016, 12.1. CT of the abdomen and pelvis without contrast in [address] of the abdomen and pelvis without contrast in September 2017, demonstrates atypical pneumonia, thickened bladder wall with scattered areas of tiny bladder wall air density indicative of emphysematous cystitis. Renal ultrasound on this admission demonstrates no evidence of hydronephrosis, bladder debris noted. IMPRESSION AND PLAN: Ms. Patel is a 63-year-old female, with history of poorly controlled diabetes, G5, P5, with no prior history of urinary retention. Currently admitted due to Clostridium difficile colitis, acute kidney injury, urinary tract infection. Records reviewed. Recent renal ultrasound, as well as events of last night requiring irrigation and subsequent clear urine output. Hemorrhagic cystitis is likely the culprit as her previous cystoscopy demonstrated no bladder tumor concern. Moreover, she did undergo CT scan, subsequently demonstrating no hydronephrosis, no urolithiasis. I would recommend holding Plavix for 7 to 10 days as she presented with clot, requiring manual irrigation last night. Her urine today is clear. I do recommend Infectious Disease input regarding outpatient antibiotic therapy as her urine culture preliminary is negative; however, UA cw UTI, and on vancomycin for Clostridium difficile. If she is cleared by Infectious Disease to be discharged, she certainly can be discharged. I would leave indwelling Artis catheter in for now, until disposition final. may discontinue Artis catheter upon discharge which I anticipate later this afternoon or tomorrow. patient with known history of noncompliance, fu appt provided; she has been informed regarding increased risk of recurrent UTI, due to poorly controlled diabetes. [facility] covering me this weekend Job ID: [id number] MTDD
[2019-05-13 15:30] VITALS: BP 154/70; TEMP 97.5
--- NOTE | 2019-05-15 02:34 | EKG ---
Test Reason : Blood Pressure : / mmHG Vent. Rate : 063 BPM Atrial Rate : 063 BPM P-R Int : 194 ms QRS Dur : 098 ms QT Int : 514 ms P-R-T Axes : 000 -34 -50 degrees QTc Int : 525 ms Normal sinus rhythm Left axis deviation Moderate voltage criteria for LVH, may be normal variant Nonspecific ST and T wave abnormality Prolonged QT Abnormal ECG Confirmed by FIDE BURRELL, NISH Amin ([id number]), communications editor LEONARD THOMAS ([id number]) on 05/15/2019 2:34:01 AM Referred By: Confirmed By:NISH ELIZALDE MD
== END 2019-05-13 20:58 | disposition home or self-care (01) ==
LOC: ERS 17:16 → ONC 21:40 → ERHOLD 22:13 → 2NO 23:35
PROVIDERS: ADMIT Hospitalist; ATTEND Hospitalist
DX: R31.0 Gross hematuria (principal); N39.0 Urinary tract infection, site not specified; A04.72 Enterocolitis due to Clostridium difficile, not specified as recurrent; I11.0 Hypertensive heart disease with heart failure; I50.9 Heart failure, unspecified; I25.10 Atherosclerotic heart disease of native coronary artery without angina pectoris; E11.40 Type 2 diabetes mellitus with diabetic neuropathy, unspecified; E11.65 Type 2 diabetes mellitus with hyperglycemia; N17.9 Acute kidney failure, unspecified; E66.9 Obesity, unspecified; E78.5 Hyperlipidemia, unspecified; E87.1 Hypo-osmolality and hyponatremia; D64.9 Anemia, unspecified; F32.9 Major depressive disorder, single episode, unspecified; J45.909 Unspecified asthma, uncomplicated; Z68.38 Body mass index [BMI] 38.0-38.9, adult; Z79.4 Long term (current) use of insulin; Z79.82 Long term (current) use of aspirin; Z79.899 Other long term (current) drug therapy; Z88.0 Allergy status to penicillin; Z88.5 Allergy status to narcotic agent; Z91.040 Latex allergy status; Z91.048 Other nonmedicinal substance allergy status; Z99.3 Dependence on wheelchair
CPT/HCPCS: 36415; 36416; 51701; 76770; 80048; 80053; 81003; 81015; 83630; 85025; 85610; 85730; 87045; 87046; 87086; 87324; 87427; 87449; 90471; 90686; 93005; 96361; 96365; 96372; 96376; A4353; G0008; G0378; J0696; J1650; J1815; J3490

== ENCOUNTER 2019-06-21 18:08 | Inpatient (IN) | payer SELFPAY ==
[2019-06-21 18:46] LABS: #Eosinphils 0.1 thou/uL (0.0-0.7); #Monocytes 0.5 thou/uL (0.11-0.59); %Basophils 0.4 % (0.0-1.0); %Eosinophils 1.3 % (0.0-10.0); %Lymphocytes 11.5 % (21.0-51.0); %Monocytes 5.6 % (0.0-10.0); %Neutrophils 81.2 % (42.0-75.0); Hemoglobin 8.1 g/dL (12.0-16.0); Mean Corpuscular Hemoglobin 32.2 pg (27.0-31.0); Mean Corpuscular Volume 91.9 fL (78.0-98.0); Mean Platelet Volume 7.2 fL (7.4-10.4); Platelet Count 216 thou/uL (130-400); RBC Distribution Width 12.8 % (11.5-14.5); Red Blood Cell (RBC) Count 2.52 mill/uL (4.20-5.40); White Blood Cell (WBC) Count 8.7 thou/uL (4.8-10.8)
[2019-06-21 19:08] LABS: ALT (SGPT) 13 U/L (8-55); AST (SGOT) 14 U/L (5-34); Albumin 3.1 g/dL (3.4-4.8); Alkaline Phosphatase 84 U/L (40-110); Anion Gap 12 mmol/L (10-20); BUN (Urea Nitrogen) 65 mg/dL (9.8-20.1); Bilirubin, Total 0.5 mg/dL (0.2-1.2); Calc. Creatinine Clearance 0 mL/min (70-130); Calcium 8.9 mg/dL (7.8-10.44); Carbon Dioxide 25 mmol/L (23-31); Chloride 96 mmol/L (98-107); Estimated GFR-MDRD 23; Globulin 3.8 g/dL (2.4-3.5); Glucose 348 mg/dL (80-115); Lipase 27 U/L (8-78); Potassium 5.3 mmol/L (3.5-5.1); Protein, Total 6.9 g/dL (6.0-8.3); Sodium 128 mmol/L (136-145)
[2019-06-21 19:18] LABS: Bilirubin Negative (Negative); Blood, Urine Large (Negative); Clarity Opaque (Clear); Glucose, Urine (Dipstick) 250 mg/dL (Negative); Leukocyte Large (Negative); Nitrite Positive (Negative); Protein, Urine (Dipstick) 100 mg/dL (Neg-Trace); Urobilinogen 0.2 mg/dL (Less than 2)
[2019-06-21 19:26] LABS: Bacteria/HPF 4+ HPF (None Seen); Squamous Epithelial 0-3 HPF (0-3); WBC/HPF Greater Than 50 HPF (0-3)
--- NOTE | 2019-06-21 21:10 | CT ---
CT ABDOMEN NONCONTRAST CT PELVIS NONCONTRAST: (Urolithiasis protocol) DATE: 06/21/2019 HISTORY: 63-year-old female with generalized abdominal pain and diarrhea. COMPARISON: 09/19/2017 TECHNIQUE: IV injection of iodinated contrast media: None Oral contrast media: None FINDINGS: Other than for urolithiasis, the lack of IV and oral contrast limits the evaluation. Unlike on the previous CT, there is no evidence of pneumonia at the bilateral lung bases on the curre nt CT. There is an irregularly-shaped noncalcified small pulmonary lesion at the posterior basilar segment of left lower lobe. Exact etiology uncertain. There is again diffuse circumferential mural thickening of the urinary bladder. There is an air-fluid level, at the nondependent portion of the bladder lumen. In the posterior dependent portion of the bladder lumen, there is a mixture of soft tissue density ma terial and numerous tiny bubbles of gas, new since the previous CT. Whereas previously there was intramural gas in the bladder wall, that is no longer the case. There is a new finding of diffuse fat stranding representing edema circumferentially in the perirecta l space. New finding of diffuse mural thickening and edema of the rectum. The fat stranding edema also involves the presacral space. No renal, ureteral, or bladder calculus. Multiple surgical clips in gallbladder fossa and along inferior medial edge of right lobe of liver. W ithin the limitations of a noncontrast scan, no gross abnormality identified involving kidneys, abdominal aorta, adrenals, liver, pancreas, or spleen. No small bowel dilation. Appendix not visualiz ed. Uterus absent. IMPRESSION: 1) acute proctitis. 2) acute cystitis. 3) no urolithiasis or obstructive uropathy. 4) status post cholecystectomy, appendectomy, and hysterectomy.
[2019-06-21] MEDS ORDERED: metroNIDAZOLE 500 MG/100 ML BAG ONE (21:54)
[2019-06-21] MEDS ORDERED: Vancomycin HCl 25 MG/ML Oral PO SCH (22:15)
--- NOTE | 2019-06-22 00:15 | HP ---
PRESENTED COMPLAINT: Persistent diarrhea and abdominal pain. HISTORY OF PRESENT ILLNESS: Ms. Jorge Harrington is a 63-year-old female with past medical history of hypertension, diabetes mellitus, coronary artery disease, systolic CHF with low EF status post AICD, history of atrial fibrillation on amiodarone, status post recent admission for C difficile diarrhea two weeks ago, discharged with 10 days of vancomycin, which the patient finished two days ago. The diarrhea continued to recur after the patient finished the vancomycin. The diarrhea worsened as well as she became associated with generalized abdominal pain as well as decreased p.o. intake. The patient denies any nausea or vomiting. She admits to increasing fatigue. She presented to the ED today because of worsening symptoms. She denies any dysuria or flank pain. She was noted to be mildly tachycardic and received IV fluid. She has been admitted for recurrent diarrhea. PAST MEDICAL HISTORY: Significant for hypertension, diabetes mellitus, coronary artery disease, systolic CHF, and history of atrial fibrillation, history of CVA with mild hemiplegia, history of urinary incontinence, history of recurrent UTIs in the past, and history of chronic kidney disease with baseline creatinine of 1.5 to 1.7. PAST SURGICAL HISTORY: Significant for AICD placement for low EF of 30%. History of cholecystectomy, appendectomy, and hysterectomy. ALLERGIES: CODEINE, LATEX, NATURAL RUBBER, WELL PENICILLINS. HOME MEDICATIONS: Include: 1. . 2. Amitriptyline. 3. Plavix. 4. Insulin 70/30. 5. Ranexa. 6. Lipitor. 7. Synthroid. 8. Flexeril. 9. Aspirin. 10. Lasix. 11. Coreg. 12. Isosorbide. 13. Nitroglycerin. 14. Spironolactone. 15. Amiodarone. 16. Losartan, as well as . FAMILY HISTORY: No history of coronary artery disease or abdominal cancer. SOCIAL HISTORY: The patient resides in a community. She is a former smoker. No history of current alcohol or illicit drug use. PHYSICAL EXAMINATION: VITAL SIGNS: Current vitals, blood pressure of 146/91, pulse of 73, respiratory rate of 16, O2 saturation of 100% on room air, and temperature 98.5. GENERAL: Markedly obese, middle-aged female, lying in bed, not in any distress. HEENT: Head is atraumatic, normocephalic. Pupils equal and reactive to light. Anicteric. NECK: No JVD. No carotid bruit. RESPIRATORY: Good air entry bilaterally. No crepitation. CARDIOVASCULAR: S1, S2. Rate and rhythm regular. AICD in situ. ABDOMEN: Generalized, nontender. Bowel sounds positive. No suprapubic fullness. No CVA tenderness. RECTAL: Deferred. Earlier performed by ED physician, with reported brown stool. MUSCULOSKELETAL: No pedal edema. No calf tenderness. NEURO: The patient is alert, oriented. Cranial nerves 2 through 12 grossly intact. LABORATORY DATA: Urinalysis positive for greater than 50 wbc's and large leukocyte esterase with 4+ bacteria. Albumin 3.1, sodium 128, potassium 5.3, chloride 96, anion gap of 12, creatinine 2.1. Glucose 348. WBC 8.7, hemoglobin 8.1, and platelets 216. IMAGING: CT of the abdomen shows evidence of acute cystitis as well as acute prostatitis, irregular calcified pulmonary lesion at the left lower lobe. IMPRESSION: 1. Presumed recurrent Clostridium difficile diarrhea. 2. Acute renal failure on baseline chronic kidney disease. 3. Urinary tract infection. 4. Hypertension. 5. Systolic congestive heart failure. 6. Hyponatremia. 7. Mild hyperkalemia. 8. Diabetes mellitus - uncontrolled. PLAN: We will admit the patient to telemetry. We will manage the patient for the following; 1. Presumed recurrent C difficile - would resume the patient on vancomycin. We will obtain repeat stool for C difficile. If persistent, might need to add Flagyl. We will consult GI. The patient might benefit from vancomycin enema, given presence of proctitis. Possibility of fecal transplant may be needed. 2. Acute renal failure on baseline CKD - may be due to dehydration, hold Lasix and spironolactone as well as losartan. Start gentle IV fluid hydration with normal saline despite history of lows EF. We will consult Nephrology. Follow daily BMP. 3. Urinary tract infection with acute cystitis. We will start the patient on Cipro. Follow urine culture. 4. Hyponatremia, likely due to spironolactone use, hold spironolactone now and follow. Dehydration may also be contributing. 5. Diabetes mellitus. We will hold insulin 70/30 with insulin sliding scale. We will add low-dose Lantus insulin at night for now. 6. Hypertension. Continue other medication, add p.r.n. hydralazine. 7. DVT prophylaxis, subcutaneous heparin. Total time spent in review of record, discussion with patient, and evaluation greater than 65 minutes. Job ID: [id number]
[2019-06-22] MEDS ORDERED: Acetaminophen 325 MG TAB PO PRN (01:30)
[2019-06-22] MEDS ORDERED: Nitroglycerin 0.4 MG TAB (25 Tab Bottle) SL PRN (01:30)
[2019-06-22] MEDS ORDERED: Dextrose 50% Abboject 50 ML SYRINGE SLOW IVP PRN (01:30)
[2019-06-22] MEDS ORDERED: Sodium Chloride 0.9% 1,000 ML IV SCH ×2 (01:30→09:08)
[2019-06-22] MEDS ORDERED: hydrALAZINE 20 MG/ML VIAL SLOW IVP PRN (01:30)
[2019-06-22] MEDS ORDERED: HYDROcodone/Acetaminophen 5/325 mg Tablet PO PRN (01:30)
[2019-06-22] MEDS ORDERED: Morphine 2 MG/ML SYRINGE SLOW IVP PRN (01:30)
[2019-06-22] MEDS ORDERED: Communication Order-Pharmacy FS ONE (01:30)
[2019-06-22] MEDS ORDERED: Cyclobenzaprine 10 MG TAB PO PRN (01:30)
[2019-06-22] MEDS ORDERED: Dextrose 5% in Water 1,000 ML IV PRN (01:30)
[2019-06-22 01:41] VITALS: BMI 37.1
[2019-06-22] MEDS: Levothyroxine Sodium 50 MCG TAB PO SCH (05:30)
[2019-06-22] MEDS: Vancomycin HCl 25 MG/ML Oral PO SCH ×3 (05:31→16:34)
[2019-06-22 06:08] LABS: #Basophils 0.1 thou/uL (0.0-0.2); #Eosinphils 0.2 thou/uL (0.0-0.7); #Lymphocytes 1.7 thou/uL (1.20-3.40); #Monocytes 0.5 thou/uL (0.11-0.59); #Neutrophils 6.2 thou/uL (1.40-6.50); %Basophils 0.7 % (0.0-1.0); %Lymphocytes 19.6 % (21.0-51.0); %Monocytes 5.7 % (0.0-10.0); Hemoglobin 8.2 g/dL (12.0-16.0); Mean Corpuscular HGB CONC 34.7 g/dL (32.0-36.0); Mean Corpuscular Volume 92.1 fL (78.0-98.0); Mean Platelet Volume 7.6 fL (7.4-10.4); Platelet Count 228 thou/uL (130-400); RBC Distribution Width 12.9 % (11.5-14.5); Red Blood Cell (RBC) Count 2.57 mill/uL (4.20-5.40); White Blood Cell (WBC) Count 8.6 thou/uL (4.8-10.8)
[2019-06-22 06:28] LABS: Anion Gap 19 mmol/L (10-20); BUN (Urea Nitrogen) 61 mg/dL (9.8-20.1); Calc. Creatinine Clearance 48 mL/min (70-130); Calcium 8.8 mg/dL (7.8-10.44); Carbon Dioxide 15 mmol/L (23-31); Chloride 99 mmol/L (98-107); Estimated GFR-MDRD 29; Glucose 246 mg/dL (80-115); Potassium 4.8 mmol/L (3.5-5.1); Sodium 128 mmol/L (136-145)
[2019-06-22] MEDS: Clopidogrel Bisulfate 75 MG TAB PO SCH (10:02)
[2019-06-22] MEDS: Isosorbide Mononitrate (ER) 30 MG TAB PO SCH (10:03)
[2019-06-22] MEDS: Aspirin Chewable 81 MG TAB PO SCH (10:04)
[2019-06-22] MEDS: Famotidine 20 MG TAB PO SCH (10:04)
[2019-06-22] MEDS: Heparin 5,000 UNITS/ML VIAL SC SCH ×3 (10:04→21:44)
[2019-06-22] MEDS: Amiodarone 200 MG TAB PO SCH ×2 (10:04→21:43)
[2019-06-22] MEDS: Insulin Glargine 15 UNITS in Pre-Filled Syringe 1 EACH SC SCH (11:33)
[2019-06-22 11:39] LABS: Creatinine, Urine 78.74 mg/dL (47-110)
[2019-06-22] MEDS: Carvedilol 25 MG TAB PO SCH ×2 (14:47→21:43)
[2019-06-22] MEDS: HumaLOG 300 UNITS/3 ML VIAL SC PRN (16:33)
[2019-06-22] MEDS: Lactated Ringer's 1,000 ML IV SCH (17:21)
--- NOTE | 2019-06-22 17:34 | CON ---
DATE OF CONSULTATION: 06/22/2019 REQUESTING PHYSICIAN: Nely Major MD. REASON FOR CONSULTATION: Acute renal failure. HISTORY OF PRESENT ILLNESS: A 63-year-old female with known history of hypertension, diabetes mellitus, as well as ischemic cardiomyopathy status post AICD placement as well as paroxysmal atrial fibrillation, on amiodarone, admitted with worsening diarrhea and abdominal pain, associated with poor appetite and oral intake. The patient was found to have acute elevation in creatinine, necessitating Nephrology consult. Of note, the patient was recently diagnosed with C difficile colitis and was discharged on oral vancomycin. She denied nausea or vomiting. There is also no history of fever. The patient also denied hematemesis, hematochezia, hematuria, leg swelling, chest pain, or shortness of breath. PAST MEDICAL HISTORY: 1. Diabetes mellitus. 2. Coronary artery disease. 3. Ischemic cardiomyopathy. 4. Chronic systolic heart failure. 5. Paroxysmal atrial fibrillation. 6. Prior history of CVA. 7. Urinary incontinence. 8. History of recurrent UTIs. 9. Recurrent ABIGAIL. 10. CKD, stage 3. PAST SURGICAL HISTORY: 1. AICD placement. 2. Cholecystectomy. 3. Appendectomy. 4. Hysterectomy. ALLERGIES: 1. CODEINE. 2. LANTUS. 3. NATURAL RUBBER. 4. PENICILLIN. HOME MEDICATIONS: 1. Nitroglycerin 0.4 mg p.o. sublingual q.5 p.r.n. for chest pain. 2. Amiodarone 200 mg p.o. b.i.d. 3. Amitriptyline 50 mg p.o. daily at bedtime. 4. Lipitor 80 mg p.o. daily at bedtime. 5. Coreg 25 mg p.o. b.i.d. 6. Cyclobenzaprine 10 mg p.o. p.r.n. 7. Furosemide 40 mg p.o. daily. 8. Humulin 70/30, 50 units at bedtime and 70 units in the morning. 9. Isosorbide mononitrate 30 mg p.o. daily. 10. Levothyroxine 50 mcg p.o. daily. 11. Cozaar 50 mg p.o. b.i.d. 12. Ranexa 1000 mg p.o. b.i.d. 13. Spironolactone 25 mg p.o. daily. 14. Detrol LA 4 mg p.o. daily. 15. Aspirin 81 mg p.o. daily. 16. Plavix 75 mg p.o. daily. 17. Oral vancomycin 250 mg q.i.d. REVIEW OF SYSTEMS: A 12-point review of system performed was negative other than pertinent positives and negatives included in the history of present illness. PHYSICAL EXAMINATION: VITAL SIGNS: Temperature 98.7, pulse 84, respiratory rate 16, SpO2 of 98 on room air, and blood pressure is 116/72. GENERAL: Obese female, in no obvious distress. Afebrile. Anicteric. Acyanotic. The patient is fatigued. HEENT: Oral mucosa is dry. Normocephalic and atraumatic. NECK: Supple and nontender with no JVD. CARDIOVASCULAR: Regular rhythm and rate with normal heart sounds 1 and 2. AICD in situ. RESPIRATORY: Good air entry bilaterally with no obvious crackle or rhonchi or use of accessory muscles. GI: Obese, soft, nontender, and nondistended with normal bowel sounds. MUSCULOSKELETAL/EXTREMITIES: Grossly normal looking and atraumatic with no edema or erythema. SPECIAL PROCEDURE TECH: Conscious, alert, oriented x3 with appropriate mental status. Cranial nerves 2 through 12 are grossly intact. DIAGNOSTIC DATA: CBC showed WBC count of 8.6, hemoglobin of 8.2, MCV of 92.1, and platelets of 228. Of note, hemoglobin is stable in the last one month, but has trended down recently from 10.1 to 8.4. BMP today showed sodium 128, potassium 4.8, chloride 99, CO2 of 15, BUN 61, creatinine 1.75, glucose 246, and calcium 8.8. On presentation, however, the sodium was 128, potassium was 5.3, chloride was 96, CO2 of 25, creatinine 2.16, and glucose 348. Urinalysis on presentation showed opaque urine with pH of 5.0, specific gravity of 1.020, urine protein of 100 mg/dL, urine glucose of 250 mg/dL, trace ketones, large blood, positive nitrite, large leukocyte esterase. Microscopy showed 7-10 rbc and greater than 50 wbc with 4+ bacteria. ASSESSMENT: 1. [id number] renal failure: This most likely is prerenal due to hemodynamic factors related to volume depletion as well as effect of diuretics and RAAS kevin. 2. Urinary tract infection. 3. Hypertension: Blood pressure is currently soft. 4. Volume depletion due to poor oral intake and increased GI losses. 5. Mild hyperkalemia. 6. Hyponatremia: Most likely due to volume depletion with appropriate ADH secretion. 7. Chronic systolic heart failure without acute exacerbation. 8. Uncontrolled diabetes mellitus. PLAN: 1. We will substitute normal saline with LR and increase the rate to 100 due to volume depletion. The patient has worsening hyperchloremic metabolic acidosis. 2. We will also stop diuretics as well as RAAS kevin and other nephrotoxic agent. We will get urine and plasma osmolality as well as urine electrolytes. 3. We will recheck renal function in the morning. 4. We will allow permissive hypertension to improve renal perfusion. We will monitor electrolytes and replete as needed. Other treatment as per primary attending. Many thanks for involving us in the care of this patient. We will follow along with you. Job ID: [id number]
--- NOTE | 2019-06-22 20:14 | CON ---
DATE OF CONSULTATION: 06/22/2019 REASON FOR CONSULTATION: Diarrhea, abdominal pain. HISTORY OF PRESENT ILLNESS: Ms. Vanita Patel is a very pleasant 63-year-old female with history of recent C difficile colitis. She was placed on vancomycin for 14 days. She has been taking vancomycin approximately a week ago. When she was taking vancomycin, her diarrhea was controlled. After stopping taking vancomycin, still having diarrhea again. The diarrhea was not as bad as before. Before the treatment, she was having to run to the bathroom multiple times because of multiple loose stools. Now the stools are soft and the frequency is not as bad as before. She had 3 stools yesterday and stools are soft. Today, she had only one stool. Again, the stool is soft. She has no abdominal pain. No nausea or vomiting. She is tolerating diet. When she came to the ER, she had abdominal CAT scan. The CAT scan showed thickening of the rectal vault and also some edema in the presacral area. The patient has no pain over rectum or any discomfort or any tenderness. She is actually doing much better today. She has had one stool and stool is soft. She has no urgency of stool. No abdominal pain. She is tolerating diet without nausea or vomiting. The patient has had AICD placement in [address] Lemus. She was given some antibiotics and she does not know what the antibiotics are. She did well after her AICD placement, but she started having diarrhea in May 2019 and was hospitalized here with C difficile colitis. She has no relevant history. ALLERGIES: CODEINE, LATEX, NATURAL RUBBER, AND ALSO PENICILLIN. SOCIAL HISTORY: The patient denies any current smoking. She is a former smoker. No history of drug use. No history of alcohol abuse. MEDICAL ILLNESSES: 1. Hypertension. 2. Diabetes mellitus. 3. Hyperlipidemia. 4. Coronary artery disease. 5. Atrial fibrillation. 6. Status post AICD placement. 7. History of C difficile colitis a month ago. 8. History of a urinary incontinence. 9. History of chronic kidney disease. 10. History of systolic heart failure. MEDICATIONS: List reviewed, which include: 1. Amitriptyline. 2. Plavix. 3. Insulin. 4. Ranexa. 5. Lipitor. 6. Synthroid. 7. Flexeril. 8. Aspirin. 9. Lasix. 10. Coreg. 11. Isordil. 12. Nitroglycerin p.r.n. 13. Spironolactone. 14. Amiodarone. 15. Losartan. FAMILY HISTORY: No family history of any coronary artery disease. No family history of cancer. SOCIAL HISTORY: The patient lives locally. Former smoker. Does not drink any alcohol. SYSTEM REVIEW: A 10-point system reviewed. CONSTITUTIONAL: No history of fever. No weight loss. She has good exercise tolerance. HEENT: No chronic headache. No syncope. Eyes; no diplopia. No impaired vision. Ears; no hearing loss. Nose; no nose bleed. Throat; no sore throat or dysphagia. NECK: No pain or stiffness. LUNGS: No chronic coughing, hemoptysis, or dyspnea. CARDIOVASCULAR SYSTEM: No chest pain. No dyspnea, orthopnea, or PND. GI: No abdominal pain. No nausea or vomiting. Has diarrhea, but over the time seems to be coming under control. MUSCULOSKELETAL: Nonrelevant. NEUROENDOCRINE: Nonrelevant. NEUROPSYCHIATRY: Nonrelevant. PHYSICAL EXAMINATION: GENERAL: She is obese, appears very comfortable, in no acute distress. Denies abdominal pain, nausea, or vomiting. VITAL SIGNS: Afebrile. Pulse is 80, blood pressure is 137/80. HEENT: Conjunctivae are clear. NECK: Supple. No adenitis or thyromegaly noted. CARDIOVASCULAR SYSTEM: First and second heart sounds are heard. LUNGS: Clear to auscultation. ABDOMEN: Soft. Abdomen is pendulous. Abdomen is nontender. No organomegaly. No masses. Bowel sounds normal. EXTREMITIES: Reveal no edema. LABORATORY DATA: From today WBC 8600, hemoglobin 8.2, hematocrit 23.7, platelet count is 228,000, polymorphs 72, lymphocytes 19. Serum chemistries; sodium 128, potassium 4.8, chloride 99, bicarb 15, BUN is 61, creatinine is 1.175, glucose 246, calcium 8.9, bilirubin 0.5, AST 14, ALT is 13, alkaline phosphatase 84, albumin 3.1. Abdominal CAT scan showed some thickening of the rectal vault. IMPRESSION: A 63-year-old female with recent Clostridium difficile colitis treated with vancomycin and her symptoms got better. After she came off vancomycin, started having diarrhea. She had more diarrheal stools over the weekend, but now her diarrhea seems to be under control. She is tolerating regular diet without any abdominal pain, nausea, or vomiting. She has had only one stool today and she had 3 stools yesterday. Her lab data does not show any leukocytosis or any bandemia. 1. Recurrent diarrhea, not sure if Clostridium difficile colitis. Her symptoms are thought to differ from before. It is possible that she has probably some post residual colitis from Clostridium difficile infection. 2. Thickening of the rectum, possibly represent inflammatory changes. 3. Diabetes. 4. Hypertension. 5. Atrial fibrillation. 6. Recent automatic implantable cardioverter-defibrillator placement. RECOMMENDATIONS: We will observe for today. Her symptoms seem to be getting better and I do not see a reason for any invasive studies. However, if her symptoms recur again, I might think about doing a sigmoidoscopy, possible colonoscopy. We will see the patient again tomorrow and decide whether she needs further workup. Job ID: [id number]
[2019-06-22] MEDS: Atorvastatin Calcium 40 MG TAB PO SCH (21:43)
[2019-06-22] MEDS: Amitriptyline HCl 25 MG TAB PO SCH (21:43)
[2019-06-23] MEDS: Vancomycin HCl 25 MG/ML Oral PO SCH ×5 (00:05→23:16)
[2019-06-23] MEDS: Lactated Ringer's 1,000 ML IV SCH ×3 (05:52→21:16)
[2019-06-23] MEDS: Levothyroxine Sodium 50 MCG TAB PO SCH (05:53)
[2019-06-23 06:12] LABS: #Basophils 0.1 thou/uL (0.0-0.2); #Eosinphils 0.2 thou/uL (0.0-0.7); #Monocytes 0.6 thou/uL (0.11-0.59); #Neutrophils 5.1 thou/uL (1.40-6.50); %Basophils 0.9 % (0.0-1.0); %Eosinophils 2.1 % (0.0-10.0); %Lymphocytes 25.2 % (21.0-51.0); %Monocytes 7.8 % (0.0-10.0); %Neutrophils 64.1 % (42.0-75.0); Hemoglobin 7.8 g/dL (12.0-16.0); Mean Corpuscular HGB CONC 34.7 g/dL (32.0-36.0); Mean Corpuscular Hemoglobin 32.1 pg (27.0-31.0); Mean Corpuscular Volume 92.7 fL (78.0-98.0); Platelet Count 210 thou/uL (130-400); Red Blood Cell (RBC) Count 2.42 mill/uL (4.20-5.40)
[2019-06-23 06:34] LABS: Albumin 2.7 g/dL (3.4-4.8); Anion Gap 10 mmol/L (10-20); BUN (Urea Nitrogen) 40 mg/dL (9.8-20.1); BUN/Creatinine Ratio 30.08; Calc. Creatinine Clearance 64 mL/min (70-130); Calcium 8.3 mg/dL (7.8-10.44); Carbon Dioxide 21 mmol/L (23-31); Chloride 102 mmol/L (98-107); Estimated GFR-MDRD 40; Glucose 194 mg/dL (80-115); Magnesium 1.7 mg/dL (1.6-2.6); Phosphorus 2.3 mg/dL (2.3-4.7); Potassium 4.1 mmol/L (3.5-5.1); Sodium 129 mmol/L (136-145)
[2019-06-23] MEDS: Heparin 5,000 UNITS/ML VIAL SC SCH ×3 (08:37→21:03)
[2019-06-23] MEDS: Isosorbide Mononitrate (ER) 30 MG TAB PO SCH (08:37)
[2019-06-23] MEDS: Amiodarone 200 MG TAB PO SCH ×2 (08:38→21:03)
[2019-06-23] MEDS: Clopidogrel Bisulfate 75 MG TAB PO SCH (08:38)
[2019-06-23] MEDS: Famotidine 20 MG TAB PO SCH (08:38)
[2019-06-23] MEDS: Aspirin Chewable 81 MG TAB PO SCH (08:38)
[2019-06-23] MEDS: Carvedilol 25 MG TAB PO SCH ×2 (08:38→21:04)
[2019-06-23] MEDS: Insulin Glargine 15 UNITS in Pre-Filled Syringe 1 EACH SC SCH (08:38)
[2019-06-23] MEDS: HumaLOG 300 UNITS/3 ML VIAL SC PRN ×2 (11:56→15:59)
--- NOTE | 2019-06-23 13:13 | PRG ---
DATE OF SERVICE: 06/23/2019 SERVICE: Nephrology. SUBJECTIVE: A 63-year-old female with hypertension, diabetes and ischemic cardiomyopathy, admitted due to worsening diarrhea and abdominal pain associated with poor oral intake. Nephrology is following the patient for acute kidney injury. The patient reports feeling better. Diarrhea has subsided. Denied nausea, vomiting, or fever. OBJECTIVE: VITAL SIGNS: Temperature 97.6, pulse 74, respiratory rate 18, SpO2 of 98% on room air, blood pressure 102/68. GENERAL: Obese female, in no obvious distress. Afebrile. Anicteric. Acyanotic. HEENT: Normocephalic, atraumatic. Oral mucosa is moist. NECK: Supple. Nontender. No JVD appreciated. CARDIOVASCULAR: Regular rhythm and rate with normal heart sounds. Soft systolic murmur noted. RESPIRATORY: Good air entry bilaterally with no crackle or rhonchi or use of accessory muscles. GI: Obese, soft, nontender, nondistended with normal bowel sounds. EXTREMITIES: Grossly normal looking atraumatic with no edema or erythema. MUSHROOM FARMER: Conscious, alert, and oriented x3 with appropriate mental status. Cranial nerves 2 through 12 are grossly intact. DIAGNOSTIC DATA: CBC showed WBC count of 8, hemoglobin of 7.8, platelet of 210. Renal function panel today showed sodium 129, potassium 4.1, CO2 of 21, chloride 102, BUN 40, creatinine 1.33, glucose 194, calcium 8.3, phosphorus 2.3, albumin 2.7. Magnesium is 1.7. ASSESSMENT: 1. Acute on chronic renal failure: This is due to prerenal etiology from hemodynamic factors related to volume depletion and use of diuretics and RAAS kevin. Creatinine is trending downwards with IV fluid therapy. 2. Chronic kidney disease stage 2/3: Most likely related to cardiac dysfunction, hypertension, and diabetes. 3. Hypertension: Blood pressure control is acceptable. 4. Volume depletion: Due to poor oral intake and increased GI losses. Getting IV fluid therapy. Oral intake is improving also. 5. Hyponatremia: Due to appropriate ADH secretion in the face of volume depletion. Sodium level is trending up with IV fluid therapy. 6. Hyperkalemia: Resolved. PLAN: 1. Continue LR at 100 mL/h. 2. Continue to hold diuretics and RAAS kevin as well as any other nephrotoxic agent. 3. We will monitor BP and discontinue some antihypertensive, if blood pressure continued to be soft or gets lower. 4. We will recheck renal function test in the morning. Job ID: [id number]
[2019-06-23] MEDS: Atorvastatin Calcium 40 MG TAB PO SCH (21:04)
[2019-06-23] MEDS: Amitriptyline HCl 25 MG TAB PO SCH (21:04)
[2019-06-23] MEDS: HumuLIN 70/30 (300 UNITS/3 ML VIAL) SC SCH (21:04)
--- NOTE | 2019-06-23 21:49 | PRG ---
DATE OF SERVICE: 06/23/2019 SUBJECTIVE: This 63-year-old female, hospitalized for abdominal pain and diarrhea. The patient has . Interestingly, diarrhea has resolved. She had one stool yesterday and one stool today. She is eating well. No nausea or vomiting. Her C difficile colitis toxin antigen is negative. She appears volume depletion, hyponatremia, and also elevated BUN and creatinine. She Nephrology. From GI standpoint, no acute GI symptoms. OBJECTIVE: GENERAL: Appears very comfortable. VITAL SIGNS: She is afebrile. Pulse is 72, blood pressure 128/73. CARDIOVASCULAR: First and second heart sounds normal. LUNGS: Clear to auscultation. ABDOMEN: Soft. No organomegaly. No tenderness. No masses. LABORATORY DATA: WBC 8000, hemoglobin 7.8, hematocrit 22.4. Chem-7; BUN is 40, creatinine is 1.33. Lytes are normal. Glucose 194. OVERALL IMPRESSION: From GI standpoint, no acute GI problem. We will sign off from today, and if there are any new problems, please call us back. Job ID: [id number]
[2019-06-24] MEDS: Levothyroxine Sodium 50 MCG TAB PO SCH (05:37)
[2019-06-24] MEDS: Vancomycin HCl 25 MG/ML Oral PO SCH ×3 (05:41→17:08)
--- NOTE | 2019-06-24 06:52 | PDOC.HOSPP ---
- Subjective Encounter Date: 06/23/19 Subjective: Feeling some better. Diarrhea has improved. No other complaints. - Objective Vital Signs & Weight: Vital Signs (12 hours) Temp Pulse Resp BP BP Pulse Ox 06/24/19 04:00 98.4 F 67 16 127/78 99 06/23/19 19:39 98 F 72 16 128/73 99 Weight Admit Weight 203 lb Weight 203 lb I&O: 06/22/19 06/23/19 06/24/19 06:59 06:59 06:59 Intake Total 540 Balance 540 Result Diagrams: 06/23/19 05:55 06/23/19 05:55 Additional Labs: Accuchecks 06/24/19 06/23/19 06/23/19 04:34 19:37 15:57 POC Glucose 189 H 236 H 202 H 06/23/19 11:56 POC Glucose 316 H Hospitalist ROS - Medication Medications: Active Medications Generic Name Dose Route Start Last Admin Trade Name Freq PRN Reason Stop Dose Admin Amiodarone HCl 200 mg 06/22/19 09:00 06/23/19 21:03 Cordarone PO 200 mg BID LINDSAY Administration Amitriptyline HCl 50 mg 06/22/19 21:00 06/23/19 21:04 Elavil PO 50 mg HS LINDSAY Administration Aspirin 81 mg 06/22/19 09:00 06/23/19 08:38 Aspirin Chewable PO 81 mg DAILY LINDSAY Administration Atorvastatin Calcium 80 mg 06/22/19 21:00 06/23/19 21:04 Lipitor PO 80 mg HS LINDSAY Administration Carvedilol 25 mg 06/22/19 09:00 06/23/19 21:04 Coreg PO 25 mg BID LINDSAY Administration Clopidogrel Bisulfate 75 mg 06/22/19 09:00 06/23/19 08:38 Plavix PO 75 mg DAILY LINDSAY Administration Famotidine 20 mg 06/22/19 09:00 06/23/19 08:38 Pepcid PO 20 mg DAILY LINDSAY Administration Heparin Sodium (Porcine) 5,000 units 06/22/19 09:00 06/23/19 21:03 Heparin SC 5,000 units TID LINDSAY Administration Lactated Ringer's 1,000 mls @ 100 mls/hr 06/22/19 17:15 06/23/19 21:16 Lactated Ringer's IV 1,000 mls .Q10H LINDSAY Administration Insulin Human Isoph/Insulin Regular 50 units 06/23/19 21:00 06/23/19 21:04 Humulin 70/30 SC Not Given HS LINDSAY Insulin Human Lispro 0 units 06/22/19 01:30 06/23/19 15:59 Humalog SC 3 units .AGGRESSIVE SLIDING PRN Administration Aggressive Correctional Scale Isosorbide Mononitrate 30 mg 06/22/19 09:00 06/23/19 08:37 Imdur Er PO 30 mg DAILY LINDSAY Administration Levofloxacin 250 mg 06/22/19 06:00 06/24/19 05:37 Levaquin PO 250 mg 0600 LINDSAY Administration Levothyroxine Sodium 50 mcg 06/22/19 06:00 06/24/19 05:37 Synthroid PO 50 mcg 0600 LINDSAY Administration Ranolazine 1,000 mg 06/22/19 09:00 06/23/19 21:03 Ranexa PO 1,000 mg BID LINDSAY Administration Vancomycin HCl 500 mg 06/22/19 06:00 06/24/19 05:41 First Vancomycin PO 500 mg Q6HR LINDSAY Administration - Exam General Appearance: NAD, awake alert Heart: RRR, no murmur, no gallops, no rubs, normal peripheral pulses Respiratory: CTAB, no wheezes, no rales, no ronchi, normal chest expansion, no tachypnea, normal percussion Gastrointestinal: soft, non-tender, non-distended, normal bowel sounds, no palpable masses, no hepatomegaly, no splenomegaly, no bruit Extremities: no cyanosis, no clubbing, no edema Psychiatric: normal affect, normal behavior, A&O x 3 Hosp A/P (1) Acute diarrhea Code(s): R19.7 - DIARRHEA, UNSPECIFIED Status: Acute (2) Acute on chronic kidney failure Code(s): N17.9 - ACUTE KIDNEY FAILURE, UNSPECIFIED; N18.9 - CHRONIC KIDNEY DISEASE, UNSPECIFIED Status: Acute (3) H/O: CVA (cerebrovascular accident) Code(s): Z86.73 - PRSNL HX OF TIA (TIA), AND CEREB INFRC W/O RESID DEFICITS Status: Chronic (4) HTN (hypertension) Code(s): I10 - ESSENTIAL (PRIMARY) HYPERTENSION Status: Chronic Qualifiers: (5) Ischemic cardiomyopathy Code(s): I25.5 - ISCHEMIC CARDIOMYOPATHY Status: Chronic (6) Obesity (BMI 30-39.9) Code(s): E66.9 - OBESITY, UNSPECIFIED Status: Chronic (7) Hyperglycemia due to type 2 diabetes mellitus Code(s): E11.65 - TYPE 2 DIABETES MELLITUS WITH HYPERGLYCEMIA Status: Acute (8) UTI (urinary tract infection) Status: Acute (9) CAD (coronary artery disease) Code(s): I25.10 - ATHSCL HEART DISEASE OF [place] CORONARY ARTERY W/O ANG PCTRS Status: Chronic Qualifiers: - Plan Overall improvement. Renal function close to baseline and stable. GI symptoms improved. Anemia persists and is very slightly worse. Suspect this is related to the CKD, but will check labs in am. Recheck labs in am. Possible discharge in am with po abx for UTI and colitis.
[2019-06-24 07:51] LABS: #Eosinphils 0.2 thou/uL (0.0-0.7); #Lymphocytes 1.8 thou/uL (1.20-3.40); #Monocytes 0.5 thou/uL (0.11-0.59); #Neutrophils 4.3 thou/uL (1.40-6.50); %Basophils 0.6 % (0.0-1.0); %Eosinophils 2.3 % (0.0-10.0); %Lymphocytes 26.5 % (21.0-51.0); %Monocytes 7.8 % (0.0-10.0); %Neutrophils 62.8 % (42.0-75.0); Hemoglobin 7.4 g/dL (12.0-16.0); Mean Corpuscular HGB CONC 35.3 g/dL (32.0-36.0); Mean Corpuscular Hemoglobin 32.8 pg (27.0-31.0); Mean Platelet Volume 6.7 fL (7.4-10.4); Platelet Count 217 thou/uL (130-400); RBC Distribution Width 12.9 % (11.5-14.5); Red Blood Cell (RBC) Count 2.25 mill/uL (4.20-5.40); Reticulocyte Count 7.3 % (0.5-1.5); White Blood Cell (WBC) Count 6.8 thou/uL (4.8-10.8)
[2019-06-24 08:03] LABS: Iron 31 ug/dL (50-170); Iron Binding Capacity, Total 163 mcg/dL (265-497)
[2019-06-24 08:05] LABS: Anion Gap 7 mmol/L (10-20); BUN (Urea Nitrogen) 32 mg/dL (9.8-20.1); Calc. Creatinine Clearance 67 mL/min (70-130); Calcium 8.3 mg/dL (7.8-10.44); Carbon Dioxide 26 mmol/L (23-31); Chloride 103 mmol/L (98-107); Estimated GFR-MDRD 43; Glucose 165 mg/dL (80-115); Iron 32 ug/dL (50-170); Iron Binding Capacity, Total 166 mcg/dL (265-497); Potassium 4.2 mmol/L (3.5-5.1); Sodium 132 mmol/L (136-145)
[2019-06-24] MEDS: Heparin 5,000 UNITS/ML VIAL SC SCH (08:11)
[2019-06-24] MEDS: Clopidogrel Bisulfate 75 MG TAB PO SCH (08:11)
[2019-06-24] MEDS: Isosorbide Mononitrate (ER) 30 MG TAB PO SCH (08:11)
[2019-06-24] MEDS: Aspirin Chewable 81 MG TAB PO SCH (08:11)
[2019-06-24] MEDS: Famotidine 20 MG TAB PO SCH (08:11)
[2019-06-24] MEDS: Amiodarone 200 MG TAB PO SCH ×2 (08:11→20:36)
[2019-06-24] MEDS: Carvedilol 25 MG TAB PO SCH ×2 (08:11→20:36)
[2019-06-24] MEDS: HumuLIN 70/30 (300 UNITS/3 ML VIAL) SC SCH ×2 (08:12→20:38)
[2019-06-24 08:29] LABS: Ferritin 329.97 ng/mL (10-291)
[2019-06-24] MEDS: Lactated Ringer's 1,000 ML IV SCH ×2 (08:42→17:08)
[2019-06-24 11:19] LABS: #Eosinphils 0.1 thou/uL (0.0-0.7); #Lymphocytes 1.4 thou/uL (1.20-3.40); #Monocytes 0.5 thou/uL (0.11-0.59); #Neutrophils 4.2 thou/uL (1.40-6.50); %Basophils 0.7 % (0.0-1.0); %Eosinophils 2.1 % (0.0-10.0); %Lymphocytes 22.8 % (21.0-51.0); %Monocytes 7.7 % (0.0-10.0); %Neutrophils 66.7 % (42.0-75.0); Hemoglobin 6.8 g/dL (12.0-16.0); Mean Corpuscular HGB CONC 34.6 g/dL (32.0-36.0); Mean Corpuscular Hemoglobin 32.4 pg (27.0-31.0); Mean Corpuscular Volume 93.7 fL (78.0-98.0); Mean Platelet Volume 6.6 fL (7.4-10.4); Platelet Count 200 thou/uL (130-400); RBC Distribution Width 12.8 % (11.5-14.5); Red Blood Cell (RBC) Count 2.11 mill/uL (4.20-5.40); Reticulocyte Count 7.6 % (0.5-1.5); White Blood Cell (WBC) Count 6.3 thou/uL (4.8-10.8)
[2019-06-24] MEDS: Atorvastatin Calcium 40 MG TAB PO SCH (20:36)
[2019-06-24] MEDS: Amitriptyline HCl 25 MG TAB PO SCH (20:37)
[2019-06-25] MEDS: Vancomycin HCl 25 MG/ML Oral PO SCH ×2 (00:55→06:50)
[2019-06-25] MEDS: Levothyroxine Sodium 50 MCG TAB PO SCH (05:34)
[2019-06-25 07:44] VITALS: BP 148/84; TEMP 98
[2019-06-25] MEDS: Lactated Ringer's 1,000 ML IV SCH (07:48)
[2019-06-25] MEDS: Carvedilol 25 MG TAB PO SCH (07:50)
[2019-06-25] MEDS: Amiodarone 200 MG TAB PO SCH (07:50)
[2019-06-25] MEDS: Famotidine 20 MG TAB PO SCH (07:51)
[2019-06-25] MEDS: Aspirin Chewable 81 MG TAB PO SCH (07:51)
[2019-06-25] MEDS: HumuLIN 70/30 (300 UNITS/3 ML VIAL) SC SCH (07:51)
[2019-06-25] MEDS: Isosorbide Mononitrate (ER) 30 MG TAB PO SCH (07:51)
[2019-06-25] MEDS: Clopidogrel Bisulfate 75 MG TAB PO SCH (07:51)
[2019-06-25 07:54] LABS: Anion Gap 11 mmol/L (10-20); BUN (Urea Nitrogen) 24 mg/dL (9.8-20.1); Calc. Creatinine Clearance 82 mL/min (70-130); Calcium 8.3 mg/dL (7.8-10.44); Carbon Dioxide 21 mmol/L (23-31); Chloride 105 mmol/L (98-107); Estimated GFR-MDRD 54; Glucose 70 mg/dL (80-115); Potassium 4.2 mmol/L (3.5-5.1); Sodium 133 mmol/L (136-145)
[2019-06-25 08:15] LABS: Hemoglobin 9.2 g/dL (12.0-16.0); Mean Corpuscular HGB CONC 34.6 g/dL (32.0-36.0); Mean Corpuscular Hemoglobin 31.5 pg (27.0-31.0); Mean Corpuscular Volume 91.3 fL (78.0-98.0); Mean Platelet Volume 6.5 fL (7.4-10.4); Platelet Count 227 thou/uL (130-400); RBC Distribution Width 13.1 % (11.5-14.5); Red Blood Cell (RBC) Count 2.92 mill/uL (4.20-5.40); White Blood Cell (WBC) Count 5.2 thou/uL (4.8-10.8)
--- NOTE | 2019-06-27 14:13 | DIS ---
DATE OF ADMISSION: 06/22/2019 DATE OF DISCHARGE: 06/25/2019 DISCHARGING PHYSICIAN: Dr. Donald Soto. CONSULTATIONS ON THE CASE: Dr. Merchant, Nephrology. ADMISSION DIAGNOSES: 1. Recurrent Clostridium difficile. 2. Acute renal failure with history of chronic kidney disease. 3. Hyponatremia. 4. Diabetes mellitus type 2, insulin dependent. 5. Benign essential hypertension. CONSULTATIONS: At [facility]; 1. Dr. Abimael Mancini, Gastroenterology. 2. Dr. Alexis Merchant, Nephrology. DISCHARGE DIAGNOSES: 1. Suspected Clostridium difficile. The patient currently being discharged with oral vancomycin therapy for a 10-day course. 2. Benign essential hypertension. 3. History of CVA. Patient is wheelchair bound. 4. History of ischemic cardiomyopathy, on BERTA inhibitors as well as Coreg. Follows with Dr. Shields, her primary sports director, compensated. 5. Obesity. 6. Diabetes mellitus type 2, insulin dependent. 7. Coronary artery disease with history of percutaneous transluminal coronary angioplasty. 8. Urinary tract infection ruled out on current admission. HOSPITAL COURSE: This is a 63-year-old female, who was admitted to the hospitalist services for initial suspicions of non-infected gastroenteritis with colitis and initial suspicion of UTI was further evaluated and continued on home medications along with starting the patient on levofloxacin with urine culture and sensitivity evaluations as well as blood cultures which did not show any evidence of new growth. The patient subsequently was noted to have recurrent diarrhea, which was highly suspicious for C. difficile as the patient recently had the same. Gastroenterology was consulted at that point of time. After further evaluation, agreed to the current management and oral vancomycin and they signed off. The patient further was noted about outpatient followup and continued 10-day course of oral vancomycin therapy at this point of time. The patient has minimal ambulation, though she does pivot. Has been advised to continue wheelchair bound status at this point of time with followup care with her primary sports director as well as airplane engineer. I reviewed with Oncology on-call who cleared the patient at this point of time. The patient was hemodynamically optimized and discharged. DISPOSITION: Discharged home. PHYSICAL EXAMINATION: CVS: S1 and S2. CHEST: Bilateral air entry present. ABDOMEN: Soft. EXTREMITIES: No cyanosis. ALLERGIES: CODEINE, LATEX, NATURAL RUBBER, AND PENICILLIN. ACTIVITY: Patient is wheelchair bound. DIET: 1800-kilocalorie ADA diet. DISCHARGE MEDICATIONS: 1. Amiodarone 200 mg b.i.d. 2. Amitriptyline 50 mg daily. 3. Aspirin 81 mg daily. 4. Atorvastatin 80 mg daily. 5. Coreg 25 mg b.i.d. 6. Plavix 75 mg daily. 7. Insulin 70/30, NPH 50 units daily. 8. Levothyroxine 50 mcg daily. 9. Ranexa 1000 mg b.i.d. 10. Vancomycin 250 mg oral q.6 hours for a 10-day course. DISCHARGE PLAN: The patient has been advised and educated about the diagnosis, treatment, and followup. The patient has been advised about followup care with the primary sports director as well as primary care physician as scheduled. The whole discharge process, including discharge coordination, took me more than 35 minutes. ADVANCED DIRECTIVES: Full code. Job ID: [id number]
--- NOTE | 2019-06-28 10:13 | PRG ---
DATE OF SERVICE: 06/24/2019 SUBJECTIVE: A 63-year-old female with hypertension, diabetes, and ischemic cardiomyopathy, admitted with worsening diarrhea, abdominal pain associated with poor oral intake. Seeing patient for kidney injury. Nausea, vomiting, and fever have subsided. OBJECTIVE: VITAL SIGNS: Temperature 98.1, pulse 66, respiratory rate 18, satting 99 on room air, 142/75. HEENT: Normocephalic and atraumatic. Oral mucosa is moist. CARDIOVASCULAR: Regular rhythm and rate, murmur noted. RESPIRATORY: . GI: Obese, soft, nontender, nondistended with normal bowel sounds. EXTREMITIES: Grossly normal looking, atraumatic with no edema or erythema. ENGINEER OPERATIONS AND MAINTENANCE: Conscious and alert and oriented x3 with appropriate mental status. Cranial nerves 2 through 12 grossly intact. Symmetrical. LABORATORY DATA: CBC showed WBC count of 6.3, hemoglobin of 6.8, platelets of 200. BMP showed sodium of 132, potassium 4.2, BUN 32, creatinine 1.26, glucose 165, calcium 8.3. Iron 31, , ferritin 329.97. Vitamin B12 is 414, folate 16.1. ASSESSMENT: 1. due to factors related to volume depletion, trending down with IV fluid therapy. 2. Hyponatremia . 3. Hyperkalemia, resolved. 4. . 5. Anemia of chronic kidney disease, chronic illness. PLAN: Continue Job ID: [id number]
== END 2019-06-25 12:11 | disposition home or self-care (01) | DRG 372 ==
LOC: ERS 18:08 → T4-A 06-22 01:21
PROVIDERS: ADMIT Internal Medicine; ATTEND Internal Medicine
DX: A04.71 Enterocolitis due to Clostridium difficile, recurrent (principal); I50.22 Chronic systolic (congestive) heart failure; I13.0 Hypertensive heart and chronic kidney disease with heart failure and stage 1 through stage 4 chronic kidney disease, or unspecified chronic kidney disease; I69.959 Hemiplegia and hemiparesis following unspecified cerebrovascular disease affecting unspecified side; N17.9 Acute kidney failure, unspecified; E87.1 Hypo-osmolality and hyponatremia; Z95.810 Presence of automatic (implantable) cardiac defibrillator; I25.10 Atherosclerotic heart disease of native coronary artery without angina pectoris; E11.22 Type 2 diabetes mellitus with diabetic chronic kidney disease; Z88.5 Allergy status to narcotic agent; Z91.040 Latex allergy status; Z88.0 Allergy status to penicillin; Z88.8 Allergy status to other drugs, medicaments and biological substances; Z79.02 Long term (current) use of antithrombotics/antiplatelets; Z79.82 Long term (current) use of aspirin; E86.0 Dehydration; E87.5 Hyperkalemia; Z87.891 Personal history of nicotine dependence; N18.3 Chronic kidney disease, stage 3 (moderate); Z90.49 Acquired absence of other specified parts of digestive tract; Z90.710 Acquired absence of both cervix and uterus; E66.9 Obesity, unspecified; Z68.37 Body mass index [BMI] 37.0-37.9, adult; Z79.4 Long term (current) use of insulin; I25.5 Ischemic cardiomyopathy; E11.65 Type 2 diabetes mellitus with hyperglycemia; I48.0 Paroxysmal atrial fibrillation; Z79.01 Long term (current) use of anticoagulants; D63.1 Anemia in chronic kidney disease
CPT/HCPCS: 36415; 36416; 36430; 74176; 80048; 80053; 80069; 81001; 82570; 82607; 82728; 82746; 83540; 83550; 83690; 83735; 83930; 83935; 84156; 84300; 84540; 85025; 85027; 85046; 86850; 86900; 86901; 87045; 87046; 87427; 87449; A4353; J1644; J1815; P9016

== ENCOUNTER 2019-09-09 10:57 | Inpatient (IN) | payer SELFPAY ==
[2019-09-09 11:26] LABS: #Eosinphils 0.2 thou/uL (0.0-0.7); #Lymphocytes 1.7 thou/uL (1.20-3.40); #Monocytes 0.2 thou/uL (0.11-0.59); #Neutrophils 2.5 thou/uL (1.40-6.50); %Basophils 0.6 % (0.0-1.0); %Eosinophils 3.5 % (0.0-10.0); %Lymphocytes 36.6 % (21.0-51.0); %Monocytes 3.8 % (0.0-10.0); %Neutrophils 55.5 % (42.0-75.0); Mean Corpuscular HGB CONC 34.3 g/dL (32.0-36.0); Mean Corpuscular Volume 93.3 fL (78.0-98.0); Mean Platelet Volume 7.3 fL (7.4-10.4); Platelet Count 264 thou/uL (130-400); RBC Distribution Width 12.9 % (11.5-14.5); Red Blood Cell (RBC) Count 3.12 mill/uL (4.20-5.40); White Blood Cell (WBC) Count 4.5 thou/uL (4.8-10.8)
[2019-09-09 11:41] LABS: INR-International Normal Ratio 1.1; PTT 25.7 SEC (22.9-36.1); Prothrombin Time 14.4 SEC (12.0-14.7)
[2019-09-09 11:53] LABS: ALT (SGPT) 79 U/L (8-55); AST (SGOT) 59 U/L (5-34); Albumin 3.4 g/dL (3.4-4.8); Alkaline Phosphatase 165 U/L (40-110); Anion Gap 18 mmol/L (10-20); BUN (Urea Nitrogen) 39 mg/dL (9.8-20.1); Bilirubin, Total 0.7 mg/dL (0.2-1.2); Calc. Creatinine Clearance 0 mL/min (70-130); Calcium 8.7 mg/dL (7.8-10.44); Carbon Dioxide 23 mmol/L (23-31); Chloride 89 mmol/L (98-107); Estimated GFR-MDRD 22; Globulin 3.6 g/dL (2.4-3.5); Potassium 4.5 mmol/L (3.5-5.1); Sodium 125 mmol/L (136-145)
[2019-09-09 12:03] LABS: Glucose 617 mg/dL (80-115)
[2019-09-09] MEDS ORDERED: cefTRIAXone\\ROCEPHIN 2 GM VIAL ONE (12:18)
[2019-09-09] MEDS ORDERED: Insulin Regular 300 UNITS/3 ML VIAL ONE (12:19)
[2019-09-09 12:23] LABS: Bilirubin Negative (Negative); Blood, Urine Large (Negative); Glucose, Urine (Dipstick) >=1000 mg/dL (Negative); Leukocyte Large (Negative); Nitrite Negative (Negative); Protein, Urine (Dipstick) 100 mg/dL (Neg-Trace); Urobilinogen 0.2 mg/dL (Less than 2)
[2019-09-09 12:30] LABS: Clarity Cloudy (Clear)
[2019-09-09 12:31] LABS: Bacteria/HPF 4+ HPF (None Seen); WBC/HPF Greater than 50 HPF (0-3)
[2019-09-09 15:15] LABS: Lactic Acid 3.1 mmol/L (0.5-2.2)
[2019-09-09] MEDS ORDERED: Sodium Chloride 0.9% 1,000 ML IV SCH (15:18)
[2019-09-09] MEDS ORDERED: Ondansetron ODT 4 MG TAB SL PRN (15:18)
[2019-09-09] MEDS ORDERED: Ondansetron PF 4 MG/2 ML Vial IVP PRN ×2 (15:18→17:30)
[2019-09-09 15:57] VITALS: BMI 37.0
[2019-09-09] MEDS ORDERED: Dextrose 5% in Water 1,000 ML IV PRN (17:30)
[2019-09-09] MEDS ORDERED: Vancomycin HCl 1 GM in Sodium Chloride 0.9% 250 ML 300 ML IVPB SCH (17:30)
[2019-09-09] MEDS ORDERED: Nitroglycerin 0.4 MG TAB (25 Tab Bottle) SL PRN (17:30)
[2019-09-09] MEDS ORDERED: Dextrose 50% Abboject 50 ML SYRINGE SLOW IVP PRN (17:30)
[2019-09-09] MEDS ORDERED: Ondansetron ODT 4 MG TAB PO PRN (17:30)
[2019-09-09] MEDS ORDERED: HumaLOG 300 UNITS/3 ML VIAL SC PRN ×2 (17:30)
[2019-09-09] MEDS ORDERED: Vancomycin HCl 500 MG in Sodium Chloride 0.9% 100 ML IVPB SCH (18:15)
[2019-09-09] MEDS: Sodium Chloride 0.9% 1,000 ML IV SCH (18:48)
[2019-09-09] MEDS: Amitriptyline HCl 25 MG TAB PO SCH (21:26)
[2019-09-09] MEDS: Famotidine/PF 20 mg/2ml Vial SLOW IVP SCH (21:26)
[2019-09-09] MEDS: Amiodarone 200 MG TAB PO SCH (21:26)
[2019-09-09] MEDS: HumuLIN 70/30 (300 UNITS/3 ML VIAL) SC SCH (21:27)
[2019-09-09] MEDS: Acetaminophen 500 MG TAB PO PRN (22:20)
--- NOTE | 2019-09-09 22:42 | HP ---
PRIMARY CARE PROVIDER: Ric Carreon BCS. CHIEF COMPLAINT: Generalized weakness, lightheadedness, and dizziness. HISTORY OF PRESENT ILLNESS: This is a 63-year-old female, who presents to [facility] Emergency Department in transfer from Dr. Shields's office where the patient was following up for routine cardiology visit. The patient was in her scooter when she felt lightheaded and dizzy. The patient was noted with confusion and altered mental status and having trouble staying awake at the change number operator office. The patient states she began feeling ill abruptly in the last 12 to 24 hours without known exposure history, travel or family members with similar symptoms. The patient was initially evaluated at her change number operator's office. However, due to her presentation and hypotension, the patient was referred to the emergency room for acute evaluation. The patient denied any known sick contacts and states she was feeling fine approximately 48 hours prior to this evaluation. The patient denied any new medication exposure and completed a course of antibiotic therapy for C difficile colitis approximately 3 weeks prior to this evaluation. The patient states she was following up for routine cardiology visit in the context of coronary artery disease, ischemic cardiomyopathy, hypertension, and hyperlipidemia. The patient denied any gunjan chest pain or shortness of breath. The patient does admit to dysuria and discolored urine. The patient states she has had urinary tract infections, most recently in October of 2018. In the emergency room, the patient was noted with hypotension with systolic blood pressures in the 70s. The patient was noted lethargic with altered mentation and initially received intravenous bolus of normal saline. The patient also received vancomycin and Rocephin after concern for sepsis. Metabolic screening showed multiple electrolyte abnormalities including hyponatremia, acute kidney injury and hyperglycemia with a glucose of 617. Lactic acid level was also noted at 4.4. The patient received the intravenous normal saline x2 liters with an increased systolic blood pressure in the low 100s. PAST MEDICAL HISTORY: 1. Ischemic cardiomyopathy. 2. Coronary artery disease. 3. Hypertension. 4. Diabetes mellitus type 2, insulin requiring. 5. Chronic kidney disease, stage 3. 6. Chronic systolic congestive heart failure. 7. History of atrial fibrillation, on amiodarone. 8. History of CVA with mild hemiplegia. 9. Urinary incontinence. PAST SURGICAL HISTORY: 1. Status post AICD placement for ejection fraction of 30%. 2. Status post cholecystectomy. 3. Status post appendectomy. 4. Status post hysterectomy. CURRENT MEDICATIONS: 1. Amiodarone 200 mg p.o. b.i.d. 2. Amitriptyline 50 mg p.o. at bedtime. 3. Lipitor 80 mg p.o. at bedtime. 4. Coreg 25 mg p.o. b.i.d. 5. Flexeril 10 mg p.o. daily p.r.n. 6. Lasix 40 mg p.o. daily. 7. Humulin 70/30, 70 units subcutaneously q.a.m. and 50 units subcutaneously at bedtime. 8. Isosorbide mononitrate 30 mg p.o. daily. 9. Levothyroxine 50 mcg p.o. daily. 10. Cozaar 50 mg p.o. b.i.d. 11. Nitroglycerin 0.4 mg sublingually q.5 minutes p.r.n. chest pain. 12. Spironolactone 25 mg p.o. daily. 13. Detrol LA 4 mg p.o. daily. 14. Aspirin 81 mg p.o. daily. 15. Plavix 75 mg p.o. daily. ALLERGIES: CODEINE, LATEX, NATURAL RUBBER, AND PENICILLIN. FAMILY HISTORY: No inheritable diseases per patient report. SOCIAL HISTORY: Resides in the [place], [place]. . Former tobacco use. No alcohol or illicit drug use. REVIEW OF SYSTEMS: CONSTITUTIONAL: Negative for weight loss or gain, ability to conduct usual activities. SKIN: Negative for rash, itching. EYES: Negative for double vision, pain. ENT/MOUTH: Negative for nose bleeding, neck stiffness, pain, tenderness. CARDIOVASCULAR: Negative for palpitations, dyspnea on exertion, orthopnea. RESPIRATORY: Negative for shortness of breath, wheezing, cough, hemoptysis, fever or night sweats. GASTROINTESTINAL: Negative for poor appetite, abdominal pain, heartburn, nausea, vomiting, constipation, or diarrhea. GENITOURINARY: Negative for urgency, frequency, dysuria, nocturia. MUSCULOSKELETAL: Negative for pain, swelling. NEUROLOGIC/PSYCHIATRIC: Negative for anxiety, depression. ALLERGY/IMMUNOLOGIC: Negative for skin rash, bleeding tendency. Otherwise negative except as stated per HPI. PHYSICAL EXAMINATION: VITAL SIGNS: On admission, blood pressure 79/48, pulse 69, respiratory rate 18, temperature 97.6 degrees Fahrenheit, and O2 saturation 100% on room air. GENERAL APPEARANCE: This is a 63-year-old female, pale appearing, alert, responsive, in no acute distress. HEENT: Pupils are equal, round, reactive to light and accommodation. Extraocular muscles are intact. No scleral icterus. No conjunctival injection. Nares are patent. OP is clear. Oral mucosa dry. NECK: Supple. No cervical adenopathy. No thyromegaly. No carotid bruits. No JVD appreciated. Cervical spine with full active and passive range of motion. No meningeal signs noted. CHEST: Lungs are clear to auscultation bilaterally. CARDIOVASCULAR EXAM: S1, S2 without noted murmur, rub, or gallop. ABDOMEN: Obese with mild tenderness to palpation in the suprapubic region. No palpable mass. No rebound or guarding noted. EXTREMITIES: Warm and dry with fair turgor. Mild edema to the lower extremities bilaterally. Pulses palpable distally at the dorsalis pedis, posterior tibial, and popliteal arteries bilaterally. Capillary refill less than 2 seconds. NEUROLOGIC: Cranial nerves 2 through 12 are grossly intact. No focal or lateralizing signs appreciated. The patient not observed ambulatory during this exam. PERTINENT LABORATORY AND X-RAY FINDINGS: Sodium 125, potassium 4.5, chloride 89, CO2 of 23, BUN 39, creatinine 2.29, estimated GFR of 22, glucose 617. Lactic acid level ranged between 3.1 to 4.4, calcium 8.7, AST 59, ALT of 79, alkaline phosphatase 165. CBC showed a white blood cell count of 4.5, hemoglobin 10, hematocrit 29, platelet count 264. PT 14.4, INR 1.1, PTT 25.7. Urinalysis dated 09/09/2019, showed specific gravity 1.020, positive protein, greater than 1000 glucose, large blood and leukocyte esterase with 7-10 rbc's per high-power field and greater than 50 to [id number]-sw-count wbc's per high-power field. Stool Hemoccult positive x1, 09/09/2019. EKG dated 09/09/2019 by my interpretation shows sinus mechanism with heart rates in the 60s. Attenuated R-waves noted in the precordial leads. Left axis deviation noted. Isolated T-wave inversion in leads 3. ASSESSMENT AND PLAN: 1. Severe sepsis with septic shock secondary to urinary tract infection with associated acute encephalopathy. The patient will be admitted to the intermediate care unit. We will continue treatment directed urinary tract source with vancomycin 1 g IV q.24 hours with additional Rocephin 2 g IV q.24 hours. Blood and urine cultures pending. Continue IV fluids with normal saline at 75 mL/h. Serial lactic acid level per protocol. 2. Acute kidney injury on chronic kidney disease stage 3. We will continue IV fluids as outlined previously. Avoid nephrotoxic agents and limit contrast exposure. Repeat creatinine in the a.m. 3. Lactic acidosis secondary to #1. Continue serial lactic acid evaluation per sepsis protocol. 4. Transaminitis. Suspect sepsis in addition to liver shock. We will continue to trend LFTs and then monitor clinical course. 5. Normocytic anemia. Chronic when reviewing the electronic medical record. Stool Hemoccult positive x1. Hold aspirin and Plavix. Repeat H and H in the a.m. 6. Diabetes mellitus type 2, insulin requiring with diabetic nephropathy. Continue insulin sliding scale for reflexive coverage. Resume home insulin regimen once confirmed. ADA diet. Serial Accu-Cheks before meals and at bedtime. 7. Prophylaxis. SCDs while in bed. Pepcid 20 mg IV q.12 hours. PT evaluation in the a.m. 8. Code status is full. Surrogate medical decision maker is the patient's spouse. Job ID: [id number]
[2019-09-10 04:12] LABS: Band 7 % (5-11); Hemoglobin 10.7 g/dL (12.0-16.0); Hypochromia SLIGHT = 6-15 cells (100X) (0-5/hpf); Lymphocytes 13 % (21-51); MDiff Complete? YES; Mean Corpuscular HGB CONC 35.5 g/dL (32.0-36.0); Mean Corpuscular Hemoglobin 32.5 pg (27.0-31.0); Mean Corpuscular Volume 91.7 fL (78.0-98.0); Mean Platelet Volume 7.4 fL (7.4-10.4); Monocytes 2 % (0-10); Neutrophil 78 % (42-75); Platelet Count 207 thou/uL (130-400); Platelet Morphology Comment Appears Adequate; Red Blood Cell (RBC) Count 3.28 mill/uL (4.20-5.40); White Blood Cell (WBC) Count 4.1 thou/uL (4.8-10.8)
[2019-09-10 04:14] LABS: ALT (SGPT) 66 U/L (8-55); AST (SGOT) 48 U/L (5-34); Albumin 2.8 g/dL (3.4-4.8); Alkaline Phosphatase 149 U/L (40-110); Anion Gap 10 mmol/L (10-20); BUN (Urea Nitrogen) 32 mg/dL (9.8-20.1); Bilirubin, Total 0.4 mg/dL (0.2-1.2); Calc. Creatinine Clearance 58 mL/min (70-130); Calcium 8.3 mg/dL (7.8-10.44); Carbon Dioxide 23 mmol/L (23-31); Chloride 99 mmol/L (98-107); Estimated GFR-MDRD 36; Globulin 3.5 g/dL (2.4-3.5); Glucose 260 mg/dL (80-115); Potassium 3.3 mmol/L (3.5-5.1); Protein, Total 6.3 g/dL (6.0-8.3); Sodium 129 mmol/L (136-145)
[2019-09-10] MEDS: Levothyroxine Sodium 50 MCG TAB PO SCH (05:45)
[2019-09-10] MEDS: Acetaminophen 500 MG TAB PO PRN ×2 (06:00→20:26)
[2019-09-10] MEDS: HumuLIN 70/30 (300 UNITS/3 ML VIAL) SC SCH ×2 (10:32→20:27)
[2019-09-10] MEDS: Trospium 20 MG TAB PO SCH (10:32)
[2019-09-10] MEDS: Amiodarone 200 MG TAB PO SCH ×2 (10:33→20:26)
[2019-09-10] MEDS: Sodium Chloride 0.9% 1,000 ML IV SCH (10:33)
[2019-09-10] MEDS: cefTRIAXone\\ROCEPHIN 2 GM in Sodium Chloride 0.9% 100 ML IVPB SCH (12:22)
[2019-09-10 13:29] LABS: Vancomycin, Random 11.4 ug/mL (See Comment)
[2019-09-10] MEDS ORDERED: Vancomycin 1.5 GRAM/300 ML BAG 1.5 GM in Premix Bag 1 BAG IVPB SCH (14:15)
--- NOTE | 2019-09-10 15:44 | PDOC.HOSPP ---
- Subjective Encounter Date: 09/10/19 Encounter Time: 09:50 Subjective: Mentation at baseline, pt states taht she has severe CAD, non-amenable for aggressive intervention, on amio. cdiff +ve on 08/25 and completed Po. d/w RN. - Objective Vital Signs & Weight: Vital Signs (12 hours) Temp Pulse Ox 09/10/19 11:54 98.5 F 09/10/19 08:00 99 09/10/19 07:39 98.5 F 09/10/19 04:00 98.8 F Weight Weight 202 lb 13.204 oz Most Recent Monitor Data Heart Rate from ECG 74 NIBP 142/81 NIBP BP-Mean 101 Respiration from ECG 15 SpO2 97 I&O: 09/09/19 09/10/19 09/11/19 06:59 06:59 06:59 Intake Total 1617 Output Total 700 Balance 917 Result Diagrams: 09/10/19 03:41 09/10/19 03:41 Additional Labs: Accuchecks 09/10/19 09/10/19 09/10/19 10:59 05:43 00:12 POC Glucose 235 H 179 H 406 H 09/09/19 20:43 POC Glucose 456 H Hospitalist ROS - Medication Medications: Active Medications Generic Name Dose Route Start Last Admin Trade Name Freq PRN Reason Stop Dose Admin Acetaminophen 1,000 mg 09/09/19 17:30 09/10/19 06:00 Tylenol PO 1,000 mg Q6H PRN Administration Mild Pain (1-3) Amiodarone HCl 200 mg 09/09/19 21:00 09/10/19 10:33 Cordarone PO 200 mg BID CARYN Administration Amitriptyline HCl 50 mg 09/09/19 21:00 09/09/19 21:26 Elavil PO 50 mg HS CARYN Administration Famotidine 20 mg 09/09/19 21:00 09/09/19 21:26 Pepcid SLOW IVP 20 mg QPM CARYN Administration Ceftriaxone Sodium 2 gm/ 100 mls @ 200 mls/hr 09/10/19 12:00 09/10/19 12:22 Sodium Chloride IVPB 100 mls 1200 CARYN Administration Sodium Chloride 1,000 mls @ 75 mls/hr 09/09/19 17:30 09/10/19 10:33 Normal Saline 0.9% IV 1,000 mls .[id number] CARYN Administration Vancomycin HCl 1.5 gm/ Device 300 mls @ 200 mls/hr 09/10/19 14:15 09/10/19 15 :22 IVPB 09/10/19 16:15 300 mls NOW CARYN Administration Insulin Human Isoph/Insulin Regular 50 units 09/09/19 21:00 09/09/19 21:27 Humulin 70/30 SC 50 unit HS CARYN Administration Insulin Human Isoph/Insulin Regular 70 units 09/10/19 09:00 09/10/19 10:32 Humulin 70/30 SC 70 unit QAM CARYN Administration Levothyroxine Sodium 50 mcg 09/10/19 06:00 09/10/19 05:45 Synthroid PO 50 mcg 0600 CARYN Administration Trospium 20 mg 09/10/19 09:00 09/10/19 10:32 Trospium PO 20 mg DAILY CARYN Administration - Exam General Appearance: NAD, awake alert Eye: PERRL, anicteric sclera Neck: supple, symmetric Heart: RRR, no murmur Respiratory: CTAB, no wheezes Gastrointestinal: soft, non-tender, normal bowel sounds Extremities: no cyanosis Skin: normal turgor Neurological: no focal deficits Hosp A/P - Plan sepsis 2/2 UTI UTI bl rai negative -no need to check cdiff as completed recently -u rai - lactobasillus - on vanc + ceftriaxone--dc vanc hematuria -noted - likely d/t UTI - monitor for now. Hyponatremia -on NS -improving -goal 6 to 8meq in 24hrs. Hypokalemia --as above, replace --get mag Ischemic CMY hx of CAD - cw amiodarone and lipitor. Acute on CKD3 -stable at 1.47 Tramsaminitis -d/t No 1 -trending down. DM2 - BG improving w.. caryn. insulin and SSI -will renew her home meds in am, as her lytes are not back to nl. -holding losartan/spironolactone dispo - live w.. spouse and grandkids
[2019-09-10 15:55] VITALS: BP 142/71
[2019-09-10] MEDS: Famotidine/PF 20 mg/2ml Vial SLOW IVP SCH (20:26)
[2019-09-10] MEDS: Amitriptyline HCl 25 MG TAB PO SCH (20:26)
[2019-09-11] MEDS: Sodium Chloride 0.9% 1,000 ML IV SCH ×2 (03:15→14:20)
[2019-09-11 04:05] LABS: ALT (SGPT) 55 U/L (8-55); AST (SGOT) 45 U/L (5-34); Albumin 2.7 g/dL (3.4-4.8); Alkaline Phosphatase 117 U/L (40-110); Anion Gap 12 mmol/L (10-20); BUN (Urea Nitrogen) 23 mg/dL (9.8-20.1); Bilirubin, Total 0.2 mg/dL (0.2-1.2); Calc. Creatinine Clearance 72 mL/min (70-130); Carbon Dioxide 21 mmol/L (23-31); Chloride 101 mmol/L (98-107); Estimated GFR-MDRD 46; Globulin 3.3 g/dL (2.4-3.5); Glucose 117 mg/dL (80-115); Magnesium 1.9 mg/dL (1.6-2.6); Potassium 3.2 mmol/L (3.5-5.1); Sodium 131 mmol/L (136-145)
[2019-09-11] MEDS: Levothyroxine Sodium 50 MCG TAB PO SCH (05:23)
[2019-09-11] MEDS: Amiodarone 200 MG TAB PO SCH ×2 (09:53→20:59)
[2019-09-11] MEDS: HumuLIN 70/30 (300 UNITS/3 ML VIAL) SC SCH ×2 (09:53→20:58)
[2019-09-11] MEDS: Trospium 20 MG TAB PO SCH (09:54)
[2019-09-11] MEDS ORDERED: Potassium Chloride 20 MEQ TAB PO SCH (11:45)
--- NOTE | 2019-09-11 12:29 | PDOC.HOSPP ---
- Subjective Encounter Date: 09/11/19 Encounter Time: 09:40 Subjective: pt is resting, states that she had some breakfast. PT has seen her. d/w RN. hx of hemorrhoids. - Objective Vital Signs & Weight: Vital Signs (12 hours) Temp Pulse Ox 09/11/19 11:34 97.7 F 09/11/19 08:00 99 09/11/19 07:18 97.6 F 09/11/19 03:36 98.0 F Weight Weight 202 lb 13.204 oz Most Recent Monitor Data Heart Rate from ECG 72 NIBP 188/91 NIBP BP-Mean 123 Respiration from ECG 16 SpO2 98 I&O: 09/10/19 09/11/19 09/12/19 06:59 06:59 06:59 Intake Total 1617 2716 Output Total 700 Balance 917 2716 Result Diagrams: 09/10/19 03:41 09/11/19 03:25 Additional Labs: Accuchecks 09/11/19 09/11/19 09/11/19 10:46 05:36 01:30 POC Glucose 174 H 124 H 99 09/10/19 09/10/19 20:16 16:42 POC Glucose 160 H 122 H Hospitalist ROS - Medication Medications: Active Medications Generic Name Dose Route Start Last Admin Trade Name Freq PRN Reason Stop Dose Admin Acetaminophen 1,000 mg 09/09/19 17:30 09/10/19 20:26 Tylenol PO 1,000 mg Q6H PRN Administration Mild Pain (1-3) Amiodarone HCl 200 mg 09/09/19 21:00 09/11/19 09:53 Cordarone PO 200 mg BID CARYN Administration Amitriptyline HCl 50 mg 09/09/19 21:00 09/10/19 20:26 Elavil PO 50 mg HS CARYN Administration Famotidine 20 mg 09/09/19 21:00 09/10/19 20:26 Pepcid SLOW IVP 20 mg QPM CARYN Administration Ceftriaxone Sodium 2 gm/ 100 mls @ 200 mls/hr 09/10/19 12:00 09/10/19 12:22 Sodium Chloride IVPB 100 mls 1200 CARYN Administration Sodium Chloride 1,000 mls @ 75 mls/hr 09/09/19 17:30 09/11/19 03:15 Normal Saline 0.9% IV 1,000 mls .[id number] CARYN Administration Insulin Human Isoph/Insulin Regular 50 units 09/09/19 21:00 09/10/19 20:27 Humulin 70/30 SC 50 unit HS CARYN Administration Insulin Human Isoph/Insulin Regular 70 units 09/10/19 09:00 09/11/19 09:53 Humulin 70/30 SC 70 unit QAM CARYN Administration Levothyroxine Sodium 50 mcg 09/10/19 06:00 09/11/19 05:23 Synthroid PO 50 mcg 0600 CARYN Administration Trospium 20 mg 09/10/19 09:00 09/11/19 09:54 Trospium PO 20 mg DAILY CARYN Administration - Exam General Appearance: ill appearing Eye: PERRL, anicteric sclera ENT: dry oral mucosa Neck: supple, symmetric Heart: RRR, no murmur Respiratory: CTAB Gastrointestinal: soft, non-tender Extremities: no cyanosis Skin: normal turgor Neurological: no focal deficits Psychiatric: normal affect Hosp A/P - Plan sepsis 2/2 UTI UTI bl rai negative -no need to check cdiff as completed recently -u rai - lactobasillus - on vanc + ceftriaxone--dc vanc Hematuria -noted - likely d/t UTI - monitor for now. Hyponatremia -on NS -improving -goal 6 to 8meq in 24hrs. Hypokalemia --as above, replace --get mag-->nl Ischemic CMY hx of CAD - cw amiodarone and lipitor. Acute on CKD3 -stable at 1.47 Tramsaminitis -d/t No 1 -trending down. suboptimally controlled hypothryoidism - inc'd levothyroixine dose. DM2 - BG improving w.. caryn. insulin and SSI -will renew her home meds in am, as her lytes are not back to nl. -holding losartan/spironolactone----------->renal fn ok, K down -- started on dispo - live w.. spouse and grandkids home w.. home health when able.
[2019-09-11 14:12] LABS: Vancomycin, Random 15.2 ug/mL (See Comment)
[2019-09-11] MEDS: cefTRIAXone\\ROCEPHIN 2 GM in Sodium Chloride 0.9% 100 ML IVPB SCH (14:19)
[2019-09-11] MEDS: NS 0.9% w/ 20 MEQ KCL 1,000 ML/1,000 ML BAG IV SCH (14:20)
[2019-09-11] MEDS: Vancomycin 1.5 GRAM/300 ML BAG 1.5 GM in Premix Bag 1 BAG IVPB SCH (16:33)
[2019-09-11] MEDS ORDERED: hydrALAZINE 20 MG/ML VIAL SLOW IVP PRN (16:55)
[2019-09-11] MEDS ORDERED: Labetalol HCl 100 MG/20 ML VIAL SLOW IVP SCH (17:00)
[2019-09-11] MEDS: Losartan 25 MG TAB PO SCH (20:59)
[2019-09-11] MEDS: Amitriptyline HCl 25 MG TAB PO SCH (20:59)
[2019-09-11] MEDS: Famotidine/PF 20 mg/2ml Vial SLOW IVP SCH (20:59)
[2019-09-11] MEDS: Acetaminophen 500 MG TAB PO PRN (21:07)
[2019-09-12] MEDS: NS 0.9% w/ 20 MEQ KCL 1,000 ML/1,000 ML BAG IV SCH ×2 (05:23→16:38)
[2019-09-12] MEDS ORDERED: Levothyroxine Sodium 88 MCG TAB PO SCH (06:00)
[2019-09-12] MEDS: Trospium 20 MG TAB PO SCH (08:13)
[2019-09-12] MEDS: Amiodarone 200 MG TAB PO SCH (08:13)
[2019-09-12] MEDS: Losartan 25 MG TAB PO SCH (08:13)
[2019-09-12] MEDS: HumuLIN 70/30 (300 UNITS/3 ML VIAL) SC SCH (08:16)
[2019-09-12] MEDS ORDERED: Spironolactone 25 MG TAB PO SCH (09:00)
[2019-09-12] MEDS: cefTRIAXone\\ROCEPHIN 2 GM in Sodium Chloride 0.9% 100 ML IVPB SCH (11:50)
[2019-09-12] MEDS: Vancomycin 1.5 GRAM/300 ML BAG 1.5 GM in Premix Bag 1 BAG IVPB SCH (14:26)
[2019-09-12 15:06] LABS: Anion Gap 10 mmol/L (10-20); BUN (Urea Nitrogen) 13 mg/dL (9.8-20.1); Calc. Creatinine Clearance 95 mL/min (70-130); Calcium 8.2 mg/dL (7.8-10.44); Carbon Dioxide 24 mmol/L (23-31); Chloride 107 mmol/L (98-107); Estimated GFR-MDRD 64; Glucose 191 mg/dL (80-115); Potassium 4.5 mmol/L (3.5-5.1); Sodium 136 mmol/L (136-145)
[2019-09-12 15:32] VITALS: TEMP 98.1
[2019-09-12] MEDS ORDERED: Famotidine 20 MG TAB PO SCH (21:00)
--- NOTE | 2019-09-13 01:26 | DIS ---
DATE OF ADMISSION: 09/09/2019 DATE OF DISCHARGE: 09/12/2019 DISCHARGE DIAGNOSES: 1. Sepsis secondary to urinary tract infection. 2. Urinary tract infection and mild hematuria associated with urinary tract infection. 3. Hypovolemic hyponatremia, resolved. 4. 5. Ischemic cardiomyopathy. 6. History of coronary artery disease. 7. Acute on chronic kidney disease stage 3. Resolved after hydration and creatinine back to baseline at 1.47. 8. Transaminitis due to sepsis and normalized. 9. Suboptimally controlled hypothyroidism. Also exacerbated by being on amiodarone. 10. Her thyroxine supplement dose has been increased. Type 2 diabetes mellitus. DISCHARGE MEDICATIONS: 1. Augmentin 500 mg twice a day for 5 days. 2. Levothyroxine 88 mcg daily. This has been increased from her previous home regimen given her TSH level of 8. 3. Isosorbide mononitrate 30 mg daily. 4. Flexeril 10 mg as needed. 5. Lasix 40 mg daily. 6. Plavix 75 mg daily. 7. Coreg 25 mg twice a day. 8. Lipitor 80 mg at bedtime. 9. Aspirin 81 mg daily. PHYSICAL EXAMINATION: VITAL SIGNS: On the day of discharge, temp 98.1, pulse 88, she is normotensive. GENERAL: The patient is alert, oriented, she is resting. She has no acute complaints today. Discharge plan discussed with her and she is agreeable. Her son lives close by. CARDIOVASCULAR: Regular rate and rhythm without murmurs, rubs, or gallops. LUNGS: Clear to auscultation bilaterally without wheezing, rales, or rhonchi. ABDOMEN: Soft, nontender, nondistended. Good bowel sounds. EXTREMITIES: Without any pitting edema. HOSPITAL COURSE: A 63-year-old female who presented with generalized weakness, lightheadedness, and dizziness with underlying history of ischemic cardiomyopathy, hypertension, diabetes mellitus as well as chronic kidney disease stage 4. She was noted to have a history of sepsis secondary to urinary tract infection and also had acute metabolic encephalopathy associated with the sepsis presentation. Over the course of the time, her mentation improved and back to baseline. She was started on a broad-spectrum antibiotic with vancomycin and ceftriaxone. Her blood cultures were negative. Urine culture grew only lactobacillus. Antibiotic deescalated and she will complete the course with Augmentin. She had a course hematuria, but that was mild and resolved, probably associated with urinary tract infection. The patient also had mild occult blood positive. She mentioned that she has hemorrhoids. Her hemoglobin is stable at 10.7 on the day of discharge. She can follow up with outpatient GI Clinic for colonoscopy. The patient is clinically stable and reached maximum benefit during this hospitalization and she will be discharged with a home health care. DISCHARGE INSTRUCTIONS: Activity as tolerated. Diabetic diet. Follow up with the primary care physician in one week. Instructions were given for her not to continue taking her home regimen of levothyroxine. Increased dose of levothyroxine has been given. Her TSH has to be checked in 2 to 3 weeks to titrate her thyroxine supplement dose. Also, the patient needs a GI clinic outpatient referral for possible colonoscopy through her PCP. TIME SPENT: Discharge time took over 30 minutes. Job ID: [id number] [email or web address]
== END 2019-09-12 17:11 | disposition home or self-care (01) | DRG 871 ==
LOC: ERS 10:57 → IMCU/EMU 15:09
PROVIDERS: ADMIT Family Medicine; ATTEND Emergency Medicine
DX: A41.9 Sepsis, unspecified organism (principal); G93.41 Metabolic encephalopathy; R65.21 Severe sepsis with septic shock; K72.00 Acute and subacute hepatic failure without coma; N39.0 Urinary tract infection, site not specified; E87.1 Hypo-osmolality and hyponatremia; N17.9 Acute kidney failure, unspecified; I13.0 Hypertensive heart and chronic kidney disease with heart failure and stage 1 through stage 4 chronic kidney disease, or unspecified chronic kidney disease; I69.354 Hemiplegia and hemiparesis following cerebral infarction affecting left non-dominant side; I50.22 Chronic systolic (congestive) heart failure; E87.2 Acidosis; E86.1 Hypovolemia; I25.5 Ischemic cardiomyopathy; N18.3 Chronic kidney disease, stage 3 (moderate); E03.9 Hypothyroidism, unspecified; E11.22 Type 2 diabetes mellitus with diabetic chronic kidney disease; R31.9 Hematuria, unspecified; J45.909 Unspecified asthma, uncomplicated; E11.40 Type 2 diabetes mellitus with diabetic neuropathy, unspecified; M19.90 Unspecified osteoarthritis, unspecified site; I25.10 Atherosclerotic heart disease of native coronary artery without angina pectoris; D63.1 Anemia in chronic kidney disease; E11.65 Type 2 diabetes mellitus with hyperglycemia; I48.91 Unspecified atrial fibrillation; F32.9 Major depressive disorder, single episode, unspecified; K64.9 Unspecified hemorrhoids; E87.6 Hypokalemia; Z79.4 Long term (current) use of insulin; Z90.49 Acquired absence of other specified parts of digestive tract; Z90.710 Acquired absence of both cervix and uterus; Z88.5 Allergy status to narcotic agent; Z88.0 Allergy status to penicillin; Z91.040 Latex allergy status; Z79.899 Other long term (current) drug therapy; Z95.810 Presence of automatic (implantable) cardiac defibrillator; Z79.82 Long term (current) use of aspirin; Z79.01 Long term (current) use of anticoagulants; Z79.890 Hormone replacement therapy; Z87.891 Personal history of nicotine dependence; Z91.09 Other allergy status, other than to drugs and biological substances
CPT/HCPCS: 36415; 36416; 36430; 80048; 80053; 80202; 81003; 81015; 82274; 82533; 83605; 83735; 84443; 85007; 85025; 85027; 85610; 85730; 86850; 86900; 86901; 87040; 87086; 93005; A4353; J0360; J0696; J1815; J3370; J3480; J3490; P9016; S0028

== ENCOUNTER 2019-09-18 15:05 | Inpatient (IN) | payer SELFPAY ==
[2019-09-18 16:01] LABS: #Eosinphils 0.1 thou/uL (0.0-0.7); #Lymphocytes 1.3 thou/uL (1.20-3.40); #Monocytes 0.3 thou/uL (0.11-0.59); #Neutrophils 2.6 thou/uL (1.40-6.50); %Eosinophils 3.1 % (0.0-10.0); %Monocytes 7.6 % (0.0-10.0); %Neutrophils 58.3 % (42.0-75.0); Hemoglobin 8.5 g/dL (12.0-16.0); Mean Corpuscular HGB CONC 35.4 g/dL (32.0-36.0); Mean Corpuscular Hemoglobin 33.2 pg (27.0-31.0); Mean Corpuscular Volume 93.8 fL (78.0-98.0); Mean Platelet Volume 6.9 fL (7.4-10.4); Platelet Count 205 thou/uL (130-400); RBC Distribution Width 12.6 % (11.5-14.5); Red Blood Cell (RBC) Count 2.55 mill/uL (4.20-5.40); White Blood Cell (WBC) Count 4.4 thou/uL (4.8-10.8)
[2019-09-18 16:20] LABS: Bacteria/HPF 2+ HPF (None Seen); Bilirubin Negative (Negative); Blood, Urine 3+ (Negative); Clarity Extra Turbid (Clear); Glucose, Urine (Dipstick) Greater than 1000 mg/dL (Negative); Leukocyte 500 Leu/uL (Negative); Nitrite Negative (Negative); Protein, Urine (Dipstick) 200 mg/dL (Neg-Trace); Squamous Epithelial 0-3 HPF (0-3); Urobilinogen Normal mg/dL (Less than 2); WBC/HPF Greater than 50 HPF (0-3)
[2019-09-18 16:23] LABS: ALT (SGPT) 39 U/L (8-55); AST (SGOT) 35 U/L (5-34); Albumin 2.5 g/dL (3.4-4.8); Alkaline Phosphatase 114 U/L (40-110); Anion Gap 11 mmol/L (10-20); BUN (Urea Nitrogen) 19 mg/dL (9.8-20.1); Bilirubin, Total 0.4 mg/dL (0.2-1.2); Calc. Creatinine Clearance 0 mL/min (70-130); Calcium 8.1 mg/dL (7.8-10.44); Carbon Dioxide 25 mmol/L (23-31); Chloride 100 mmol/L (98-107); Estimated GFR-MDRD 44; Glucose 335 mg/dL (80-115); Potassium 4.1 mmol/L (3.5-5.1); Protein, Total 5.5 g/dL (6.0-8.3); Sodium 132 mmol/L (136-145)
[2019-09-18 16:23] LABS: Base Excess-Venous 2.7 mmol/L (-2.0 to 3.0); Bicarbonate (HCO3v) 29.4 mmol/L (22.0-28.0); CO2 Tension (PvCO2) 57.1 mmHg (40.0-50.0); Calcium, Ionized 1.21 mmol/L (See Comments:); Chloride 97 mmol/L (98-107); Hemoglobin - Calc 8.2 g/dL (12.0-16.0); Potassium 3.9 mmol/L (3.5-5.1); Sodium 135 mmol/L (138-145); T. Carbon Dioxide 31.1 mmol/L (22.0-28.0); vO2 Saturation-calc 51.2 % (60.0-85.0)
--- NOTE | 2019-09-18 16:42 | RAD ---
Exam: Chest one view HISTORY:Altered mental status Comparison: 03/07/2019 FINDINGS: Cardiac silhouette:Mildly enlarged cardiac silhouette Pacemaker: Stable single lead left-sided transvenous defibrillator. Aorta: Unremarkable Pulmonary vessels: Normal Costophrenic angles: Clear LUNGS: No masses or consolidation. Pneumothorax: None Osseous abnormalities: None IMPRESSION: No acute cardiopulmonary process.
[2019-09-18] MEDS ORDERED: cefTRIAXone\\ROCEPHIN 2 GM VIAL ONE (17:02)
[2019-09-18] MEDS ORDERED: Acetaminophen 325 MG TAB PO PRN (18:46)
[2019-09-18] MEDS ORDERED: Senokot S 8.6-50 MG TAB PO PRN (18:46)
[2019-09-18] MEDS ORDERED: Dextrose 5% in Water 1,000 ML IV PRN (18:54)
[2019-09-18] MEDS ORDERED: HumaLOG 300 UNITS/3 ML VIAL SC PRN ×2 (18:54)
[2019-09-18] MEDS ORDERED: Dextrose 50% Abboject 50 ML SYRINGE SLOW IVP PRN (18:54)
[2019-09-18] MEDS ORDERED: Sodium Chloride 0.9% 1,000 ML IV SCH (19:00)
--- NOTE | 2019-09-18 20:38 | HP ---
PRIMARY CARE PHYSICIAN: Lauri. CHIEF COMPLAINT: Lightheadedness and dizziness. HISTORY OF PRESENT ILLNESS: Ms. Patel is a 63-year-old female, who was brought to the emergency room today via EMS for evaluation of dizziness and lightheadedness. She reports that she normally gets around with a motorized chair, was getting help transferring from her chair. When she stood up, she became really dizzy and quite lightheaded. Family took her blood pressure, said it was low and then called EMS. She reports that she was just discharged here on the of this month for the UTI and denies any dysuria. Reports that she finished her Augmentin as prescribed. Denies any other symptoms. She denies any nausea, vomiting, diarrhea, fever, chills, chest pain, or abdominal pain. She does have a history of coronary artery disease, congestive heart failure, diabetes, hypertension, asthma, degenerative joint disease, neuropathy, osteoarthritis, and she had a stroke in 2012 with some residual right-sided weakness. She reports that she has not really been able to ambulate since the stroke. In the emergency room, chest x-ray showed no acute cardiopulmonary process. Troponin was negative. Sodium 132, creatinine 1.24, which was slightly increased from when she was discharged. Glucose is 335. Beta-hydroxybutyrate ketones were negative. Urine, however, extra turbid, positive for leukocyte, protein, glucose, blood in the urine +3, white blood cells, and 2+ bacteria. Lactic acid was negative. White blood cell count was 4.4, hemoglobin 8.5, hematocrit 23.9. Emergency room gave her 2 g of Rocephin, a liter of fluids, and blood pressure was 127/69 during evaluation. When she arrived in the ER, it was 81/42 with a MAP of 55. The patient will be admitted for further workup and management. REVIEW OF SYSTEMS: The patient denies any chills or fever. Denies any upper respiratory symptoms. Denies chest pain or palpitations. Denies cough. Denies abdominal pain, constipation, diarrhea, nausea, vomiting. Denies dysuria. Does report some dizziness and lightheadedness. All other systems reviewed and are negative unless mentioned in the HPI or above. PHYSICAL EXAMINATION: VITAL SIGNS: Blood pressure 127/69, pulse is 62, respirations 12, temperature is 97.7, and pO2 saturations are 100% on room air. GENERAL: She appears nontoxic. She is alert and oriented to person, place, and time. She is pale. HEENT: Head is atraumatic and normocephalic. Eyes, pupils are equal, round, and reactive to light. Conjunctiva pale. ENT; mucous membranes are dry. Mouth exam is normal. NECK: Normal range of motion. Trachea is midline. RESPIRATORY: Chest expansion is equal. Breath sounds are clear. CARDIOVASCULAR: Regular rate and rhythm. Heart sounds are normal. ABDOMEN: Nontender. Bowel sounds are heard. She is wearing an adult diaper. BACK: Normal range of motion. No tenderness. EXTREMITIES: Upper extremity; normal range of motion. Radial pulses are normal. Lower extremity; normal inspection, normal range of motion. Pedal pulses are normal. There is no edema noted. NEUROLOGIC: The patient is oriented to person, place, and time. Speech is normal. SKIN: Warm, dry, and pale. PAST MEDICAL HISTORY: 1. Ischemic cardiomyopathy. 2. Coronary artery disease. 3. Hypertension. 4. Diabetes type 2, insulin requiring. 5. Chronic kidney disease stage 3. 6. Chronic systolic congestive heart failure. 7. History of atrial fibrillation, on amiodarone. 8. History of CVA with mild hemiplegia. 9. Urinary incontinence. PAST SURGICAL HISTORY: 1. Status post AICD placement, ejection fraction 30%. 2. Status post cholecystectomy. 3. Status post appendectomy. 4. Status post hysterectomy. ALLERGIES: CODEINE, LATEX, NATURAL RUBBER, AND PENICILLINS. HOME MEDICATIONS: Still need to be reconciled. 1. Cordarone 200 mg p.o. b.i.d. 2. Elavil 50 mg p.o. at bedtime. 3. Lipitor 80 mg p.o. at bedtime. 4. Coreg 25 mg p.o. b.i.d. 5. Flexeril 10 mg p.o. q.6 hours as needed. 6. Furosemide 40 mg p.o. daily. 7. Humulin 70/30, 50 units subcu at bedtime, 70 units subcu a.m. 8. Isosorbide 30 mg p.o. daily. 9. Losartan 50 mg p.o. b.i.d. 10. Spironolactone 25 mg p.o. daily. 11. Detrol LA 4 mg p.o. daily. 12. Aspirin 81 mg p.o. daily. 13. Plavix 75 mg p.o. daily. 14. Levothyroxine 88 mcg p.o. daily. PLAN/ASSESSMENT: 1. Initial hypotension, resolved with IV fluids. Hemoglobin 2 points lower than it was in the last discharge. Not sure the patient may have a bleed. H and H in 6 hours and repeat CBC in a.m. Occult stool has also been ordered. We will gently hydrate normal saline at 75 mL per hour x1 bag. We will hold her Plavix and aspirin for now. 2. Urinary tract infection. Rocephin has been started in the ER. We will continue this. Culture has been ordered. 3. Diabetes type 2. We will restart home insulin, add sliding scale for coverage, a.c. and at bedtime Accu-Cheks. 4. History of congestive heart failure. We will continue Lasix, Coreg, home medications. 5. History of hyperlipidemia. We will restart home medications. 6. Hypothyroidism. We will continue home medications. This was increased on the last admission and we will continue. 7. Deep venous thrombosis and gastrointestinal prophylaxis started. 8. Case discussed with Dr. Mina, who agrees with plan. 9. Hospital course is dependent on clinical findings. Job ID: [id number]
[2019-09-18] MEDS ORDERED: HumuLIN 70/30 (300 UNITS/3 ML VIAL) SC SCH (21:00)
[2019-09-18] MEDS ORDERED: Famotidine 20 MG TAB PO SCH (21:00)
[2019-09-18] MEDS ORDERED: Carvedilol 25 MG TAB PO SCH (21:00)
[2019-09-18] MEDS ORDERED: Amitriptyline HCl 25 MG TAB PO SCH (21:00)
--- NOTE | 2019-09-18 21:28 | PDOC.EVN ---
Event Note - Event Note Event Note: Patient seen and examined for near syncope. BP 70/40 and 65/44 by EMS. Feels better with IV hydration. No CP or SOB. Vitals reviewed. Hypothermic in ER requiring therapeutic warming Lungs CTA b/l, S1S2 +, Abd soft Labs reviewed. I agree with the note by Mirela Schmidt'zaira Will cont IV Ceftriaxone for UTI Add IV PPI for Anemia Verify home meds Tele monitoring Check Orthostatic vitals AM labs Monitor H/H Hold 70/30 Insulin Start NPH 20 units BID Change sliding scale to moderate
[2019-09-18 21:58] LABS: Hemoglobin 9.1 g/dL (12.0-16.0); Platelet Count 237 thou/uL (130-400)
[2019-09-18 22:36] LABS: Anion Gap 10 mmol/L (10-20); BUN (Urea Nitrogen) 21 mg/dL (9.8-20.1); CK (CPK) 20 U/L (29-168); Calc. Creatinine Clearance 0 mL/min (70-130); Calcium 8.1 mg/dL (7.8-10.44); Carbon Dioxide 27 mmol/L (23-31); Chloride 102 mmol/L (98-107); Estimated GFR-MDRD 45; Glucose 158 mg/dL (80-115); Magnesium 1.7 mg/dL (1.6-2.6); Phosphorus 3.2 mg/dL (2.3-4.7); Potassium 4.5 mmol/L (3.5-5.1); Sodium 134 mmol/L (136-145)
[2019-09-18 23:42] VITALS: BMI 34.0
[2019-09-19] MEDS: Amiodarone 200 MG TAB PO SCH ×3 (01:15→20:57)
[2019-09-19] MEDS: Atorvastatin Calcium 40 MG TAB PO SCH ×2 (01:15→20:57)
[2019-09-19 04:36] LABS: #Eosinphils 0.2 thou/uL (0.0-0.7); #Lymphocytes 1.7 thou/uL (1.20-3.40); #Monocytes 0.3 thou/uL (0.11-0.59); #Neutrophils 2.4 thou/uL (1.40-6.50); %Basophils 0.9 % (0.0-1.0); %Eosinophils 3.6 % (0.0-10.0); %Lymphocytes 36.3 % (21.0-51.0); %Monocytes 6.9 % (0.0-10.0); %Neutrophils 52.4 % (42.0-75.0); Anion Gap 11 mmol/L (10-20); BUN (Urea Nitrogen) 20 mg/dL (9.8-20.1); Calc. Creatinine Clearance 72 mL/min (70-130); Calcium 8.3 mg/dL (7.8-10.44); Carbon Dioxide 26 mmol/L (23-31); Chloride 101 mmol/L (98-107); Estimated GFR-MDRD 46; Glucose 226 mg/dL (80-115); Mean Corpuscular Hemoglobin 32.8 pg (27.0-31.0); Mean Corpuscular Volume 93.6 fL (78.0-98.0); Mean Platelet Volume 7.2 fL (7.4-10.4); Platelet Count 233 thou/uL (130-400); Potassium 4.5 mmol/L (3.5-5.1); RBC Distribution Width 12.5 % (11.5-14.5); Red Blood Cell (RBC) Count 2.73 mill/uL (4.20-5.40); Sodium 133 mmol/L (136-145); White Blood Cell (WBC) Count 4.6 thou/uL (4.8-10.8)
[2019-09-19] MEDS: Levothyroxine Sodium 88 MCG TAB PO SCH (06:32)
[2019-09-19] MEDS: Pantoprazole 40 MG VIAL IVP SCH ×3 (08:13→20:57)
[2019-09-19] MEDS ORDERED: HumuLIN 70/30 (300 UNITS/3 ML VIAL) SC SCH (09:00)
[2019-09-19] MEDS: NPH, Human Insulin Isophane 300 UNIT/3 ML VIAL SC SCH ×2 (09:10→22:48)
--- NOTE | 2019-09-19 11:56 | PDOC.HOSPP ---
- Subjective Encounter Date: 09/19/19 Encounter Time: 08:30 Subjective: feels better, no abd pain or sob tolerating oral diet, not dizzy on bed usually transfers to wheelchair/electric scooty does not ambulate x 1 yr - Objective Vital Signs & Weight: Vital Signs (12 hours) Temp Pulse Resp BP BP BP Pulse Ox 09/19/19 08:50 160/69 H 179/77 H 09/19/19 07:38 97.5 F L 70 19 160/69 H 97 09/19/19 03:42 98.2 F 67 17 164/69 H 97 09/19/19 00:19 97 Weight Weight 250 lb I&O: 09/18/19 09/19/19 09/20/19 06:59 06:59 06:59 Intake Total 150 Balance 150 Result Diagrams: 09/19/19 03:42 09/19/19 03:42 Additional Labs: Accuchecks 09/19/19 09/19/19 09/19/19 09:12 03:52 00:16 POC Glucose 305 H 240 H 154 H Hospitalist ROS - Medication Medications: Active Medications Generic Name Dose Route Start Last Admin Trade Name Freq PRN Reason Stop Dose Admin Acetaminophen 650 mg 09/18/19 18:46 09/19/19 09:16 Tylenol PO 650 mg Q4H PRN Administration Headache/Fever/Mild Pain (1-3) Amiodarone HCl 200 mg 09/18/19 21:00 09/19/19 08:07 Cordarone PO 200 mg BID LINDSAY Administration Atorvastatin Calcium 80 mg 09/18/19 21:00 09/19/19 01:15 Lipitor PO 80 mg HS LINDSAY Administration Insulin Human NPH 20 unit 09/19/19 09:00 09/19/19 09:10 Humulin N SC 20 units BID LINDSAY Administration Levothyroxine Sodium 88 mcg 09/19/19 06:00 09/19/19 06:32 Synthroid PO 88 mcg 0600 LINDSAY Administration Pantoprazole Sodium 40 mg 09/19/19 09:00 09/19/19 08:13 Protonix IVP 40 mg Q12HR LINDSAY Administration - Exam General Appearance: awake alert Eye: PERRL, anicteric sclera ENT: no oropharyngeal lesions, moist mucosa Neck: supple, no JVD Heart: RRR, no murmur Respiratory: no wheezes, no rales Gastrointestinal: soft, non-tender, non-distended, normal bowel sounds Extremities: no cyanosis, no edema Neurological: cranial nerve grossly intact, no new deficit Neurological - other findings: right hemiparesis mild with 4/5 strength Psychiatric: normal affect, A&O x 3 Hosp A/P (1) Sepsis Code(s): A41.9 - SEPSIS, UNSPECIFIED ORGANISM Status: Acute Qualifiers: Sepsis type: sepsis due to unspecified organism Sepsis acute organ dysfunction status: without acute organ dysfunction Qualified Code(s): A41.9 - Sepsis, unspecified organism (2) UTI (urinary tract infection) Status: Acute Qualifiers: Urinary tract infection type: acute cystitis Hematuria presence: without hematuria Qualified Code(s): N30.00 - Acute cystitis without hematuria (3) DM type 2 (diabetes mellitus, type 2) Status: Chronic Qualifiers: 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 transplanted heart: [place] heart Associated angina: without angina Qualified Code(s): I25.10 - Atherosclerotic heart disease of [place] coronary artery without angina pectoris (6) Chronic systolic heart failure, ACC/AHA stage C Code(s): I50.22 - CHRONIC SYSTOLIC (CONGESTIVE) HEART FAILURE Status: Chronic (7) Dyslipidemia Code(s): E78.5 - HYPERLIPIDEMIA, UNSPECIFIED Status: Chronic (8) H/O: CVA (cerebrovascular accident) Code(s): Z86.73 - PRSNL HX OF TIA (TIA), AND CEREB INFRC W/O RESID DEFICITS Status: Chronic (9) HTN (hypertension) Code(s): I10 - ESSENTIAL (PRIMARY) HYPERTENSION Status: Chronic Qualifiers: (10) Ischemic cardiomyopathy Code(s): I25.5 - ISCHEMIC CARDIOMYOPATHY Status: Chronic - Plan is on ceftriaxone, await urine cs results, blood cs x2 are -ve hypothermia and hypotension are resolved, likely had a component of dehyrdration , no septic shock iv hydration, continue current meds dc plan in am if stable has poor functional status and wears diapers leading to rec uti has previously grown e.coli mostly with good sensitivity profile.
[2019-09-19] MEDS: HumaLOG 300 UNITS/3 ML VIAL SC PRN ×2 (12:40→18:10)
[2019-09-19 14:36] LABS: Hemoglobin 9.9 g/dL (12.0-16.0)
[2019-09-19] MEDS ORDERED: cefTRIAXone\\ROCEPHIN 2 GM in Sodium Chloride 0.9% 100 ML IVPB SCH (15:00)
[2019-09-20] MEDS: Levothyroxine Sodium 88 MCG TAB PO SCH (06:16)
[2019-09-20] MEDS: Amiodarone 200 MG TAB PO SCH (09:37)
[2019-09-20] MEDS: Pantoprazole 40 MG VIAL IVP SCH (09:38)
[2019-09-20] MEDS: NPH, Human Insulin Isophane 300 UNIT/3 ML VIAL SC SCH (09:39)
[2019-09-20] MEDS: HumaLOG 300 UNITS/3 ML VIAL SC PRN (13:20)
[2019-09-20 15:21] VITALS: BP 180/79; TEMP 98.4
--- NOTE | 2019-09-20 17:02 | DIS ---
DATE OF ADMISSION: 09/18/2019 DATE OF DISCHARGE: 09/20/2019 DISCHARGE DISPOSITION: Home. PRIMARY DISCHARGE DIAGNOSES: Sepsis secondary to urinary tract infection, resolved; diabetes mellitus type 2; acute kidney injury, resolved; history of congestive heart failure with systolic dysfunction; coronary artery disease; history of CVA with mild right hemiparesis; dyslipidemia; poor functional status with the patient being wheelchair bound; hypertension; history of ischemic cardiomyopathy. PROCEDURES DONE DURING HOSPITALIZATION: Chest x-ray done showed no acute cardiopulmonary process. Blood cultures x2, no growth. Urine culture just grew yeast. H and H 10 and 28, platelet count 233, white count of 4.6, MCV 93. Discharge BUN and creatinine are 20 and 1.1. Admitting serum glucose was 355. DISCHARGE MEDICATIONS: 1. Vantin 200 mg p.o. twice daily for another 5 days. 2. Plavix 75 mg p.o. daily. 3. Lasix 40 mg p.o. daily. 4. Levothyroxine 88 mcg p.o. daily. 5. Cozaar 50 mg p.o. daily. 6. Coreg 12.5 mg twice daily. 7. Aspirin 81 mg p.o. daily. 8. Amitriptyline 50 mg daily. 9. Detrol LA 4 mg daily. 10. Imdur extended release 30 mg daily. 11. Humulin 70/30, 70 units subcu q.a.m. and 50 units subcu at bedtime. 12. Atorvastatin 80 mg p.o. at bedtime. 13. Amiodarone 200 mg p.o. twice daily. ALLERGIES: ALLERGIC TO CODEINE, LATEX, AND PENICILLIN. DISCHARGE PLAN: The patient to follow up with our nurse practitioner, Claudia Lindsay on 09/22/2019 at 10:15 a.m. BRIEF COURSE DURING HOSPITALIZATION: The patient initially came to ER on the with complaints of lightheadedness/dizziness. Initial workup revealed urinary tract infection. She also had a fever and was hypotensive on arrival. In view of this history and history of coronary artery disease with ischemic cardiomyopathy, the patient was admitted to telemetry. She was placed on broad-spectrum IV antibiotics and pancultures were obtained. Her blood and urine cultures have not grown any bacteria. Her hypotension got corrected with fluid resuscitation. The patient was not in septic shock. She had moderate dehydration. She was placed back on all her home medications including cardiac medications. The patient is deconditioned and is essentially bed bound for last 1 year or so. She has sustained right hemiparesis almost 4 years back with strength of around 4/5 in right upper and lower extremity. This has been chronically present from 4 years. She states her knees give out to ambulate. She is advised to have outpatient referral for orthopedic surgeon via primary care physician in 4 weeks. The patient's recurrent UTI is likely secondary to her being incontinent and wearing diapers. She is otherwise hemodynamically stable and will be shortly discharged home. Please note, I have seen and examined the patient on the day of discharge. Job ID: [id number]
--- NOTE | 2019-09-21 04:59 | PQF ---
paige Ames VINAYA KUMAR MD [id number] CLINICAL DOCUMENTATION CLARIFICATION FORM: POST DISCHARGE Addendum to original discharge summary date: ____ Late entry note date: __ DATE: ATTN: Martha Jackson Please exercise your independent, professional judgment in responding to the clarification form. Clinical indicators are provided on the bottom of this form for your review Diagnosis: Sepsis Present on Admission (POA): [x ] Yes [ ] No [ ] Unable to determine Coding guidelines require hospitals to identify whether a diagnosis was present on admission (POA) or not. To accurately assign the appropriate POA indicator, this information must be clearly documented within the medical record. CLINICAL INDICATORS - SIGNS / SYMPTOMS / LABS Laboratory 09/18 WBC 4.4, Neutrophils 58.3% Lactic Acid 1.4 Vital signs 09/18 BP 91/43, Pulse 67, Resp 15, Temp 98 ED p2 09/18 SIRS scoring: pt did not meet criteria, attending notified decided not to activate H&P p1 09/18 O[employer]emio [employer] When she stood up, she became really dizzy and quite lightened. Family took her BP, aid it was low and then called EMS H&P p3 09/18 O'Artemio [employer] Initial hypotension, resolved with IV fluids Event Note p1 09/19 Dr Romo Hypothermic in ER requiring therapeutic warming Hospitalist PN p5 09/19 Dr Momin hypothermia and hypotension, likely had a component of dehydration, no septic shock RISK FACTORS: H&P p1 09/18 63 year-old female H&P p1 09/18 History of UTI H&P p1 09/18 DM H&P p1 09/18 HTN H&P p1 09/18 Hypothyroidism H&P p3 09/18 Urinary tract infection TREATMENT: OCT 02 IV Rocephin 2gm OCT 02 IVF 1L Microbiology 09/18 Blood culture H&P p3 09/18 repeat CBC (This form is maintained as a part of the permanent medical record) 2014 [email or web address] All Rights Reserved [email or web address]
== END 2019-09-20 16:09 | disposition home health service (06) | DRG 872 ==
LOC: ERS 15:05 → 2NO 18:52
PROVIDERS: ADMIT Family Medicine; ATTEND Family Medicine
DX: A41.9 Sepsis, unspecified organism (principal); N39.0 Urinary tract infection, site not specified; I13.0 Hypertensive heart and chronic kidney disease with heart failure and stage 1 through stage 4 chronic kidney disease, or unspecified chronic kidney disease; I50.22 Chronic systolic (congestive) heart failure; N17.9 Acute kidney failure, unspecified; I69.351 Hemiplegia and hemiparesis following cerebral infarction affecting right dominant side; I25.5 Ischemic cardiomyopathy; I25.10 Atherosclerotic heart disease of native coronary artery without angina pectoris; E11.22 Type 2 diabetes mellitus with diabetic chronic kidney disease; N18.3 Chronic kidney disease, stage 3 (moderate); I48.91 Unspecified atrial fibrillation; E78.5 Hyperlipidemia, unspecified; E03.9 Hypothyroidism, unspecified; E86.0 Dehydration; Z95.810 Presence of automatic (implantable) cardiac defibrillator; Z90.49 Acquired absence of other specified parts of digestive tract; Z90.710 Acquired absence of both cervix and uterus; Z79.899 Other long term (current) drug therapy; Z91.040 Latex allergy status; Z88.0 Allergy status to penicillin; Z88.8 Allergy status to other drugs, medicaments and biological substances; Z91.048 Other nonmedicinal substance allergy status; Z79.4 Long term (current) use of insulin; Z79.82 Long term (current) use of aspirin; Z79.890 Hormone replacement therapy; Z79.02 Long term (current) use of antithrombotics/antiplatelets; Z99.3 Dependence on wheelchair
CPT/HCPCS: 36415; 36416; 51701; 71045; 80048; 80053; 81003; 81015; 82010; 82330; 82533; 82550; 82803; 83605; 83735; 84100; 84439; 84443; 84484; 85025; 87040; 87086; 93005; 96365; A4353; C9113; J0696; J1815; J3490

== ENCOUNTER 2020-03-26 16:22 | Emergency (ER) | payer SELFPAY ==
[2020-03-26 17:04] LABS: #Basophils 0.1 thou/uL (0.0-0.2); #Eosinphils 0.1 thou/uL (0.0-0.7); #Lymphocytes 1.1 thou/uL (1.20-3.40); #Monocytes 0.3 thou/uL (0.11-0.59); #Neutrophils 3.3 thou/uL (1.40-6.50); %Basophils 1.2 % (0.0-1.0); %Eosinophils 2.5 % (0.0-10.0); %Lymphocytes 22.3 % (21.0-51.0); %Monocytes 6.5 % (0.0-10.0); %Neutrophils 67.5 % (42.0-75.0); Mean Corpuscular HGB CONC 33.5 g/dL (32.0-36.0); Mean Corpuscular Hemoglobin 31.1 pg (27.0-31.0); Mean Platelet Volume 7.7 fL (7.4-10.4); Platelet Count 172 thou/uL (130-400); RBC Distribution Width 12.6 % (11.5-14.5); Red Blood Cell (RBC) Count 3.21 mill/uL (4.20-5.40); White Blood Cell (WBC) Count 4.8 thou/uL (4.8-10.8)
--- NOTE | 2020-03-26 17:09 | RAD ---
EXAM: Single view of the chest HISTORY: Hypotension and elevated blood glucose COMPARISON: 09/18/2019 FINDINGS: Single view of the chest shows an enlarged but stable cardiomediastinal silhouette. The pa cemaker is unchanged in position. There is no evidence of consolidation, mass, or pleural effusion. No acute osseous abnormality. IMPRESSION: Stable cardiomegaly
[2020-03-26 17:25] LABS: ALT (SGPT) 34 U/L (8-55); AST (SGOT) 31 U/L (5-34); Albumin 3.2 g/dL (3.4-4.8); Alkaline Phosphatase 75 U/L (40-110); Anion Gap 13 mmol/L (10-20); BUN (Urea Nitrogen) 31 mg/dL (9.8-20.1); Bilirubin, Total 0.5 mg/dL (0.2-1.2); Calc. Creatinine Clearance 0 mL/min (70-130); Calcium 8.3 mg/dL (7.8-10.44); Carbon Dioxide 27 mmol/L (23-31); Chloride 104 mmol/L (98-107); Estimated GFR-MDRD 39; Globulin 2.9 g/dL (2.4-3.5); Glucose 224 mg/dL (80-115); Lipase 20 U/L (8-78); Potassium 4.5 mmol/L (3.5-5.1); Protein, Total 6.1 g/dL (6.0-8.3); Sodium 139 mmol/L (136-145)
[2020-03-26 18:48] LABS: Bacteria/HPF 4+ HPF (None Seen); Bilirubin Negative (Negative); Blood, Urine 2+ (Negative); Clarity Extra Turbid (Clear); Glucose, Urine (Dipstick) Normal (Negative); Ketone, Urine Negative (Negative); Leukocyte 500 Leu/uL (Negative); Nitrite Negative (Negative); Protein, Urine (Dipstick) 300 mg/dL (Neg-Trace); RBC/HPF 21-50 HPF (0-3); Specific Gravity, Urine 1.013 (1.002-1.036); Squamous Epithelial 0-3 HPF (0-3); Urobilinogen Normal mg/dL (Less than 2); WBC/HPF Greater than 50 HPF (0-3); pH, Urine 5.5 (5.0-9.0)
[2020-03-26] MEDS ORDERED: CEFAZOLIN 1 GM VIAL ONE (19:24)
[2020-03-26] MEDS ORDERED: cefTRIAXone\\ROCEPHIN 1 GM VIAL ONE (19:27)
--- NOTE | 2020-03-31 15:41 | EKG ---
Test Reason : Blood Pressure : / mmHG Vent. Rate : 065 BPM Atrial Rate : 065 BPM P-R Int : 218 ms QRS Dur : 106 ms QT Int : 446 ms P-R-T Axes : 040 -39 079 degrees QTc Int : 463 ms Sinus rhythm with 1st degree A-V block Left axis deviation Anterior infarct , age undetermined Abnormal ECG Confirmed by ISHMAEL SANTILLAN DO ([id number]), make up editor MARGUERITE JIMENEZ ([id number]) on 03/31/2020 3:41:25 PM Referred By: Confirmed By:ISHMAEL SANTILLAN DO
== END 2020-03-26 20:31 | disposition home or self-care (01) ==
LOC: ERS 16:22
DX: N39.0 Urinary tract infection, site not specified (principal); I10 Essential (primary) hypertension; J45.909 Unspecified asthma, uncomplicated; E11.40 Type 2 diabetes mellitus with diabetic neuropathy, unspecified; I11.0 Hypertensive heart disease with heart failure; I50.9 Heart failure, unspecified; M19.90 Unspecified osteoarthritis, unspecified site; I25.10 Atherosclerotic heart disease of native coronary artery without angina pectoris; Z86.73 Personal history of transient ischemic attack (TIA), and cerebral infarction without residual deficits; Z79.82 Long term (current) use of aspirin; Z79.4 Long term (current) use of insulin; Z79.899 Other long term (current) drug therapy
CPT/HCPCS: 51701; 71045; 80053; 81003; 81015; 83690; 83880; 84484; 85025; 87086; 93005; 94760; 96365; J0690; J0696

== ENCOUNTER 2020-04-04 09:34 | Emergency (ER) | payer SELFPAY ==
--- NOTE | 2020-04-04 10:21 | RAD ---
RADIOGRAPH CHEST 1 VIEW: DATE: 04/04/2020 HISTORY: 64-year-old female status post acute chest trauma FINDINGS: There is cardiomegaly. There is no evidence of airspace density, pulmonary edema, or pneumothorax. Th e lateral costophrenic angles are not effaced. Single lead left subclavian AICD. IMPRESSION: 1) No acute pulmonary findings. 2) cardiomegaly without congestive heart failure.
--- NOTE | 2020-04-04 10:23 | RAD ---
XR Shoulder Rt 3 View STANDARD HISTORY: Injury, right shoulder pain FINDINGS: There is a nondisplaced fracture involving the right proximal humerus.
--- NOTE | 2020-04-04 10:25 | RAD ---
XR Forearm Rt 2 View STANDARD HISTORY: Trauma, right forearm pain COMPARISON: None. FINDINGS: The right radius and ulna appear intact.
== END 2020-04-04 11:40 | disposition home or self-care (01) ==
LOC: ERS 09:34
DX: S42.201A Unspecified fracture of upper end of right humerus, initial encounter for closed fracture (principal); E11.40 Type 2 diabetes mellitus with diabetic neuropathy, unspecified; Z86.73 Personal history of transient ischemic attack (TIA), and cerebral infarction without residual deficits; I11.0 Hypertensive heart disease with heart failure; I50.9 Heart failure, unspecified; J45.909 Unspecified asthma, uncomplicated; Z79.4 Long term (current) use of insulin; M19.90 Unspecified osteoarthritis, unspecified site; F32.9 Major depressive disorder, single episode, unspecified; Z79.82 Long term (current) use of aspirin; Z79.899 Other long term (current) drug therapy; W01.10XA Fall on same level from slipping, tripping and stumbling with subsequent striking against unspecified object, initial encounter
CPT/HCPCS: 71045

== ENCOUNTER 2020-05-30 19:07 | Emergency (ER) | payer SELFPAY ==
[2020-05-30 19:57] LABS: #Basophils 0.1 thou/uL (0.0-0.2); #Eosinphils 0.2 thou/uL (0.0-0.7); #Lymphocytes 1.4 thou/uL (1.20-3.40); #Monocytes 0.4 thou/uL (0.11-0.59); #Neutrophils 3.7 thou/uL (1.40-6.50); %Eosinophils 4.3 % (0.0-10.0); %Lymphocytes 23.7 % (21.0-51.0); %Monocytes 6.9 % (0.0-10.0); %Neutrophils 64.1 % (42.0-75.0); Hemoglobin 10.7 g/dL (12.0-16.0); Mean Corpuscular HGB CONC 33.6 g/dL (32.0-36.0); Mean Corpuscular Volume 92.3 fL (78.0-98.0); Mean Platelet Volume 7.2 fL (7.4-10.4); Platelet Count 196 thou/uL (130-400); RBC Distribution Width 13.4 % (11.5-14.5); Red Blood Cell (RBC) Count 3.47 mill/uL (4.20-5.40); White Blood Cell (WBC) Count 5.8 thou/uL (4.8-10.8)
--- NOTE | 2020-05-30 20:01 | RAD ---
AP CHEST: 05/30/20 HISTORY: Chest pain. COMPARISON: 04/04/20 Cardiomegaly with AICD lead again noted. Lung devlin appear clear. No evidence of vascular congestion . No interval change apparent. IMPRESSION: Cardiomegaly. No acute lung process. POS: AGW
[2020-05-30] MEDS ORDERED: Nitroglycerin 0.4 MG TAB 1 EACH ONE (20:04)
[2020-05-30 20:19] LABS: ALT (SGPT) 18 U/L (8-55); AST (SGOT) 23 U/L (5-34); Albumin 2.8 g/dL (3.4-4.8); Alkaline Phosphatase 84 U/L (40-110); Anion Gap 11 mmol/L (10-20); BUN (Urea Nitrogen) 16 mg/dL (9.8-20.1); Bilirubin, Total 0.4 mg/dL (0.2-1.2); Calc. Creatinine Clearance 0 mL/min (70-130); Calcium 8.3 mg/dL (7.8-10.44); Carbon Dioxide 27 mmol/L (23-31); Chloride 104 mmol/L (98-107); Estimated GFR-MDRD 67; Globulin 3.3 g/dL (2.4-3.5); Glucose 179 mg/dL (80-115); Lipase 68 U/L (8-78); Magnesium 1.9 mg/dL (1.6-2.6); Potassium 3.7 mmol/L (3.5-5.1); Protein, Total 6.1 g/dL (6.0-8.3); Sodium 138 mmol/L (136-145)
[2020-05-30 21:00] LABS: Bacteria/HPF 4+ HPF (None Seen); Bilirubin Negative (Negative); Blood, Urine 3+ (Negative); Clarity Extra Turbid (Clear); Glucose, Urine (Dipstick) 50 mg/dL (Negative); Ketone, Urine Negative (Negative); Leukocyte 500 Leu/uL (Negative); Nitrite Negative (Negative); Protein, Urine (Dipstick) 300 mg/dL (Neg-Trace); RBC/HPF Greater than 50 HPF (0-3); Specific Gravity, Urine 1.014 (1.002-1.036); Urobilinogen Normal mg/dL (Less than 2); WBC/HPF Greater than 50 HPF (0-3)
[2020-05-30] MEDS ORDERED: HYDROcodone/Acetaminophen 5/325 mg Tablet ONE (21:35)
[2020-05-30] MEDS ORDERED: Fentanyl 100 MCG/2 ML VIAL ONE (21:35)
== END 2020-05-30 22:36 | disposition home or self-care (01) ==
LOC: ERS 19:07
DX: R07.89 Other chest pain (principal); J45.909 Unspecified asthma, uncomplicated; E11.40 Type 2 diabetes mellitus with diabetic neuropathy, unspecified; I11.0 Hypertensive heart disease with heart failure; I50.9 Heart failure, unspecified; Z79.899 Other long term (current) drug therapy
CPT/HCPCS: 36600; 51701; 71045; 80053; 81003; 81015; 83690; 83735; 84484; 85025; 87086; 93005; 96374; J3010

== ENCOUNTER 2020-08-21 09:05 | Emergency (ER) | payer SELFPAY ==
[2020-08-21 09:44] LABS: #Basophils 0.1 thou/uL (0.0-0.2); #Eosinphils 0.2 thou/uL (0.0-0.7); #Lymphocytes 1.3 thou/uL (1.20-3.40); #Monocytes 0.6 thou/uL (0.11-0.59); %Basophils 0.6 % (0.0-1.0); %Eosinophils 1.8 % (0.0-10.0); %Lymphocytes 14.2 % (21.0-51.0); %Monocytes 6.6 % (0.0-10.0); %Neutrophils 76.7 % (42.0-75.0); Hemoglobin 10.4 g/dL (12.0-16.0); Mean Corpuscular HGB CONC 33.3 g/dL (32.0-36.0); Mean Corpuscular Hemoglobin 31.4 pg (27.0-31.0); Mean Corpuscular Volume 94.3 fL (78.0-98.0); Mean Platelet Volume 8.1 fL (7.4-10.4); Platelet Count 159 thou/uL (130-400); RBC Distribution Width 12.8 % (11.5-14.5); Red Blood Cell (RBC) Count 3.32 mill/uL (4.20-5.40); White Blood Cell (WBC) Count 9.2 thou/uL (4.8-10.8)
[2020-08-21 10:02] LABS: ALT (SGPT) 12 U/L (8-55); AST (SGOT) 17 U/L (5-34); Albumin 2.7 g/dL (3.4-4.8); Alkaline Phosphatase 79 U/L (40-110); Anion Gap 13 mmol/L (10-20); BUN (Urea Nitrogen) 25 mg/dL (9.8-20.1); Bilirubin, Total 0.6 mg/dL (0.2-1.2); Calc. Creatinine Clearance 0 mL/min (70-130); Calcium 8.3 mg/dL (7.8-10.44); Carbon Dioxide 20 mmol/L (23-31); Chloride 106 mmol/L (98-107); Globulin 3.4 g/dL (2.4-3.5); Glucose 131 mg/dL (80-115); Lipase 13 U/L (8-78); Potassium 3.7 mmol/L (3.5-5.1); Protein, Total 6.1 g/dL (6.0-8.3); Sodium 135 mmol/L (136-145)
--- NOTE | 2020-08-21 11:31 | CT ---
CT OF THE ABDOMEN AND PELVIS WITH IV CONTRAST INDICATION: History of abdominal pain and diarrhea COMPARISON: April 14, 2020 FINDINGS: ABDOMEN: Lung bases: Mild scarring surrounding 2 separate bronchioles within the left lower lobe is stable sin ce 2011. Liver: No focal lesion. Gallbladder: Surgically absent Pancreas: Normal. Adrenal glands: Normal. Spleen: Normal. Kidneys and ureters: Normal. No hydronephrosis. Vasculature: Vascular mild vascular Lymph nodes:No lymphadenopathy. Free fluid in abdomen:No free fluid is evident. PELVIS: Small and large bowel: There is a moderate amount retained stool within colon Appendix:Not definitely seen Bladder: There is prominent wall thickening and perivesicular fat stranding involving the bladder Rectal and perirectal soft tissues:There is a moderate amount of retained stool within colon. There i s prominent wall thickening and perirectal inflammatory stranding Reproductive structures: Surgically absent Free fluid in pelvis: No free fluid is evident. Lymphadenopathy pelvis: No lymphadenopathy is evident. Osseous structures: There is diffuse osteopenia. There is scattered degenerative and osteoarthritic changes. Soft tissues:There is mild anasarca IMPRESSION: 1. Moderate amount retained stool within the rectum and colon. There is wall thickening with surround ing inflammatory stranding of the rectum suspicious for stercoral proctitis. 2. Cystitis.
[2020-08-21] MEDS ORDERED: Lidocaine 4% Cream 5 GM TUBE w/ Tegaderm ONE (13:27)
[2020-08-21] MEDS ORDERED: Iopamidol-370 76% 500 ML 1 ML ONE (13:56)
--- NOTE | 2020-09-08 16:41 | EKG ---
Test Reason : Blood Pressure : / mmHG Vent. Rate : 084 BPM Atrial Rate : 084 BPM P-R Int : 200 ms QRS Dur : 106 ms QT Int : 372 ms P-R-T Axes : 082 -27 038 degrees QTc Int : 439 ms Normal sinus rhythm Septal infarct , age undetermined Abnormal ECG Confirmed by FIDE BURRELL, NISH Amin ([id number]), technical editor MARGUERITE JIMENEZ ([id number]) on 09/08/2020 4:41:02 PM Referred By: Confirmed By:NISH ELIZALDE MD
== END 2020-08-21 16:55 | disposition home or self-care (01) ==
LOC: ERS 09:05
DX: K62.89 Other specified diseases of anus and rectum (principal); Z79.899 Other long term (current) drug therapy; Z79.82 Long term (current) use of aspirin; Z79.4 Long term (current) use of insulin; J45.909 Unspecified asthma, uncomplicated; E11.40 Type 2 diabetes mellitus with diabetic neuropathy, unspecified; M19.90 Unspecified osteoarthritis, unspecified site; I50.9 Heart failure, unspecified; I25.10 Atherosclerotic heart disease of native coronary artery without angina pectoris; I11.0 Hypertensive heart disease with heart failure
CPT/HCPCS: 36415; 51701; 74177; 80053; 83690; 85025; 87324; 87449; 93005; Q9967

== ENCOUNTER 2021-11-25 10:57 | Observation (INO) | payer OTHER, SELFPAY ==
[2021-11-25 11:35] LABS: #Eosinphils 0.2 thou/uL (0.0-0.7); #Monocytes 0.3 thou/uL (0.11-0.59); #Neutrophils 4.9 thou/uL (1.40-6.50); %Basophils 0.4 % (0.0-1.0); %Lymphocytes 15.8 % (21.0-51.0); %Monocytes 4.8 % (0.0-10.0); %Neutrophils 76.1 % (42.0-75.0); Mean Corpuscular HGB CONC 33.2 g/dL (32.0-36.0); Mean Corpuscular Hemoglobin 32.5 pg (27.0-31.0); Mean Corpuscular Volume 97.8 fL (78.0-98.0); Mean Platelet Volume 6.5 fL (7.4-10.4); Platelet Count 298 thou/uL (130-400); RBC Distribution Width 12.3 % (11.5-14.5); Red Blood Cell (RBC) Count 3.07 mill/uL (4.20-5.40); White Blood Cell (WBC) Count 6.5 thou/uL (4.8-10.8)
[2021-11-25 12:03] LABS: ALT (SGPT) 47 U/L (8-55); AST (SGOT) 38 U/L (5-34); Albumin 3.2 g/dL (3.4-4.8); Alkaline Phosphatase 71 U/L (40-110); Anion Gap 14 mmol/L (10-20); BUN (Urea Nitrogen) 58 mg/dL (9.8-20.1); Bilirubin, Total 0.4 mg/dL (0.2-1.2); Calc. Creatinine Clearance 0 mL/min (70-130); Calcium 8.6 mg/dL (7.8-10.44); Carbon Dioxide 21 mmol/L (23-31); Chloride 97 mmol/L (98-107); Globulin 4.2 g/dL (2.4-3.5); Glucose 397 mg/dL (80-115); Protein, Total 7.4 g/dL (5.8-8.1); Sodium 127 mmol/L (136-145)
[2021-11-25] MEDS ORDERED: Insulin Regular 300 UNITS/3 ML VIAL ONE (13:57)
[2021-11-25] MEDS ORDERED: Acetaminophen 325 MG TAB PO PRN (14:07)
[2021-11-25] MEDS ORDERED: Bisacodyl 5 MG TAB PO PRN (14:07)
[2021-11-25] MEDS ORDERED: Senokot S 8.6-50 MG TAB PO PRN (14:07)
[2021-11-25] MEDS ORDERED: Ondansetron ODT 4 MG TAB PO PRN (14:07)
[2021-11-25] MEDS ORDERED: Dextrose 50% Abboject 50 ML SYRINGE SLOW IVP PRN (14:11)
[2021-11-25] MEDS ORDERED: Dextrose 5% in Water 1,000 ML IV PRN (14:11)
[2021-11-25 16:48] VITALS: BMI 36.5
[2021-11-25] MEDS: HumaLOG 300 UNITS/3 ML VIAL SC PRN (18:06)
[2021-11-25 19:35] LABS: Bilirubin Negative (Negative); Blood, Urine 2+ (Negative); Clarity Extra Turbid (Clear); Glucose, Urine (Dipstick) 300 mg/dL (Negative); Ketone, Urine Negative (Negative); Leukocyte 500 Leu/uL (Negative); Nitrite Negative (Negative); Protein, Urine (Dipstick) 100 mg/dL (Neg-Trace); Urobilinogen Normal mg/dL (Less than 2); pH, Urine 5.5 (5.0-9.0)
[2021-11-25 19:37] LABS: Bacteria/HPF 4+ HPF (None Seen); WBC/HPF Greater than 50 HPF (0-3)
[2021-11-25] MEDS ORDERED: HumuLIN 70/30 (300 UNITS/3 ML VIAL) SC SCH (21:00)
[2021-11-25] MEDS ORDERED: Famotidine 20 MG TAB PO SCH (21:00)
[2021-11-26] MEDS: HumaLOG 300 UNITS/3 ML VIAL SC PRN (05:55)
[2021-11-26 06:49] LABS: #Eosinphils 0.2 thou/uL (0.0-0.7); #Lymphocytes 1.5 thou/uL (1.20-3.40); #Monocytes 0.2 thou/uL (0.11-0.59); #Neutrophils 3.7 thou/uL (1.40-6.50); %Basophils 0.5 % (0.0-1.0); %Eosinophils 4.1 % (0.0-10.0); %Lymphocytes 26.4 % (21.0-51.0); %Monocytes 3.4 % (0.0-10.0); %Neutrophils 65.5 % (42.0-75.0); Hemoglobin 9.8 g/dL (12.0-16.0); Mean Corpuscular HGB CONC 32.8 g/dL (32.0-36.0); Mean Corpuscular Volume 97.7 fL (78.0-98.0); Mean Platelet Volume 6.7 fL (7.4-10.4); Platelet Count 281 thou/uL (130-400); RBC Distribution Width 12.3 % (11.5-14.5); Red Blood Cell (RBC) Count 3.06 mill/uL (4.20-5.40); White Blood Cell (WBC) Count 5.6 thou/uL (4.8-10.8)
[2021-11-26 07:02] LABS: Anion Gap 12 mmol/L (10-20); BUN (Urea Nitrogen) 52 mg/dL (9.8-20.1); Calc. Creatinine Clearance 51 mL/min (70-130); Calcium 8.4 mg/dL (7.8-10.44); Carbon Dioxide 22 mmol/L (23-31); Chloride 100 mmol/L (98-107); Glucose 215 mg/dL (80-115); Potassium 4.4 mmol/L (3.5-5.1); Sodium 130 mmol/L (136-145)
[2021-11-26] MEDS ORDERED: HumuLIN 70/30 (300 UNITS/3 ML VIAL) SC SCH ×2 (07:30→09:00)
[2021-11-26] MEDS ORDERED: Enoxaparin Sodium 40 MG/0.4 ML SYRINGE SC SCH (09:00)
[2021-11-26 12:21] LABS: SARS-CoV-2 PCR by NAA Not Detected (NotDetected)
[2021-11-26 12:57] VITALS: BP 120/72; TEMP 97.8
[2021-11-26] MEDS ORDERED: Famotidine 20 MG TAB PO SCH (21:00)
== END 2021-11-26 13:02 | disposition home or self-care (01) ==
LOC: ERS 10:57 → T4-B 13:48
PROVIDERS: ADMIT Hospitalist; ATTEND Hospitalist
DX: R42 Dizziness and giddiness (principal); R11.0 Nausea; E87.1 Hypo-osmolality and hyponatremia; E11.65 Type 2 diabetes mellitus with hyperglycemia; I25.10 Atherosclerotic heart disease of native coronary artery without angina pectoris; I11.0 Hypertensive heart disease with heart failure; I50.20 Unspecified systolic (congestive) heart failure; I69.351 Hemiplegia and hemiparesis following cerebral infarction affecting right dominant side; E03.9 Hypothyroidism, unspecified; J45.909 Unspecified asthma, uncomplicated; Z77.22 Contact with and (suspected) exposure to environmental tobacco smoke (acute) (chronic); Z79.4 Long term (current) use of insulin; Z79.82 Long term (current) use of aspirin; Z79.890 Hormone replacement therapy; Z79.899 Other long term (current) drug therapy; Z88.0 Allergy status to penicillin; Z88.5 Allergy status to narcotic agent; Z91.040 Latex allergy status; Z95.810 Presence of automatic (implantable) cardiac defibrillator; Z20.822 Contact with and (suspected) exposure to COVID-19
CPT/HCPCS: 71045; 80048; 80053; 81001; 82010; 82962 ×2; 83880; 83930; 84484; 85025 ×2; 93005 ×2; 96374; 97139 ×2; 97530; 99285; U0003; U0005; 36415; 36416; 93010; 96372; G0378; J1650; J1815; Q0162

== ENCOUNTER 2024-06-05 09:22 | Inpatient (IN) | payer MEDICAID, MEDICARE ==
[2024-06-05 09:48] LABS: #Basophils 0.06 10x3/uL (0.0-0.2); %Basophils 0.6 % (0.0-1.0); %Eosinophils 1.6 % (0.0-10.0); %Lymphocytes 13.5 % (21.0-51.0); %Monocytes 4.3 % (0.0-10.0); %Neutrophils 79.7 % (42.0-75.0); Hematocrit 27.6 % (36.0-47.0); Hemoglobin 8.8 g/dL (12.0-16.0); Mean Corpuscular HGB CONC 31.9 g/dL (32.0-36.0); Mean Corpuscular Hemoglobin 29.3 pg (27.0-31.0); Mean Platelet Volume 9.9 fL (7.4-10.4); Platelet Count 182 10x3/uL (130-400); RBC Distribution Width 13.1 % (11.5-14.5)
[2024-06-05 10:03] LABS: ALT (SGPT) 12 U/L (8-55); AST (SGOT) 12 U/L (5-34); Albumin 2.9 g/dL (3.4-4.8); Alkaline Phosphatase 65 U/L (40-110); Anion Gap 15 mmol/L (10-20); BUN (Urea Nitrogen) 52 mg/dL (9.8-20.1); Bilirubin, Total 0.5 mg/dL (0.2-1.2); Calc. Creatinine Clearance 0 mL/min (70-130); Calcium 8.9 mg/dL (7.8-10.44); Carbon Dioxide 22 mmol/L (23-31); Chloride 98 mmol/L (98-107); Estimated GFR 28; Globulin 3.6 g/dL (2.4-3.5); Glucose 340 mg/dL (80-115); Potassium 4.3 mmol/L (3.5-5.1); Protein, Total 6.5 g/dL (5.8-8.1); Sodium 131 mmol/L (136-145)
[2024-06-05] MEDS ORDERED: Morphine 4 MG/ML VIAL ONE (11:16)
[2024-06-05 11:18] LABS: Bacteria/HPF 4+ HPF (None Seen); Bilirubin Negative (Negative); Blood, Urine Trace (Negative); CAUTI Indications for Culture Dysuria,urgency,freq; Clarity Extra Turbid (Clear); Glucose, Urine (Dipstick) Normal (Negative); Ketone, Urine 10 mg/dL (Negative); Leukocyte 500 Leu/uL (Negative); Nitrite Negative (Negative); Protein, Urine (Dipstick) 600 mg/dL (Neg-Trace); Specific Gravity, Urine 1.005 (1.002-1.036); Squamous Epithelial None Seen HPF (0-3); Urobilinogen 3 mg/dL (Less than 2); WBC/HPF Greater than 50 HPF (0-3)
[2024-06-05 11:21] LABS: Urine Culture Reflex Yes Yes
[2024-06-05] MEDS ORDERED: Sodium Chloride 0.9% 100 ML ONE (12:06)
[2024-06-05] MEDS ORDERED: cefTRIAXone (ROCEPHIN) 2 GM VIAL ONE (12:06)
[2024-06-05 12:09] LABS: Troponin I Less than 0.010 ng/mL (< 0.028)
[2024-06-05] MEDS ORDERED: Dextrose 50% Abboject 50 ML SYRINGE SLOW IVP PRN (14:33)
[2024-06-05] MEDS ORDERED: Acetaminophen 650 MG Suppository PR PRN (14:33)
[2024-06-05] MEDS ORDERED: Senokot S 8.6-50 MG TAB PO PRN (14:33)
[2024-06-05] MEDS ORDERED: Ondansetron PF 4 MG/2 ML Vial IVP PRN (14:33)
[2024-06-05] MEDS ORDERED: Glucagon 1 MG/ML KIT IM PRN (14:33)
[2024-06-05] MEDS ORDERED: Dextrose 5% in Water 1,000 ML IV PRN (14:33)
[2024-06-05] MEDS ORDERED: Ondansetron ODT 4 MG TAB PO PRN (14:33)
[2024-06-05] MEDS ORDERED: Calcium Carbonate 500 MG ChewTAB PO PRN (14:33)
[2024-06-05] MEDS: Sodium Chloride 0.9% 500 ML IV SCH (16:43)
[2024-06-05] MEDS: Heparin 5,000 UNITS/ML VIAL SC SCH (16:44)
[2024-06-05] MEDS: FLU (Fluad Triv) TS24-25 (65UP)/MF59C/PF 45 MCG/0.5 ML Syringe IM ONE (16:45)
[2024-06-05 17:20] VITALS: BMI 35.4
[2024-06-05] MEDS: Insulin Lispro 100 UNIT/ML 10 ML VIAL SC PRN (17:51)
[2024-06-05] MEDS: Senokot S 8.6-50 MG TAB PO SCH (21:43)
[2024-06-05] MEDS: Famotidine 20 MG TAB PO SCH (21:49)
[2024-06-06 05:53] LABS: #Basophils 0.04 10x3/uL (0.0-0.2); %Basophils 0.5 % (0.0-1.0); %Eosinophils 3.4 % (0.0-10.0); %Monocytes 4.6 % (0.0-10.0); %Neutrophils 66.1 % (42.0-75.0); Hematocrit 26.5 % (36.0-47.0); Hemoglobin 9.1 g/dL (12.0-16.0); Mean Corpuscular HGB CONC 34.3 g/dL (32.0-36.0); Mean Corpuscular Hemoglobin 31.1 pg (27.0-31.0); Mean Corpuscular Volume 90.4 fL (78.0-98.0); Mean Platelet Volume 10.1 fL (7.4-10.4); Platelet Count 164 10x3/uL (130-400); RBC Distribution Width 13.4 % (11.5-14.5); Red Blood Cell (RBC) Count 2.93 mill/uL (4.20-5.40)
[2024-06-06 06:10] LABS: Anion Gap 11 mmol/L (10-20); BUN (Urea Nitrogen) 49 mg/dL (9.8-20.1); Calc. Creatinine Clearance 58 mL/min (70-130); Calcium 8.3 mg/dL (7.8-10.44); Carbon Dioxide 23 mmol/L (23-31); Chloride 105 mmol/L (98-107); Estimated GFR 39; Glucose 256 mg/dL (80-115); Potassium 4.1 mmol/L (3.5-5.1); Sodium 135 mmol/L (136-145)
[2024-06-06] MEDS: Aspirin 81 mg Enteric Coated Tablet PO SCH (09:05)
[2024-06-06] MEDS: cefTRIAXone\\ROCEPHIN 1 GM in Sodium Chloride 0.9% 100 ML IVPB SCH (09:05)
[2024-06-06] MEDS: Polyethylene Glycol 3350 17 GM Packet PO SCH (09:06)
[2024-06-06] MEDS: Acetaminophen 325 MG TAB PO PRN (09:16)
[2024-06-06 10:03] VITALS: BMI 35.4
[2024-06-07 05:29] LABS: #Basophils 0.04 10x3/uL (0.0-0.2); %Basophils 0.6 % (0.0-1.0); %Eosinophils 3.9 % (0.0-10.0); %Lymphocytes 34.4 % (21.0-51.0); %Neutrophils 54.8 % (42.0-75.0); Hematocrit 25.5 % (36.0-47.0); Hemoglobin 8.4 g/dL (12.0-16.0); Mean Corpuscular HGB CONC 32.9 g/dL (32.0-36.0); Mean Corpuscular Hemoglobin 30.4 pg (27.0-31.0); Mean Corpuscular Volume 92.4 fL (78.0-98.0); Mean Platelet Volume 10.3 fL (7.4-10.4); Platelet Count 155 10x3/uL (130-400); RBC Distribution Width 13.2 % (11.5-14.5); Red Blood Cell (RBC) Count 2.76 mill/uL (4.20-5.40)
[2024-06-07 06:07] LABS: ALT (SGPT) 16 U/L (8-55); AST (SGOT) 14 U/L (5-34); Albumin 2.3 g/dL (3.4-4.8); Alkaline Phosphatase 60 U/L (40-110); Anion Gap 11 mmol/L (10-20); BUN (Urea Nitrogen) 48 mg/dL (9.8-20.1); Bilirubin, Total 0.5 mg/dL (0.2-1.2); Calc. Creatinine Clearance 61 mL/min (70-130); Calcium 8.4 mg/dL (7.8-10.44); Carbon Dioxide 23 mmol/L (23-31); Chloride 102 mmol/L (98-107); Estimated GFR 41; Globulin 3.2 g/dL (2.4-3.5); Glucose 259 mg/dL (80-115); Potassium 4.3 mmol/L (3.5-5.1); Protein, Total 5.5 g/dL (5.8-8.1); Sodium 132 mmol/L (136-145)
[2024-06-07] MEDS: Gabapentin 100 MG CAP PO SCH (21:25)
[2024-06-07] MEDS: Amitriptyline HCl 100 MG TAB PO SCH (21:25)
[2024-06-07] MEDS: Atorvastatin Calcium 40 MG TAB PO SCH (21:26)
[2024-06-07] MEDS: Insulin Lispro 100 UNIT/ML 10 ML VIAL SC PRN (21:28)
[2024-06-08] MEDS: Levothyroxine Sodium 88 MCG TAB PO SCH (06:44)
[2024-06-08 08:58] VITALS: BP 144/81; TEMP 98
[2024-06-08] MEDS: Insulin Glargine 30 UNITS/0.3 ML VIAL SC SCH (09:02)
== END 2024-06-08 18:52 | disposition home or self-care (01) | DRG 683 ==
LOC: ERS 09:22 → T4-A 15:37
PROVIDERS: ADMIT Hospitalist; ATTEND Internal Medicine
DX: N17.9 Acute kidney failure, unspecified (principal); I13.0 Hypertensive heart and chronic kidney disease with heart failure and stage 1 through stage 4 chronic kidney disease, or unspecified chronic kidney disease; N39.0 Urinary tract infection, site not specified; I50.22 Chronic systolic (congestive) heart failure; I69.359 Hemiplegia and hemiparesis following cerebral infarction affecting unspecified side; N18.32 Chronic kidney disease, stage 3b; E11.65 Type 2 diabetes mellitus with hyperglycemia; K59.00 Constipation, unspecified; D64.9 Anemia, unspecified; I25.10 Atherosclerotic heart disease of native coronary artery without angina pectoris; E11.22 Type 2 diabetes mellitus with diabetic chronic kidney disease; E78.5 Hyperlipidemia, unspecified; E03.9 Hypothyroidism, unspecified; E66.9 Obesity, unspecified; Z68.35 Body mass index [BMI] 35.0-35.9, adult; Z91.040 Latex allergy status; Z88.0 Allergy status to penicillin; Z88.5 Allergy status to narcotic agent; Z90.710 Acquired absence of both cervix and uterus; Z79.4 Long term (current) use of insulin
CPT/HCPCS: 36415; 36416; 51702; 80048; 80053; 81001; 82274; 84484; 85025; 87077; 87086; 87186; 87324; 87449; 93005; 96374; 97139; J0696; J1644; J1815; J2272; J7030

== ENCOUNTER 2025-02-28 14:08 | Inpatient (IN) | payer MEDICARE ==
[2025-02-28 15:34] LABS: #Basophils Less than 0.03 10x3/uL (0.0-0.2); #Eosinophils 0.05 10x3/uL (0.0-0.7); #Monocytes 0.34 10x3/uL (0.11-0.59); #Neutrophils 4.88 10x3/uL (1.40-6.50); %Basophils 0.3 % (0.0-1.0); %Eosinophils 0.8 % (0.0-10.0); %Lymphocytes 14.6 % (21.0-51.0); %Monocytes 5.5 % (0.0-10.0); %Neutrophils 78.3 % (42.0-75.0); Hematocrit 19.8 % (36.0-47.0); Hemoglobin 6.0 g/dL (12.0-16.0); Mean Corpuscular Hemoglobin 28.4 pg (27.0-31.0); Mean Corpuscular Volume 93.8 fL (78.0-98.0); Platelet Count 316 10x3/uL (130-400); Red Blood Cell (RBC) Count 2.11 mill/uL (4.20-5.40); White Blood Cell (WBC) Count 6.23 10x3/uL (4.8-10.8)
[2025-02-28 15:53] LABS: ALT (SGPT) 22 U/L (Less than 34); AST (SGOT) 48 U/L (11-34); Albumin 1.5 g/dL (3.1-4.5); Alkaline Phosphatase 51 U/L (40-110); Anion Gap 15 mmol/L (10-20); BUN (Urea Nitrogen) 45 mg/dL (9.8-20.1); Bilirubin, Total 0.2 mg/dL (0.3-1.2); Calc. Creatinine Clearance 0 mL/min (70-130); Calcium 8.2 mg/dL (7.8-10.44); Carbon Dioxide 19 mmol/L (23-31); Chloride 99 mmol/L (98-107); Globulin 4.9 g/dL (2.4-3.5); Glucose 167 mg/dL (80-115); Potassium 4.1 mmol/L (3.5-5.1); Sodium 129 mmol/L (136-145)
[2025-02-28 16:28] LABS: #Basophils 0.03 10x3/uL (0.0-0.2); #Eosinophils 0.04 10x3/uL (0.0-0.7); #Monocytes 0.42 10x3/uL (0.11-0.59); #Neutrophils 5.16 10x3/uL (1.40-6.50); %Basophils 0.4 % (0.0-1.0); %Eosinophils 0.6 % (0.0-10.0); %Lymphocytes 15.6 % (21.0-51.0); %Monocytes 6.2 % (0.0-10.0); %Neutrophils 76.8 % (42.0-75.0); Hematocrit 23.4 % (36.0-47.0); Hemoglobin 7.4 g/dL (12.0-16.0); Mean Corpuscular Hemoglobin 29.2 pg (27.0-31.0); Mean Corpuscular Volume 92.5 fL (78.0-98.0); Platelet Count 289 10x3/uL (130-400); Red Blood Cell (RBC) Count 2.53 mill/uL (4.20-5.40); White Blood Cell (WBC) Count 6.73 10x3/uL (4.8-10.8)
[2025-02-28] MEDS ORDERED: Pantoprazole 40 MG VIAL ONE (17:18)
[2025-02-28 20:29] VITALS: BMI 38.9
[2025-02-28] MEDS ORDERED: Glucagon 1 MG/ML KIT IM PRN (20:41)
[2025-02-28] MEDS ORDERED: Dextrose 50% Abboject 50 ML SYRINGE SLOW IVP PRN (20:41)
[2025-02-28 20:50] LABS: Hematocrit 26.7 % (36.0-47.0); Hemoglobin 8.4 g/dL (12.0-16.0)
[2025-02-28] MEDS ORDERED: Nitroglycerin 0.4 MG TAB (25 Tab Bottle) SL PRN (21:33)
[2025-02-28] MEDS: Pantoprazole 40 MG VIAL IVP SCH (21:35)
[2025-02-28] MEDS: Fluconazole 100 MG TAB PO SCH (21:42)
[2025-02-28 23:31] LABS: INR-International Normal Ratio 1.2; Prothrombin Time 15.5 sec (12.0-14.7)
[2025-02-28 23:32] LABS: PTT 44.8 sec (22.9-36.1)
[2025-03-01 07:12] LABS: #Basophils 0.03 10x3/uL (0.0-0.2); #Eosinophils 0.23 10x3/uL (0.0-0.7); #Monocytes 0.45 10x3/uL (0.11-0.59); #Neutrophils 4.77 10x3/uL (1.40-6.50); %Basophils 0.4 % (0.0-1.0); %Eosinophils 3.4 % (0.0-10.0); %Lymphocytes 18.9 % (21.0-51.0); %Monocytes 6.6 % (0.0-10.0); %Neutrophils 70.4 % (42.0-75.0); Hematocrit 27.6 % (36.0-47.0); Hemoglobin 8.9 g/dL (12.0-16.0); Mean Corpuscular Hemoglobin 28.9 pg (27.0-31.0); Mean Corpuscular Volume 89.6 fL (78.0-98.0); Platelet Count 293 10x3/uL (130-400); Red Blood Cell (RBC) Count 3.08 mill/uL (4.20-5.40); White Blood Cell (WBC) Count 6.78 10x3/uL (4.8-10.8)
[2025-03-01 07:22] LABS: ALT (SGPT) 18 U/L (Less than 34); AST (SGOT) 35 U/L (11-34); Albumin 1.5 g/dL (3.1-4.5); Alkaline Phosphatase 50 U/L (40-110); Anion Gap 14 mmol/L (10-20); BUN (Urea Nitrogen) 44 mg/dL (9.8-20.1); Bilirubin, Total 0.5 mg/dL (0.3-1.2); Calc. Creatinine Clearance 47 mL/min (70-130); Calcium 8.0 mg/dL (7.8-10.44); Carbon Dioxide 17 mmol/L (23-31); Chloride 102 mmol/L (98-107); Globulin 4.5 g/dL (2.4-3.5); Glucose 133 mg/dL (80-115); Potassium 3.5 mmol/L (3.5-5.1); Sodium 129 mmol/L (136-145)
[2025-03-01] MEDS: Gabapentin 100 MG CAP PO SCH (11:32)
[2025-03-01] MEDS: Furosemide 20 MG TAB PO SCH (11:33)
[2025-03-01] MEDS: GoLYTELY 4,000 ml Bottle PO SCH (18:47)
[2025-03-01] MEDS: [UNRECOGNIZED DRUG - OTHER] TOP SCH (20:09)
[2025-03-01] MEDS: PIPERONYL BUTOXIDE TOP SCH (20:09)
[2025-03-01] MEDS ORDERED: Insulin Glargine 30 UNITS/0.3 ML VIAL SC SCH (21:00)
[2025-03-02 05:17] LABS: #Basophils 0.04 10x3/uL (0.0-0.2); #Eosinophils 0.22 10x3/uL (0.0-0.7); #Monocytes 0.40 10x3/uL (0.11-0.59); #Neutrophils 5.19 10x3/uL (1.40-6.50); %Basophils 0.5 % (0.0-1.0); %Eosinophils 3.0 % (0.0-10.0); %Lymphocytes 20.5 % (21.0-51.0); %Monocytes 5.4 % (0.0-10.0); %Neutrophils 70.2 % (42.0-75.0); Hematocrit 28.3 % (36.0-47.0); Hemoglobin 9.0 g/dL (12.0-16.0); Mean Corpuscular Hemoglobin 28.9 pg (27.0-31.0); Mean Corpuscular Volume 91.0 fL (78.0-98.0); Platelet Count 319 10x3/uL (130-400); Red Blood Cell (RBC) Count 3.11 mill/uL (4.20-5.40); White Blood Cell (WBC) Count 7.40 10x3/uL (4.8-10.8)
[2025-03-02 05:57] LABS: ALT (SGPT) 18 U/L (Less than 34); AST (SGOT) 39 U/L (11-34); Albumin 1.5 g/dL (3.1-4.5); Alkaline Phosphatase 52 U/L (40-110); Anion Gap 15 mmol/L (10-20); BUN (Urea Nitrogen) 40 mg/dL (9.8-20.1); Bilirubin, Total 0.4 mg/dL (0.3-1.2); Calc. Creatinine Clearance 54 mL/min (70-130); Calcium 7.8 mg/dL (7.8-10.44); Carbon Dioxide 18 mmol/L (23-31); Chloride 101 mmol/L (98-107); Globulin 4.7 g/dL (2.4-3.5); Glucose 132 mg/dL (80-115); Potassium 3.7 mmol/L (3.5-5.1); Sodium 130 mmol/L (136-145)
[2025-03-02 15:45] VITALS: BMI 38.9
[2025-03-02] MEDS: GoLYTELY 4,000 ml Bottle PO SCH (16:45)
[2025-03-02] MEDS ORDERED: GoLYTELY 4,000 ml Bottle PO SCH (18:00)
[2025-03-03 04:54] LABS: #Basophils 0.04 10x3/uL (0.0-0.2); #Eosinophils 0.10 10x3/uL (0.0-0.7); #Monocytes 0.52 10x3/uL (0.11-0.59); #Neutrophils 7.04 10x3/uL (1.40-6.50); %Basophils 0.4 % (0.0-1.0); %Eosinophils 1.0 % (0.0-10.0); %Lymphocytes 20.7 % (21.0-51.0); %Monocytes 5.3 % (0.0-10.0); %Neutrophils 72.2 % (42.0-75.0); Hematocrit 25.8 % (36.0-47.0); Hemoglobin 8.1 g/dL (12.0-16.0); Mean Corpuscular Hemoglobin 29.0 pg (27.0-31.0); Mean Corpuscular Volume 92.5 fL (78.0-98.0); Platelet Count 281 10x3/uL (130-400); Red Blood Cell (RBC) Count 2.79 mill/uL (4.20-5.40); White Blood Cell (WBC) Count 9.76 10x3/uL (4.8-10.8)
[2025-03-03 05:27] LABS: ALT (SGPT) 16 U/L (Less than 34); AST (SGOT) 29 U/L (11-34); Albumin 1.4 g/dL (3.1-4.5); Alkaline Phosphatase 46 U/L (40-110); Anion Gap 14 mmol/L (10-20); BUN (Urea Nitrogen) 42 mg/dL (9.8-20.1); Bilirubin, Total 0.4 mg/dL (0.3-1.2); Calc. Creatinine Clearance 52 mL/min (70-130); Calcium 7.4 mg/dL (7.8-10.44); Carbon Dioxide 20 mmol/L (23-31); Chloride 100 mmol/L (98-107); Globulin 4.0 g/dL (2.4-3.5); Glucose 153 mg/dL (80-115); Potassium 3.6 mmol/L (3.5-5.1); Sodium 130 mmol/L (136-145)
[2025-03-03] MEDS: Losartan 25 MG TAB PO SCH (10:15)
[2025-03-04 06:31] LABS: #Basophils 0.03 10x3/uL (0.0-0.2); #Eosinophils 0.14 10x3/uL (0.0-0.7); #Monocytes 0.43 10x3/uL (0.11-0.59); #Neutrophils 6.28 10x3/uL (1.40-6.50); %Basophils 0.3 % (0.0-1.0); %Eosinophils 1.6 % (0.0-10.0); %Lymphocytes 22.0 % (21.0-51.0); %Monocytes 4.9 % (0.0-10.0); %Neutrophils 71.0 % (42.0-75.0); Hematocrit 24.1 % (36.0-47.0); Hemoglobin 7.7 g/dL (12.0-16.0); Mean Corpuscular Hemoglobin 29.6 pg (27.0-31.0); Mean Corpuscular Volume 92.7 fL (78.0-98.0); Platelet Count 259 10x3/uL (130-400); Red Blood Cell (RBC) Count 2.60 mill/uL (4.20-5.40); White Blood Cell (WBC) Count 8.85 10x3/uL (4.8-10.8)
[2025-03-04 06:54] LABS: ALT (SGPT) 12 U/L (Less than 34); AST (SGOT) 20 U/L (11-34); Albumin 1.3 g/dL (3.1-4.5); Alkaline Phosphatase 49 U/L (40-110); Anion Gap 17 mmol/L (10-20); BUN (Urea Nitrogen) 44 mg/dL (9.8-20.1); Bilirubin, Total 0.3 mg/dL (0.3-1.2); Calc. Creatinine Clearance 49 mL/min (70-130); Calcium 7.4 mg/dL (7.8-10.44); Carbon Dioxide 19 mmol/L (23-31); Chloride 103 mmol/L (98-107); Globulin 4.1 g/dL (2.4-3.5); Glucose 112 mg/dL (80-115); Potassium 3.2 mmol/L (3.5-5.1); Sodium 136 mmol/L (136-145)
[2025-03-04 14:29] LABS: Hematocrit 24.0 % (36.0-47.0); Hemoglobin 7.6 g/dL (12.0-16.0); Mean Corpuscular Hemoglobin 29.3 pg (27.0-31.0); Mean Corpuscular Volume 92.7 fL (78.0-98.0); Platelet Count 265 10x3/uL (130-400); Red Blood Cell (RBC) Count 2.59 mill/uL (4.20-5.40); White Blood Cell (WBC) Count 8.61 10x3/uL (4.8-10.8)
[2025-03-04] MEDS: Ondansetron PF 4 MG/2 ML Vial IVP PRN (16:58)
[2025-03-05 05:57] LABS: #Basophils Less than 0.03 10x3/uL (0.0-0.2); #Eosinophils 0.22 10x3/uL (0.0-0.7); #Monocytes 0.40 10x3/uL (0.11-0.59); #Neutrophils 4.84 10x3/uL (1.40-6.50); %Basophils 0.3 % (0.0-1.0); %Eosinophils 3.0 % (0.0-10.0); %Lymphocytes 25.6 % (21.0-51.0); %Monocytes 5.4 % (0.0-10.0); %Neutrophils 65.4 % (42.0-75.0); Hematocrit 27.2 % (36.0-47.0); Hemoglobin 8.4 g/dL (12.0-16.0); Mean Corpuscular Hemoglobin 29.0 pg (27.0-31.0); Mean Corpuscular Volume 93.8 fL (78.0-98.0); Platelet Count 269 10x3/uL (130-400); Red Blood Cell (RBC) Count 2.90 mill/uL (4.20-5.40); White Blood Cell (WBC) Count 7.39 10x3/uL (4.8-10.8)
[2025-03-05 06:16] LABS: ALT (SGPT) 13 U/L (Less than 34); AST (SGOT) 19 U/L (11-34); Albumin 1.4 g/dL (3.1-4.5); Alkaline Phosphatase 55 U/L (40-110); Anion Gap 13 mmol/L (10-20); BUN (Urea Nitrogen) 41 mg/dL (9.8-20.1); Bilirubin, Total 0.2 mg/dL (0.3-1.2); Calc. Creatinine Clearance 51 mL/min (70-130); Calcium 7.6 mg/dL (7.8-10.44); Carbon Dioxide 21 mmol/L (23-31); Chloride 102 mmol/L (98-107); Globulin 4.4 g/dL (2.4-3.5); Glucose 165 mg/dL (80-115); Potassium 3.5 mmol/L (3.5-5.1); Sodium 132 mmol/L (136-145)
[2025-03-05 11:49] VITALS: BP 104/51; TEMP 99
== END 2025-03-05 15:55 | disposition home or self-care (01) | DRG 812 ==
LOC: ERS 14:08 → 2NO 18:25 → OBSVTOIN 03-01 12:46
PROVIDERS: ADMIT Family Medicine; ATTEND Family Medicine
PROC: 30233N1 Transfusion of Nonautologous Red Blood Cells into Peripheral Vein, Percutaneous Approach (ICD-10-PCS; principal; 2025-02-28)
DX: D64.9 Anemia, unspecified (principal); K92.2 Gastrointestinal hemorrhage, unspecified; I13.0 Hypertensive heart and chronic kidney disease with heart failure and stage 1 through stage 4 chronic kidney disease, or unspecified chronic kidney disease; I50.22 Chronic systolic (congestive) heart failure; E87.1 Hypo-osmolality and hyponatremia; E44.0 Moderate protein-calorie malnutrition; E11.22 Type 2 diabetes mellitus with diabetic chronic kidney disease; I95.9 Hypotension, unspecified; E78.5 Hyperlipidemia, unspecified; L89.510 Pressure ulcer of right ankle, unstageable; N18.30 Chronic kidney disease, stage 3 unspecified; B37.31 Acute candidiasis of vulva and vagina; E11.42 Type 2 diabetes mellitus with diabetic polyneuropathy; E88.09 Other disorders of plasma-protein metabolism, not elsewhere classified; Z88.5 Allergy status to narcotic agent; Z91.040 Latex allergy status; Z88.0 Allergy status to penicillin; Z79.82 Long term (current) use of aspirin; Z79.899 Other long term (current) drug therapy; Z79.4 Long term (current) use of insulin; Z90.710 Acquired absence of both cervix and uterus; Z90.49 Acquired absence of other specified parts of digestive tract; Z90.89 Acquired absence of other organs; Z98.891 History of uterine scar from previous surgery; Z86.73 Personal history of transient ischemic attack (TIA), and cerebral infarction without residual deficits; Z68.38 Body mass index [BMI] 38.0-38.9, adult
CPT/HCPCS: 36415; 36416; 36430; 80053; 82274; 85025; 85610; 85730; 86850; 86900; 86901; 93005; 93010; 93923; 96374; 96376; 97139; G0378; J1815; J2405; J2470; J7030; P9016

== ENCOUNTER 2025-04-07 12:20 | Inpatient (IN) | payer MEDICARE, OTHER ==
[~2025-04-07 12:20] MED LIST: Iopamidol-370 76% 500 ML MDV (1 ML CHARGE) ONE
[2025-04-07 14:24] LABS: #Basophils 0.03 10x3/uL (0.0-0.2); #Eosinophils 0.05 10x3/uL (0.0-0.7); #Monocytes 0.32 10x3/uL (0.11-0.59); #Neutrophils 3.57 10x3/uL (1.40-6.50); %Basophils 0.6 % (0.0-1.0); %Eosinophils 1.0 % (0.0-10.0); %Lymphocytes 20.2 % (21.0-51.0); %Monocytes 6.4 % (0.0-10.0); %Neutrophils 71.4 % (42.0-75.0); Hematocrit 24.2 % (36.0-47.0); Hemoglobin 7.5 g/dL (12.0-16.0); Mean Corpuscular Hemoglobin 28.0 pg (27.0-31.0); Mean Corpuscular Volume 90.3 fL (78.0-98.0); Platelet Count 224 10x3/uL (130-400); Red Blood Cell (RBC) Count 2.68 mill/uL (4.20-5.40); White Blood Cell (WBC) Count 5.00 10x3/uL (4.8-10.8)
[2025-04-07 14:38] LABS: ALT (SGPT) 14 U/L (Less than 34); AST (SGOT) 32 U/L (11-34); Albumin 1.3 g/dL (3.1-4.5); Alkaline Phosphatase 69 U/L (40-110); Anion Gap 10 mmol/L (10-20); BUN (Urea Nitrogen) 24 mg/dL (9.8-20.1); Bilirubin, Total 0.4 mg/dL (0.3-1.2); Calc. Creatinine Clearance 0 mL/min (70-130); Calcium 8.2 mg/dL (7.8-10.44); Carbon Dioxide 24 mmol/L (23-31); Chloride 101 mmol/L (98-107); Globulin 5.0 g/dL (2.4-3.5); Glucose 140 mg/dL (80-115); Potassium 4.2 mmol/L (3.5-5.1); Sodium 131 mmol/L (136-145)
[2025-04-07 14:43] LABS: INR-International Normal Ratio 1.2; Prothrombin Time 15.6 sec (12.0-14.7)
[2025-04-07 14:44] LABS: PTT 40.1 sec (22.9-36.1)
[2025-04-07 16:05] LABS: Bacteria/HPF 4+ HPF (None Seen); CAUTI Indications for Culture Dysuria,urgency,freq; WBC/HPF Greater than 50 HPF (0-3)
[2025-04-07 16:21] LABS: Glucose, Urine (Dipstick) Negative (Negative); Leukocyte Moderate (Negative); Protein, Urine (Dipstick) 100 mg/dL (Neg-Trace); Specific Gravity, Urine 1.020 (1.005-1.030)
[2025-04-07 16:26] LABS: RBC/HPF 21-50 HPF (0-3); Yeast-Budding 1+ HPF (None Seen)
[2025-04-07 16:27] LABS: Urine Culture Reflex Yes Yes
[2025-04-07] MEDS ORDERED: cefTRIAXone (ROCEPHIN) 1 GM VIAL ONE (16:48)
[2025-04-07] MEDS ORDERED: Fluconazole 100 MG TAB ONE (16:53)
[2025-04-07] MEDS ORDERED: Ondansetron PF 4 MG/2 ML Vial IVP PRN (20:15)
[2025-04-07] MEDS ORDERED: Pharmacy to Dose : VANC IVPB PRN (21:33)
[2025-04-07] MEDS ORDERED: Glucagon 1 MG/ML KIT IM PRN (22:33)
[2025-04-07] MEDS ORDERED: Acetaminophen 325 MG TAB PO PRN (22:33)
[2025-04-07] MEDS ORDERED: Dextrose 50% Abboject 50 ML SYRINGE SLOW IVP PRN (22:33)
[2025-04-07] MEDS ORDERED: Senokot S 8.6-50 MG TAB PO PRN (22:33)
[2025-04-07] MEDS ORDERED: Ibuprofen 200 MG TAB PO PRN (22:33)
[2025-04-07] MEDS: Vancomycin (BATCH) 2.5 GM in Premix 1 BAG IVPB SCH (22:35)
[2025-04-07] MEDS ORDERED: Nitroglycerin 0.4 MG TAB (25 Tab Bottle) SL PRN (23:34)
[2025-04-08 05:19] LABS: #Basophils Less than 0.03 10x3/uL (0.0-0.2); #Eosinophils Less than 0.03 10x3/uL (0.0-0.7); #Monocytes 0.04 10x3/uL (0.11-0.59); #Neutrophils 3.14 10x3/uL (1.40-6.50); %Basophils 0.3 % (0.0-1.0); %Eosinophils 0.0 % (0.0-10.0); %Lymphocytes 7.0 % (21.0-51.0); %Monocytes 1.2 % (0.0-10.0); %Neutrophils 91.2 % (42.0-75.0); Hematocrit 22.0 % (36.0-47.0); Hemoglobin 6.6 g/dL (12.0-16.0); Mean Corpuscular Hemoglobin 28.1 pg (27.0-31.0); Mean Corpuscular Volume 93.6 fL (78.0-98.0); Platelet Count 218 10x3/uL (130-400); Red Blood Cell (RBC) Count 2.35 mill/uL (4.20-5.40); White Blood Cell (WBC) Count 3.44 10x3/uL (4.8-10.8)
[2025-04-08 06:15] LABS: Vancomycin, Random 29.9 ug/mL (See Comment)
[2025-04-08 06:17] LABS: ALT (SGPT) 12 U/L (Less than 34); AST (SGOT) 22 U/L (11-34); Albumin 1.2 g/dL (3.1-4.5); Alkaline Phosphatase 57 U/L (40-110); Anion Gap 10 mmol/L (10-20); BUN (Urea Nitrogen) 26 mg/dL (9.8-20.1); Bilirubin, Total 0.3 mg/dL (0.3-1.2); Calc. Creatinine Clearance 61 mL/min (70-130); Calcium 8.1 mg/dL (7.8-10.44); Carbon Dioxide 21 mmol/L (23-31); Chloride 102 mmol/L (98-107); Globulin 4.3 g/dL (2.4-3.5); Glucose 145 mg/dL (80-115); Potassium 4.2 mmol/L (3.5-5.1); Sodium 129 mmol/L (136-145)
[2025-04-08] MEDS: Furosemide 20 MG TAB PO SCH (08:23)
[2025-04-08] MEDS: Famotidine 20 MG TAB PO SCH (08:23)
[2025-04-08] MEDS: Losartan 25 MG TAB PO SCH (08:23)
[2025-04-08] MEDS: Aspirin 81 mg Enteric Coated Tablet PO SCH (08:23)
[2025-04-08] MEDS: cefTRIAXone\\ROCEPHIN 1 GM in Sodium Chloride 0.9% 100 ML IVPB SCH (08:24)
[2025-04-08] MEDS: Enoxaparin 40 MG (0.4 mL) SYRINGE SC SCH (08:24)
[2025-04-08] MEDS: Clotrimazole 1 % Cream 30 GM TUBE TOP SCH (08:24)
[2025-04-08] MEDS: Famotidine/PF 20 mg/2ml Vial SLOW IVP SCH (08:38)
[2025-04-08 16:17] LABS: Hematocrit 30.5 % (36.0-47.0); Hemoglobin 9.6 g/dL (12.0-16.0)
[2025-04-08] MEDS: Gabapentin 100 MG CAP PO SCH (21:34)
[2025-04-08] MEDS: Pantoprazole 40 MG VIAL IVP SCH (21:35)
[2025-04-08] MEDS: Insulin Glargine 30 UNITS/0.3 ML VIAL SC SCH (21:35)
[2025-04-08] MEDS: Vancomycin 1 GM in Premix 1 BAG IVPB SCH (21:53)
[2025-04-09 05:07] LABS: #Basophils 0.04 10x3/uL (0.0-0.2); #Eosinophils 0.05 10x3/uL (0.0-0.7); #Monocytes 0.26 10x3/uL (0.11-0.59); #Neutrophils 1.92 10x3/uL (1.40-6.50); %Basophils 1.1 % (0.0-1.0); %Eosinophils 1.4 % (0.0-10.0); %Lymphocytes 35.9 % (21.0-51.0); %Monocytes 7.3 % (0.0-10.0); %Neutrophils 53.7 % (42.0-75.0); Hematocrit 28.3 % (36.0-47.0); Hemoglobin 8.9 g/dL (12.0-16.0); Mean Corpuscular Hemoglobin 28.0 pg (27.0-31.0); Mean Corpuscular Volume 89.0 fL (78.0-98.0); Platelet Count 199 10x3/uL (130-400); Red Blood Cell (RBC) Count 3.18 mill/uL (4.20-5.40); White Blood Cell (WBC) Count 3.57 10x3/uL (4.8-10.8)
[2025-04-09 05:31] LABS: ALT (SGPT) 12 U/L (Less than 34); AST (SGOT) 26 U/L (11-34); Albumin 1.2 g/dL (3.1-4.5); Alkaline Phosphatase 60 U/L (40-110); Anion Gap 11 mmol/L (10-20); BUN (Urea Nitrogen) 28 mg/dL (9.8-20.1); Bilirubin, Total 0.4 mg/dL (0.3-1.2); Calc. Creatinine Clearance 66 mL/min (70-130); Calcium 7.9 mg/dL (7.8-10.44); Carbon Dioxide 21 mmol/L (23-31); Chloride 103 mmol/L (98-107); Globulin 4.2 g/dL (2.4-3.5); Glucose 109 mg/dL (80-115); Potassium 4.0 mmol/L (3.5-5.1); Sodium 131 mmol/L (136-145)
[2025-04-09 07:08] LABS: Osmolality, Serum 284 mOsm/kg (280-301)
[2025-04-09 08:00] LABS: Osmolality, Urine 343 mOsm/kg (50-1200)
[2025-04-09] MEDS ORDERED: PROPOFOL 20 ML ONE (08:56)
[2025-04-09] MEDS ORDERED: Lidocaine 1% PF 5 ML VIAL ONE (08:57)
[2025-04-09] MEDS ORDERED: Etomidate 40 MG (20 mL) VIAL ONE (09:06)
[2025-04-09] MEDS: Fluconazole 100 MG TAB PO SCH (18:23)
[2025-04-10] MEDS: PIPERONYL BUTOXIDE TOP SCH (04:14)
[2025-04-10] MEDS: [UNRECOGNIZED DRUG - OTHER] TOP SCH (04:14)
[2025-04-10 06:23] LABS: #Basophils Less than 0.03 10x3/uL (0.0-0.2); #Eosinophils 0.05 10x3/uL (0.0-0.7); #Monocytes 0.37 10x3/uL (0.11-0.59); #Neutrophils 3.33 10x3/uL (1.40-6.50); %Basophils 0.4 % (0.0-1.0); %Eosinophils 1.1 % (0.0-10.0); %Lymphocytes 16.0 % (21.0-51.0); %Monocytes 8.2 % (0.0-10.0); %Neutrophils 73.9 % (42.0-75.0); Hematocrit 27.2 % (36.0-47.0); Hemoglobin 8.7 g/dL (12.0-16.0); Mean Corpuscular Hemoglobin 28.2 pg (27.0-31.0); Mean Corpuscular Volume 88.0 fL (78.0-98.0); Platelet Count 201 10x3/uL (130-400); Red Blood Cell (RBC) Count 3.09 mill/uL (4.20-5.40); White Blood Cell (WBC) Count 4.51 10x3/uL (4.8-10.8)
[2025-04-10 06:41] LABS: Vancomycin, Random 35.4 ug/mL (See Comment)
[2025-04-10 06:44] LABS: ALT (SGPT) 10 U/L (Less than 34); AST (SGOT) 23 U/L (11-34); Albumin 1.3 g/dL (3.1-4.5); Alkaline Phosphatase 57 U/L (40-110); Anion Gap 13 mmol/L (10-20); BUN (Urea Nitrogen) 26 mg/dL (9.8-20.1); Bilirubin, Total 0.3 mg/dL (0.3-1.2); Calc. Creatinine Clearance 67 mL/min (70-130); Calcium 7.9 mg/dL (7.8-10.44); Carbon Dioxide 20 mmol/L (23-31); Chloride 102 mmol/L (98-107); Globulin 3.9 g/dL (2.4-3.5); Glucose 112 mg/dL (80-115); Potassium 3.6 mmol/L (3.5-5.1); Sodium 131 mmol/L (136-145)
[2025-04-11 04:47] LABS: #Basophils Less than 0.03 10x3/uL (0.0-0.2); #Eosinophils 0.14 10x3/uL (0.0-0.7); #Monocytes 0.25 10x3/uL (0.11-0.59); #Neutrophils 2.14 10x3/uL (1.40-6.50); %Basophils 0.5 % (0.0-1.0); %Eosinophils 3.7 % (0.0-10.0); %Lymphocytes 31.8 % (21.0-51.0); %Monocytes 6.6 % (0.0-10.0); %Neutrophils 56.9 % (42.0-75.0); Hematocrit 27.9 % (36.0-47.0); Hemoglobin 8.6 g/dL (12.0-16.0); Mean Corpuscular Hemoglobin 27.7 pg (27.0-31.0); Mean Corpuscular Volume 90.0 fL (78.0-98.0); Platelet Count 153 10x3/uL (130-400); Red Blood Cell (RBC) Count 3.10 mill/uL (4.20-5.40); White Blood Cell (WBC) Count 3.77 10x3/uL (4.8-10.8)
[2025-04-11 05:07] LABS: ALT (SGPT) 10 U/L (Less than 34); AST (SGOT) 22 U/L (11-34); Albumin 1.3 g/dL (3.1-4.5); Alkaline Phosphatase 55 U/L (40-110); Anion Gap 8 mmol/L (10-20); BUN (Urea Nitrogen) 22 mg/dL (9.8-20.1); Bilirubin, Total 0.2 mg/dL (0.3-1.2); Calc. Creatinine Clearance 76 mL/min (70-130); Calcium 7.9 mg/dL (7.8-10.44); Carbon Dioxide 23 mmol/L (23-31); Chloride 104 mmol/L (98-107); Globulin 3.8 g/dL (2.4-3.5); Glucose 73 mg/dL (80-115); Potassium 3.3 mmol/L (3.5-5.1); Sodium 132 mmol/L (136-145)
[2025-04-11] MEDS: Vancomycin HCl 750 MG in Sodium Chloride 0.9% 250 ML 250 ML IVPB SCH (06:25)
[2025-04-11] MEDS: Insulin Glargine 30 UNITS/0.3 ML VIAL SC SCH (21:38)
[2025-04-11 22:56] LABS: Chlamydia by PCR, Vaginal Swab Not Detected (NotDetected); GC by PCR, Vaginal Swab Not Detected (NotDetected)
[2025-04-12 04:59] LABS: #Basophils Less than 0.03 10x3/uL (0.0-0.2); #Eosinophils 0.12 10x3/uL (0.0-0.7); #Monocytes 0.25 10x3/uL (0.11-0.59); #Neutrophils 2.88 10x3/uL (1.40-6.50); %Basophils 0.2 % (0.0-1.0); %Eosinophils 2.6 % (0.0-10.0); %Lymphocytes 29.7 % (21.0-51.0); %Monocytes 5.4 % (0.0-10.0); %Neutrophils 61.9 % (42.0-75.0); Hematocrit 26.0 % (36.0-47.0); Hemoglobin 7.9 g/dL (12.0-16.0); Mean Corpuscular Hemoglobin 27.4 pg (27.0-31.0); Mean Corpuscular Volume 90.3 fL (78.0-98.0); Platelet Count 159 10x3/uL (130-400); Red Blood Cell (RBC) Count 2.88 mill/uL (4.20-5.40); White Blood Cell (WBC) Count 4.65 10x3/uL (4.8-10.8)
[2025-04-12 05:16] LABS: Vancomycin, Random 33.5 ug/mL (See Comment)
[2025-04-12 05:24] LABS: ALT (SGPT) 15 U/L (Less than 34); AST (SGOT) 30 U/L (11-34); Albumin 1.3 g/dL (3.1-4.5); Alkaline Phosphatase 62 U/L (40-110); Anion Gap 10 mmol/L (10-20); BUN (Urea Nitrogen) 23 mg/dL (9.8-20.1); Bilirubin, Total 0.2 mg/dL (0.3-1.2); Calc. Creatinine Clearance 81 mL/min (70-130); Calcium 7.4 mg/dL (7.8-10.44); Carbon Dioxide 21 mmol/L (23-31); Chloride 104 mmol/L (98-107); Globulin 3.4 g/dL (2.4-3.5); Glucose 127 mg/dL (80-115); Potassium 4.0 mmol/L (3.5-5.1); Sodium 131 mmol/L (136-145)
[2025-04-12] MEDS ORDERED: Vancomycin Dose by Levels Sliding Scale (Wt > 99) FS SCH (10:30)
[2025-04-13 05:56] LABS: #Basophils Less than 0.03 10x3/uL (0.0-0.2); #Eosinophils 0.19 10x3/uL (0.0-0.7); #Monocytes 0.33 10x3/uL (0.11-0.59); #Neutrophils 2.75 10x3/uL (1.40-6.50); %Basophils 0.4 % (0.0-1.0); %Eosinophils 3.8 % (0.0-10.0); %Lymphocytes 34.3 % (21.0-51.0); %Monocytes 6.5 % (0.0-10.0); %Neutrophils 54.6 % (42.0-75.0); Hematocrit 23.3 % (36.0-47.0); Hemoglobin 7.2 g/dL (12.0-16.0); Mean Corpuscular Hemoglobin 27.2 pg (27.0-31.0); Mean Corpuscular Volume 87.9 fL (78.0-98.0); Platelet Count 159 10x3/uL (130-400); Red Blood Cell (RBC) Count 2.65 mill/uL (4.20-5.40); White Blood Cell (WBC) Count 5.04 10x3/uL (4.8-10.8)
[2025-04-13 06:12] LABS: ALT (SGPT) 13 U/L (Less than 34); AST (SGOT) 24 U/L (11-34); Albumin 1.3 g/dL (3.1-4.5); Alkaline Phosphatase 57 U/L (40-110); Anion Gap 13 mmol/L (10-20); BUN (Urea Nitrogen) 22 mg/dL (9.8-20.1); Bilirubin, Total 0.2 mg/dL (0.3-1.2); Calc. Creatinine Clearance 78 mL/min (70-130); Calcium 7.8 mg/dL (7.8-10.44); Carbon Dioxide 23 mmol/L (23-31); Chloride 102 mmol/L (98-107); Globulin 3.6 g/dL (2.4-3.5); Glucose 89 mg/dL (80-115); Potassium 3.7 mmol/L (3.5-5.1); Sodium 134 mmol/L (136-145)
[2025-04-13 06:54] LABS: Vancomycin, Trough 32.5 ug/mL
[2025-04-13] MEDS ORDERED: Fluconazole 100 MG TAB PO SCH (09:00)
[2025-04-13] MEDS: Fluconazole 100 MG TAB PO SCH (09:41)
[2025-04-13] MEDS: cefTRIAXone\\ROCEPHIN 2 GM in Sodium Chloride 0.9% 100 ML IVPB SCH (10:02)
[2025-04-13 11:53] LABS: Iron 64 ug/dL (50-170); Iron Binding Capacity, Total 105 mcg/dL (265-497); Transferrin, Serum 84 mg/dL (173-360)
[2025-04-14 06:41] LABS: #Basophils 0.03 10x3/uL (0.0-0.2); #Eosinophils 0.15 10x3/uL (0.0-0.7); #Monocytes 0.29 10x3/uL (0.11-0.59); #Neutrophils 2.43 10x3/uL (1.40-6.50); %Basophils 0.6 % (0.0-1.0); %Eosinophils 3.1 % (0.0-10.0); %Lymphocytes 40.3 % (21.0-51.0); %Monocytes 5.9 % (0.0-10.0); %Neutrophils 49.7 % (42.0-75.0); Hematocrit 23.6 % (36.0-47.0); Hemoglobin 7.4 g/dL (12.0-16.0); Mean Corpuscular Hemoglobin 28.1 pg (27.0-31.0); Mean Corpuscular Volume 89.7 fL (78.0-98.0); Platelet Count 165 10x3/uL (130-400); Red Blood Cell (RBC) Count 2.63 mill/uL (4.20-5.40); White Blood Cell (WBC) Count 4.89 10x3/uL (4.8-10.8)
[2025-04-14 06:50] LABS: Vancomycin, Trough 25.5 ug/mL
[2025-04-14 06:54] LABS: ALT (SGPT) 12 U/L (Less than 34); AST (SGOT) 24 U/L (11-34); Albumin 1.5 g/dL (3.1-4.5); Alkaline Phosphatase 61 U/L (40-110); Anion Gap 11 mmol/L (10-20); BUN (Urea Nitrogen) 17 mg/dL (9.8-20.1); Bilirubin, Total 0.3 mg/dL (0.3-1.2); Calc. Creatinine Clearance 96 mL/min (70-130); Calcium 8.3 mg/dL (7.8-10.44); Carbon Dioxide 21 mmol/L (23-31); Chloride 104 mmol/L (98-107); Globulin 3.8 g/dL (2.4-3.5); Glucose 97 mg/dL (80-115); Potassium 3.7 mmol/L (3.5-5.1); Sodium 132 mmol/L (136-145)
[2025-04-14] MEDS ORDERED: Sodium Bicarbonate 2.5 MEQ/5 ML SDV ONE (12:35)
[2025-04-14] MEDS ORDERED: Lidocaine 1% PF 5 ML VIAL ONE (12:35)
[2025-04-15 03:49] VITALS: BMI 39.8
[2025-04-15 05:28] LABS: #Basophils 0.03 10x3/uL (0.0-0.2); #Eosinophils 0.15 10x3/uL (0.0-0.7); #Monocytes 0.36 10x3/uL (0.11-0.59); #Neutrophils 2.99 10x3/uL (1.40-6.50); %Basophils 0.6 % (0.0-1.0); %Eosinophils 3.0 % (0.0-10.0); %Lymphocytes 28.3 % (21.0-51.0); %Monocytes 7.3 % (0.0-10.0); %Neutrophils 60.4 % (42.0-75.0); Hematocrit 23.1 % (36.0-47.0); Hemoglobin 7.2 g/dL (12.0-16.0); Mean Corpuscular Hemoglobin 27.4 pg (27.0-31.0); Mean Corpuscular Volume 87.8 fL (78.0-98.0); Platelet Count 185 10x3/uL (130-400); Red Blood Cell (RBC) Count 2.63 mill/uL (4.20-5.40); White Blood Cell (WBC) Count 4.95 10x3/uL (4.8-10.8)
[2025-04-15 05:59] LABS: ALT (SGPT) 12 U/L (Less than 34); AST (SGOT) 20 U/L (11-34); Albumin 1.5 g/dL (3.1-4.5); Alkaline Phosphatase 65 U/L (40-110); Anion Gap 11 mmol/L (10-20); BUN (Urea Nitrogen) 18 mg/dL (9.8-20.1); Bilirubin, Total 0.3 mg/dL (0.3-1.2); Calc. Creatinine Clearance 96 mL/min (70-130); Calcium 8.0 mg/dL (7.8-10.44); Carbon Dioxide 26 mmol/L (23-31); Chloride 100 mmol/L (98-107); Globulin 3.8 g/dL (2.4-3.5); Glucose 141 mg/dL (80-115); Potassium 3.5 mmol/L (3.5-5.1); Sodium 133 mmol/L (136-145)
[2025-04-15 06:49] LABS: Vancomycin, Trough 20.5 ug/mL
[2025-04-16 07:44] LABS: Vancomycin, Trough 16.4 ug/mL
[2025-04-16 07:45] LABS: CRP, High Sensitivity at Bryan 6.14 mg/dL (< or = 0.5)
[2025-04-16 07:46] LABS: ALT (SGPT) 12 U/L (Less than 34); AST (SGOT) 19 U/L (11-34); Albumin 1.7 g/dL (3.1-4.5); Alkaline Phosphatase 72 U/L (40-110); Anion Gap 14 mmol/L (10-20); BUN (Urea Nitrogen) 16 mg/dL (9.8-20.1); Bilirubin, Total 0.3 mg/dL (0.3-1.2); Calc. Creatinine Clearance 95 mL/min (70-130); Calcium 8.3 mg/dL (7.8-10.44); Carbon Dioxide 25 mmol/L (23-31); Chloride 98 mmol/L (98-107); Globulin 4.2 g/dL (2.4-3.5); Glucose 136 mg/dL (80-115); Potassium 3.5 mmol/L (3.5-5.1); Sodium 133 mmol/L (136-145)
[2025-04-16 08:48] LABS: #Basophils Less than 0.03 10x3/uL (0.0-0.2); #Eosinophils 0.14 10x3/uL (0.0-0.7); #Monocytes 0.41 10x3/uL (0.11-0.59); #Neutrophils 2.17 10x3/uL (1.40-6.50); %Basophils 0.5 % (0.0-1.0); %Eosinophils 3.2 % (0.0-10.0); %Lymphocytes 36.8 % (21.0-51.0); %Monocytes 9.4 % (0.0-10.0); %Neutrophils 49.6 % (42.0-75.0); Hematocrit 24.7 % (36.0-47.0); Hemoglobin 7.9 g/dL (12.0-16.0); Mean Corpuscular Hemoglobin 27.7 pg (27.0-31.0); Mean Corpuscular Volume 86.7 fL (78.0-98.0); Platelet Count 188 10x3/uL (130-400); Red Blood Cell (RBC) Count 2.85 mill/uL (4.20-5.40); White Blood Cell (WBC) Count 4.37 10x3/uL (4.8-10.8)
[2025-04-16] MEDS: Pantoprazole 40 MG VIAL IVP SCH (09:06)
[2025-04-16] MEDS: Enoxaparin 40 MG (0.4 mL) SYRINGE SC SCH (09:06)
[2025-04-17 05:35] LABS: #Basophils Less than 0.03 10x3/uL (0.0-0.2); #Eosinophils 0.13 10x3/uL (0.0-0.7); #Monocytes 0.40 10x3/uL (0.11-0.59); #Neutrophils 1.66 10x3/uL (1.40-6.50); %Basophils 0.5 % (0.0-1.0); %Eosinophils 3.1 % (0.0-10.0); %Lymphocytes 47.5 % (21.0-51.0); %Monocytes 9.5 % (0.0-10.0); %Neutrophils 39.2 % (42.0-75.0); Hematocrit 21.0 % (36.0-47.0); Hemoglobin 6.6 g/dL (12.0-16.0); Mean Corpuscular Hemoglobin 27.7 pg (27.0-31.0); Mean Corpuscular Volume 88.2 fL (78.0-98.0); Platelet Count 186 10x3/uL (130-400); Red Blood Cell (RBC) Count 2.38 mill/uL (4.20-5.40); White Blood Cell (WBC) Count 4.23 10x3/uL (4.8-10.8)
[2025-04-17 05:51] LABS: Vancomycin, Random 18.2 ug/mL (See Comment)
[2025-04-17 05:54] LABS: ALT (SGPT) 10 U/L (Less than 34); AST (SGOT) 14 U/L (11-34); Albumin 1.4 g/dL (3.1-4.5); Alkaline Phosphatase 61 U/L (40-110); Anion Gap 10 mmol/L (10-20); BUN (Urea Nitrogen) 13 mg/dL (9.8-20.1); Bilirubin, Total 0.2 mg/dL (0.3-1.2); Calc. Creatinine Clearance 101 mL/min (70-130); Calcium 7.9 mg/dL (7.8-10.44); Carbon Dioxide 28 mmol/L (23-31); Chloride 98 mmol/L (98-107); Globulin 3.7 g/dL (2.4-3.5); Glucose 130 mg/dL (80-115); Potassium 3.2 mmol/L (3.5-5.1); Sodium 133 mmol/L (136-145)
[2025-04-17 07:40] LABS: Magnesium 1.3 mg/dL (1.6-2.6)
[2025-04-17] MEDS: Potassium Chloride 20 MEQ in Premix 1 BAG IVPB SCH (08:10)
[2025-04-17] MEDS: Magnesium 2 GM/50 ML(in water) 2 GM in Premix 1 BAG IVPB SCH (10:03)
[2025-04-17] MEDS: Potassium Phosphate 30 MMOL in Sodium Chloride 0.9% 250 ML 250 ML IVPB SCH (17:21)
[2025-04-17 20:38] LABS: Hematocrit 28.4 % (36.0-47.0); Hemoglobin 8.8 g/dL (12.0-16.0)
[2025-04-17] MEDS: Mupirocin 1 GM TUBE NASAL DECOLONIZATION NASAL SCH (20:54)
[2025-04-17 21:00] LABS: Anion Gap 14 mmol/L (10-20); BUN (Urea Nitrogen) 14 mg/dL (9.8-20.1); Calc. Creatinine Clearance 111 mL/min (70-130); Calcium 8.0 mg/dL (7.8-10.44); Carbon Dioxide 24 mmol/L (23-31); Chloride 97 mmol/L (98-107); Glucose 163 mg/dL (80-115); Potassium 3.6 mmol/L (3.5-5.1); Sodium 131 mmol/L (136-145)
[2025-04-18 05:59] LABS: #Basophils Less than 0.03 10x3/uL (0.0-0.2); #Eosinophils 0.15 10x3/uL (0.0-0.7); #Monocytes 0.32 10x3/uL (0.11-0.59); #Neutrophils 1.86 10x3/uL (1.40-6.50); %Basophils 0.5 % (0.0-1.0); %Eosinophils 3.4 % (0.0-10.0); %Lymphocytes 45.7 % (21.0-51.0); %Monocytes 7.4 % (0.0-10.0); %Neutrophils 42.8 % (42.0-75.0); Hematocrit 24.5 % (36.0-47.0); Hemoglobin 7.9 g/dL (12.0-16.0); Mean Corpuscular Hemoglobin 27.5 pg (27.0-31.0); Mean Corpuscular Volume 85.4 fL (78.0-98.0); Platelet Count 189 10x3/uL (130-400); Red Blood Cell (RBC) Count 2.87 mill/uL (4.20-5.40); White Blood Cell (WBC) Count 4.35 10x3/uL (4.8-10.8)
[2025-04-18 06:20] LABS: ALT (SGPT) 10 U/L (Less than 34); AST (SGOT) 15 U/L (11-34); Albumin 1.4 g/dL (3.1-4.5); Alkaline Phosphatase 64 U/L (40-110); Anion Gap 12 mmol/L (10-20); BUN (Urea Nitrogen) 12 mg/dL (9.8-20.1); Bilirubin, Total 0.3 mg/dL (0.3-1.2); Calc. Creatinine Clearance 103 mL/min (70-130); Calcium 7.8 mg/dL (7.8-10.44); Carbon Dioxide 27 mmol/L (23-31); Chloride 98 mmol/L (98-107); Globulin 3.7 g/dL (2.4-3.5); Glucose 142 mg/dL (80-115); Magnesium 1.6 mg/dL (1.6-2.6); Potassium 3.8 mmol/L (3.5-5.1); Sodium 133 mmol/L (136-145)
[2025-04-18] MEDS: GoLYTELY 4,000 ml Bottle PO SCH (15:37)
[2025-04-18 18:50] LABS: Hematocrit 29.8 % (36.0-47.0); Hemoglobin 9.5 g/dL (12.0-16.0)
[2025-04-19 07:58] LABS: #Basophils 0.04 10x3/uL (0.0-0.2); #Eosinophils 0.15 10x3/uL (0.0-0.7); #Monocytes 0.29 10x3/uL (0.11-0.59); #Neutrophils 2.32 10x3/uL (1.40-6.50); %Basophils 0.8 % (0.0-1.0); %Eosinophils 3.1 % (0.0-10.0); %Lymphocytes 40.9 % (21.0-51.0); %Monocytes 6.1 % (0.0-10.0); %Neutrophils 48.7 % (42.0-75.0); Hematocrit 25.5 % (36.0-47.0); Hemoglobin 8.1 g/dL (12.0-16.0); Mean Corpuscular Hemoglobin 27.3 pg (27.0-31.0); Mean Corpuscular Volume 85.9 fL (78.0-98.0); Platelet Count 223 10x3/uL (130-400); Red Blood Cell (RBC) Count 2.97 mill/uL (4.20-5.40); White Blood Cell (WBC) Count 4.77 10x3/uL (4.8-10.8)
[2025-04-19 08:10] LABS: Vancomycin, Random 15.7 ug/mL (See Comment)
[2025-04-19 08:12] LABS: ALT (SGPT) 12 U/L (Less than 34); AST (SGOT) 26 U/L (11-34); Albumin 1.5 g/dL (3.1-4.5); Alkaline Phosphatase 68 U/L (40-110); Anion Gap 13 mmol/L (10-20); BUN (Urea Nitrogen) 10 mg/dL (9.8-20.1); Bilirubin, Total 0.3 mg/dL (0.3-1.2); Calc. Creatinine Clearance 65 mL/min (70-130); Calcium 7.8 mg/dL (7.8-10.44); Carbon Dioxide 30 mmol/L (23-31); Chloride 97 mmol/L (98-107); Globulin 3.8 g/dL (2.4-3.5); Glucose 124 mg/dL (80-115); Potassium 3.1 mmol/L (3.5-5.1); Sodium 137 mmol/L (136-145)
[2025-04-19] MEDS ORDERED: cefTRIAXone (ROCEPHIN) 2 GM VIAL ONE (08:33)
[2025-04-19] MEDS ORDERED: PROPOFOL 40 ML ONE (08:49)
[2025-04-19] MEDS ORDERED: Glycopyrrolate 0.2 MG/ML 5 ML SYRINGE ONE (09:25)
[2025-04-19] MEDS ORDERED: Potassium Chloride 20 MEQ in Premix 1 BAG IVPB SCH (12:00)
[2025-04-19] MEDS: GoLYTELY 4,000 ml Bottle PO SCH (12:03)
[2025-04-19] MEDS: Potassium Chloride 20 MEQ in Premix 1 BAG IVPB SCH ×2 (12:03→14:24)
[2025-04-19] MEDS: Vancomycin HCl 750 MG in Sodium Chloride 0.9% 250 ML 250 ML IVPB SCH ×2 (13:50→14:25)
[2025-04-19] MEDS: cefTRIAXone\\ROCEPHIN 2 GM in Sodium Chloride 0.9% 100 ML IVPB SCH (16:34)
[2025-04-20 06:27] LABS: #Basophils 0.04 10x3/uL (0.0-0.2); #Eosinophils 0.15 10x3/uL (0.0-0.7); #Monocytes 0.25 10x3/uL (0.11-0.59); #Neutrophils 2.02 10x3/uL (1.40-6.50); %Basophils 0.9 % (0.0-1.0); %Eosinophils 3.5 % (0.0-10.0); %Lymphocytes 41.9 % (21.0-51.0); %Monocytes 5.9 % (0.0-10.0); %Neutrophils 47.6 % (42.0-75.0); Hematocrit 24.0 % (36.0-47.0); Hemoglobin 7.6 g/dL (12.0-16.0); Mean Corpuscular Hemoglobin 27.0 pg (27.0-31.0); Mean Corpuscular Volume 85.4 fL (78.0-98.0); Platelet Count 192 10x3/uL (130-400); Red Blood Cell (RBC) Count 2.81 mill/uL (4.20-5.40); White Blood Cell (WBC) Count 4.25 10x3/uL (4.8-10.8)
[2025-04-20 07:00] LABS: ALT (SGPT) 13 U/L (Less than 34); AST (SGOT) 23 U/L (11-34); Albumin 1.4 g/dL (3.1-4.5); Alkaline Phosphatase 66 U/L (40-110); Anion Gap 12 mmol/L (10-20); BUN (Urea Nitrogen) 9 mg/dL (9.8-20.1); Bilirubin, Total 0.2 mg/dL (0.3-1.2); Calc. Creatinine Clearance 67 mL/min (70-130); Calcium 7.5 mg/dL (7.8-10.44); Carbon Dioxide 31 mmol/L (23-31); Chloride 97 mmol/L (98-107); Globulin 3.7 g/dL (2.4-3.5); Glucose 115 mg/dL (80-115); Potassium 3.2 mmol/L (3.5-5.1); Sodium 137 mmol/L (136-145)
[2025-04-20 07:40] LABS: Magnesium 1.4 mg/dL (1.6-2.6)
[2025-04-20 09:39] VITALS: BMI 38.0
[2025-04-20] MEDS: PHOS-NAK 1 PKT PACK PO SCH (10:39)
[2025-04-20] MEDS: Magnesium 2 GM/50 ML(in water) 2 GM in Premix 1 BAG IVPB SCH (10:39)
[2025-04-20] MEDS: Potassium Chloride 20 MEQ in Premix 1 BAG IVPB SCH (11:24)
[2025-04-21 05:08] LABS: #Basophils 0.04 10x3/uL (0.0-0.2); #Eosinophils 0.15 10x3/uL (0.0-0.7); #Monocytes 0.21 10x3/uL (0.11-0.59); #Neutrophils 1.96 10x3/uL (1.40-6.50); %Basophils 1.0 % (0.0-1.0); %Eosinophils 3.6 % (0.0-10.0); %Lymphocytes 43.3 % (21.0-51.0); %Monocytes 5.0 % (0.0-10.0); %Neutrophils 46.9 % (42.0-75.0); Hematocrit 23.2 % (36.0-47.0); Hemoglobin 7.3 g/dL (12.0-16.0); Mean Corpuscular Hemoglobin 27.3 pg (27.0-31.0); Mean Corpuscular Volume 86.9 fL (78.0-98.0); Platelet Count 204 10x3/uL (130-400); Red Blood Cell (RBC) Count 2.67 mill/uL (4.20-5.40); White Blood Cell (WBC) Count 4.18 10x3/uL (4.8-10.8)
[2025-04-21 05:26] LABS: Vancomycin, Random 21.8 ug/mL (See Comment)
[2025-04-21 05:30] LABS: ALT (SGPT) 9 U/L (Less than 34); AST (SGOT) 18 U/L (11-34); Albumin 1.3 g/dL (3.1-4.5); Alkaline Phosphatase 63 U/L (40-110); Anion Gap 13 mmol/L (10-20); BUN (Urea Nitrogen) 6 mg/dL (9.8-20.1); Bilirubin, Total 0.2 mg/dL (0.3-1.2); Calc. Creatinine Clearance 125 mL/min (70-130); Calcium 7.6 mg/dL (7.8-10.44); Carbon Dioxide 27 mmol/L (23-31); Chloride 98 mmol/L (98-107); Globulin 3.7 g/dL (2.4-3.5); Glucose 93 mg/dL (80-115); Magnesium 1.5 mg/dL (1.6-2.6); Potassium 3.1 mmol/L (3.5-5.1); Sodium 135 mmol/L (136-145)
[2025-04-21] MEDS ORDERED: PHOS-NAK 1 PKT PACK PO SCH (07:15)
[2025-04-21] MEDS: Magnesium 2 GM/50 ML(in water) 2 GM in Premix 1 BAG IVPB SCH (08:31)
[2025-04-21] MEDS: Potassium Phosphate 30 MMOL in Sodium Chloride 0.9% 250 ML 250 ML IVPB SCH (09:45)
[2025-04-21] MEDS: Furosemide 40 MG (4 mL) VIAL SLOW IVP SCH (09:46)
[2025-04-21] MEDS: Potassium Chloride 20 MEQ in Premix 1 BAG IVPB SCH (09:47)
[2025-04-21 18:13] LABS: Hematocrit 27.7 % (36.0-47.0); Hemoglobin 9.0 g/dL (12.0-16.0)
[2025-04-21 18:27] LABS: Anion Gap 19 mmol/L (10-20); BUN (Urea Nitrogen) 8 mg/dL (9.8-20.1); Calc. Creatinine Clearance 117 mL/min (70-130); Calcium 7.8 mg/dL (7.8-10.44); Carbon Dioxide 19 mmol/L (23-31); Chloride 97 mmol/L (98-107); Glucose 154 mg/dL (80-115); Magnesium 1.7 mg/dL (1.6-2.6); Potassium 4.1 mmol/L (3.5-5.1); Sodium 131 mmol/L (136-145)
[2025-04-22 07:01] LABS: #Basophils 0.05 10x3/uL (0.0-0.2); #Eosinophils 0.10 10x3/uL (0.0-0.7); #Monocytes 0.30 10x3/uL (0.11-0.59); #Neutrophils 4.79 10x3/uL (1.40-6.50); %Basophils 0.7 % (0.0-1.0); %Eosinophils 1.3 % (0.0-10.0); %Lymphocytes 29.4 % (21.0-51.0); %Monocytes 4.0 % (0.0-10.0); %Neutrophils 64.2 % (42.0-75.0); Hematocrit 26.3 % (36.0-47.0); Hemoglobin 8.4 g/dL (12.0-16.0); Mean Corpuscular Hemoglobin 27.7 pg (27.0-31.0); Mean Corpuscular Volume 86.8 fL (78.0-98.0); Platelet Count 235 10x3/uL (130-400); Red Blood Cell (RBC) Count 3.03 mill/uL (4.20-5.40); White Blood Cell (WBC) Count 7.46 10x3/uL (4.8-10.8)
[2025-04-22 07:26] LABS: ALT (SGPT) 11 U/L (Less than 34); AST (SGOT) 16 U/L (11-34); Albumin 1.6 g/dL (3.1-4.5); Alkaline Phosphatase 72 U/L (40-110); Anion Gap 14 mmol/L (10-20); BUN (Urea Nitrogen) 7 mg/dL (9.8-20.1); Bilirubin, Total 0.3 mg/dL (0.3-1.2); Calc. Creatinine Clearance 107 mL/min (70-130); Calcium 7.8 mg/dL (7.8-10.44); Carbon Dioxide 25 mmol/L (23-31); Chloride 95 mmol/L (98-107); Globulin 3.9 g/dL (2.4-3.5); Glucose 138 mg/dL (80-115); Potassium 3.7 mmol/L (3.5-5.1); Sodium 130 mmol/L (136-145)
[2025-04-22 08:39] LABS: Magnesium 1.6 mg/dL (1.6-2.6)
[2025-04-22] MEDS: Furosemide 20 MG (2 mL) VIAL SLOW IVP SCH (12:09)
[2025-04-22] MEDS: Magnesium 2 GM/50 ML(in water) 2 GM in Premix 1 BAG IVPB SCH (12:09)
[2025-04-23 06:25] LABS: #Basophils 0.05 10x3/uL (0.0-0.2); #Eosinophils 0.10 10x3/uL (0.0-0.7); #Monocytes 0.33 10x3/uL (0.11-0.59); #Neutrophils 3.81 10x3/uL (1.40-6.50); %Basophils 0.8 % (0.0-1.0); %Eosinophils 1.6 % (0.0-10.0); %Lymphocytes 31.1 % (21.0-51.0); %Monocytes 5.3 % (0.0-10.0); %Neutrophils 60.7 % (42.0-75.0); Hematocrit 19.7 % (36.0-47.0); Hemoglobin 6.0 g/dL (12.0-16.0); Mean Corpuscular Hemoglobin 27.0 pg (27.0-31.0); Mean Corpuscular Volume 88.7 fL (78.0-98.0); Platelet Count 226 10x3/uL (130-400); Red Blood Cell (RBC) Count 2.22 mill/uL (4.20-5.40); White Blood Cell (WBC) Count 6.27 10x3/uL (4.8-10.8)
[2025-04-23 06:43] LABS: ALT (SGPT) 7 U/L (Less than 34); AST (SGOT) 13 U/L (11-34); Albumin 1.3 g/dL (3.1-4.5); Alkaline Phosphatase 61 U/L (40-110); Anion Gap 11 mmol/L (10-20); BUN (Urea Nitrogen) 8 mg/dL (9.8-20.1); Bilirubin, Total 0.3 mg/dL (0.3-1.2); Calc. Creatinine Clearance 104 mL/min (70-130); Calcium 7.7 mg/dL (7.8-10.44); Carbon Dioxide 27 mmol/L (23-31); Chloride 96 mmol/L (98-107); Globulin 3.7 g/dL (2.4-3.5); Glucose 116 mg/dL (80-115); Potassium 3.7 mmol/L (3.5-5.1); Sodium 130 mmol/L (136-145)
[2025-04-23] MEDS ORDERED: Iopamidol-370 76% 500 ML MDV (1 ML CHARGE) ONE (09:43)
[2025-04-23 11:57] LABS: Magnesium 1.7 mg/dL (1.6-2.6)
[2025-04-23 12:01] LABS: Hematocrit 23.3 % (36.0-47.0); Hemoglobin 7.3 g/dL (12.0-16.0)
[2025-04-23] MEDS: Furosemide 20 MG (2 mL) VIAL SLOW IVP SCH (18:26)
[2025-04-23 19:55] LABS: Hematocrit 25.6 % (36.0-47.0); Hemoglobin 7.7 g/dL (12.0-16.0)
[2025-04-24 07:04] LABS: #Basophils 0.04 10x3/uL (0.0-0.2); #Eosinophils 0.17 10x3/uL (0.0-0.7); #Monocytes 0.32 10x3/uL (0.11-0.59); #Neutrophils 3.16 10x3/uL (1.40-6.50); %Basophils 0.7 % (0.0-1.0); %Eosinophils 3.0 % (0.0-10.0); %Lymphocytes 35.6 % (21.0-51.0); %Monocytes 5.6 % (0.0-10.0); %Neutrophils 54.8 % (42.0-75.0); Hematocrit 25.7 % (36.0-47.0); Hemoglobin 8.0 g/dL (12.0-16.0); Mean Corpuscular Hemoglobin 27.6 pg (27.0-31.0); Mean Corpuscular Volume 88.6 fL (78.0-98.0); Platelet Count 199 10x3/uL (130-400); Red Blood Cell (RBC) Count 2.90 mill/uL (4.20-5.40); White Blood Cell (WBC) Count 5.76 10x3/uL (4.8-10.8)
[2025-04-24 07:17] LABS: Vancomycin, Random 23.8 ug/mL (See Comment)
[2025-04-24 07:19] LABS: ALT (SGPT) Less than 7 U/L (Less than 34); AST (SGOT) 14 U/L (11-34); Albumin 1.5 g/dL (3.1-4.5); Alkaline Phosphatase 66 U/L (40-110); Anion Gap 13 mmol/L (10-20); BUN (Urea Nitrogen) 10 mg/dL (9.8-20.1); Bilirubin, Total 0.3 mg/dL (0.3-1.2); Calc. Creatinine Clearance 98 mL/min (70-130); Calcium 8.1 mg/dL (7.8-10.44); Carbon Dioxide 27 mmol/L (23-31); Chloride 93 mmol/L (98-107); Globulin 3.9 g/dL (2.4-3.5); Glucose 135 mg/dL (80-115); Potassium 3.5 mmol/L (3.5-5.1); Sodium 129 mmol/L (136-145)
[2025-04-24 12:31] LABS: Magnesium 1.6 mg/dL (1.6-2.6)
[2025-04-24] MEDS: Albumin 25% 25 GM (100 mL) BOT IVPB SCH (12:41)
[2025-04-24] MEDS: Magnesium 2 GM/50 ML(in water) 2 GM in Premix 1 BAG IVPB SCH (17:21)
[2025-04-24] MEDS: Furosemide 20 MG (2 mL) VIAL SLOW IVP SCH (17:59)
[2025-04-25 06:18] LABS: #Basophils 0.04 10x3/uL (0.0-0.2); #Eosinophils 0.23 10x3/uL (0.0-0.7); #Monocytes 0.27 10x3/uL (0.11-0.59); #Neutrophils 2.17 10x3/uL (1.40-6.50); %Basophils 0.9 % (0.0-1.0); %Eosinophils 4.9 % (0.0-10.0); %Lymphocytes 41.3 % (21.0-51.0); %Monocytes 5.8 % (0.0-10.0); %Neutrophils 46.7 % (42.0-75.0); Hematocrit 24.8 % (36.0-47.0); Hemoglobin 7.9 g/dL (12.0-16.0); Mean Corpuscular Hemoglobin 27.5 pg (27.0-31.0); Mean Corpuscular Volume 86.4 fL (78.0-98.0); Platelet Count 227 10x3/uL (130-400); Red Blood Cell (RBC) Count 2.87 mill/uL (4.20-5.40); White Blood Cell (WBC) Count 4.65 10x3/uL (4.8-10.8)
[2025-04-25 06:39] LABS: ALT (SGPT) 7 U/L (Less than 34); AST (SGOT) 15 U/L (11-34); Albumin 1.8 g/dL (3.1-4.5); Alkaline Phosphatase 61 U/L (40-110); Anion Gap 12 mmol/L (10-20); BUN (Urea Nitrogen) 9 mg/dL (9.8-20.1); Bilirubin, Total 0.3 mg/dL (0.3-1.2); Calc. Creatinine Clearance 109 mL/min (70-130); Calcium 8.2 mg/dL (7.8-10.44); Carbon Dioxide 27 mmol/L (23-31); Chloride 92 mmol/L (98-107); Globulin 3.6 g/dL (2.4-3.5); Glucose 134 mg/dL (80-115); Potassium 3.7 mmol/L (3.5-5.1); Sodium 127 mmol/L (136-145)
[2025-04-25 11:39] VITALS: BP 125/75; TEMP 97.4
[2025-04-25] MEDS: Furosemide 20 MG (2 mL) VIAL SLOW IVP SCH (11:45)
[2025-04-25 12:10] LABS: Magnesium 1.9 mg/dL (1.6-2.6)
== END 2025-04-25 14:44 | DRG 548 ==
LOC: ERS 12:20 → SURG B 19:52 → OBSVTOIN 04-08 09:31 → SURG B 04-10 05:23
PROVIDERS: ADMIT Family Medicine; ATTEND Family Medicine
PROC: 0DB78ZX Excision of Stomach, Pylorus, Via Natural or Artificial Opening Endoscopic, Diagnostic (ICD-10-PCS; principal; 2025-04-09)
PROC: 3E033XZ Introduction of Vasopressor into Peripheral Vein, Percutaneous Approach (ICD-10-PCS; 2025-04-09)
PROC: 02HV33Z Insertion of Infusion Device into Superior Vena Cava, Percutaneous Approach (ICD-10-PCS; 2025-04-14)
PROC: B548ZZA Ultrasonography of Superior Vena Cava, Guidance (ICD-10-PCS; 2025-04-14)
PROC: 30233N1 Transfusion of Nonautologous Red Blood Cells into Peripheral Vein, Percutaneous Approach (ICD-10-PCS; 2025-04-17)
PROC: 0DJD8ZZ Inspection of Lower Intestinal Tract, Via Natural or Artificial Opening Endoscopic (ICD-10-PCS; 2025-04-19)
PROC: 3E03329 Introduction of Other Anti-infective into Peripheral Vein, Percutaneous Approach (ICD-10-PCS; 2025-04-19)
PROC: 0DBM8ZZ Excision of Descending Colon, Via Natural or Artificial Opening Endoscopic (ICD-10-PCS; 2025-04-20)
PROC: 0DBL8ZZ Excision of Transverse Colon, Via Natural or Artificial Opening Endoscopic (ICD-10-PCS; 2025-04-20)
DX: M00.9 Pyogenic arthritis, unspecified (principal); E43 Unspecified severe protein-calorie malnutrition; M86.8X8 Other osteomyelitis, other site; T83.511A Infection and inflammatory reaction due to indwelling urethral catheter, initial encounter; E87.1 Hypo-osmolality and hyponatremia; I50.22 Chronic systolic (congestive) heart failure; N39.0 Urinary tract infection, site not specified; E11.69 Type 2 diabetes mellitus with other specified complication; Z86.73 Personal history of transient ischemic attack (TIA), and cerebral infarction without residual deficits; N18.32 Chronic kidney disease, stage 3b; D64.9 Anemia, unspecified; Z88.5 Allergy status to narcotic agent; Z88.0 Allergy status to penicillin; Z91.040 Latex allergy status; E11.40 Type 2 diabetes mellitus with diabetic neuropathy, unspecified; E78.5 Hyperlipidemia, unspecified; Z98.890 Other specified postprocedural states; L89.159 Pressure ulcer of sacral region, unspecified stage; L89.620 Pressure ulcer of left heel, unstageable; B85.0 Pediculosis due to Pediculus humanus capitis; L30.4 Erythema intertrigo; Z95.810 Presence of automatic (implantable) cardiac defibrillator; E88.09 Other disorders of plasma-protein metabolism, not elsewhere classified; R01.1 Cardiac murmur, unspecified; L89.319 Pressure ulcer of right buttock, unspecified stage; K29.00 Acute gastritis without bleeding; E87.6 Hypokalemia; E83.42 Hypomagnesemia; E83.39 Other disorders of phosphorus metabolism; Z79.899 Other long term (current) drug therapy; Z79.82 Long term (current) use of aspirin; Z79.890 Hormone replacement therapy
CPT/HCPCS: 36415; 36416; 36430; 36573; 51702; 71045; 72197; 74177; 74178; 76014; 80053; 80202; 81001; 82274; 82570; 82728; 83540; 83550; 83605; 83735; 83930; 83935; 84100; 84300; 84466; 85025; 85046; 85610; 85730; 86141; 86850; 86900; 86901; 87040; 87070; 87077; 87086; 87149; 87205; 87324; 87449; 87480; 87491; 87510; 87591; 87660; 88305; 88342; 93005; 93306; 96365; 96366; 96372; 96375; 96376; 97139; C1751; G0378; J0696; J1650; J1815; J1940; J2470; J2704; J3372; J3373; J3475; J3480; J7050; P9016; P9047; Q0162; Q9967

== ENCOUNTER 2025-07-21 20:08 | Emergency (ER) | payer OTHER | END 2025-07-21 23:19 | disposition home or self-care (01) | LOC: ERS 20:08 | DX: Z71.1 Person with feared health complaint in whom no diagnosis is made (principal); I11.0 Hypertensive heart disease with heart failure; I50.9 Heart failure, unspecified; E11.40 Type 2 diabetes mellitus with diabetic neuropathy, unspecified; Z86.73 Personal history of transient ischemic attack (TIA), and cerebral infarction without residual deficits; Z79.82 Long term (current) use of aspirin; Z79.899 Other long term (current) drug therapy | CPT/HCPCS: 99283 ==